=== PATIENT | female | born 1985 | race African-American/Black ===

== ENCOUNTER 2019-02-08 10:15 | Emergency (ER) | payer OTHER ==
[~2019-02-08] VITALS: Ht 149.9 cm; Wt 78.7 kg
--- OUTSIDE RECORDS SUMMARY | 2019-02-08 10:19 | XMS REPORT | Clinical Summary ---
Author Author [facility] Address Unknown Phone Unavailable Care Team Providers Care Field Artillery Officer Name Role Phone Asked, No Pcp PCP Unavailable Allergies No Known Allergies Medications End Date Status Medication Sig Dispensed Refills Start Date Active levothyroxine (SYNTHROID, Take 125 mcg 0 LEVOXYL) 125 mcg tablet by mouth daily. 02/01/2019 levoFLOXacin (LEVAQUIN) Take 1 tablet 7 tablet 0 500 MG tablet (500 mg 9 total) by mouth daily for 7 days. 01/31/2019 metroNIDAZOLE (FLAGYL) Take 1 tablet 21 tablet 0 500 MG tablet (500 mg 9 total) by mouth 3 (three) times a day for 7 days. Active Problems Problem Noted Date Wound infection 01/24/2019 Encounters Care Team Description Date Type Specialty Rubio Lomas MD Tu, MD Juli Coreas, MD Ty Mccullough, Obey Meyer MD Wound infection (Primary Dx); Wound dehiscence; Anemia, unspecified type; High anion gap metabolic acidosis 01/23/2019 Emergency General Surgery - 01/24/2019 after 02/07/2018 Social History Date Tobacco Use Types Packs/Day Years Used Never Smoker Smokeless Tobacco: Never Used Drinks/Week oz/Week Comments Alcohol Use Not Currently Sex Assigned at Date Recorded Not on file Industry Job Start Date Occupation Not on file Not on file Not on file Travel End Travel History Travel Start No recent travel history available. Last Filed Vital Signs Reading Time Taken Comments Vital Sign 120/77 01/24/2019 12:13 PM CDT Blood Pressure 71 01/24/2019 12:13 PM CDT Pulse 37.1 C (98.7 F) 01/24/2019 12:13 PM CDT Temperature 18 01/24/2019 12:13 PM CDT Respiratory Rate 98% 01/24/2019 12:13 PM CDT Oxygen Saturation - - Inhaled Oxygen Concentration - - Weight 149.9 cm (4' 11") 01/23/2019 4:42 PM CDT Height - - Body Mass Index Plan of Treatment Health Maintenance Due Date Last Done Comments CERVICAL CANCER SCREENING 01/09/2005 INFLUENZA VACCINE 12/16/2018 Implants Device Identifier Shelf Expiration Date Model / Serial / Lot Implanted Type Area Manufactur er Coils Coils Description:essure coil for female sterilization Coils-05/18/2005 Coils Fallopian Tube Implanted: 05/18/2005 (Quantity not on file) Procedures Comments Procedure Name Priority Date/Time Associated Diagnosis LACTIC ACID LEVEL, SEPSIS Timed 01/24/2019 - NOW AND REPEAT 2X EVERY 7:00 AM CDT 3 HOURS LACTIC ACID LEVEL, SEPSIS Timed 01/24/2019 - NOW AND REPEAT 2X EVERY 2:22 AM CDT [address] ABDOMEN PELVIS W STAT 01/23/2019 CONTRAST 8:40 PM CDT GRAM STAIN STAT 01/23/2019 7:28 PM CDT URINE CULTURE STAT 01/23/2019 7:28 PM CDT ESTIMATED GFR STAT 01/23/2019 5:59 PM CDT LIPASE LEVEL STAT 01/23/2019 5:59 PM CDT AMYLASE LEVEL STAT 01/23/2019 5:59 PM CDT LACTIC ACID LEVEL, SEPSIS STAT 01/23/2019 - NOW AND REPEAT 2X EVERY 5:59 PM CDT 3 HOURS HCG QUALITATIVE, SERUM STAT 01/23/2019 SCREEN 5:59 PM CDT COMPREHENSIVE METABOLIC STAT 01/23/2019 PANEL 5:59 PM CDT HC COMPLETE BLD COUNT STAT 01/23/2019 W/AUTO DIFF 5:59 PM CDT URINALYSIS SCREEN AND STAT 01/23/2019 MICROSCOPY, WITH REFLEX 5:48 PM CDT TO CULTURE after 02/07/2018 Results * Lactic acid level, SEPSIS - Now and repeat 2x every 3 hours (01/24/2019 7:00 AM CDT) Only the most recent of 3 results within the time period is included. Lactic acid 1.1 0.5 - 2.2 mmol/L [facility] Specimen Blood Performing Organization Address City/State/Zipcode Phone Number [facility] DEPARTMENT OF [address] [place] [address] PATHOLOGY AND GENOMIC MEDICINE [facility] [address] [place], [place] [id number] [place] [address] * CT Abdomen Pelvis W Contrast (01/23/2019 8:40 PM CDT) Specimen Narrative Performed At EXAMINATION:CT ABDOMEN PELVIS W CONTRAST [facility] CLINICAL HISTORY:abd painwound dehiscenserecent common bile duct cyst removal and owel resectionincreased pain and fever TECHNIQUE: Multiple axial images of the abdomen and pelvis were obtained following intravenous administration of iodinated contrast. Sagittal and coronal computerized reformatted images were also obtained. CT imaging was performed with iterative reconstruction techniques and/or automated exposure control to reduce radiation dose. COMPARISON:None. FINDINGS: Postsurgical change in the right upper quadrant. Gallbladder is absent. Hepaticojejunostomy is noted with a biliary stent in place. There is no biliary dilatation. Mild pneumobilia. No fluid collection is seen. Trace free fluid in the pelvis is nonspecific. There is prominent soft tissue induration in the anterior abdominal wall along the incision. No discrete fluid collection is seen. No signs of bowel obstruction or inflammation. Appendix is normal. Subtle fatty fullness in the anterior right adnexal region caudal to surgical clips is probably an area of fat necrosis or omental infarct. IMPRESSION: Abdominal wall induration along the incision suggest wound infection. No discrete abscess. Postsurgical changes otherwise as noted. No biliary dilatation or intraperitoneal collection. [facility]-[id number] Procedure Note Interface, Radiology Results Incoming - 01/23/2019 8:49 PM CDT EXAMINATION: CT ABDOMEN PELVIS W CONTRAST CLINICAL HISTORY: abd pain wound dehiscense recent common bile duct cyst removal and owel resection increased pain and fever TECHNIQUE: Multiple axial images of the abdomen and pelvis were obtained following intravenous administration of iodinated contrast. Sagittal and coronal computerized reformatted images were also obtained. CT imaging was performed with iterative reconstruction techniques and/or automated exposure control to reduce radiation dose. COMPARISON: None. FINDINGS: Postsurgical change in the right upper quadrant. Gallbladder is absent. Hepaticojejunostomy is noted with a biliary stent in place. There is no biliary dilatation. Mild pneumobilia. No fluid collection is seen. Trace free fluid in the pelvis is nonspecific. There is prominent soft tissue induration in the anterior abdominal wall along the incision. No discrete fluid collection is seen. No signs of bowel obstruction or inflammation. Appendix is normal. Subtle fatty fullness in the anterior right adnexal region caudal to surgical clips is probably an area of fat necrosis or omental infarct. IMPRESSION: Abdominal wall induration along the incision suggest wound infection. No discrete abscess. Postsurgical changes otherwise as noted. No biliary dilatation or intraperitoneal collection. [facility]-[id number] Performing Organization Address City/[facility] [place] [address] * Gram stain (01/23/2019 7:28 PM CDT) Gram stain Rare WBC's [facility] result Occasional Gram positive rods [facility] Moderate Gram negative rods [facility] Comment: Specimen Information Specimen Source: Urine Specimen Site: Clean catch Specimen Urine Performing Organization Address City/[facility] Phone Number [facility] DEPARTMENT OF [address] [place] [address] PATHOLOGY AND GENOMIC MEDICINE [address] * Urine culture (01/23/2019 7:28 PM CDT) Urine culture Enterobacter cloacae complex [facility] isolate >10-5 cfu/ml [facility] The performance HOSPITAL characteristics of this assay on this isolate were validated by the Microbiology Laboratory at [facility].This source has not been approved by the U.S. Food and Drug Administration.The results are not intended to be used as the sole means for clinical diagnosis or patient management.The Microbiology Laboratory is authorized under the clinical Laboratory Improvement Amendments of 1988 (CLIA-88) to perform high complexity testing. (A) Comment: Specimen Information Specimen Source: Urine Specimen Site: Clean catch Specimen Urine Antibiotic Method Susceptibility Organism Ampicillin MALA >16 mcg/mL: Resistant Enterobacter cloacae complex Amoxicillin/Clavulanate MALA >16/8 mcg/mL: Resistant Enterobacter cloacae complex Amikacin MALA <=4 mcg/mL: Susceptible Enterobacter cloacae complex Aztreonam MALA <=1 mcg/mL: Susceptible Enterobacter cloacae complex Ceftazidime MALA <=0.5 mcg/mL: Susceptible Enterobacter cloacae complex Ciprofloxacin MALA <=0.5 mcg/mL: Susceptible Enterobacter cloacae complex Ceftriaxone MALA <=0.5 mcg/mL: Susceptible Enterobacter cloacae complex Cefuroxime Sodium MALA >16 mcg/mL: Resistant Enterobacter cloacae complex Cefazolin MALA >32 mcg/mL: Resistant Enterobacter cloacae complex Cefepime MALA <=0.5 mcg/mL: Susceptible Enterobacter cloacae complex Nitrofurantoin MALA >64 mcg/mL: Resistant Enterobacter cloacae complex Cefoxitin MALA >16 mcg/mL: Resistant Enterobacter cloacae complex Gentamicin MALA 1 mcg/mL: Susceptible Enterobacter cloacae complex Levofloxacin MALA <=1 mcg/mL: Susceptible Enterobacter cloacae complex Meropenem MALA <=0.125 mcg/mL: Susceptible Enterobacter cloacae complex Tobramycin MALA 1 mcg/mL: Susceptible Enterobacter cloacae complex Ampicillin/Sulbactam MALA 8/4 mcg/mL: Resistant Enterobacter cloacae complex Trimethoprim/Sulfamethoxazole MALA <=0.5/9.5 mcg/mL: Susceptible Enterobacter cloacae complex Tetracycline MALA <=1 mcg/mL: Susceptible Enterobacter cloacae complex Piperacillin/Tazobactam MALA <=2/4 mcg/mL: Susceptible Enterobacter cloacae complex Ertapenem MALA <=0.125 mcg/mL: Susceptible Enterobacter cloacae complex Tigecycline MALA 1 mcg/mL: Susceptible Enterobacter cloacae complex Performing Organization Address City/State/Zipcode Phone Number [facility] DEPARTMENT OF [address] [place] [address] PATHOLOGY AND GENOMIC MEDICINE [address] * Estimated GFR (01/23/2019 5:59 PM CDT) Pathologist [facility] Estimated GFR >=90 mL/min/1.73 m2 [facility] Comment: [facility] rpretation G1 >=90 Normal or high G2 60-89Mildly decreased [id number] Mildly to moderately decreased [id number] Moderately to severely decreased G4 15-29Severely decreased G5 <15Kidney failure The eGFR was calculated using the Chronic Kidney Disease Epidemiology Collaboration (CKD-EPI) equation. Interpretation is based on recommendations of the National Kidney Foundation-Kidney Disease Outcomes Quality Initiative (NKF-KDOQI) published in 2014. Specimen Plasma specimen Performing Organization Address City/State/Zipcode Phone Number [facility] DEPARTMENT OF [address] [place] [address] PATHOLOGY AND GENOMIC MEDICINE [address] * CBC with platelet and differential (01/23/2019 5:59 PM CDT) [facility] WBC 6.30 4.50 - 11.00 k/uL [facility] RBC 3.99 (L) 4.20 - 5.50 m/uL [facility] HGB 10.3 (L) 12.0 - 16.0 g/dL [facility] HCT 33.4 (L) 37.0 - 47.0 % [facility] MCV 83.7 82.0 - 100.0 fL [facility] MCH 25.8 (L) 27.0 - 34.0 pg [facility] MCHC 30.8 (L) 31.0 - 37.0 g/dL [facility] RDW - SD 47.4 37.0 - 55.0 fL [facility] MPV 9.9 8.8 - 13.2 fL [facility] Platelet count 310 150 - 400 k/uL [facility] Nucleated RBC 0.00 /100 WBC [facility] Neutrophils 66.0 39.0 - 69.0 % [facility] Lymphocytes 26.5 25.0 - 45.0 % [facility] Monocytes 6.5 0.0 - 10.0 % [facility] Eosinophils 0.5 0.0 - 5.0 % [facility] Basophils 0.3 0.0 - 1.0 % [facility] Immature 0.2Comment: "Immature 0.0 - 1.0 % [facility] granulocytes granulocytes" (promyelocytes, [facility] myelocytes, metamyelocytes) HOSPITAL Specimen Blood Performing Organization Address City/[facility]/Zipcode Phone Number [facility] DEPARTMENT OF [address] [place] [address] PATHOLOGY AND GENOMIC MEDICINE [address] * hCG qualitative, serum screen (01/23/2019 5:59 PM CDT) Pathologist [facility] hCG NegativeComment: Sensitivity [facility] qualitative, of HCG test: 25 mIU/mL [facility] Specimen Blood Performing Organization Address City/[facility]/Zipcode Phone Number [facility] [place] [address] PATHOLOGY AND GENOMIC MEDICINE [address] * Lipase level (01/23/2019 5:59 PM CDT) Lipase 22 13 - 60 U/L [facility] Specimen Blood Performing Organization Address City/[facility] Cent[facility]ode Phone Number [facility] [place] [address] PATHOLOGY AND GENOMIC MEDICINE [address] * Amylase level (01/23/2019 5:59 PM CDT) Pathologist [facility] Amylase 92 28 - 100 U/L [facility] Specimen Blood Performing Organization Address [facility] Phone Number [facility] [place] [address] PATHOLOGY AND GENOMIC MEDICINE [address] * Comprehensive metabolic panel (01/23/2019 5:59 PM CDT) Sodium 140 135 - 148 mEq/L [facility] Potassium 3.2 (L) 3.5 - 5.0 mEq/L [facility] Chloride 101 98 - 112 mEq/L [facility] CO2 23 (L) 24 - 31 mEq/L [facility] Anion gap 16@ANIO (H) 7 - 15 mEq/L [facility] BUN 4 (L) 6 - 20 mg/dL [facility] Creatinine 0.58 0.50 - 0.90 mg/dL [facility] Glucose 89 65 - 99 mg/dL [facility] Calcium 9.1 8.3 - 10.2 mg/dL [facility] Protein 7.6 6.3 - 8.3 g/dL [facility] Comment: [facility] 4.6-7.0 g/dL 1 week 4.4-7.6 g/dL 7 months-1year 5.1-7.3 g/dL 1-2 years5.6-7 .5 g/dL >3 years6.0-8 .0 g/dL 18-150 6.3-8.3 g/dL Albumin 3.2 (L) 3.5 - 5.0 g/dL [facility] A/G ratio 0.7 0.7 - 3.8 [facility] Alkaline 65 35 - 104 U/L [facility] phosphatase [facility] AST 21 10 - 35 U/L [facility] ALT 9 5 - 50 U/L [facility] Total bilirubin 0.4 0.0 - 1.2 mg/dL [facility] Specimen Plasma specimen Performing Organization Address City/State/Zipcode Phone Number [facility] DEPARTMENT OF [address] [place] [address] PATHOLOGY AND GENOMIC MEDICINE [address] * Urinalysis screen and microscopy, with reflex to culture (01/23/2019 5:48 PM CDT) Specimen site Clean catch [facility] Color, UA Dark Yellow [facility] Appearance, UA Hazy [facility] Specific 1.027 1.001 - 1.035 [facility] gravity, [facility] pH, UA 5.0 5.0 - 8.5 [facility] Protein, UA Negative Negative [facility] Glucose, UA Negative Negative [facility] Ketones, UA Trace (A) Negative [facility] Bilirubin, UA Negative Negative [facility] Blood, UA Negative Negative [facility] Nitrite, UA Positive (A) Negative [facility] Urobilinogen, <2.0 <2.0 [facility] Leukocyte Moderate (A) Negative [facility] esterase, [facility] Epithelial 5 /HPF [facility] cells, [facility] WBC, UA 29 (H) 0 - 4 /HPF [facility] RBC, UA <1 0 - 5 /HPF [facility] Bacteria, UA Moderate (A) None seen [facility] Yeast, UA None seen [facility] Yeast with None seen [facility] Specimen Urine Performing Organization Address City/State/Zipcode Phone Number [facility] DEPARTMENT OF [address] [place] [address] PATHOLOGY AND GENOMIC MEDICINE [place] [phone] [facility] after 02/07/2018 Insurance Type Payer Benefit Subscriber ID Effective Phone Address Plan / Dates Group HMO [employer] xxxxxxxxx [id number] [employer] resent [facility] Advance Directives For more information, please contact: [phone] Patient Application Systems Architect Explanation Type Date Recorded Advance Directives, Living Will and Medical Power of Dragger Out
--- OUTSIDE RECORDS SUMMARY | 2019-02-08 10:21 | XMS REPORT | Summary of Care ---
Author Author [facility] Organization [facility] Address Unknown Phone Unavailable Encounter NEEL Santana(VERONICA) [id number] Date(s): 02/01/19 - 02/01/19 [facility] [address] [place] [address] [address] [place] [phone]- [phone] Discharge Disposition: Home or Self Care Attending Physician: Toni Ye MD Referring Physician: Toni Ye MD Vital Signs Most recent to 1 oldest [Reference Range]: Height 149.86 cm (02/01/19 11:01 AM) Temperature Oral 98.5 DegF [96.4-99.1 DegF] (02/01/19 11:01 AM) Blood Pressure 116/82 mmHg [90-140/60-90 mmHg] (02/01/19 11:01 AM) Respiratory Rate 12 BRMIN [14-20 BRMIN] *LOW* (02/01/19 11:01 AM) Peripheral Pulse 78 bpm Rate [60-100 bpm] (02/01/19 11:01 AM) Weight 79.318 kg (02/01/19 11:01 AM) Body Mass Index 35.32 m2 (02/01/19 11:01 AM) Problem List Condition Effective Dates Status Health Status Informant Abdominal Active pain(Confirmed) Acute Active diarrhea(Confirmed) Acute UTI(Confirmed) Active Bacterial Active vaginosis(Confirmed) Vaginal yeast Active infection(Confirmed) Chest Active pain(Confirmed) Choledochal Active cyst(Confirmed) Low serum vitamin Active D(Confirmed) Hospital discharge Active follow-up(Confirmed) GERD Active (gastroesophageal reflux disease)(Confirmed) Enlarged Active thyroid(Confirmed) Recent major Active surgery(Confirmed) Headache(Confirmed) Active Shingles(Confirmed) Active Hip pain(Confirmed) Active HTN Active (hypertension)(Confi rmed) Hypothyroidism(Confi Active rmed) Loss of Active balance(Confirmed) Female Active incontinence(Confirm ed) Urinary Active frequency(Confirmed) Tailbone Active injury(Confirmed) Low back Active pain(Confirmed) Hyperlipemia, Active mixed(Confirmed) Moderate Active anxiety(Confirmed) Morbidly Active obese(Confirmed) Yeast Active infection(Confirmed) Obesity(Confirmed) Active Cough(Confirmed) Active Female Active dyspareunia(Confirme d) Pelvic Active pain(Confirmed) Breast Active pain(Confirmed) Dysuria(Confirmed) Active Annual physical Active exam(Confirmed) Pap smear for Active cervical cancer screening(Confirmed) Screen for STD Active (sexually transmitted disease)(Confirmed) Prediabetes(Confirme Active d) Prediabetes(Confirme Active d) Pyelonephritis(Confi Active rmed) Rectovaginal Active fistula(Confirmed) Diabetes mellitus Active screening(Confirmed) Seborrheic Active dermatitis(Confirmed ) Left shoulder Active pain(Confirmed) Shoulder Active pain(Confirmed) Obesity due to Active excess calories(Confirmed) Upper respiratory Active infection(Confirmed) Urge Active incontinence(Confirm ed) Urinary Active incontinence(Confirm ed) Vaginal Active discharge(Confirmed) Upper respiratory Active infection, viral(Confirmed) Allergies, Adverse Reactions, Alerts No Known Allergies Medications No Known Medications Results No data available for this section Immunizations Given and Recorded Vaccine Date Status Refusal Reason influenza virus vaccine, inactivated1 01/27/18 Given 1Result Comment: Patient waited 15 min with no reaction Procedures Procedure Date Related Diagnosis Body Site Status Colonoscopy 2012 Completed Procedure on knee1 2010 Completed section Completed Papanicolaou smear taken2 Completed Tubal ligation Completed 1Left knee 2had it years ago Social History Social History Type Response Alcohol Never Substance Abuse Use: None. Recreational Drug Route: Subcutaneous. Smoking Status Never smoker; Exposure to Tobacco Smoke None; Cigarette Smoking Last 365 Days No; Reg Smoking Cessation Counseling No entered on: 02/01/19 Assessment and Plan No data available for this section
--- OUTSIDE RECORDS SUMMARY | 2019-02-08 10:21 | XMS REPORT | Continuity of Care Document ---
Author Author [employer] Address Unknown Phone Unavailable Care Team Providers Care [employer] Producer Name Role Phone [email or web address] Unavailable Unavailable Problems Problem Status Onset Date Classification Date Reported Comments Source SURGICAL F/U Active 01/30/2019 [facility] FOR POST OPERATION FOLLOW UP Active 01/18/2019 [facility] Unspecified abdominal pain 12/31/2018 01/02/2019 [facility] PAIN Active 12/30/2018 [facility] CHOLEDOCO CYST Active 12/21/2018 [facility] FOLLOW UP Active 12/21/2018 [facility] DX: N83.292=OTHER OVARIAN CYST, LEFT ARMIN Active 12/07/2018 [facility] DX: HYPERTHYROIDISM, ENLARGED THYROID Active 11/05/2018 [facility] Z68.39 BODY MASS INDEX (BMI) 39.0-39.9, Active 10/13/2018 [facility] DX: OVARIAN CYST LT SIDE Active 10/06/2018 [facility] Weakness 09/19/2018 09/21/2018 [facility] Personal history of other endocrine, nutritional and metabolic disease 09/19/2018 09/21/2018 [facility] FEVER, CHILLS Active 09/19/2018 [facility] NIPPLE RECONSTRUCTION OF LEFT BREAST Active 08/02/2018 [facility] UNK Active 07/14/2018 [facility] Low back pain 06/12/2018 12/28/2018 [facility] R10.2 Active 06/04/2018 [facility] ABD PAIN Active 06/02/2018 [facility] Fistula of vagina to large intestine 06/20/2017 09/23/2017 [facility] DX: N82.3=FISTULA OF VAGINA TO LARGE INT Active 05/27/2017 [facility] XRAY Active 01/22/2017 [facility] E04.9 Active 07/12/2015 [facility] Pelvic and perineal pain 12/28/2018 [facility] Unspecified ovarian cyst, left side 12/28/2018 [facility] Abdominal pain (finding) Active Problem 02/03/2019 [facility] Acute diarrhea (disorder) Active Problem 02/03/2019 [facility] Acute urinary tract infection (disorder) Active Problem 02/03/2019 [facility] Bacterial vaginosis (disorder) Active Problem 02/03/2019 [facility] Benign essential hypertension (disorder) Active Problem 01/14/2019 [facility] Candidiasis of vagina (disorder) Active Problem 02/03/2019 [facility] Chest pain (finding) Active Problem 02/03/2019 [facility] Decreased vitamin D (finding) Active Problem 02/03/2019 [facility] Follow-up status (finding) Active Problem 02/03/2019 [facility] Gastroesophageal reflux disease (disorder) Active Problem 02/03/2019 [facility] Goiter (disorder) Active Problem 02/03/2019 [facility] Headache (finding) Active Problem 02/03/2019 [facility] Herpes zoster (disorder) Active Problem 02/03/2019 [facility] Hip pain (finding) Active Problem 02/03/2019 [facility] Hypertensive disorder, systemic arterial (disorder) Active Problem 02/03/2019 [facility] Hypothyroidism (disorder) Active Problem 02/03/2019 [facility], [facility] Impairment of balance (finding) Active Problem 02/03/2019 [facility] Incontinence (finding) Active Problem 02/03/2019 [facility] Increased frequency of urination (finding) Active Problem 02/03/2019 [facility] Injury of coccyx (disorder) Active Problem 02/03/2019 [facility], [facility] [place] Low back pain (disorder) Active Problem 02/03/2019 [facility], [facility] [place] Mixed hyperlipidemia (disorder) Active Problem 02/03/2019 [facility], [facility] [place] Moderate anxiety (finding) Active Problem 02/03/2019 [facility], [facility] [place] Morbid obesity (disorder) Active Problem 02/03/2019 [facility] Mycosis (disorder) Active Problem 02/03/2019 [facility] Obesity (disorder) Active Problem 02/03/2019 [facility] Cough (finding) Active Problem 02/03/2019 [facility], [facility] [place] Pain in female genitalia on intercourse (finding) Active Problem 02/03/2019 [facility], [facility] [place] Pain in pelvis (finding) Active Problem 02/03/2019 [facility] Pain of breast (finding) Active Problem 02/03/2019 [facility] Dysuria (finding) Active Problem 02/03/2019 [facility] Patient encounter status (finding) Active Problem 02/03/2019 [facility] Prediabetes (finding) Active Problem 02/03/2019 [facility], [facility] [place] Pyelonephritis (disorder) Active Problem 02/03/2019 [facility] Rectovaginal fistula (disorder) Active Problem 02/03/2019 [facility] Screening status (finding) Active Problem 02/03/2019 [facility], [facility] [place] Seborrheic dermatitis (disorder) Active Problem 02/03/2019 [facility] Shoulder pain (finding) Active Problem 02/03/2019 [facility] Simple obesity (disorder) Active Problem 02/03/2019 [facility] Upper respiratory infection (disorder) Active Problem 02/03/2019 [facility] Urge incontinence of urine (finding) Active Problem 02/03/2019 [facility] Urinary incontinence (finding) Active Problem 02/03/2019 [facility] Vaginal discharge (finding) Active Problem 02/03/2019 [facility] Viral upper respiratory tract infection (disorder) Active Problem 02/03/2019 [facility] Congenital choledochal cyst (disorder) Active Problem 02/03/2019 [facility] History of - surgery (context-dependent category) Active Problem 02/03/2019 [facility] M79.672/M25.512/M54.5 Active [facility] NONTOXIC GOITER, UNSPECIFIED Active [facility] LOW BACK PAIN Active [facility] [place] Medications Medication Details Route Status Patient Instructions Ordering Provider Order Date Source Acetaminophen 500 MG Oral Tablet [Tylenol] 500 mg=1 tab, PO, PRN, PRN Q8H, 0 Refill(s) Active 01/25/2019 [facility] Metronidazole 500 MG Oral Tablet 500 mg=1 tab, PO, Q8H, # 21 tab, 0 Refill(s) Active 01/25/2019 [facility] levofloxacin 500 mg oral tablet 500 mg=1 tab, PO, Daily, # 7 tab, 0 Refill(s) Active 01/24/2019 [facility] DME Addition #1 See Instructions, Blood pressure monitor to check blood pressure, # 1 ea, 0 Refill(s), Pharmacy: [facility] #[id number] Active 01/20/2019 [facility] gabapentin 300 MG Oral Capsule 300 mg=1 cap, PO, TID, # 90 cap, 0 Refill(s), Pharmacy: [facility] #[id number] Active 01/18/2019 [facility] pantoprazole 40 mg oral enteric coated tablet 40 mg=1 tab, PO, BID-Before Meals, # 60 tab, 6 Refill(s), Pharmacy: [facility] #[id number] Active 01/18/2019 [facility] gabapentin 50 MG/ML Oral Solution 600 mg=12 mL, PO, Q8H, # 1080 mL, 1 Refill(s), Pharmacy: [facility] #[id number] Active 01/18/2019 [facility] pantoprazole 40 mg oral enteric coated tablet 40 mg=1 tab, PO, BID-Before Meals, # 60 tab, 0 Refill(s), Pharmacy: [facility] #[id number] Active 01/07/2019 [facility] Docusate Sodium 50 MG / sennosides, FDC 8.6 MG Oral Tablet 2 tab, PO, Q12H, 0 Refill(s) Active 01/07/2019 [facility] gabapentin 50 MG/ML Oral Solution 300 mg=6 mL, PO, Q8H, # 252 mL, 0 Refill(s), Pharmacy: [facility] #[id number] Active 01/07/2019 [facility] methocarbamol 500 mg oral tablet 500 mg=1 tab, PO, Q6H, PRN Pain Score 4-6, X 7 day, # 28 tab, 0 Refill(s) Active 01/07/2019 [facility] tramadol hydrochloride 50 MG Oral Tablet 100 mg=2 tab, PO, Q8H, PRN Pain Score 10, X 7 day, # 30 tab, 0 Refill(s) Active 01/07/2019 [facility] Tylenol with Codeine 120 mg-12 mg/5 mL oral liquid 30 mL, PO, Q6H, PRN Pain Score 7-10, X 10 day, # 120 mL, 0 Refill(s) Active 01/07/2019 [facility] [place] 10/325 oral tablet 1 tab, Route: PO, Drug Form: TAB, Dosing Weight 83, kg, Q6H, PRN Pain Score 7-10, Start date: 01/06/19 15:07:00 CDT, Duration: 1 doses or times, Stop date: Limited # of times, 0Notes: Do not exceed 4gm/day of acetaminophen. (Same as: [place] 325/10) Inactive 01/06/2019 [facility] Tylenol with Codeine 120 mg-12 mg/5 mL oral liquid 30 ml, Route: PO, Drug Form: LIQ, Dosing Weight 83, kg, Q6H, STAT, Start date: 01/06/19 13:49:00 CDT, Duration: 30 day, Stop date: 02/05/19 15:00:00 CDT, 0Notes: (acetaminophen-codeine 120-12 mg/5 ml oral liq) Do not exceed 4gm/day of acetaminophen. (Same as: Tylenol w/Codeine) No Longer Active 01/06/2019 [facility] Acetaminophen 1,000 mg, 31.23 mL, Route: PO, Drug form: LIQ, ONCE, Dosing Weight 83, kg, PRN Pain Score 4-6, Start date: 01/06/19 4:52:00 CDT, 0Notes: Max [id number]=3840el/day (4 gm/day). (Same as: Tylenol) Inactive 01/06/2019 [facility] molasses 240 mL, Route: AK, Drug Form: SYRP, Dosing Weight 83, kg, ONCE, Milk of Molasses Enema, Start date: 01/05/19 22:28:00 CDT, Stop date: 01/05/19 22:28:00 CDT, 0Notes: (Same as:Molasses) No Longer Active 01/06/2019 [facility] remove patch 1 patch, Route: TOP, Bedtime, Drug form: ERFILM, Start date: 01/05/19 21:00:00 CDT, Duration: 30 day, Stop date: 02/03/19 21:00:00 CDT, 0Notes: Remove patch 12 hours after application each day. No Longer Active 01/06/2019 [facility] Tramadol 50 mg, 1 tab, Route: PO, Drug form: TAB, Q6H, Dosing Weight 83, kg, PRN Pain Score 1-3, Start date: 01/05/19 18:00:00 CDT, Duration: 30 day, Stop date: 02/04/19 17:59:00 CDT, 0Notes: Not to exceed 40 0mg/day. (Same As: Ultram) No Longer Active 01/05/2019 [facility] Milk of Magnesia 60 ml, Route: PO, Drug Form: SUSP, Dosing Weight 83, kg, BID, Start date: 01/05/19 17:00:00 CDT, Duration: 4 doses or times, Stop date: 01/07/19 9:00:00 CDT, 0Notes: (Same as: Milk of Magnesia, MOM) No Longer Active 01/05/2019 [facility] Dilaudid 0.2 mg, 0.1 mL, Route: IVP, Drug form: INJ, Q4H, Dosing Weight 83, kg, PRN, Start date: 01/05/19 15:18:00 CDT, Duration: 30 day, Stop date: 02/04/19 15:17:00 CDT, Pain Score 10, 0Notes: Same as Dilaudid No Longer Active 01/05/2019 [facility] Acetaminophen 325 MG / Hydrocodone Bitartrate 10 MG Oral Tablet [[place] 10/325] 1 tab, Route: PO, Drug Form: TAB, Dosing Weight 83, kg, Q6H, PRN Pain Score 7-10, Start date: 01/05/19 15:16:00 CDT, Duration: 30 day, Stop date: 02/04/19 15:15:00 CDT, 0Notes: Do not exceed 4gm/day of acetaminophen. (Same as: [place] 325/10) No Longer Active 01/05/2019 [facility] Acetaminophen 325 MG / Hydrocodone Bitartrate 5 MG Oral Tablet [[place] 5/325] 1 tab, Route: PO, Drug Form: TAB, Dosing Weight 83, kg, Q6H, PRN Pain Score 4-6, Start date: 01/05/19 15:16:00 CDT, Duration: 30 day, Stop date: 02/04/19 15:15:00 CDT, 0Notes: (Same as: [place] 325/5) Do not exceed 4gm/day of acetaminophen. No Longer Active 01/05/2019 [facility] Bisacodyl 10 mg, 1 supp, Route: AK, Drug form: SUPP, ONCE, Dosing Weight 83, kg, Priority: NOW, Start date: 01/05/19 13:01:00 CDT, Stop date: 01/05/19 13:01:00 CDT, 0Notes: (Same As: Dulcolax, Bisco-Lax) Inactive 01/05/2019 [facility] Lidocaine 0.05 MG/MG Transdermal Patch 1 patch, Route: TOP, Daily, Drug form: FILM, Start date: 01/05/19 9:00:00 CDT, Duration: 30 day, Stop date: 02/03/19 9:00:00 CDT, 0Notes: Apply only once for up to 12 hours in a 24-hour period (12 hours on and 12 hours off). (Same as: Lidoderm) "Remove old patch before application of new patch" No Longer Active 01/05/2019 [facility] Oxycodone Hydrochloride 5 MG Oral Tablet 5 mg, 1 tab, Route: PO, Drug form: TAB, Q6H, Dosing Weight 83, kg, PRN, Start date: 01/04/19 18:14:00 CDT, Duration: 30 day, Stop date: 02/03/19 18:13:00 CDT, Pain Score 1- 5, 0Notes: (Same as: Roxicodone) No Longer Active 01/04/2019 [facility] Dilaudid 0.2 mg, 0.1 mL, Route: IVP, Drug form: INJ, Q4H, Dosing Weight 83, kg, PRN, Start date: 01/04/19 18:13:00 CDT, Duration: 30 day, Stop date: 02/03/19 18:12:00 CDT, Pain Score 9-10, 0Notes: Same as Dilaudid No Longer Active 01/04/2019 [facility] Oxycodone Hydrochloride 5 MG Oral Tablet 10 mg, 2 tab, Route: PO, Drug form: TAB, Q6H, Dosing Weight 82.273, kg, PRN, Start date: 01/04/19 18:12:00 CDT, Duration: 30 day, Stop date: 02/03/19 18:11:00 CDT, Pain Score 5-8, 0Notes: (Same as: Roxicodone) No Longer Active 01/04/2019 [facility] pantoprazole 40 mg, 1 tab, Route: PO, Drug form: ECTAB, BID-Before Meals, Dosing Weight 83, kg, Start date: 01/04/19 16:30:00 CDT, Duration: 30 day, Stop date: 02/03/19 7:30:00 CDT, 0Notes: Tablet should not be chewed or crushed. (Same as: Protonix) No Longer Active 01/04/2019 [facility] gabapentin 50 MG/ML Oral Solution 300 mg, 6 mL, Route: PO, Drug form: SOLN, Q8H, Dosing Weight 83, kg, Start date: 01/04/19 16:00:00 CDT, Duration: 30 day, Stop date: 02/03/19 8:00:00 CDT, 0Notes: (Same as: Neurontin) No Longer Active 01/04/2019 [facility] Protonix 40 mg, 1 pkt, Route: PO, Drug form: GRAN/REC, Daily, Dosing Weight 83, kg, Start date: 01/04/19 14:00:00 CDT, Duration: 30 day, Stop date: 02/03/19 9:00:00 CDT, 0, HH [id number]: Same as: Protonix Mix in 5 mL apple juice or applesauce for oral & 10mL apple juice for NG tube Inactive 01/04/2019 [facility] sodium phosphate + Sodium Chloride 0.9% IV 250 mL 45 mmol, 15 mL, Route: IV, ONCE, Start date: 01/04/19 12:00:00 CDT, Stop date: 01/04/19 12:00:00 CDT, 0Notes: Infuse over 4 hour. Do not infuse phosphorous concurrently in the same line as TPN or IVF that contains calcium. For double lumen central lines, phosphorous may be infused in a separate lumen from TPN. Inactive 01/04/2019 [facility] pantoprazole 40 mg, Route: IV, Drug form: INJ, Daily, Dosing Weight 83, kg, Priority: NOW, Start date: 01/04/19 8:32:00 CDT, Duration: 30 day, Stop date: 02/02/19 9:00:00 CDT, 0Notes: For IV push reconstitute with 10 ml 0.9% sodium chloride and push over 2 minutes. (Same as: Protonix) Inactive 01/04/2019 [facility] sodium phosphate 45 mmol, Route: IVPB, ONCE, Dosing Weight 83, kg, Start date: 01/04/19 8:30:00 CDT, Stop date: 01/04/19 8:30:00 CDT, Phosphate level Inactive 01/04/2019 [facility] Tums 500 mg, 1 tab, Route: CHEW, Drug form: CHEWTAB, TID, Dosing Weight 83, kg, PRN Indigestion, Start date: 01/04/19 8:30:00 CDT, Duration: 30 day, Stop date: 02/03/19 8:29:00 CDT, 0Notes: (Same As: Tums) C alcium Carbonate 500 ej=958 mg elemental calcium Dose= mg calcium carbonate ( mg elemental calcium) No Longer Active 01/04/2019 [facility] Acetaminophen 1,000 mg, 31.23 mL, Route: PO, Drug form: LIQ, ONCE, Dosing Weight 83, kg, PRN Pain Score 1-3, Start date: 01/04/19 6:14:00 CDT, 0Notes: Max ieuwvxibfheeu=9623ka/day (4 gm/day). (Same as: Tylenol) Inactive 01/04/2019 [facility] Phenergan 12.5 mg, Route: IV Central, ONCE, Dosing Weight 83, kg, PRN Nausea & Vomiting, Start date: 01/03/19 23:31:00 CDT Inactive 01/04/2019 [facility] Robaxin 500 mg, 1 tab, Route: PO, Drug form: TAB, Q6H, Dosing Weight 82.273, kg, Start date: 01/03/19 13:00:00 CDT, Duration: 30 day, Stop date: 02/02/19 12:00:00 CDT, 0Notes: (Same as:Robaxin) No Longer Active 01/03/2019 [facility] molasses 240 mL, Route: AK, Drug Form: SYRP, Dosing Weight 83, kg, ONCE, Milk of Molasses Enema, NOW, Start date: 01/03/19 12:20:00 CDT, Stop date: 01/03/19 12:20:00 CDT, 0Notes: (Same as:Molasses) Inactive 01/03/2019 [facility] Milk of Magnesia 60 ml, Route: PO, Drug Form: SUSP, Dosing Weight 83, kg, ONCE, NOW, Start date: 01/03/19 12:20:00 CDT, Stop date: 01/03/19 12:20:00 CDT, 0Notes: (Same as: Milk of Magnesia, MOM) Inactive 01/03/2019 [facility] Simethicone 80 mg, 1.2 mL, Route: PO, Drug form: DROP, Q6H, Dosing Weight 83, kg, PRN Gas, Start date: 01/03/19 11:23:00 CDT, Duration: 30 day, Stop date: 02/02/19 11:22:00 CDT, 0Notes: (Same as: Mylicon, Phazyme, Genasyme) No Longer Active 01/03/2019 [facility] potassium phosphate 45 mmol, 15 mL, Route: IVPB, ONCE, Dosing Weight 83, kg, Start date: 01/03/19 9:03:00 CDT, Stop date: 01/03/19 9:03:00 CDT, 0Notes: (Same as: K Phosphate.) Do not infuse phosphorous concurrently in the same line as TPN or IVF that contains calcium. For double lumen central lines, phosphorous may be infused in a separate lumen from TPN. 1 mMol phoshate has 1.47 mEq potassium Infuse over 4 hours Inactive 01/03/2019 [facility] Bisacodyl 10 mg, 1 supp, Route: AK, Drug form: SUPP, ONCE, Dosing Weight 83, kg, Start date: 01/03/19 7:37:00 CDT, Stop date: 01/03/19 7:37:00 CDT, 0Notes: (Same As: Dulcolax, Bisco-Lax) Inactive 01/03/2019 [facility] Iohexol 100 mL, Route: IVP, Drug Form: SOLN, Dosing Weight 83, kg, ONCALL, STAT, Start date: 01/03/19 7:34:00 CDT, Duration: 1 doses or times, Dose=2.2ml/kg, Max [id number] -- "To be infused by Radiology Staff ONLY", 0Notes: (Same as:Omnipaque 350). WASTE: F/P - Black; E - Municipal Trash Bin Inactive 01/03/2019 [facility] Ketorolac 30 mg, 1 mL, Route: IVP, Drug form: INJ, Q6H, Dosing Weight 83, kg, Start date: 01/02/19 18:00:00 CDT, Duration: 5 doses or times, Stop date: 01/03/19 18:00:00 CDT, 0Notes: (Same as:Toradol) IV bolus must be given >15 seconds. Give IM administration slowly and deeply into the muscle. Not for use > 4 days MEDICATION WASTE Product Size: 30 mg Product Wasted: ___ mg No Longer Active 01/02/2019 [facility] sodium phosphate 30 mmol, 10 mL, Route: IVPB, ONCE, Dosing Weight 83, kg, Start date: 01/02/19 7:04:00 CDT, Stop date: 01/02/19 7:04:00 CDT, 0Notes: Infuse over 4 hour. Do not infuse phosphorous concurrently in the s arjun line as TPN or IVF that contains calcium. For double lumen central lines, phosphorous may be infused in a separate lumen from TPN. Inactive 01/02/2019 [facility] Zofran 4 mg, 2 mL, Route: IVP, Drug form: INJ, Q6H, Dosing Weight 83, kg, PRN Nausea, Start date: 01/02/19 5:35:00 CDT, Duration: 30 day, Stop date: 02/01/19 5:34:00 CDT, 0Notes: (Same as: Zofran) MEDICATION WASTE Product Size: 4 mg Product Wasted: ___ mg No Longer Active 01/02/2019 [facility] Zofran 4 mg, 1 tab, Route: PO, Drug form: TAB, Q6H, Dosing Weight 83, kg, PRN Nausea, Start date: 01/02/19 4:16:00 CDT, Duration: 30 day, Stop date: 02/01/19 4:15:00 CDT, 0Notes: (Same as: Zofran) No Longer Active 01/02/2019 [facility] cefepime 1 gm, Route: IVP, Drug form: INJ, ABXQ8H, Dosing Weight 83, kg, (CrCl >/=60 ml/min), Start date: 01/01/19 20:00:00 CDT, Duration: 4 day, Stop date: 01/05/19 12:00:00 CDT, ABX Indication: Intra- abdominal Infection, 0Notes: (Same As: Maxipime) MEDICATION WASTE Product Size: 1000 mg Product Wasted: ___ mg No Longer Active 01/02/2019 [facility] Flagyl 500 mg, 100 mL, Route: IVPB, Drug form: INJ, ABXQ8H, Dosing Weight 83, kg, Start date: 01/01/19 20:00:00 CDT, Duration: 4 day, Stop date: 01/05/19 12:00:00 CDT, ABX Indication: Intra-abdominal Infection, 0Notes: (Same as: Flagyl) Avoid alcohol. No Longer Active 01/02/2019 [facility] Calcium Chloride 0.0014 MEQ/ML / Potassium Chloride 0.004 MEQ/ML / Sodium Chloride 0.103 MEQ/ML / Sodium Lactate 0.028 MEQ/ML Injectable Solution 1,000 mL, 1,000 ml/hr, Infuse Over: 1 hr, Route: IV, 1,000, Drug form: INJ, ONCE, Priority: STAT, Dosing Weight 83 kg, Start date: 01/01/19 16:35:00 CDT, Stop date: 01/01/19 16:35:00 CDT, 0 Inactive 01/01/2019 [facility] Dilaudid 0.2 mg, 0.1 mL, Route: IVP, Drug form: INJ, Q3H, Dosing Weight 83, kg, PRN Pain Score 7-10, Start date: 01/01/19 13:12:00 CDT, Duration: 30 day, Stop date: 01/31/19 13:11:00 CDT, 0Notes: Same as Dilaudid No Longer Active 01/01/2019 [facility] Calcium Chloride 0.0014 MEQ/ML / Potassium Chloride 0.004 MEQ/ML / Sodium Chloride 0.103 MEQ/ML / Sodium Lactate 0.028 MEQ/ML Injectable Solution 1,000 mL, 1,000 ml/hr, Infuse Over: 1 hr, Route: IV, ONCE, Priority: STAT, Dosing Weight 83 kg, Start date: 01/01/19 13:03:00 CDT, Stop date: 01/01/19 13:03:00 CDT Inactive 01/01/2019 [facility] Lidocaine Hydrochloride 0.05 MG/MG Transdermal Patch [Lidoderm] 1 patch, Route: TOP, Daily, Drug form: FILM, Start date: 01/01/19 9:00:00 CDT, Duration: 30 day, Stop date: 01/30/19 9:00:00 CDT, Remove after 12 hours, 0Notes: Apply only once for up to 12 hours in a 24-hour period (12 hours on and 12 hours off). (Same as: Lidoderm) "Remove old patch before application of new patch" No Longer Active 01/01/2019 [facility] Sertraline 50 mg, 1 tab, Route: PO, Drug form: TAB, Daily, Dosing Weight 82.273, kg, Start date: 01/01/19 9:00:00 CDT, Duration: 30 day, Stop date: 01/30/19 9:00:00 CDT, 0Notes: (Same as: Zoloft) No Longer Active 01/01/2019 [facility] pantoprazole 40 mg, 1 tab, Route: PO, Drug form: ECTAB, Daily, Dosing Weight 83, kg, Start date: 01/01/19 9:00:00 CDT, Duration: 30 day, Stop date: 01/30/19 9:00:00 CDT, 0Notes: Tablet should not be chewed or cru shed. (Same as: Protonix) No Longer Active 01/01/2019 [facility] Dextrose 50% Syringe 12.5 gm, 25 mL, Route: IVP, Drug Form: INJ, Dosing Weight 83, kg, PRN, PRN Blood Glucose Results, Start date: 01/01/19 7:05:00 CDT, Duration: 30 day, Stop date: 01/31/19 7:04:00 CDT, 0 No Longer Active 01/01/2019 [facility] Glucagon 1 mg, Route: IM, Drug form: PDR/INJ, PRN, Dosing Weight 83, kg, PRN Blood Glucose Results, Start date: 01/01/19 7:05:00 CDT, Duration: 30 day, Stop date: 01/31/19 7:04:00 CDT, 0 No Longer Active 01/01/2019 [facility] Insulin regular 1 unit, 0.01 mL, Route: SUB-Q, Drug form: SOLN, Sliding Scale, Dosing Weight 83, kg, PRN Blood Glucose Results, Start date: 01/01/19 7:05:00 CDT, Duration: 30 day, Stop date: 01/31/19 7:04:00 CDT, 0Notes: (Same as: Humulin R) Roll in palms of hands gently; Do not shake vigorously. WASTE: F/P - Black; E - Municipal Trash Bin Stable for 31 days at room temperature Expires in days from Date No Longer Active 01/01/2019 [facility] tramadol hydrochloride 50 MG Oral Tablet 50 mg, 1 tab, Route: PO, Drug form: TAB, Q6H, Dosing Weight 83, kg, PRN Pain Score 1-3, Start date: 01/01/19 7:03:00 CDT, Duration: 30 day, Stop date: 01/31/19 7:02:00 CDT, 0Notes: Not to exceed 400mg/day. (Same As: Ultram) No Longer Active 01/01/2019 [facility] Synthroid 112 microgram, 1 tab, Route: PO, Drug form: TAB, [id number], Dosing Weight 82.273, kg, Start date: 01/01/19 6:30:00 CDT, Duration: 30 day, Stop date: 01/30/19 6:30:00 CDT, 0Notes: Take 1 hour before or 2 hours after meal; Enteral feeds may interefere with the absorption of this medication.(Same as:Levothroid) No Longer Active 01/01/2019 [facility] glycopyrrolate (ANES) Route: IV, Drug form: INJ, ONCE, Stop date: 01/01/19 5:13:00 CDT Inactive 01/01/2019 [facility] neostigmine (ANES) Route: IV, Drug form: INJ, ONCE, Stop date: 01/01/19 5:13:00 CDT Inactive 01/01/2019 [facility] ondansetron (ANES) Route: IV, Drug form: INJ, ONCE, Stop date: 01/01/19 5:02:00 CDT Inactive 01/01/2019 [facility] albuterol (ANES) Route: INHALATION, Drug form: AERO/A, ONCE, Stop date: 01/01/19 2:27:00 CDT Inactive 01/01/2019 [facility] hydromorphone (ANES) + sodium chloride (ANES) 9 mL Route: IV, Drug form: INJ, ONCE, Stop date: 01/01/19 1:21:00 CDT Inactive 01/01/2019 [facility] dexamethasone (ANES) Route: IV, Drug form: INJ, ONCE, Stop date: 01/01/19 0:04:00 CDT Inactive 01/01/2019 [facility] calcium chloride (ANES) Route: IV, Drug form: INJ, ONCE, Stop date: 01/01/19 0:04:00 CDT Inactive 01/01/2019 [facility] metoclopramide ([facility]) Route: IV, Drug form: INJ, ONCE, Stop date: 12/31/18 23:59:00 CDT Inactive 01/01/2019 [facility] famotidine (ANES) Route: IV, Drug form: INJ, ONCE, Stop date: 12/31/18 23:59:00 CDT Inactive 01/01/2019 [facility] lidocaine (ANES) Route: IV, Drug form: INJ, ONCE, Stop date: 12/31/18 23:44:00 CDT Inactive 01/01/2019 [facility] propofol (ANES) Route: IV, Drug form: INJ, ONCE, Stop date: 12/31/18 23:44:00 CDT Inactive 01/01/2019 [facility] rocuronium (ANES) Route: IV, Drug form: INJ, ONCE, Stop date: 12/31/18 23:44:00 CDT Inactive 01/01/2019 [facility] succinylcholine ([facility]) Route: IV, Drug form: INJ, ONCE, Stop date: 12/31/18 23:44:00 CDT Inactive 01/01/2019 [facility] fentaNYL ([facility]) Route: IV, Drug form: INJ, ONCE, Stop date: 12/31/18 23:44:00 CDT Inactive 01/01/2019 [facility] cefOXitin (ANES) Route: IV, Drug form: INJ, ONCE, Stop date: 12/31/18 23:44:00 CDT Inactive 01/01/2019 [facility] Hydralazine 10 mg, Route: IVP, Q20Min, Dosing Weight 83, kg, PRN Elevated BP, Start date: 12/31/18 23:44:00 CDT, Duration: 2 doses or times, Stop date: Limited # of times No Longer Active 01/01/2019 [facility] Labetalol 10 mg, Route: IVP, Q5Min, Dosing Weight 83, kg, PRN Elevated BP, Start date: 12/31/18 23:44:00 CDT, Duration: 5 doses or times, Stop date: Limited # of times No Longer Active 01/01/2019 [facility] Oxycodone 5 mg, Route: NG, Drug form: LIQ, Q4H, Dosing Weight 83, kg, PRN Pain Score 4-6, Start date: 12/31/18 23:44:00 CDT, Duration: 30 day, Stop date: 01/30/19 23:43:00 CDT No Longer Active 01/01/2019 [facility] Hydromorphone 0.5 mg, Route: IVP, Q5Min, Dosing Weight 83, kg, PRN Pain Score 7-10, Start date: 12/31/18 23:44:00 CDT, Duration: 4 doses or times, Stop date: Limited # of times No Longer Active 01/01/2019 [facility] Flumazenil 0.2 mg, Route: IVP, PRN, Dosing Weight 83, kg, PRN Benzodiazepine Reversal, Initial dose, Start date: 12/31/18 23:44:00 CDT, Duration: 30 day, Stop date: 01/30/19 23:43:00 CDT No Longer Active 01/01/2019 [facility] Naloxone 0.4 mg, Route: IVP, Q2MIN, Dosing Weight 83, kg, PRN Narcotic Reversal, Start date: 12/31/18 23:44:00 CDT, Duration: 8 doses or times, Stop date: Limited # of times No Longer Active 01/01/2019 [facility] Ondansetron 4 mg, Route: IVP, ONCE, Dosing Weight 83, kg, PRN Nausea & Vomiting, Start date: 12/31/18 23:44:00 CDT No Longer Active 01/01/2019 [facility] Isolyte S PH 7.4 (ANES) 1000 mL Route: IV, Total Volume: 1,000, Start date: 12/31/18 23:05:00 CDT, Stop date: 01/01/19 0:05:00 CDT No Longer Active 01/01/2019 [facility] Ketorolac 30 mg, 1 mL, Route: IVP, Drug form: INJ, Q6H, Dosing Weight 83, kg, PRN Pain Score 4-6, Start date: 12/31/18 21:31:00 CDT, Duration: 4 day, Stop date: 01/04/19 21:30:00 CDT, 0Notes: (Same as:Toradol) IV bolus must be given >15 seconds. Give IM administration slowly and deeply into the muscle. Not for use > 4 days MEDICATION WASTE Product Size: 30 mg Product Wasted: ___ mg No Longer Active 01/01/2019 [facility] Zofran 4 mg, 2 mL, Route: IVP, Drug form: INJ, ONCE, Dosing Weight 83, kg, Priority: NOW, Start date: 12/31/18 21:24:00 CDT, Stop date: 12/31/18 21:24:00 CDT, 0Notes: (Same as: Zofran) MEDICATION WASTE Product Size: 4 mg Product Wasted: ___ mg Inactive 01/01/2019 [facility] Docusate Sodium 50 MG / sennosides, FDC 8.6 MG Oral Tablet 2 tab, Route: PO, Drug Form: TAB, Dosing Weight 82.273, kg, Q12H, Start date: 12/31/18 21:00:00 CDT, Duration: 30 day, Stop date: 01/30/19 9:00:00 CDT, 0Notes: (Same as Senokot-S) Equiv. to Alisa-Colace. No Longer Active 01/01/2019 [facility] Saline Flush 0.9% 10 ml, Route: IVP, Drug Form: INJ, Dosing Weight 82.273, kg, Q12H, Start date: 12/31/18 21:00:00 CDT, Duration: 30 day, Stop date: 01/30/19 9:00:00 CDT, 0Notes: (Same as: BD Posiflush) No Longer Active 01/01/2019 [facility] Cefazolin 1 gm, Route: IVPB, Drug form: PDR/INJ, Q8H, Dosing Weight 82.273, kg, Start date: 12/31/18 20:00:00 CDT, Stop date: 01/01/19 14:00:00 CDT, ABX Indication: Surgical Prophylaxis, 0Notes: (Same As: Ancef, Kefzol) MEDICATION WASTE Product Size: 1000 mg Product Wasted: ___ mg No Longer Active 01/01/2019 [facility] Lovenox 40 mg, 0.4 mL, Route: SUB-Q, Drug form: INJ, [id number], Dosing Weight 82.273, kg, Start date: 12/31/18 19:00:00 CDT, Duration: 30 day, Stop date: 01/29/19 19:00:00 CDT, 0Notes: (Same as: Lovenox) No Longer Active 01/01/2019 [facility] Nystatin 100 UNT/MG Topical Powder 1 appl, Route: TOP, PRN, Drug form: PWDR, PRN For Fungal Prophylaxis, Start date: 12/31/18 17:58:00 CDT, Duration: 30 day, Stop date: 01/30/19 17:57:00 CDT, 0Notes: (Same as:Mycostatin, Nilstat) For external use only. No Longer Active 12/31/2018 [facility] Saline Flush 0.9% 10 ml, Route: IVP, Drug Form: INJ, Dosing Weight 82.273, kg, PRN, PRN Line Flush, Start date: 12/31/18 17:58:00 CDT, Duration: 30 day, Stop date: 01/30/19 17:57:00 CDT, 0Notes: (Same as: BD Posiflush) No Longer Active 12/31/2018 [facility] ondansetron (ANES) Route: IV, Drug form: INJ, ONCE, Stop date: 12/31/18 14:18:00 CDT Inactive 12/31/2018 [facility] glycopyrrolate (ANES) Route: IV, Drug form: INJ, ONCE, Stop date: 12/31/18 14:18:00 CDT Inactive 12/31/2018 [facility] neostigmine (ANES) Route: IV, Drug form: INJ, ONCE, Stop date: 12/31/18 14:18:00 CDT Inactive 12/31/2018 [facility] Lovenox 40 mg, Route: SUB-Q, Drug form: INJ, [id number], Dosing Weight 82.273, kg, Start date: 12/31/18 14:00:00 CDT, Duration: 30 day, Stop date: 01/29/19 14:00:00 CDT Inactive 12/31/2018 [facility] D5W 1/2NS + KCL 20mEq/L 1000ml (Premix) 1,000 mL 1,000 mL, Rate: 100 ml/hr, Infuse over: 10 hr, Route: IV, Dosing Weight 82.273 kg, Total Volume: 1,000, Start date: 12/31/18 13:50:00 CDT, Duration: 30 day, Stop date: 01/30/19 13:49:00 CDT, 1.89, m2, 0Notes: PREMIX IV - Do Not Alter WASTE: F/P - Sink; E - Municipal Trash Bin No Longer Active 12/31/2018 [facility] Miralax 17 gm, 1 pkt, Route: PO, Drug form: PWDR, Daily, Dosing Weight 82.273, kg, PRN Constipation, Start date: 12/31/18 13:50:00 CDT, Duration: 30 day, Stop date: 01/30/19 13:49:00 CDT, 0Notes: Dissolve in 8 oz of water or juice. (Same as: Miralax) No Longer Active 12/31/2018 [facility] Tylenol 1,000 mg, 2 tab, Route: PO, Drug form: TAB, Q6H, Dosing Weight 82.273, kg, Priority: NOW, Start date: 12/31/18 13:50:00 CDT, Duration: 3 day, Stop date: 01/04/19 6:00:00 CDT, 0Notes: Max acetaminophen 4000 mg/day (4 gm/day). (Same as: Tylenol Extra Strength) No Longer Active 12/31/2018 [facility] gabapentin 300 MG Oral Capsule 300 mg, 1 cap, Route: PO, Drug form: CAP, Q8H, Dosing Weight 82.273, kg, (CrCl > 60 ml/min), Priority: NOW, Start date: 12/31/18 13:50:00 CDT, Duration: 30 day, Stop date: 01/30/19 12:00:00 CDT, 0Notes: (Same as: Neurontin) No Longer Active 12/31/2018 [facility] Naproxen 500 mg, 1 tab, Route: PO, Drug form: TAB, Q12H, Dosing Weight 82.273, kg, Priority: NOW, Start date: 12/31/18 13:50:00 CDT, Duration: 30 day, Stop date: 01/30/19 9:00:00 CDT, 0Notes: (Same as: Naprosyn) Take with food. No Longer Active 12/31/2018 [facility] Oxycodone Hydrochloride 5 MG Oral Tablet 10 mg, 2 tab, Route: PO, Drug form: TAB, Q6H, Dosing Weight 82.273, kg, PRN Pain Score 7-10, Start date: 12/31/18 13:50:00 CDT, Duration: 30 day, Stop date: 01/30/19 13:49:00 CDT, 0Notes: (Same as: Roxicodone) No Longer Active 12/31/2018 [facility] tramadol hydrochloride 50 MG Oral Tablet 2 tab, Route: PO, Drug form: TAB, Q6H, Dosing Weight 82.273, kg, Priority: NOW, Start date: 12/31/18 13:50:00 CDT, Duration: 30 day, Stop date: 01/30/19 12:00:00 CDT Inactive 12/31/2018 [facility] Robaxin 500 mg, 1 tab, Route: PO, Drug form: TAB, Q8H, Dosing Weight 82.273, kg, Priority: NOW, Start date: 12/31/18 13:50:00 CDT, Duration: 30 day, Stop date: 01/30/19 12:00:00 CDT, 0Notes: (Same as:Robaxin) No Longer Active 12/31/2018 [facility] calcium chloride (ANES) Route: IV, Drug form: INJ, ONCE, Stop date: 12/31/18 13:32:00 CDT Inactive 12/31/2018 [facility] scopolamine (ANES) Route: IV, Drug form: ERFILM, ONCE, Stop date: 12/31/18 13:00:00 CDT Inactive 12/31/2018 [facility] ketAMINE (ANES) Route: IV, Drug form: INJ, ONCE, Stop date: 12/31/18 9:21:00 CDT Inactive 12/31/2018 [facility] ceFAZolin (ANES) Route: IV, Drug form: INJ, ONCE, Stop date: 12/31/18 9:15:00 CDT Inactive 12/31/2018 [facility] Hydralazine 10 mg, 0.5 mL, Route: IVP, Drug form: INJ, Q20Min, Dosing Weight 82.273, kg, PRN Elevated BP, Start date: 12/31/18 9:14:00 CDT, Duration: 2 doses or times, Stop date: 01/01/19 9:00:00 CDT, 0Notes: (Same as: Apresoline) Push over 5 minutes Inactive 12/31/2018 [facility] Labetalol 10 mg, 2 mL, Route: IVP, Drug form: INJ, Q5Min, Dosing Weight 82.273, kg, PRN Elevated BP, Start date: 12/31/18 9:14:00 CDT, Duration: 5 doses or times, Stop date: 01/01/19 9:00:00 CDT, 0 Inactive 12/31/2018 [facility] Acetaminophen 1,000 mg, 2 tab, Route: PO, Drug form: TAB, ONCE, Dosing Weight 82.273, kg, PRN Pain Score 1-3, Start date: 12/31/18 9:14:00 CDT, 0Notes: Max acetaminophen 4000 mg/day (4 gm/day). (Same as: Tylenol Extra Strength) Inactive 12/31/2018 [facility] Fentanyl 25 microgram, 0.5 mL, Route: IVP, Drug form: INJ, Q5Min, Dosing Weight 82.273, kg, PRN Pain Score 4-6, Priority: Routine, Start date: 12/31/18 9:14:00 CDT, Duration: 4 doses or times, Stop date: 01/01/19 9:00:00 CDT, 0Notes: (Same as: Sublimaze) Preservative free. Inactive 12/31/2018 [facility] Flumazenil 0.2 mg, 2 mL, Route: IVP, Drug form: INJ, PRN, Dosing Weight 82.273, kg, PRN Benzodiazepine Reversal, Initial dose, Start date: 12/31/18 9:14:00 CDT, Duration: 1 day, Stop date: 01/01/19 9:13:00 CDT, 0Notes: (Same as: Romazicon) Inactive 12/31/2018 [facility] Naloxone 0.4 mg, 1 mL, Route: IVP, Drug form: INJ, Q2MIN, Dosing Weight 82.273, kg, PRN Narcotic Reversal, Start date: 12/31/18 9:14:00 CDT, Duration: 8 doses or times, Stop date: 01/01/19 9:00:00 CDT, 0Notes: Same as Narcan Inactive 12/31/2018 [facility] Ondansetron 4 mg, 2 mL, Route: IVP, Drug form: INJ, ONCE, Dosing Weight 82.273, kg, PRN Nausea & Vomiting, Start date: 12/31/18 9:14:00 CDT, 0Notes: (Same as: Zofran) MEDICATION WASTE Product Size: 4 mg Product Wasted: ___ mg Inactive 12/31/2018 [facility] lidocaine (ANES) Route: IV, Drug form: INJ, ONCE, Stop date: 12/31/18 8:55:00 CDT Inactive 12/31/2018 [facility] propofol (ANES) Route: IV, Drug form: INJ, ONCE, Stop date: 12/31/18 8:55:00 CDT Inactive 12/31/2018 [facility] rocuronium (ANES) Route: IV, Drug form: INJ, ONCE, Stop date: 12/31/18 8:55:00 CDT Inactive 12/31/2018 [facility] fentaNYL (ANES) Route: IV, Drug form: INJ, ONCE, Stop date: 12/31/18 8:55:00 CDT Inactive 12/31/2018 [facility] metoclopramide (ANES) Route: IV, Drug form: INJ, ONCE, Stop date: 12/31/18 8:55:00 CDT Inactive 12/31/2018 [facility] phenylephrine (ANES) Route: IV, Drug form: INJ, ONCE, Stop date: 12/31/18 8:55:00 CDT Inactive 12/31/2018 [facility] midazolam (ANES) Route: IV, Drug form: SOLN, ONCE, Stop date: 12/31/18 8:50:00 CDT Inactive 12/31/2018 [facility] dexamethasone (ANES) Route: IV, Drug form: INJ, ONCE, Stop date: 12/31/18 8:50:00 CDT Inactive 12/31/2018 [facility] famotidine (ANES) Route: IV, Drug form: INJ, ONCE, Stop date: 12/31/18 8:50:00 CDT Inactive 12/31/2018 [facility] Sodium Chloride 0.9% IV (ANES) 500 mL Route: IV, Total Volume: 500, Start date: 12/31/18 8:05:00 CDT, Stop date: 12/31/18 9:05:00 CDT Inactive 12/31/2018 [facility] propofol (ANES) 10 mg Route: IV, Drug form: INJ, Start date: 12/31/18 7:55:00 CDT, Stop date: 12/31/18 8:55:00 CDT Inactive 12/31/2018 [facility] Isolyte S PH 7.4 (ANES) 500 mL Route: IV, Total Volume: 500, Start date: 12/31/18 7:55:00 CDT, Stop date: 12/31/18 8:55:00 CDT Inactive 12/31/2018 [facility] Sodium Chloride 0.9% IV (ANES) 98 mL + dexmedetomidine (ANES) 200 microgram Route: IV, Drug form: INJ, Start date: 12/31/18 7:55:00 CDT, Stop date: 12/31/18 8:55:00 CDT Inactive 12/31/2018 [facility] Lactated Ringers Injection IV (ANES) 1000 mL Route: IV, Total Volume: 1,000, Start date: 12/31/18 7:41:00 CDT, Stop date: 12/31/18 8:41:00 CDT Inactive 12/31/2018 [facility] PlasmaLyte A PH-7.4 1,000 mL 1,000 mL, Rate: 1,000 ml/hr, Infuse over: 1 hr, Route: IV, Dosing Weight 82.273 kg, Total Volume: 1,000, Start date: 12/31/18 3:15:00 CDT, Duration: 1 doses or times, Stop date: 12/31/18 4:14:00 CDT, 1.89, m2, 0Notes: WASTE: F/P - Sink; E - Municipal Trash Bin Inactive 12/31/2018 [facility] Morphine 4 mg, 1 mL, Route: IVP, Drug form: SOLN, ONCE, Dosing Weight 82.273, kg, Priority: STAT, Start date: 12/31/18 3:10:00 CDT, Stop date: 12/31/18 3:10:00 CDT, 0Notes: (Same as:MORPhine Sulfate) Inactive 12/31/2018 [facility] Zofran 4 mg, 2 mL, Route: IVP, Drug form: INJ, ONCE, Dosing Weight 82.273, kg, Priority: STAT, Start date: 12/31/18 3:10:00 CDT, Stop date: 12/31/18 3:10:00 CDT, 0Notes: (Same as: Zofran) MEDICATION WASTE Product Size: 4 mg Product Wasted: ___ mg Inactive 12/31/2018 [facility] Levothyroxine Sodium 0.112 MG Oral Tablet [Synthroid] 112 microgram=1 tab, PO, Daily, # 90 tab, 1 Refill(s), [id number] Brompheniramine Maleate 0.4 MG/ML / Dextromethorphan Hydrobromide 2 MG/ML / Pseudoephedrine Hydrochloride 6 MG/ML Oral Solution [Bromfed DM] 5 mL, PO, Q4H, PRN cough, X 8 day, # 240 mL, 0 Refill(s), Pharmacy: [facility] [id number] Active 10/14/2018 [facility] Saline Flush 0.9% 10 mL, Route: IVP, Drug Form: INJ, Dosing Weight 81.818, kg, PRN, PRN Line Flush, Start date: 09/19/18 3:05:00 CDT, Duration: 30 day, Stop date: 10/19/18 3:04:00 CDTNotes: (Same as: BD Posiflush) Inactive 09/19/2018 [facility] Cephalexin 500 MG Oral Capsule [Keflex] 500 mg=1 cap, PO, BID, X 5 day, # 10 cap, 0 Refill(s), Pharmacy: [facility] [id number] Active 09/18/2018 [facility] sertraline 50 mg oral tablet 50 mg=1 tab, PO, Daily, FIRST WEEK TAKE HALF OF THE TABLET DAILY AND FROM THE SECOND WEEK AND ON, TAKE ONE TABLET DAILY, # 90 tab, 1 Refill(s), Pharmacy: [facility] Active 09/16/2018 [facility] sertraline 50 mg oral tablet 50 mg=1 tab, PO, Daily, # 90 tab, 0 Refill(s) Inactive 09/16/2018 [facility] Diclofenac Sodium 0.01 MG/MG Topical Gel [Voltaren] 4 gm=1 appl, TOP, BID, PRN Apply to affected area, # 100 gm, 1 Refill(s) Active 09/16/2018 [facility] pantoprazole 40 mg oral enteric coated tablet 40 mg=1 tab, PO, Daily, # 90 tab, 1 Refill(s) Active 08/18/2018 [facility] Sodium Chloride 0.9% IV 1,000 mL 1,000 mL, Rate: 25 ml/hr, Infuse over: 40 hr, Route: IV, Dosing Weight 88.636 kg, Total Volume: 1,000, Start date: 08/18/18 9:19:00 CDT, Duration: 1 day, Stop date: 08/19/18 9:18:00 CDT, 1.96, m2 Inactive 08/18/2018 [facility] Triamcinolone Acetonide 1 MG/ML Topical Cream 1 appl, TOP, TID, PRN For Rash, X 14 day, # 60 gm, 0 Refill(s), Pharmacy: [facility] [id number] Active 08/04/2018 [facility] lisinopril 5 mg oral tablet 5 mg=1 tab, PO, Daily, # 90 tab, 0 Refill(s), Pharmacy: [facility] [id number] Active 07/23/2018 [facility] Levothyroxine Sodium 0.112 MG Oral Tablet [Synthroid] 112 microgram=1 tab, PO, Daily, # 60 tab, 0 Refill(s), Pharmacy: [facility] [id number] Active 07/23/2018 [facility] Levofloxacin 500 MG Oral Tablet [Levaquin] 500 mg=1 tab, PO, Q24H, X 10 day, # 10 tab, 0 Refill(s), Pharmacy: [facility] [id number] Active 07/08/2018 [facility] Metronidazole 500 MG Oral Tablet [Flagyl] 500 mg=1 tab, PO, BID, X 7 day, # 14 tab, 0 Refill(s), Pharmacy: [facility] [id number] Active 07/08/2018 [facility] Triamcinolone Acetonide 5 MG/ML Topical Cream 1 appl, TOP, TID, PRN For rash, X 14 day, # 60 gm, 0 Refill(s), Pharmacy: [facility] [id number] No Longer Active 06/11/2018 [facility] cetirizine 10 mg oral tablet 10 mg=1 tab, PO, Daily, # 30 tab, 0 Refill(s), Pharmacy: [facility] [id number] No Longer Active 06/11/2018 [facility] Omnipaque 300 injectable solution 100 mL, Route: IVP, Drug Form: SOLN, Dosing Weight 89.545, kg, ONCALL, GFR > 45 mL/min, Start date: 06/09/18 11:00:00 STUDENT SUPPORT ADVISOR, Duration: 1 doses or times, Stop date: 06/10/18 0:00:00 CSTNotes: (Same as:Omnipaque 300). WASTE: F/P - Black; E - Municipal Trash Bin No Longer Active 06/09/2018 [facility] Ciprofloxacin 500 MG Oral Tablet [Cipro] 500 mg=1 tab, PO, Q12H, for UTI, X 3 day, # 6 tab, 0 Refill(s), [facility] [id number] No Long[facility] Active 06/04/2018 [facility] lisinopril 5 mg oral tablet 5 mg=1 tab, PO, Daily, # 90 tab, 0 Refill(s), [facility] [id number] No Longer Active 06/01/2018 [facility] omeprazole 40 mg oral delayed release capsule 40 mg=1 cap, PO, BID, # 180 cap, 0 Refill(s), [facility] [id number] No Longer Active 06/01/2018 [facility] imipramine 50 mg oral tablet 50 mg=1 tab, PO, Bedtime, # 90 tab, 1 Refill(s), [facility] [id number] No Longer Active 06/01/2018 [facility] Levothyroxine Sodium 0.125 MG Oral Tablet [Synthroid] 125 microgram=1 tab, PO, Daily, # 90 tab, 1 Refill(s), [facility] [id number] No [facility] Active 05/26/2018 [facility] imipramine 25 mg oral tablet 25 mg=1 tab, PO, Bedtime, START TAKING 1 TABLET AT BEDTIME AND AFTER 3 DAYS CAN INCREASE THE DOSE AND TAKE 2 TABLETS AT BEDTIME, # 90 tab, 0 Refill(s), [facility] [id number] No Longer Active 02/11/2018 [facility] Levothyroxine Sodium 0.125 MG Oral Tablet [Synthroid] 125 microgram=1 tab, PO, Daily, X 90 day, # 90 tab, 1 Refill(s), [facility] [id number] No Longer Active 02/01/2018 [facility] fluconazole 150 mg oral tablet 150 mg=1 tab, PO, ONCE, # 1 tab, 0 Refill(s), Pharmacy: [facility] [id number] No Longer Active 01/27/2018 [facility] Clindamycin 100 MG Vaginal Suppository 100 mg=1 supp, VAG, Bedtime, X 3 day, # 3 supp, 0 Refill(s), [facility] [id number] No Longer Active 01/27/2018 [facility] ibuprofen 800 mg oral tablet 800 mg=1 tab, PO, Q8H, PRN Fever or Pain, Take with food, X 10 day, # 30 tab, 0 Refill(s), Pharmacy: [facility] [id number] No Longer Active 01/27/2018 [facility] fluconazole 150 mg oral tablet See Instructions, TAKE 1 TABLET BY MOUTH ONCE, # 1 tab, 1 Refill(s), Pharmacy: [facility] [id number] No Longer Active 12/14/2017 [facility] fluconazole 150 mg oral tablet See Instructions, # 1 tab, TAKE 1 TABLET BY MOUTH EVERY DAY FOR 1 DOSE., Pharmacy: [facility] [id number] Active 09/30/2017 [facility] fluconazole 150 mg oral tablet 150 mg=1 tab, PO, ONCE, # 1 tab, 0 Refill(s), Pharmacy: [facility] [id number] No Longer Active 08/10/2017 [facility] oxybutynin 10 mg oral tablet, extended release 10 mg=1 tab, PO, Daily, # 90 tab, 1 Refill(s), Pharmacy: [facility] [place] [facility] [place] [id number] [place] 08/10/2017 [facility] Ondansetron 4 MG Oral Tablet [Zofran] 4 mg=1 tab, PO, Q6H, PRN Nausea/Vomiting, # 30 tab, 0 Refill(s) Active 08/10/[facility] ciprofloxacin 500 mg oral tablet PO, Q12H, # 20 tab, 0 Refill(s) Active 08/10/2017 [facility] Ketoconazole 10 MG/ML Medicated Shampoo 1 appl, TOP, Q3D, X 8 week, # 210 ml, 0 Refill(s), Pharmacy: [facility] [place] [facility] [place] [id number] Active 05/05/2017 [facility] fluconazole 150 mg oral tablet 150 mg=1 tab, PO, ONCE, # 1 tab, 0 Refill(s), Pharmacy: [facility] [employer] [id number] Active 05/05/2017 [facility] valACYclovir 1 g oral tablet 1,000 mg, PO, TID, X 7 day, # 21 tab, 0 Refill(s), Pharmacy: [facility] [employer] [facility] [id number] Active 05/05/2017 [facility] Levothyroxine Sodium 0.137 MG Oral Tablet [Synthroid] 137 microgram=1 tab, PO, Daily, # 90 tab, 1 Refill(s), Pharmacy: [facility] [id number] Active 05/05/2017 [facility] Ergocalciferol 11615 UNT Oral Capsule 50,000 IntlUnit=1 cap, PO, qWeek, # 13 cap, 1 Refill(s), Pharmacy: [facility] [id number] Active 05/05/2017 [facility] Allergies, Adverse Reactions, Alerts No Known Medication Allergies Immunizations Immunization Date Given Site Status Last Updated Comments Source influenza virus vaccine, inactivated<sup>1</sup> 01/27/2018 Right Deltoid completed [facility] Result Comment: Patient waited 15 min with no reaction Medical [facility] Results Order Name Results Value Reference Range Date Interpretation Comments Source CHEM PANEL Bili Direct 0.1 0.0 - 0.3 01/12/2019 [facility] CHEM PANEL Glucose Lvl 86 70 - 99 01/12/2019 [facility] CHEM PANEL BUN 9 7 - 22 01/12/2019 [facility] CHEM PANEL Creatinine Lvl 0.64 0.50 - 1.40 01/12/2019 [facility] CHEM PANEL Sodium Lvl 140 135 - 145 01/12/2019 [facility] CHEM PANEL Potassium Lvl 4.4 3.5 - 5.1 01/12/2019 [facility] CHEM PANEL Chloride Lvl 101 95 - 109 01/12/2019 [facility] CHEM PANEL CO2 30 24 - 32 01/12/2019 [facility] CHEM PANEL Calcium Lvl 8.7 8.5 - 10.5 01/12/2019 [facility] CHEM PANEL Total Protein 6.9 6.4 - 8.4 01/12/2019 [facility] CHEM PANEL Albumin Lvl 3.2 3.5 - 5.0 01/12/2019 [facility] CHEM PANEL ALT 20 0 - 65 01/12/2019 [facility] CHEM PANEL AST 14 0 - 37 01/12/2019 [facility] CHEM PANEL Alk Phos 75 39 - 136 01/12/2019 [facility] CHEM PANEL Bili Total 0.3 0.2 - 1.3 01/12/2019 [facility] CHEM PANEL eGFR 134 01/12/2019 Result Comment: The eGFR is calculated using the CKD-EPI formula. In most young, healthy individuals the eGFR will be >90 mL/min/1.73m2. The eGFR declines with age. An eGFR of 60-89 may be normal in some populations, particularly the elderly, for whom the CKD-EPI formula has not been extensively validated. Use of the eGFR is not recommended in the following populations:

Individuals with unstable creatinine concentrations, including patients and those with serious co-morbid conditions.

Patients with extremes in muscle mass or diet.

The data above are obtained from the National Kidney Disease Education Program (NKDEP) which additionally recommends that when the eGFR is used in patients with extremes of body mass index for purposes of drug dosing, the eGFR should be multiplied by the estimated BMI. [facility] CHEM PANEL AGAP 13.4 10.0 - 20.0 01/12/2019 [facility] CHEM PANEL B/C Ratio 14 6 - 25 01/12/2019 [facility] CHEM PANEL Globulin 3.7 2.7 - 4.2 01/12/2019 [facility] CHEM PANEL A/G Ratio 0.9 0.7 - 1.6 01/12/2019 [facility] ENDOCRINOLOGY S Preg Negative *NA* (01/12/19 11:27 AM) Negative 01/12/2019 [facility] HEMATOLOGY WBC 6.8 3.7 - 10.4 01/12/2019 [facility] HEMATOLOGY RBC 4.21 4.20 - 5.40 01/12/2019 [facility] HEMATOLOGY Hgb 10.9 12.0 - 16.0 01/12/2019 [facility] HEMATOLOGY Hct 33.7 36.0 - 48.0 01/12/2019 [facility] HEMATOLOGY MCV 80.0 80.0 - 98.0 01/12/2019 [facility] HEMATOLOGY MCH 26.0 27.0 - 31.0 01/12/2019 [facility] HEMATOLOGY MCHC 32.5 32.0 - 36.0 01/12/2019 [facility] HEMATOLOGY RDW 16.6 11.5 - 14.5 01/12/2019 [facility] HEMATOLOGY Platelet 370 133 - 450 01/12/2019 [facility] HEMATOLOGY MPV 7.7 7.4 - 10.4 01/12/2019 [facility] HEMATOLOGY Segs 59.4 45.0 - 75.0 01/12/2019 [facility] HEMATOLOGY Lymphocytes 30.9 20.0 - 40.0 01/12/2019 [facility] HEMATOLOGY Monocytes 7.3 2.0 - 12.0 01/12/2019 [facility] HEMATOLOGY Eosinophils 2.0 0.0 - 4.0 01/12/2019 [facility] HEMATOLOGY Basophils 0.4 0.0 - 1.0 01/12/2019 [facility] HEMATOLOGY Neutrophils # 4.0 1.5 - 8.1 01/12/2019 [facility] HEMATOLOGY Lymphocytes # 2.1 1.0 - 5.5 01/12/2019 [facility] HEMATOLOGY Monocytes # 0.5 0.0 - 0.8 01/12/2019 [facility] HEMATOLOGY Eosinophils # 0.1 0.0 - 0.5 01/12/2019 [facility] URINE AND STOOL UA Color Yellow *NA* (01/07/19 2:20 AM) Yellow 01/07/2019 [facility] URINE AND STOOL UA Turbidity Clear (01/07/19 2:20 AM) Clear 01/07/2019 [facility] URINE AND STOOL UA Spec Grav 1.015 <=1.030 01/07/2019 [facility] URINE AND STOOL UA pH 8.0 5.0 - 8.0 01/07/2019 [facility] URINE AND STOOL UA Protein Negative mg/dL Negative mg/dL 01/07/2019 [facility] URINE AND STOOL UA Glucose Negative mg/dL Negative mg/dL 01/07/2019 [facility] URINE AND STOOL UA Ketones Negative mg/dL Negative mg/dL 01/07/2019 [facility] URINE AND STOOL UA Bili Negative *NA* (01/07/19 2:20 AM) Negative 01/07/2019 [facility] URINE AND STOOL UA Blood Negative (01/07/19 2:20 AM) Negative 01/07/2019 [facility] URINE AND STOOL UA Urobilinogen <1.0 0.1 - 1.0 01/07/2019 [facility] URINE AND STOOL UA Nitrite Negative (01/07/19 2:20 AM) Negative 01/07/2019 [facility] URINE AND STOOL UA Leuk Est Negative (01/07/19 2:20 AM) Negative 01/07/2019 [facility] URINE AND STOOL UA Sq Epi Occasional /LPF Few /LPF 01/07/2019 [facility] URINE AND STOOL UA WBC 2 0 - 5 01/07/2019 [facility] URINE AND STOOL UA RBC 2 0 - 2 01/07/2019 [facility] URINE AND STOOL UA Mucus Few /LPF None Seen /LPF 01/07/2019 [facility] URINE AND STOOL UA Hyal Cast 1 0 - 2 01/07/2019 [facility] CARDIAC ENZYMES Troponin-I <0.02 0.00 - 0.40 01/06/2019 [facility] CHEM PANEL Total Protein 6.1 6.4 - 8.4 01/05/2019 [facility] CHEM PANEL Albumin Lvl 2.4 3.5 - 5.0 01/05/2019 [facility] CHEM PANEL ALT 39 0 - 65 01/05/2019 [facility] CHEM PANEL AST 23 0 - 37 01/05/2019 [facility] CHEM PANEL Alk Phos 72 39 - 136 01/05/2019 [facility] CHEM PANEL Bili Total 0.4 0.2 - 1.3 01/05/2019 [facility] CHEM PANEL Bili Direct 0.1 0.0 - 0.3 01/05/2019 [facility] CHEM PANEL Bili Indirect 0.3 0.0 - 1.0 01/05/2019 [facility] CHEM PANEL Globulin 3.7 2.7 - 4.2 01/05/2019 [facility] CHEM PANEL A/G Ratio 0.6 0.7 - 1.6 01/05/2019 [facility] CHEM PANEL Phosphorus 3.3 2.5 - 4.5 01/05/2019 [facility] ELECTROLYTES AGAP 11.8 10.0 - 20.0 01/05/2019 [facility] ELECTROLYTES Glucose Lvl 92 70 - 99 01/05/2019 [facility] ELECTROLYTES BUN 5 7 - 22 01/05/2019 [facility] ELECTROLYTES Creatinine Lvl 0.48 0.50 - 1.40 01/05/2019 [facility] ELECTROLYTES Sodium Lvl 139 135 - 145 01/05/2019 [facility] ELECTROLYTES Potassium Lvl 3.8 3.5 - 5.1 01/05/2019 [facility] ELECTROLYTES Chloride Lvl 102 95 - 109 01/05/2019 [facility] ELECTROLYTES CO2 29 24 - 32 01/05/2019 [facility] ELECTROLYTES Calcium Lvl 8.7 8.5 - 10.5 01/05/2019 [facility] ELECTROLYTES eGFR 148 01/05/2019 Result Comment: The eGFR is calculated using the CKD-EPI formula. In most young, healthy individuals the eGFR will be >90 mL/min/1.73m2. The eGFR declines with age. An eGFR of 60-89 may be normal in some populations, particularly the elderly, for whom the CKD-EPI formula has not been extensively validated. Use of the eGFR is not recommended in the following populations:

Individuals with unstable creatinine concentrations, including patients and those with serious co-morbid conditions.

Patients with extremes in muscle mass or diet.

The data above are obtained from the National Kidney Disease Education Program (NKDEP) which additionally recommends that when the eGFR is used in patients with extremes of body mass index for purposes of drug dosing, the eGFR should be multiplied by the estimated BMI. [facility] HEMATOLOGY WBC 7.4 3.7 - 10.4 01/05/2019 [facility] HEMATOLOGY RBC 3.96 4.20 - 5.40 01/05/2019 [facility] HEMATOLOGY Hgb 10.2 12.0 - 16.0 01/05/2019 [facility] HEMATOLOGY Hct 31.2 36.0 - 48.0 01/05/2019 [facility] HEMATOLOGY MCV 78.7 80.0 - 98.0 01/05/2019 [facility] HEMATOLOGY MCH 25.8 27.0 - 31.0 01/05/2019 [facility] HEMATOLOGY MCHC 32.7 32.0 - 36.0 01/05/2019 [facility] HEMATOLOGY RDW 15.9 11.5 - 14.5 01/05/2019 [facility] HEMATOLOGY Platelet 215 133 - 450 01/05/2019 [facility] HEMATOLOGY MPV 8.0 7.4 - 10.4 01/05/2019 [facility] HEMATOLOGY Segs 67.1 45.0 - 75.0 01/05/2019 [facility] HEMATOLOGY Lymphocytes 23.7 20.0 - 40.0 01/05/2019 [facility] HEMATOLOGY Monocytes 7.3 2.0 - 12.0 01/05/2019 [facility] HEMATOLOGY Eosinophils 1.7 0.0 - 4.0 01/05/2019 [facility] HEMATOLOGY Basophils 0.2 0.0 - 1.0 01/05/2019 [facility] HEMATOLOGY Neutrophils # 5.0 1.5 - 8.1 01/05/2019 [facility] HEMATOLOGY Lymphocytes # 1.8 1.0 - 5.5 01/05/2019 [facility] HEMATOLOGY Monocytes # 0.5 0.0 - 0.8 01/05/2019 [facility] HEMATOLOGY Eosinophils # 0.1 0.0 - 0.5 01/05/2019 [facility] HEMATOLOGY Microcyte 1+ *ABN* (01/05/19 2:46 AM) None Seen 01/05/2019 [facility] CHEM PANEL Phosphorus 5.1 2.5 - 4.5 01/04/2019 [facility] CHEM PANEL Glucose Lvl 108 70 - 99 01/04/2019 [facility] CHEM PANEL BUN 3 7 - 22 01/04/2019 [facility] CHEM PANEL Creatinine Lvl 0.58 0.50 - 1.40 01/04/2019 [facility] CHEM PANEL Sodium Lvl 138 135 - 145 01/04/2019 [facility] CHEM PANEL Potassium Lvl 3.8 3.5 - 5.1 01/04/2019 [facility] CHEM PANEL Chloride Lvl 104 95 - 109 01/04/2019 [facility] CHEM PANEL CO2 29 24 - 32 01/04/2019 [facility] CHEM PANEL AGAP 8.8 10.0 - 20.0 01/04/2019 [facility] CHEM PANEL Calcium Lvl 8.3 8.5 - 10.5 01/04/2019 [facility] CHEM PANEL B/C Ratio 5 6 - 25 01/04/2019 [facility] CHEM PANEL Total Protein 6.2 6.4 - 8.4 01/04/2019 [facility] CHEM PANEL Albumin Lvl 2.5 3.5 - 5.0 01/04/2019 [facility] CHEM PANEL Globulin 3.7 2.7 - 4.2 01/04/2019 [facility] CHEM PANEL A/G Ratio 0.7 0.7 - 1.6 01/04/2019 [facility] CHEM PANEL ALT 42 0 - 65 01/04/2019 [facility] CHEM PANEL AST 22 0 - 37 01/04/2019 [facility] CHEM PANEL Alk Phos 80 39 - 136 01/04/2019 [facility] CHEM PANEL Bili Total 0.4 0.2 - 1.3 01/04/2019 [facility] CHEM PANEL eGFR 139 01/04/2019 Result Comment: The eGFR is calculated using the CKD-EPI formula. In most young, healthy individuals the eGFR will be >90 mL/min/1.73m2. The eGFR declines with age. An eGFR of 60-89 may be normal in some populations, particularly the elderly, for whom the CKD-EPI formula has not been extensively validated. Use of the eGFR is not recommended in the following populations:

Individuals with unstable creatinine concentrations, including patients and those with serious co-morbid conditions.

Patients with extremes in muscle mass or diet.

The data above are obtained from the National Kidney Disease Education Program (NKDEP) which additionally recommends that when the eGFR is used in patients with extremes of body mass index for purposes of drug dosing, the eGFR should be multiplied by the estimated BMI. [facility] PARATHYROID PROFILE Ca Ion WB 1.11 1.05 - 1.25 01/04/2019 [facility] PARATHYROID PROFILE Ca Norm WB 1.10 1.05 - 1.25 01/04/2019 [facility] CHEM PANEL Globulin 3.2 2.7 - 4.2 01/04/2019 [facility] CHEM PANEL A/G Ratio 0.6 0.7 - 1.6 01/04/2019 [facility] CHEM PANEL ALT 38 0 - 65 01/04/2019 [facility] CHEM PANEL Total Protein 5.2 6.4 - 8.4 01/04/2019 [facility] CHEM PANEL Albumin Lvl 2.0 3.5 - 5.0 01/04/2019 [facility] CHEM PANEL AST 20 0 - 37 01/04/2019 [facility] CHEM PANEL Alk Phos 68 39 - 136 01/04/2019 [facility] CHEM PANEL Bili Total 0.3 0.2 - 1.3 01/04/2019 [facility] CHEM PANEL Bili Direct 0.1 0.0 - 0.3 01/04/2019 [facility] CHEM PANEL Bili Indirect 0.2 0.0 - 1.0 01/04/2019 [facility] CHEM PANEL Phosphorus 0.6 2.5 - 4.5 01/04/2019 [facility] CHEM PANEL BUN 2 7 - 22 01/04/2019 [facility] CHEM PANEL Creatinine Lvl 0.57 0.50 - 1.40 01/04/2019 [facility] CHEM PANEL Sodium Lvl 136 135 - 145 01/04/2019 [facility] CHEM PANEL Potassium Lvl 5.6 3.5 - 5.1 01/04/2019 [facility] CHEM PANEL Chloride Lvl 106 95 - 109 01/04/2019 [facility] CHEM PANEL CO2 23 24 - 32 01/04/2019 [facility] CHEM PANEL AGAP 12.6 10.0 - 20.0 01/04/2019 [facility] CHEM PANEL eGFR 140 01/04/2019 Result Comment: The eGFR is calculated using the CKD-EPI formula. In most young, healthy individuals the eGFR will be >90 mL/min/1.73m2. The eGFR declines with age. An eGFR of 60-89 may be normal in some populations, particularly the elderly, for whom the CKD-EPI formula has not been extensively validated. Use of the eGFR is not recommended in the following populations:

Individuals with unstable creatinine concentrations, including patients and those with serious co-morbid conditions.

Patients with extremes in muscle mass or diet.

The data above are obtained from the National Kidney Disease Education Program (NKDEP) which additionally recommends that when the eGFR is used in patients with extremes of body mass index for purposes of drug dosing, the eGFR should be multiplied by the estimated BMI. [facility] CHEM PANEL Glucose Lvl 560 70 - 99 01/04/2019 Result Comment: Critical Result(s) called to Jorge Ellis at 01/04/2019 08:26 by. Read back OK.
Rechecked all [facility] CHEM PANEL Calcium Lvl 7.0 8.5 - 10.5 01/04/2019 [facility] HEMATOLOGY WBC 6.1 3.7 - 10.4 01/04/2019 [facility] HEMATOLOGY RBC 3.43 4.20 - 5.40 01/04/2019 [facility] HEMATOLOGY Hgb 8.9 12.0 - 16.0 01/04/2019 [facility] HEMATOLOGY Hct 27.5 36.0 - 48.0 01/04/2019 [facility] HEMATOLOGY MCV 80.2 80.0 - 98.0 01/04/2019 [facility] HEMATOLOGY MCH 25.9 27.0 - 31.0 01/04/2019 [facility] HEMATOLOGY MCHC 32.3 32.0 - 36.0 01/04/2019 [facility] HEMATOLOGY RDW 16.3 11.5 - 14.5 01/04/2019 [facility] HEMATOLOGY Platelet 170 133 - 450 01/04/2019 [facility] HEMATOLOGY MPV 8.0 7.4 - 10.4 01/04/2019 [facility] HEMATOLOGY Segs 65.8 45.0 - 75.0 01/04/2019 [facility] HEMATOLOGY Lymphocytes 25.1 20.0 - 40.0 01/04/2019 [facility] HEMATOLOGY Monocytes 7.5 2.0 - 12.0 01/04/2019 [facility] HEMATOLOGY Eosinophils 1.3 0.0 - 4.0 01/04/2019 [facility] HEMATOLOGY Basophils 0.3 0.0 - 1.0 01/04/2019 [facility] HEMATOLOGY Neutrophils # 4.0 1.5 - 8.1 01/04/2019 [facility] HEMATOLOGY Lymphocytes # 1.5 1.0 - 5.5 01/04/2019 [facility] HEMATOLOGY Monocytes # 0.5 0.0 - 0.8 01/04/2019 [facility] HEMATOLOGY Eosinophils # 0.1 0.0 - 0.5 01/04/2019 [facility] CHEM PANEL Bili Direct <0.1 0.0 - 0.3 01/03/2019 [facility] CHEM PANEL Bili Indirect Unable to Calculate 0.0 - 1.0 01/03/2019 [facility] CHEM PANEL Magnesium Lvl 1.9 1.8 - 2.4 01/03/2019 [facility] HEMATOLOGY Segs 72.6 45.0 - 75.0 01/03/2019 [facility] HEMATOLOGY Lymphocytes 18.5 20.0 - 40.0 01/03/2019 [facility] HEMATOLOGY Monocytes 8.7 2.0 - 12.0 01/03/2019 [facility] HEMATOLOGY Eosinophils 0.1 0.0 - 4.0 01/03/2019 [facility] HEMATOLOGY Basophils 0.1 0.0 - 1.0 01/03/2019 [facility] HEMATOLOGY Neutrophils # 4.8 1.5 - 8.1 01/03/2019 [facility] HEMATOLOGY Lymphocytes # 1.2 1.0 - 5.5 01/03/2019 [facility] HEMATOLOGY Monocytes # 0.6 0.0 - 0.8 01/03/2019 [facility] HEMATOLOGY WBC 6.7 3.7 - 10.4 01/03/2019 [facility] HEMATOLOGY RBC 3.76 4.20 - 5.40 01/03/2019 [facility] HEMATOLOGY Hgb 9.9 12.0 - 16.0 01/03/2019 [facility] HEMATOLOGY Hct 29.8 36.0 - 48.0 01/03/2019 [facility] HEMATOLOGY MCV 79.4 80.0 - 98.0 01/03/2019 [facility] HEMATOLOGY MCH 26.2 27.0 - 31.0 01/03/2019 [facility] HEMATOLOGY MCHC 33.0 32.0 - 36.0 01/03/2019 [facility] HEMATOLOGY RDW 16.5 11.5 - 14.5 01/03/2019 [facility] HEMATOLOGY Platelet 170 133 - 450 01/03/2019 [facility] HEMATOLOGY MPV 7.7 7.4 - 10.4 01/03/2019 [facility] CHEM PANEL Magnesium Lvl 2.1 1.8 - 2.4 01/02/2019 [facility] HEMATOLOGY Microcyte 1+ *ABN* (01/02/19 4:11 AM) None Seen 01/02/2019 [facility] CHEM PANEL Magnesium Lvl 2.1 1.8 - 2.4 01/01/2019 [facility] HEMATOLOGY Microcyte 1+ *ABN* (01/01/19 6:01 AM) None Seen 01/01/2019 [facility] HEMATOLOGY PTT 27.4 22.9 - 35.8 01/01/2019 [facility] HEMATOLOGY PT 14.7 12.0 - 14.7 01/01/2019 [facility] HEMATOLOGY INR 1.17 0.85 - 1.17 01/01/2019 [facility] BODY FLUIDS Bili BF Type BLACK Drain (12/31/18 9:31 PM) 01/01/2019 [facility] BODY FLUIDS Bili BF 40.1 01/01/2019 [facility] BACTERIAL - SEROLOGY MRSA by PCR Negative (12/31/18 6:03 PM) 12/31/2018 [facility] HEMATOLOGY INR 1.13 0.85 - 1.17 12/31/2018 [facility] HEMATOLOGY PT 14.3 12.0 - 14.7 12/31/2018 [facility] HEMATOLOGY PTT 26.9 22.9 - 35.8 12/31/2018 [facility] HEMATOLOGY Eosinophils # 0.1 0.0 - 0.5 12/31/2018 [facility] HEMATOLOGY Bands 7.0 0.0 - 11.0 12/31/2018 [facility] HEMATOLOGY Atypical Lymphs 0.0 <=0.0 % 12/31/2018 [facility] PARATHYROID PROFILE Ca Ion WB 1.10 1.05 - 1.25 12/31/2018 [facility] PARATHYROID PROFILE Ca Norm WB 1.07 1.05 - 1.25 12/31/2018 [facility] URINE AND STOOL UA Color Yellow *NA* (12/31/18 6:03 PM) Yellow 12/31/2018 [facility] URINE AND STOOL UA Turbidity Marked *ABN* (12/31/18 6:03 PM) Clear 12/31/2018 [facility] URINE AND STOOL UA Spec Grav 1.036 <=1.030 12/31/2018 [facility] URINE AND STOOL UA pH 5.0 5.0 - 8.0 12/31/2018 [facility] URINE AND STOOL UA Protein Negative mg/dL Negative mg/dL 12/31/2018 [facility] URINE AND STOOL UA Glucose Negative mg/dL Negative mg/dL 12/31/2018 [facility] URINE AND STOOL UA Ketones 20 mg/dL Negative mg/dL 12/31/2018 [facility] URINE AND STOOL UA Bili Negative *NA* (12/31/18 6:03 PM) Negative 12/31/2018 [facility] URINE AND STOOL UA Blood Negative (12/31/18 6:03 PM) Negative 12/31/2018 [facility] URINE AND STOOL UA Urobilinogen 4.0 0.1 - 1.0 12/31/2018 [facility] URINE AND STOOL UA Nitrite Negative (12/31/18 6:03 PM) Negative 12/31/2018 [facility] URINE AND STOOL UA Leuk Est Negative (12/31/18 6:03 PM) Negative 12/31/2018 [facility] URINE AND STOOL UA WBC 1 0 - 5 12/31/2018 [facility] URINE AND STOOL UA Mucus Few /LPF None Seen /LPF 12/31/2018 [facility] URINE AND STOOL UA Amorph Rosanna Many /HPF None Seen /HPF 12/31/2018 [facility] URINE AND STOOL UA Sq Epi None Seen 12/31/2018 [facility] BLOOD BANK RESULTS ABO/Rh A POS 12/31/2018 [facility] BLOOD BANK RESULTS Antibody Scrn Negative (12/31/18 6:56 AM) 12/31/2018 [facility] HEMATOLOGY PT 13.7 12.0 - 14.7 12/31/2018 [facility] HEMATOLOGY INR 1.07 0.85 - 1.17 12/31/2018 [facility] HEMATOLOGY PTT 31.0 22.9 - 35.8 12/31/2018 [facility] URINE AND STOOL UA Color Dark Yellow (12/31/18 3:36 AM) Yellow 12/31/2018 [facility] URINE AND STOOL UA Turbidity Slight Cloudy (12/31/18 3:36 AM) Clear 12/31/2018 [facility] URINE AND STOOL UA Spec Grav >=1.030 *ABN* (12/31/18 3:36 AM) <=1.030 12/31/2018 [facility] URINE AND STOOL UA pH 5.5 5.0 - 8.0 12/31/2018 [facility] URINE AND STOOL UA Protein Negative (12/31/18 3:36 AM) Negative 12/31/2018 [facility] URINE AND STOOL UA Glucose Negative (12/31/18 3:36 AM) Negative 12/31/2018 [facility] URINE AND STOOL UA Ketones 15 mg/dL Negative mg/dL 12/31/2018 [facility] URINE AND STOOL UA Bili Negative *NA* (12/31/18 3:36 AM) Negative 12/31/2018 [facility] URINE AND STOOL UA Blood Negative (12/31/18 3:36 AM) Negative 12/31/2018 [facility] URINE AND STOOL UA Urobilinogen 0.2 0.1 - 1.0 12/31/2018 [facility] URINE AND STOOL UA Nitrite Negative (12/31/18 3:36 AM) Negative 12/31/2018 [facility] URINE AND STOOL UA Leuk Est Negative (12/31/18 3:36 AM) Negative 12/31/2018 [facility] URINE AND STOOL Micro? Performed (12/31/18 3:36 AM) 12/31/2018 [facility] URINE AND STOOL UA Sq Epi Moderate /LPF Few /LPF 12/31/2018 [facility] URINE AND STOOL UA WBC 3-5 /HPF None Seen /HPF 12/31/2018 [facility] URINE AND STOOL UA RBC 0-2 /HPF 0 - 2 12/31/2018 [facility] URINE AND STOOL UA Bacteria Moderate /HPF None Seen /HPF 12/31/2018 [facility] URINE AND STOOL UA Mucus Few /LPF None Seen /LPF 12/31/2018 [facility] URINE CHEM U Preg Negative (12/31/18 3:36 AM) Negative 12/31/2018 [facility] CARDIAC ENZYMES Troponin-I <0.02 0.00 - 0.40 12/31/2018 [facility] CHEM PANEL Lipase Lvl 101 73 - 393 12/31/2018 [facility] ELECTROLYTES AGAP 13.9 10.0 - 20.0 12/31/2018 [facility] ELECTROLYTES B/C Ratio 13 6 - 25 12/31/2018 [facility] ELECTROLYTES Globulin 4.5 2.7 - 4.2 12/31/2018 [facility] ELECTROLYTES A/G Ratio 0.8 0.7 - 1.6 12/31/2018 [facility] ELECTROLYTES Glucose Lvl 140 70 - 99 12/31/2018 [facility] ELECTROLYTES BUN 11 7 - 22 12/31/2018 [facility] ELECTROLYTES Creatinine Lvl 0.84 0.50 - 1.40 12/31/2018 [facility] ELECTROLYTES Sodium Lvl 141 135 - 145 12/31/2018 [facility] ELECTROLYTES Potassium Lvl 3.9 3.5 - 5.1 12/31/2018 [facility] ELECTROLYTES Chloride Lvl 106 95 - 109 12/31/2018 [facility] ELECTROLYTES CO2 25 24 - 32 12/31/2018 [facility] ELECTROLYTES Calcium Lvl 9.1 8.5 - 10.5 12/31/2018 [facility] ELECTROLYTES eGFR 105 12/31/2018 Result Comment: The eGFR is calculated using the CKD-EPI formula. In most young, healthy individuals the eGFR will be >90 mL/min/1.73m2. The eGFR declines with age. An eGFR of 60-89 may be normal in some populations, particularly the elderly, for whom the CKD-EPI formula has not been extensively validated. Use of the eGFR is not recommended in the following populations:

Individuals with unstable creatinine concentrations, including patients and those with serious co-morbid conditions.

Patients with extremes in muscle mass or diet.

The data above are obtained from the National Kidney Disease Education Program (NKDEP) which additionally recommends that when the eGFR is used in patients with extremes of body mass index for purposes of drug dosing, the eGFR should be multiplied by the estimated BMI. [facility] ELECTROLYTES Total Protein 8.0 6.4 - 8.4 12/31/2018 [facility] ELECTROLYTES Albumin Lvl 3.5 3.5 - 5.0 12/31/2018 [facility] ELECTROLYTES ALT 21 0 - 65 12/31/2018 [facility] ELECTROLYTES AST 15 0 - 37 12/31/2018 [facility] ELECTROLYTES Alk Phos 81 39 - 136 12/31/2018 [facility] ELECTROLYTES Bili Total 0.5 0.2 - 1.3 12/31/2018 [facility] HEMATOLOGY WBC 6.4 3.7 - 10.4 12/31/2018 [facility] HEMATOLOGY RBC 4.79 4.20 - 5.40 12/31/2018 [facility] HEMATOLOGY Hgb 12.5 12.0 - 16.0 12/31/2018 [facility] HEMATOLOGY Hct 37.2 36.0 - 48.0 12/31/2018 [facility] HEMATOLOGY MCV 77.7 80.0 - 98.0 12/31/2018 [facility] HEMATOLOGY MCH 26.1 27.0 - 31.0 12/31/2018 [facility] HEMATOLOGY MCHC 33.7 32.0 - 36.0 12/31/2018 [facility] HEMATOLOGY RDW 16.7 11.5 - 14.5 12/31/2018 [facility] HEMATOLOGY Platelet 250 133 - 450 12/31/2018 [facility] HEMATOLOGY MPV 7.7 7.4 - 10.4 12/31/2018 [facility] HEMATOLOGY Segs 62.8 45.0 - 75.0 12/31/2018 [facility] HEMATOLOGY Lymphocytes 30.5 20.0 - 40.0 12/31/2018 [facility] HEMATOLOGY Monocytes 5.8 2.0 - 12.0 12/31/2018 [facility] HEMATOLOGY Eosinophils 0.4 0.0 - 4.0 12/31/2018 [facility] HEMATOLOGY Basophils 0.5 0.0 - 1.0 12/31/2018 [facility] HEMATOLOGY Neutrophils # 4.0 1.5 - 8.1 12/31/2018 [facility] HEMATOLOGY Lymphocytes # 1.9 1.0 - 5.5 12/31/2018 [facility] HEMATOLOGY Monocytes # 0.4 0.0 - 0.8 12/31/2018 [facility] HEMATOLOGY Microcyte 1+ *ABN* (12/30/18 8:43 PM) None Seen 12/31/2018 [facility] IMMUNOLOGY CDC HIV 4th GEN Negative *NA* (12/30/18 8:43 PM) Negative 12/31/2018 [facility] CHEM PANEL Bili Direct 0.1 0.0 - 0.3 12/21/2018 [facility] CHEM PANEL eGFR 134 12/21/2018 Result Comment: The eGFR is calculated using the CKD-EPI formula. In most young, healthy individuals the eGFR will be >90 mL/min/1.73m2. The eGFR declines with age. An eGFR of 60-89 may be normal in some populations, particularly the elderly, for whom the CKD-EPI formula has not been extensively validated. Use of the eGFR is not recommended in the following populations:

Individuals with unstable creatinine concentrations, including patients and those with serious co-morbid conditions.

Patients with extremes in muscle mass or diet.

The data above are obtained from the National Kidney Disease Education Program (NKDEP) which additionally recommends that when the eGFR is used in patients with extremes of body mass index for purposes of drug dosing, the eGFR should be multiplied by the estimated BMI. [facility] CHEM PANEL Bili Total 0.2 0.2 - 1.3 12/21/2018 [facility] CHEM PANEL AST 15 0 - 37 12/21/2018 [facility] CHEM PANEL Sodium Lvl 141 135 - 145 12/21/2018 [facility] CHEM PANEL Potassium Lvl 4.0 3.5 - 5.1 12/21/2018 [facility] CHEM PANEL ALT 20 0 - 65 12/21/2018 [facility] CHEM PANEL Alk Phos 79 39 - 136 12/21/2018 [facility] CHEM PANEL Total Protein 7.3 6.4 - 8.4 12/21/2018 [facility] CHEM PANEL CO2 26 24 - 32 12/21/2018 [facility] CHEM PANEL Calcium Lvl 8.7 8.5 - 10.5 12/21/2018 [facility] CHEM PANEL Albumin Lvl 3.4 3.5 - 5.0 12/21/2018 [facility] CHEM PANEL Chloride Lvl 106 95 - 109 12/21/2018 [facility] CHEM PANEL Creatinine Lvl 0.66 0.50 - 1.40 12/21/2018 [facility] CHEM PANEL BUN 7 7 - 22 12/21/2018 [facility] CHEM PANEL Glucose Lvl 91 70 - 99 12/21/2018 [facility] CHEM PANEL A/G Ratio 0.9 0.7 - 1.6 12/21/2018 [facility] CHEM PANEL Globulin 3.9 2.7 - 4.2 12/21/2018 [facility] CHEM PANEL B/C Ratio 11 6 - 25 12/21/2018 [facility] CHEM PANEL AGAP 13.0 10.0 - 20.0 12/21/2018 [facility] HEMATOLOGY PT 13.0 12.0 - 14.7 12/21/2018 [facility] HEMATOLOGY INR 1.00 0.85 - 1.17 12/21/2018 [facility] HEMATOLOGY Hgb 12.6 12.0 - 16.0 12/21/2018 [facility] HEMATOLOGY Platelet 249 133 - 450 12/21/2018 [facility] HEMATOLOGY RDW 16.8 11.5 - 14.5 12/21/2018 [facility] HEMATOLOGY MCHC 32.4 32.0 - 36.0 12/21/2018 [facility] HEMATOLOGY MCH 25.3 27.0 - 31.0 12/21/2018 [facility] HEMATOLOGY MCV 78.1 80.0 - 98.0 12/21/2018 [facility] HEMATOLOGY Hct 38.9 36.0 - 48.0 12/21/2018 [facility] HEMATOLOGY MPV 7.7 7.4 - 10.4 12/21/2018 [facility] HEMATOLOGY RBC 4.98 4.20 - 5.40 12/21/2018 [facility] HEMATOLOGY WBC 4.4 3.7 - 10.4 12/21/2018 [facility] HEMATOLOGY Monocytes # 0.4 0.0 - 0.8 12/21/2018 [facility] HEMATOLOGY Microcyte 1+ *ABN* (12/21/18 3:53 PM) None Seen 12/21/2018 [facility] HEMATOLOGY Neutrophils # 2.5 1.5 - 8.1 12/21/2018 [facility] HEMATOLOGY Lymphocytes # 1.5 1.0 - 5.5 12/21/2018 [facility] HEMATOLOGY Basophils 0.4 0.0 - 1.0 12/21/2018 [facility] HEMATOLOGY Segs 56.8 45.0 - 75.0 12/21/2018 [facility] HEMATOLOGY Lymphocytes 34.4 20.0 - 40.0 12/21/2018 [facility] HEMATOLOGY Monocytes 8.0 2.0 - 12.0 12/21/2018 [facility] HEMATOLOGY Eosinophils 0.4 0.0 - 4.0 12/21/2018 [facility] TUMOR MARKERS CA 125 6.0 0.0 - 35.0 12/21/2018 [facility] TUMOR MARKERS CA 19-9 4.7 0.0 - 35.0 12/21/2018 [facility] TUMOR MARKERS CEA 0.2 0.0 - 3.0 12/21/2018 [facility] CARDIAC ENZYMES Total CK 88 12 - 191 09/19/2018 [facility] CARDIAC ENZYMES Troponin-I <0.02 0.00 - 0.40 09/19/2018 [facility] CHEM PANEL eGFR 104 09/19/2018 Result Comment: The eGFR is calculated using the CKD-EPI formula. In most young, healthy individuals the eGFR will be >90 mL/min/1.73m2. The eGFR declines with age. An eGFR of 60-89 may be normal in some populations, particularly the elderly, for whom the CKD-EPI formula has not been extensively validated. Use of the eGFR is not recommended in the following populations:

Individuals with unstable creatinine concentrations, including patients and those with serious co-morbid conditions.

Patients with extremes in muscle mass or diet.

The data above are obtained from the National Kidney Disease Education Program (NKDEP) which additionally recommends that when the eGFR is used in patients with extremes of body mass index for purposes of drug dosing, the eGFR should be multiplied by the estimated BMI. [facility] CHEM PANEL Calcium Lvl 9.6 8.5 - 10.5 09/19/2018 [facility] CHEM PANEL Total Protein 7.7 6.4 - 8.4 09/19/2018 [facility] CHEM PANEL Albumin Lvl 3.5 3.5 - 5.0 09/19/2018 [facility] CHEM PANEL ALT 19 0 - 65 09/19/2018 [facility] CHEM PANEL AST 11 0 - 37 09/19/2018 [facility] CHEM PANEL Alk Phos 84 39 - 136 09/19/2018 [facility] CHEM PANEL Bili Total 0.4 0.2 - 1.3 09/19/2018 [facility] CHEM PANEL CO2 28 24 - 32 09/19/2018 [facility] CHEM PANEL Chloride Lvl 104 95 - 109 09/19/2018 [facility] CHEM PANEL Sodium Lvl 139 135 - 145 09/19/2018 [facility] CHEM PANEL Potassium Lvl 3.8 3.5 - 5.1 09/19/2018 [facility] CHEM PANEL Creatinine Lvl 0.85 0.50 - 1.40 09/19/2018 [facility] CHEM PANEL Glucose Lvl 96 70 - 99 09/19/2018 [facility] CHEM PANEL BUN 10 7 - 22 09/19/2018 [facility] CHEM PANEL A/G Ratio 0.8 0.7 - 1.6 09/19/2018 [facility] CHEM PANEL AGAP 10.8 10.0 - 20.0 09/19/2018 [facility] CHEM PANEL B/C Ratio 12 6 - 25 09/19/2018 [facility] CHEM PANEL Globulin 4.2 2.7 - 4.2 09/19/2018 [facility] CHEM PANEL Lipase Lvl 92 73 - 393 09/19/2018 [facility] CHEM PANEL Magnesium Lvl 2.0 1.8 - 2.4 09/19/2018 [facility] ENDOCRINOLOGY S Preg Negative *NA* (09/19/18 3:37 AM) Negative 09/19/2018 [facility] HEMATOLOGY RBC 5.06 4.20 - 5.40 09/19/2018 [facility] HEMATOLOGY Hct 39.3 36.0 - 48.0 09/19/2018 [facility] HEMATOLOGY WBC 6.8 3.7 - 10.4 09/19/2018 [facility] HEMATOLOGY Hgb 12.7 12.0 - 16.0 09/19/2018 [facility] HEMATOLOGY MPV 7.6 7.4 - 10.4 09/19/2018 [facility] HEMATOLOGY MCV 77.6 80.0 - 98.0 09/19/2018 [facility] HEMATOLOGY MCH 25.0 27.0 - 31.0 09/19/2018 [facility] HEMATOLOGY MCHC 32.2 32.0 - 36.0 09/19/2018 [facility] HEMATOLOGY RDW 14.7 11.5 - 14.5 09/19/2018 [facility] HEMATOLOGY Platelet 314 133 - 450 09/19/2018 [facility] HEMATOLOGY Segs 61.0 45.0 - 75.0 09/19/2018 [facility] HEMATOLOGY Lymphocytes 31.0 20.0 - 40.0 09/19/2018 [facility] HEMATOLOGY Monocytes # 0.4 0.0 - 0.8 09/19/2018 [facility] HEMATOLOGY Microcyte 1+ *ABN* (09/19/18 3:37 AM) None Seen 09/19/2018 [facility] HEMATOLOGY Basophils # 0.1 0.0 - 0.2 09/19/2018 [facility] HEMATOLOGY Neutrophils # 4.2 1.5 - 8.1 09/19/2018 [facility] HEMATOLOGY Basophils 1.3 0.0 - 1.0 09/19/2018 [facility] HEMATOLOGY Lymphocytes # 2.1 1.0 - 5.5 09/19/2018 [facility] HEMATOLOGY Eosinophils 0.5 0.0 - 4.0 09/19/2018 [facility] HEMATOLOGY Monocytes 6.2 2.0 - 12.0 09/19/2018 [facility] ENDOCRINOLOGY S Preg Negative *NA* (08/18/18 9:25 AM) Negative 08/18/2018 [facility] URINE AND STOOL POC UA Bili Negative *NA* (07/21/18 10:23 AM) Negative 07/21/2018 [facility] URINE AND STOOL POC UA Ket Trace mg/dL Negative mg/dL 07/21/2018 [facility] URINE AND STOOL POC UA Glu Negative mg/dL Negative mg/dL 07/21/2018 [facility] URINE AND STOOL POC UA Prot Negative mg/dL Negative mg/dL 07/21/2018 [facility] URINE AND STOOL POC UA pH 6.0 5.0 - 8.0 07/21/2018 [facility] URINE AND STOOL POC UA LeukEst Trace *ABN* (07/21/18 10:23 AM) Negative 07/21/2018 [facility] URINE AND STOOL POC UA Uro 0.2 0.1 - 1.0 07/21/2018 [facility] URINE AND STOOL POC UA Nit Negative *NA* (07/21/18 10:23 AM) Negative 07/21/2018 [facility] URINE AND STOOL POC UA Bld Negative *NA* (07/21/18 10:23 AM) Negative 07/21/2018 [facility] URINE AND STOOL POC UA SG 1.025 <=1.030 07/21/2018 [facility] URINE AND STOOL POC UA Turbidity Clear *NA* (07/21/18 10:23 AM) Clear 07/21/2018 [facility] URINE AND STOOL POC UA Color Yellow *NA* (07/21/18 10:23 AM) Yellow 07/21/2018 [facility] URINE AND STOOL POC UA Glu Negative mg/dL Negative mg/dL 07/15/2018 [facility] URINE AND STOOL POC UA Ket Negative mg/dL Negative mg/dL 07/15/2018 [facility] URINE AND STOOL POC UA Prot Negative mg/dL Negative mg/dL 07/15/2018 [facility] URINE AND STOOL POC UA pH 6.0 5.0 - 8.0 07/15/2018 [facility] URINE AND STOOL POC UA SG 1.020 <=1.030 07/15/2018 [facility] URINE AND STOOL POC UA Bld Negative *NA* (07/15/18 10:31 AM) Negative 07/15/2018 [facility] URINE AND STOOL POC UA Bili Negative *NA* (07/15/18 10:31 AM) Negative 07/15/2018 [facility] URINE AND STOOL POC UA LeukEst Negative *NA* (07/15/18 10:31 AM) Negative 07/15/2018 [facility] URINE AND STOOL POC UA Nit Negative *NA* (07/15/18 10:31 AM) Negative 07/15/2018 [facility] URINE AND STOOL POC UA Uro 0.2 0.1 - 1.0 07/15/2018 [facility] URINE AND STOOL POC UA Color Yellow *NA* (07/15/18 10:31 AM) Yellow 07/15/2018 [facility] URINE AND STOOL POC UA Turbidity Clear *NA* (07/15/18 10:31 AM) Clear 07/15/2018 [facility] URINE AND STOOL POC UA Color Yellow *NA* (07/08/18 9:38 AM) Yellow 07/08/2018 [facility] URINE AND STOOL POC UA Turbidity Clear *NA* (07/08/18 9:38 AM) Clear 07/08/2018 [facility] URINE AND STOOL POC UA SG >=1.030 *ABN* (07/08/18 9:38 AM) <=1.030 07/08/2018 [facility] URINE AND STOOL POC UA pH 6.0 5.0 - 8.0 07/08/2018 [facility] URINE AND STOOL POC UA Uro 2.0 0.1 - 1.0 07/08/2018 [facility] URINE AND STOOL POC UA Bld Moderate *ABN* (07/08/18 9:38 AM) Negative 07/08/2018 [facility] URINE AND STOOL POC UA Ket Negative mg/dL Negative mg/dL 07/08/2018 [facility] URINE AND STOOL POC UA Bili Small *ABN* (07/08/18 9:38 AM) Negative 07/08/2018 [facility] URINE AND STOOL POC UA Prot 30 mg/dL Negative mg/dL 07/08/2018 [facility] URINE AND STOOL POC UA Glu Negative mg/dL Negative mg/dL 07/08/2018 [facility] URINE AND STOOL POC UA LeukEst Trace *ABN* (07/08/18 9:38 AM) Negative 07/08/2018 [facility] URINE AND STOOL POC UA Nit Positive *ABN* (07/08/18 9:38 AM) Negative 07/08/2018 [facility] CHEM PANEL POC Creatinine 0.8 0.5 - 1.4 06/09/2018 [facility] CHEM PANEL eGFR 111 06/09/2018 Result Comment: The eGFR is calculated using the CKD-EPI formula. In most young, healthy individuals the eGFR will be >90 mL/min/1.73m2. The eGFR declines with age. An eGFR of 60-89 may be normal in some populations, particularly the elderly, for whom the CKD-EPI formula has not been extensively validated. Use of the eGFR is not recommended in the following populations:

Individuals with unstable creatinine concentrations, including patients and those with serious co-morbid conditions.

Patients with extremes in muscle mass or diet.

The data above are obtained from the National Kidney Disease Education Program (NKDEP) which additionally recommends that when the eGFR is used in patients with extremes of body mass index for purposes of drug dosing, the eGFR should be multiplied by the estimated BMI. [facility] URINE CHEM U Preg Negative (06/17/17 12:55 PM) Negative 06/17/2017 [facility] Pathology Reports No Data Provided for This Section Diagnostic Reports Report Value Date Source Abdomen 2 views DX EXAM: XR ABDOMEN 1 VIEW DATE: 01/12/2019 11:35 CDT INDICATION: - Abdominal pain ADDITIONAL INFORMATION: None. COMPARISON: None. TECHNIQUE: AP view of the abdomen. FINDINGS: Lines and tubes: A T tube is seen in the right upper quadrant. Lower thorax: Unremarkable where visualized. Bowel: Normal. Solid organs: No abnormal mass or organomegaly seen. No abnormal calcifications found. Bones: Normal. IMPRESSION: 1. Nonobstructive bowel gas pattern 01/12/2019 [facility] Pelvis w Transvag and Pelvis Doppler US TRANSABDOMINAL PELVIC ULTRASOUND; TRANSVAGINAL ULTRASOUND WITH DOPPLER: HISTORY: Ovarian cyst. TECHNIQUE: Transabdominal and transvaginal evaluation of the pelvis were both done. Doppler of the ovaries was also done. The report below represents a combination of findings from both studies. FINDINGS: The uterus is 8.8 cm in length and 3.7 x 4.3 cm in transverse dimension. The endometrium is 1 mm in thickness. Nabothian cysts are seen in the cervix. There is no evidence of mass or intrauterine . The urinary bladder is not demonstrated. The right ovary is 3.2 x 2.1 x 1.6 cm in size. The left ovary is 3.7 x 2.3 x 2.1 cm in size. There is satisfactory color flow and arterial Doppler signal demonstrated in both ovaries. There is a 1.3 cm unilocular simple cyst in the right ovary developing since the previous ultrasound on 10/15/2018. There is an 8 mm cyst or follicle in the left ovary. The 2.1 cm left ovarian cyst seen on the previous study is no longer visualized. No other cysts, adnexal masses or free fluid are demonstrated. IMPRESSION: 1. Interval resolution of the 2.1 cm left ovarian cyst since 10/15/2018. A subcentimeter follicle or cyst in the left ovary is noted. 2. Interval development of small right ovarian simple cyst, most likely physiologic. 3. No other significant ultrasound abnormalities of the pelvis. SL [id number] 2019 [facility] DX EXAM: XR CHEST 1 VIEW DATE: 01/07/2019 12:59 CDT INDICATION: - S/P OPEN COMMON BILE DUCT RESECTION, NADIYA-EN-Y HEPATICOJEJUNOSTOMY 12/31/2018. Acute chest pain COMPARISON: 09/19/2018 TECHNIQUE: AP chest IMPRESSION: Both lungs are clear. Costophrenic recesses are sharp. Cardiomediastinal silhouette within normal limits. No acute osseous abnormalities. 01/07/2019 [facility] Gallbladder scan [facility] NM EXAM: NM Hepatobiliary Imaging DATE: 01/04/2019 9:04 CDT INDICATION: - POD3 /POD4 S/P CBD resection and nadiya en y. Abdominal pain status post cholecystectomy, evaluate for bile leak. ADDITIONAL INFORMATION: 'S/P Open Common Bile Duct Resection, Nadiya-En-Y Hepaticojejunostomy 12/31/2018 Evaluate for bile leak COMPARISON: CT abdomen and pelvis 01/03/2019 TECHNIQUE: After the intravenous administration of 7 mCi of technetium 99m Choletec, dynamic blood flow images followed by sequential static images through 120 minutes were obtained. Multiple static images around the abdomen were also obtained at the end of 2 hours. FINDINGS: There is good tracer uptake in the liver with homogeneous distribution. The liver appears normal in size and shape. There are changes of hepaticojejunostomy with timely excretion of tracer into the bowel. There is no evidence of bile leak seen throughout 2 hours of imaging status post common bile duct resection with hepaticojejunostomy. The gallbladder is not visualized likely surgically resected. IMPRESSION: There is no evidence of bile leak status post Nadiya-En-Y procedure. 01/04/2019 [facility] Abdomen/Pelvis w IV contrast CT EXAM: CT ABDOMEN AND PELVIS WITH CONTRAST DATE: 01/03/2019 6:45 CDT INDICATION: - s/p hepaticojejunostomy ADDITIONAL INFORMATION: 33 yo F with HTN, hypothyroidism, pre-DM, and type 1 choledochal cyst who underwent open CBD resection and Nadiya-en-Y hepaticojejunostomy on 12/31 c/b bowel leak and returned to OR for takedown of biliary anastomosis, resection of previously anastomosed Nadiya limb, and redo hepaticojejunostomy 01/01. COMPARISON: MR abdomen without contrast 08/13/[address] abdomen pelvis with and without contrast 06/09/2018. TECHNIQUE: Volumetric CT acquisition of the abdomen and pelvis after the intravenous administration contrast. Axial, coronal and sagittal reconstructions. Postcontrast phases: Venous and delayed. IV contrast: 100 mL Omnipaque Enteric contrast: None. DLP: 1888 mGy-cm FINDINGS: Lines, tubes and hardware: * Surgical drains with the tip terminating within the right upper quadrant and mid abdomen. Lower thorax: Small bilateral pleural effusions with associated compressive atelectasis. Liver: * 3.4 x 3.9 cm hypodense area involving hepatic segment 8 (series 5 image 12) which is isodense on delayed phase.. * Linear area of hypodensity involving hepatic segment 4 (series 5 image 24) which is also isodense on delayed phase.. Biliary tree: No intra- or extrahepatic biliary ductal dilation. Gallbladder: Surgically absent. Trace amount of fluid in the gallbladder fossa. Pancreas: No mass or ductal dilation. Spleen: No splenomegaly. Adrenals: No nodularity or irregularity. Kidneys and ureters: * No hydronephrosis or hydroureter. * No solid or cystic renal lesions. * Bilateral kidneys show normal and equal nephrogram. Bladder: Normal. Reproductive organs: * Uterus and adnexa are unremarkable. * Bilateral Essure device. Gastrointestinal tract: Stomach: Postsurgical changes of Nadiya-en-Y. Small bowel: Normal in caliber without evidence of obstruction or ileus. Postsurgical changes of Nadiya-en-Y with hepaticojejunostomy. Colon: Normal. Appendix: Normal. Peritoneum, mesentery and retroperitoneum: * Small amount of simple appearing fluid in the pelvis. * Scattered foci of free air, likely postsurgical. * Small amount of fluid within the right lower quadrant. Lymph nodes: Normal. Vasculature: No evidence of hepatic lesions. Bones: No acute abnormality. Soft tissues: Postsurgical changes within the anterior abdominal wall including multiple foci of air in the anterior abdominal wall. IMPRESSION: 1. Postsurgical changes of Nadiya-en-Y with hepaticojejunostomy. No organized fluid collections identified. 2. Ill-defined hypodense areas involving the hepatic segments 8 and 4 which are isodense on delayed phases, likely perfusion abnormality. 3. Small amount of postsurgical fluid in the gallbladder fossa. 4. Small bilateral pleural effusions with associated compressive atelectasis. 01/03/2019 [facility] Abdomen 1 v for Placement DX EXAM: XR ABDOMEN 1 VIEW DATE: 12/31/2018 INDICATION: - s/p NG tube placement ADDITIONAL INFORMATION: None. COMPARISON: None. TECHNIQUE: Limited AP view of the abdomen for tube placement assessment. Number of images: 1 FINDINGS: Transesophageal feeding tube tip: None visualized. Transesophageal suction tube sidehole: Side hole at the GE junction. Other tubes and lines: Overlying tubes are noted. Surgical damaso are noted over midline. IMPRESSION: 1. Tube positions as above. 12/31/2018 [facility] Thyroid US Study: Thyroid US Age: 33 years y/o Female Clinical Indication: - hypothyroidism; Comparison: Thyroid ultrasound of 09/18/2015. TECHNIQUE: Sonographic evaluation of the thyroid gland is performed FINDINGS: The right thyroid gland measures 4.0 cm x 0.9 cm x 1.0 cm. The left thyroid gland measures 3.6 cm x 0.6 cm x 1.0 cm. The thyroid isthmus is unremarkable There is normal bilateral thyroid gland contour and morphology. There is normal thyroid parenchymal echotexture. There are no solid or cystic nodules noted. IMPRESSION: 1. Stable thyroid without definite nodule detected. Recommendations for Thyroid Nodules 1 cm or Larger in Maximum Diameter: AJR: 178, July 2001 ULTRASOUND FEATURE RECOMMENDATION Solitary Nodule - Microcalcifications - Strongly consider US-guided FNA if > 1 cm - Solid or coarse calcifications - Strongly consider US-guided FNA if > 1.5 cm - Mixed solid and cystic - Consider US-guided FNA if > 2cm - None of the above but substantial growth - Consider US-guided FNA - Almost entirely cystic and none of the above - US-guided FNA probably unnecessary Multiple Nodules - Consider US-guided FNA of one or more nodules, with selection prioritized on basis of criteria (in order listed) for solitary nodule. SL: [id number] 11/09/2018 [facility] Barium Swallow w Esophagus Function DX Patient Name: CARMEN SHEARER : 1985; Age: 33 years y/o Female MR: [id number] Barium Swallow w Esophagus Function DX COMPARISON: None CLINICAL HISTORY: R13.10 Dysphagia, unspecified / K21.9 Gastro-esophageal reflux disease without esophagitis / K57.30 Diverticulosis of large intestine without perforation or abscess without bleeding - R13.10 Dysphagia, unspecified / K21.9 Gastro-esophageal reflux disease without esophagitis / K57.30 Diverticulosis of large intestine without perforation or abscess without bleeding. The patient states she has a hiatal hernia as well as complaining of acid reflux for several years FLUOROSCOPY TIME: 2.9 minutes REFERENCE AIR KERMA: 60.62 mGy TECHNIQUE: Thin barium was utilized for recumbent prone oblique and LPO images. Thick barium was utilized for upright imaging of the esophagus and pharynx. Granola bar mixed with barium was given to evaluate motility with solids. FINDINGS: There is no delay in passage of the barium bolus from the pharynx into the esophagus. The cricopharyngeus relaxes normally. There is no evidence for cricopharyngeal bar or Zenker's diverticulum. Prone and LPO images of the esophagus reveal a 4-5 cm sliding hiatal hernia. There is mild delay and dysmotility in contrast passage. No gastroesophageal reflux is identified. Upright images with thick barium reveal mild delay with dysmotility. No mass lesions or strictures are visualized. The aforementioned hernia persists but is slightly smaller in size on the upright view. Subsequently 2 separate swallows of a small piece of granola bar and barium were fluoroscopically followed through the length of the esophagus. There is mild delay in passage of both solid boluses from the pharynx to the esophagus and subsequently into the stomach. Overhead image performed at the conclusion of the procedure reveals prompt passage of the barium from the stomach into the small bowel. IMPRESSION: 4-5 cm sliding hiatal hernia Nonspecific mild delay and dysmotility in contrast passage, worst with solids SL: [id number] Thank you for allowing [facility] to participate in the care of your patient. 10/19/2018 [facility] Pelvis Transvag w Pelvis Doppler US Pelvis Transvag w Pelvis Doppler US CLINICAL HX: - ovarian cyst left side; COMPARISON: 07/15/2018 TECHNIQUE: Multiple static transabdominal and endovaginal images of the pelvis are submitted for review. Endovaginal images were performed in an attempt to better visualize the endometrial stripe and adnexal regions. FINDINGS: UTERUS: The uterus measures approximately 7.5 cm in the sagittal length. The uterus is unremarkable in appearance. The endometrial stripe measures 15 mm. OVARIES: The right ovary measures 2.6 x 1.7 x 1.5 cm in size, and the left ovary measures 4.1 x 2.1 x 1.8 cm in size. 2.1 x 1.6 cm oval exophytic cyst is noted along the left ovary. No free fluid is present in the cul-de-sac. IMPRESSION: Mild enlargement of previously noted left ovarian cyst. No other significant sonographic abnormality is noted. SL: DEIDRE 10/15/2018 [facility] Chest 1view DX Clinical Indication: - possible CVA. Comparison: None FINDINGS: The portable AP single view radiograph provided for review. Overlapping electrocardiogram leads and wires. The exam demonstrates limited decreased lung volumes without dense airspace consolidation, large pleural effusion or detectable pneumothorax. The heart size and pulmonary vasculature are normal. The trachea is midline. There are no clinically significant osseous abnormalities noted. IMPRESSION: No chest radiographic evidence of acute cardiopulmonary disease. TURNER: GOLD 09/19/2018 [facility] Brain wo contrast CT CT HEAD WITHOUT CONTRAST Clinical Indication: - generalized weakness, dizziness. Comparison: None. TECHNIQUE: CT images were obtained from the foramen magnum to the vertex without the use of intravenous contrast on a multidetector CT. CT imaging was performed with exposure control parameters to reduce radiation dose. Coronal and sagittal reconstructions were obtained. CT radiation dose DLP: 780 mGy-cm FINDINGS: There is no hemorrhage, extra-axial fluid collection, overt mass, midline shift or hydrocephalus. The visualized paranasal sinuses are clear. The mastoid air cells are clear. The calvarium and skull base are intact. If clinical concern persists for acute pathology further evaluation with MRI brain can be obtained if warranted. IMPRESSION: No CT evidence of acute intracranial abnormality. SL: STORM 09/19/2018 [facility] Abdomen wo contrast MRI Patient Name: CARMEN SHEARER : 1985; Age: 33 years y/o Female MR: [id number] Study: Abdomen wo contrast MRI 08/13/2018 4:32 PM CDT Ordering Physician: MD Thi Ybarra MD Clinical Indication: K21.9 Gastro-esophageal reflux disease without esophagitis - .; Comparison: None Technique: Magnetic resonance cholangiopancreatography is performed with axial in and out of phase gradient echo imaging. Coronal T2, axial T2 and oblique axial T2 images are also obtained. Thick slab MRCP images and maximum intensity projection images are also obtained. FINDINGS: There is normal liver contour and morphology with normal signal intensity. The gallbladder is unremarkable. There are no low signal intensity areas to suggest stones. There is no gallbladder wall thickening. There is no intrahepatic biliary ductal dilatation. The common bile duct shows proximal fusiform dilation up to 8 mm in maximum diameter and 3.5 mm diameter in the mid common bile duct. There is normal distal tapering of the common bile duct. Series 7 shows apparent mid common bile duct signal voids, possibly representing crossing hepatic artery artifact. This finding is not reproduced on other sequences. The pancreas and pancreatic duct appear unremarkable. There is no magnetic resonance cholangiopancreatography evidence of pancreatic divisum. The spleen, adrenals and kidneys are normal. There is no retroperitoneal lymphadenopathy or abdominal ascites. The visualized bowel loops are grossly unremarkable. IMPRESSION: Proximal common bile duct minimal fusiform dilation, possibly representing type I choledochal cyst. Apparent mid common bile duct signal voids, not reproduced on other sequences may represent crossing hepatic artery artifact. Small cholelithiasis cannot be excluded. SL: DEEPAK 08/13/2018 [facility] Pelvis Complete US Patient Name: CARMEN SHEARER : 1985; Age: 33 years Female MR: [id number] Study: Pelvis Complete US 07/15/2018 9:35 STUDENT SUPPORT ADVISOR CLINICAL INDICATION: - LT OV CYST. COMPARISON: None TECHNIQUE: Grayscale, Doppler, and color sonographic evaluation of the pelvis was performed using standard technique. Only transabdominal technique was utilized. FINDINGS: The uterus measures 9.9 x 3.6 x 4.8 cm and demonstrates normal echogenicity. The endometrial stripe is within normal limits of thickness, measuring 0.4 cm. The right ovary measures 1.4 x 0.9 x 1.2 cm and the left ovary measures 3.1 x 1.7 x 2.6 cm. Anechoic 1.6 cm left paraovarian cyst without significant septation or solid component. Color imaging demonstrates adequate flow to the ovaries. No evidence of free pelvic fluid. IMPRESSION: Small left paraovarian cyst. SL: [id number] 07/15/2018 [facility] Abdomen complete US Patient Name: CARMEN SHEARER : 1985; Age: 33 years Female MR: [id number] Study: Abdomen complete US 07/15/2018 9:35 STUDENT SUPPORT ADVISOR CLINICAL INDICATION: - ABD PAIN COMPARISON: CT on 06/09/2018 TECHNIQUE: Grayscale and limited color sonographic evaluation of the abdomen was performed using standard technique. FINDINGS: Liver: The liver demonstrates normal echogenicity and is normal in size, measuring 13.8 cm. No focal liver lesion identified. The main portal vein demonstrates normal hepatopedal flow. Gallbladder: Normal appearance of the gallbladder without evidence of stones, wall thickening, or pericholecystic fluid. Biliary: No intrahepatic biliary ductal dilatation. The dilated common bile duct measures 0.9 cm. Pancreas: Not well visualized. Spleen: The spleen is normal in echogenicity and in size, measuring 8.6 cm in length. Kidney: The right kidney measures 9.7 cm in length. The left kidney measures 10.1 cm in length. Normal renal echogenicity and contour without evidence of hydronephrosis. Aorta and IVC: The visualized portions are unremarkable. No evidence of free fluid. IMPRESSION: Dilated common bile duct (0.9 cm) suggestive of distal CBD obstruction possibly from choledocholithiasis. Consider correlation with liver function tests and further evaluation with MRCP as indicated. SL: [id number] 07/15/2018 [facility] Abdomen/Pelvis w/wo IV contrast CT Patient Name: CARMEN SHEARER : 1985; Age: 33 years y/o Female MR: [id number] Study: Abdomen/Pelvis w/wo IV contrast CT 06/09/2018 10:41 AM STUDENT SUPPORT ADVISOR Ordering Physician: MD Denise Dowling MD Clinical Indication: - abdominal and pelvic pain; Comparison: None TECHNIQUE: Sequential trans-axial images were obtained with a multi-detector helical CT before and after administration of iodinated contrast. Coronal and sagittal reconstructions were obtained. 100 mL of omnipaque contrast material was used for the exam. omnipaque oral contrast material was used for the exam. CT Radiation Dose DLP 2107 mGy-cm FINDINGS: CT ABDOMEN WITHOUT/WITH CONTRAST: The noncontrast enhanced images of the abdomen show no renal calculi or calcified abdominal masses. VISUALIZED LUNG BASES: Unremarkable. ABDOMINAL SOLID ORGANS: The contrast-enhanced images of the liver, spleen, pancreas, gallbladder, adrenals and kidneys are normal. STOMACH AND BOWEL: The [<contrast>] opacified stomach is unremarkable. The contrast opacified loops of small bowel in the abdomen are unremarkable. Right lower quadrant appendix shows normal size. The contrast opacified loops of colon in the abdomen are unremarkable. PERITONEUM AND RETROPERITONEUM: There is no abdominal lymphadenopathy. There is no pneumoperitoneum or ascites. The retroperitoneal region appears unremarkable. VASCULAR STRUCTURES: Abdominal aorta shows normal caliber. OSSEOUS STRUCTURES: There are no definite significant osseous abnormalities seen. CT PELVIS WITHOUT/WITH CONTRAST: The noncontrast enhanced images of the pelvis show no distal ureteral calculi or calcified pelvic masses. PERITONEUM AND EXTRAPERITONEAL REGIONS: Tubal occlusion devices are noted. Left pelvis 2.5 x 3.0 cm hypodense lesion on axial image 101 may arise from the left ovary. There is no pelvic lymphadenopathy. Left pelvis shows nonspecific small free fluid up to 22 Hounsfield units average density. The inguinal regions are unremarkable. BLADDER: The bladder appears unremarkable. OSSEOUS STRUCTURES: There are no definite significant osseous abnormalities seen. IMPRESSION: Left pelvis cyst may arise from the left ovary. If clinically desired, ultrasound may better characterize this finding. Nonspecific small left pelvic free fluid SL: [id number] 06/09/2018 [facility] lumbar 2 or 3 views DX Clinical Indication: - tailbone injury, lumbar pain. Comparison: None Technique: 3 views of the lumbar spine. FINDINGS: The views of the lumbar spine show five non rib bearing lumbar vertebral segments. There is no radiographic evidence of fracture. The vertebral body heights are maintained. Normal alignment. No evidence of significant listhesis. The SI joints are intact. Disc spaces appear maintained. Facet joints appear normal. If there is further concern or neurological abnormalities on clinical exam, MRI or CT of the lumbar spine may be performed for complete assessment. IMPRESSION: No radiographic evidence of acute abnormality. SL: [id number] 06/09/2018 [facility] Spine coccyx DX Radiographs of the coccyx. HISTORY: Pain in the coccyx. 3 views sacrum and coccyx. FINDINGS: No radiographic evidence of displaced sacral or coccygeal fracture. There is very minimal posterior subluxation of the distal coccygeal bones, which may reflect normal variation or may reflect an age-indeterminate injury. Clinical correlation recommended. If there is persistent clinical concern, bone scan or MRI can be obtained for further evaluation. IMPRESSION: No definitive displaced fractures. Minimal posterior subluxation of distal coccygeal bones, which may reflect normal variation versus age-indeterminate injury. Recommend clinical correlation. SL: [id number] 06/09/2018 [facility] Barium enema DX Barium enema DX CLINICAL HISTORY: fl time 1 min, dose 220.05 mGy, dap 112.517 Gycm2, Dr. 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 COMPARISON: None TECHNIQUE: Single contrast barium was administered into the rectum in a retrograde fashion. Fluoroscopic and overhead images of the colon were subsequently performed. FINDINGS: LION HUNTER: [employer]ost Kiln Operator study reveals nonobstructive bowel gas pattern. No large contour deforming mass is visible. No pathologic calcifications are evident. Tubal ligation coils are noted in the pelvis. BARIUM ENEMA: Barium was followed to the cecum with small amount of reflux into the appendix. There is no leakage of barium outside the lumen of the colon. No fistula to the vagina is demonstrated on the fluoroscopic spot images nor on the overhead images. There is mild irregularity along the mucosal margin of the colon near the junction of descending colon and sigmoid colon. Remainder of the colon demonstrates normal morphology. No diverticula are noted. Presacral space is within normal limits. IMPRESSION: Mild irregularity is noted along the mucosal margin of the colon near the junction of descending colon and sigmoid colon. Differential considerations include neoplasm. Further evaluation with endoscopy is recommended. No fluoroscopic evidence to suggest leak or fistula. [id number] 06/17/2017 [facility] Thyroid US THYROID ULTRASOUND: HISTORY: Goiter. FINDINGS: The right lobe is 4.4 cm in length and 0.9 x 1.2 cm in transverse dimension. The left lobe is 3.7 cm in length and 0.9 x 1.3 cm in transverse dimension. The isthmus is 3 mm in thickness. There is homogeneous echogenicity of the thyroid gland with normal contours. There is no evidence of cysts or nodules. Normal vascularity is demonstrated with color Doppler. There is a slight decrease in size measurements compared to the previous thyroid ultrasound on 07/23/2010 without other significant change. IMPRESSION: No significant ultrasound abnormalities of the thyroid. [id number] 09/18/2015 [facility] Shoulder series DX Study: Left shoulder, 3 views Clinical Indication: M25.512 Pain in left shoulder Comparison: None FINDINGS: Multiple views of the left shoulder show no acute bony fracture, joint location, or suspicious osseous lesion. Os acromiale is noted. Soft tissues are unremarkable. IMPRESSION: No acute bony abnormality of the left shoulder. SL: [id number] 07/12/2015 [facility] Foot 2 views DX Study: Left foot, 2 views Clinical Indication: M79.672 Pain in left foot Comparison: None FINDINGS: Multiple views of the left foot show no acute bony fracture, joint dislocation, or suspicious osseous lesion. Mild dorsal forefoot soft tissue swelling is seen. IMPRESSION: No acute bony abnormality of the left foot. SL: [id number] 07/12/2015 [facility] Spine lumbar series DX Study: Lumbar spine, 5 views Clinical Indication: M54.5 Low back pain Comparison: None FINDINGS: Multiple views of the lumbar spine show 5 nonrib-bearing lumbar vertebra. No acute compression fracture or subluxation is seen. Intervertebral disc spaces are well-maintained. No pars interarticularis defects are seen. Bilateral Essure wires in the pelvis are seen. IMPRESSION: No significant abnormality of the lumbar spine. SL: [id number] 07/12/2015 [facility] Consultation Notes No Data Provided for This Section Discharge Summaries No Data Provided for This Section History and Physicals No Data Provided for This Section Vital Signs Vital Sign Value Date Comments Source Systolic (mm Hg) 116 02/01/2019 [facility] Diastolic (mm Hg) 82 02/01/2019 [facility] Heart Rate 78 02/01/2019 [facility] Respitory Rate 12 02/01/2019 [facility] Temperature Oral (F) 98.5 F 02/01/2019 [facility] Height 149.86 cm 02/01/2019 [facility] Weight 79.318 02/01/2019 [facility] BMI Calculated 35.32 02/01/2019 [facility] Systolic (mm Hg) 108 01/25/2019 [facility] Diastolic (mm Hg) 72 01/25/2019 [facility] Heart Rate 82 01/25/2019 [facility] Temperature Oral (F) 100.0 F 01/25/2019 [facility] Height 149.86 cm 01/25/2019 [facility] Weight 80.909 01/25/2019 [facility] BMI Calculated 36.03 01/25/2019 [facility] Systolic (mm Hg) 97 01/20/[facility] Diastolic (mm Hg) 68 01/20/[facility] Heart Rate 87 01/20/[facility] Respitory Rate 20 01/20/[facility] Temperature Oral (F) 98.9 F 01/20/2019 [facility] Height 149.86 cm 01/20/2019 [facility] Weight 80.455 01/20/2019 [facility] BMI Calculated 35.82 01/20/2019 [facility] Systolic (mm Hg) 127 01/18/2019 [facility] Diastolic (mm Hg) 87 01/18/2019 [facility] Heart Rate 81 01/18/2019 [facility] Temperature Oral (F) 96.6 F 01/18/2019 [facility] Height 149.8 cm 01/18/2019 [facility] Weight 80.909 01/18/2019 [facility] BMI Calculated 36.06 01/18/2019 [facility] Systolic (mm Hg) 118 01/12/2019 [facility] Diastolic (mm Hg) 79 01/12/2019 [facility] Heart Rate 73 01/12/2019 [facility] Temperature Oral (F) 97.9 F 01/12/2019 [facility] Height 149.86 cm 01/12/2019 [facility] Weight 80.909 01/12/2019 [facility] BMI Calculated 36.03 01/12/2019 [facility] Temperature Oral (F) 98.2 F 01/07/2019 [facility] Heart Rate 75 01/07/2019 [facility] Respitory Rate 18 01/07/2019 [facility] Systolic (mm Hg) 125 01/07/2019 [facility] Diastolic (mm Hg) 84 01/07/2019 [facility] Temperature Oral (F) 98.3 F 01/07/2019 [facility] Heart Rate 72 01/07/2019 [facility] Respitory Rate 18 01/07/2019 [facility] Systolic (mm Hg) 114 01/07/2019 [facility] Diastolic (mm Hg) 78 01/07/2019 [facility] Temperature Oral (F) 98.9 F 01/07/2019 [facility] Heart Rate 69 01/07/2019 [facility] Respitory Rate 18 01/07/2019 [facility] Systolic (mm Hg) 108 01/07/2019 [facility] Diastolic (mm Hg) 70 01/07/2019 [facility] Height 172.72 cm 01/05/2019 [facility] Height 172.72 cm 01/02/2019 [facility] Height 172.72 cm 01/01/2019 [facility] Weight 83 12/31/2018 [facility] BMI Calculated 27.82 12/31/2018 [facility] Systolic (mm Hg) 124 12/31/2018 [facility] Diastolic (mm Hg) 80 12/31/2018 [facility] Temperature Oral (F) 98.2 F 12/31/2018 [facility] Respitory Rate 16 12/31/2018 [facility] Systolic (mm Hg) 138 12/31/2018 [facility] Diastolic (mm Hg) 90 12/31/2018 [facility] Respitory Rate 17 12/31/2018 [facility] Systolic (mm Hg) 128 12/31/2018 [facility] Diastolic (mm Hg) 89 12/31/2018 [facility] Respitory Rate 17 12/31/2018 [facility] Temperature Oral (F) 98.1 F 12/31/2018 [facility] Heart Rate 89 12/31/2018 [facility] Heart Rate 82 12/31/2018 [facility] Temperature Oral (F) 98.4 F 12/31/2018 [facility] Weight 82.273 12/30/2018 [facility] BMI Calculated 36.63 12/30/2018 [facility] BMI Calculated 37.52 12/21/2018 [facility] Weight 84.273 12/21/2018 [facility] Height 149.86 cm 12/21/2018 [facility] Temperature Oral (F) 97.6 F 12/21/2018 [facility] Systolic (mm Hg) 123 12/21/2018 [facility] Diastolic (mm Hg) 81 12/21/2018 [facility] Heart Rate 68 12/21/2018 [facility] Weight 85 10/27/2018 [facility] BMI Calculated 37.85 10/27/2018 [facility] Height 149.86 cm 10/27/2018 [facility] Respitory Rate 16 10/27/2018 [facility] Temperature Oral (F) 98.2 F 10/27/2018 [facility] Heart Rate 72 10/27/2018 [facility] Systolic (mm Hg) 113 10/27/2018 [facility] Diastolic (mm Hg) 79 10/27/2018 [facility] Weight 90 10/14/2018 [facility] BMI Calculated 40.07 10/14/2018 [facility] Height 149.86 cm 10/14/2018 [facility] Temperature Oral (F) 98.7 F 10/14/2018 [facility] Systolic (mm Hg) 121 10/14/2018 [facility] Diastolic (mm Hg) 86 10/14/2018 [facility] Heart Rate 69 10/14/2018 [facility] Respitory Rate 16 10/14/[facility] Systolic (mm Hg) 115 09/19/2018 [facility] Diastolic (mm Hg) 75 09/19/2018 [facility] Respitory Rate 23 09/19/2018 [facility] Temperature Oral (F) 98.5 F 09/19/2018 [facility] Systolic (mm Hg) 120 09/19/2018 [facility] Diastolic (mm Hg) 92 09/19/2018 [facility] Respitory Rate 14 09/19/2018 [facility] Systolic (mm Hg) 136 09/19/2018 [facility] Diastolic (mm Hg) 89 09/19/2018 [facility] Respitory Rate 15 09/19/2018 [facility] Weight 81.818 09/19/2018 [facility] BMI Calculated 36.43 09/19/2018 [facility] Temperature Oral (F) 98.7 F 09/19/2018 [facility] Heart Rate 86 09/19/2018 [facility] Height 149.86 cm 09/19/2018 [facility] Weight 89.091 09/16/2018 [facility] BMI Calculated 39.67 09/16/2018 [facility] Height 149.86 cm 09/16/2018 [facility] Heart Rate 67 09/16/2018 [facility] Respitory Rate 14 09/16/2018 [facility] Temperature Oral (F) 98.1 F 09/16/2018 [facility] Systolic (mm Hg) 109 09/16/2018 [facility] Diastolic (mm Hg) 71 09/16/2018 [facility] Respitory Rate 17 08/18/2018 [facility] Systolic (mm Hg) 124 08/18/2018 [facility] Diastolic (mm Hg) 88 08/18/2018 [facility] Systolic (mm Hg) 123 08/18/2018 [facility] Diastolic (mm Hg) 95 08/18/2018 [facility] Respitory Rate 21 08/18/2018 [facility] Systolic (mm Hg) 137 08/18/2018 [facility] Diastolic (mm Hg) 103 08/18/2018 [facility] Respitory Rate 24 08/18/2018 [facility] Heart Rate 66 08/13/2018 [facility] Temperature Oral (F) 97.6 F 08/13/2018 [facility] [facility] Calculated 39.47 08/13/2018 [facility] Height 149.86 cm 08/13/2018 [facility] Weight 88.636 08/13/2018 [facility] BMI Calculated 39.87 07/23/2018 [facility] Weight 89.545 07/23/2018 [facility] Height 149.86 cm 07/23/2018 [facility] Temperature Oral (F) 97.3 F 07/23/2018 [facility] Systolic (mm Hg) 135 07/23/2018 [facility] Diastolic (mm Hg) 86 07/23/2018 [facility] Heart Rate 84 07/23/2018 [facility] Respitory Rate 16 07/23/2018 [facility] Weight 89.091 07/21/2018 [facility] BMI Calculated 39.67 07/21/2018 [facility] Height 149.86 cm 07/21/2018 [facility] Heart Rate 101 07/21/2018 [facility] Systolic (mm Hg) 120 07/21/2018 [facility] Diastolic (mm Hg) 83 07/21/2018 [facility] BMI Calculated 39.27 07/15/2018 [facility] Height 149.86 cm 07/15/2018 [facility] Heart Rate 97 07/15/2018 [facility] Systolic (mm Hg) 125 07/15/2018 [facility] Diastolic (mm Hg) 79 07/15/2018 [facility] Weight 88.182 07/15/2018 [facility] BMI Calculated 38.86 07/08/2018 [facility] Weight 87.273 07/08/2018 [facility] Height 149.86 cm 07/08/2018 [facility] Heart Rate 111 07/08/2018 [facility] Systolic (mm Hg) 122 07/08/2018 [facility] Diastolic (mm Hg) 84 07/08/2018 [facility] BMI Calculated 39.87 06/01/2018 [facility] Height 149.86 cm 06/01/2018 [facility] Weight 89.545 06/01/2018 [facility] Heart Rate 70 06/01/2018 [facility] Respitory Rate 16 06/01/2018 [facility] Systolic (mm Hg) 132 06/01/2018 [facility] Diastolic (mm Hg) 95 06/01/2018 [facility] Temperature Oral (F) 98 F 06/01/2018 [facility] Temperature Oral (F) 98.3 F 02/11/2018 [facility] Weight 88.636 02/11/2018 [facility] BMI Calculated 39.47 02/11/2018 [facility] Height 149.86 cm 02/11/2018 [facility] Heart Rate 87 02/11/2018 [facility] Systolic (mm Hg) 113 02/11/2018 [facility] Diastolic (mm Hg) 73 02/11/2018 [facility] Respitory Rate 14 02/11/2018 [facility] Temperature Oral (F) 82 F 01/27/2018 [facility] Heart Rate 82 01/27/2018 [facility] Systolic (mm Hg) 119 01/27/2018 [facility] Diastolic (mm Hg) 82 01/27/2018 [facility] Height 149.86 cm 01/27/2018 [facility] Respitory Rate 14 01/27/2018 [facility] Temperature Oral (F) 97.8 F 08/10/2017 [facility] Respitory Rate 14 08/10/2017 [facility] Heart Rate 69 08/10/2017 [facility] Systolic (mm Hg) 121 08/10/2017 [facility] Diastolic (mm Hg) 78 08/10/2017 [facility] Height 149.86 cm 08/10/2017 [facility] BMI Calculated 39.16 08/10/2017 [facility] Weight 87.955 08/10/2017 [facility] Systolic (mm Hg) 106 05/05/2017 [facility] Diastolic (mm Hg) 73 05/05/2017 [facility] Weight 87.727 05/05/2017 [facility] BMI Calculated 39.06 05/05/2017 [facility] Height 149.86 cm 05/05/2017 [facility] Temperature Oral (F) 98.6 F 05/05/2017 [facility] Heart Rate 91 05/05/2017 [facility] Respitory Rate 14 05/05/2017 [facility] Encounters Location Location Details Encounter Type Encounter Number Reason For Visit Attending Provider ADM Date DC Date Status Source Outpatient [id number] DENISE GRANDE 07/05/2015 Active [facility] Outpatient [id number] Denise Dowling 07/12/2015 07/13/2015 [facility] Outpatient [id number] MARTIN MARTIN 07/26/2015 Active [facility] Outpatient [id number] Denise Grande Dowling 09/18/2015 09/19/2015 [facility] Outpatient [id number] DENISE GRANDE 10/30/2015 [facility] [id number] DENISE GRANDE 11/12/2015 Active [facility] [place] OP Therapy Patients [id number] Denise Dowling 11/21/2015 12/21/2015 [facility] [place] Outpatient [id number] DENISE GRANDE 11/23/2015 Active [facility] [place] Outpatient [id number] DENISE GRANDE 01/02/2016 Active [facility] [place] Outpatient [id number] DENISE GRANDE 01/16/2016 Active [facility] Outpatient [id number] DENISE GRANDE 03/05/2016 Active [facility] [place] Outpatient [id number] DENISE GRANDE 04/29/2016 Active [facility] [place] Outpatient [id number] DENISE GRANDE 02/11/2017 Active [facility] [place] Outpatient [id number] DENISE GRANDE 02/18/2017 Active [facility] [place] Outpatient [id number] DENISE GRANDE 02/26/2017 Active [facility] [place] Outpatient [id number] DENISE GRANDE 03/04/2017 Active [facility] Outpatient [id number] DENISE GRANDE 03/25/2017 Active [facility] Outpatient [id number] DENISE GRANDE 05/05/2017 Active [facility] Outpatient [id number] Denise Dowling 05/05/2017 05/06/2017 [facility] Outpatient [id number] DENISE GRANDE 05/13/2017 Active [facility] Ambulatory Pre-Reg [id number] Denise Dowling 05/13/2017 05/13/2017 [facility] Phone Message [id number] 05/14/2017 05/16/2017 [facility] Outpatient [id number] DENISE GRANDE 05/19/2017 Active [facility] Ambulatory Pre-Reg [id number] Denise Dowling 05/19/2017 05/19/2017 [facility] Outpatient [id number] Jenny Kurt 06/17/2017 06/18/2017 [facility] Outpatient [id number] DENISE GRANDE 06/22/2017 Active [facility] Ambulatory Pre-Reg [id number] Denise Dowling 06/22/2017 06/22/2017 [facility] Outpatient [id number] DENISE GRANDE 07/02/2017 Active [facility] Ambulatory Pre-Reg [id number] Denise Dowling 07/02/2017 07/02/2017 [facility] Outpatient [id number] DENISE GRANDE 07/10/2017 Active [facility] Ambulatory Pre-Reg [id number] Denise Dowling 07/10/2017 07/10/2017 [facility] Outpatient [id number] DENISE GRANDE 08/10/2017 Active [facility] Outpatient [id number] Denise Dowling 08/10/2017 08/11/2017 [facility] Phone Message [id number] 09/30/2017 10/02/2017 [facility] Outpatient [id number] DENISE GRANDE 10/09/2017 Active [facility] Ambulatory Pre-Reg [id number] Denise Dowling 10/09/2017 10/09/2017 [facility] Outpatient [id number] DENISE GRANDE 12/02/2017 Active [facility] Ambulatory Pre-Reg [id number] Denise Dowling 12/02/2017 12/02/2017 [facility] Outpatient [id number] DENISE GRANDE 12/14/2017 Active [facility] Ambulatory Pre-Reg [id number] Denise Grande Dowling 12/14/2017 12/14/2017 [facility] Outpatient [id number] DENISE GRANDE 12/23/2017 Active [facility] Ambulatory Pre-Reg [id number] Denise Grande Dowling 12/23/2017 12/23/2017 [facility] Outpatient [id number] DENISE GRANDE 01/27/2018 Active [facility] Outpatient [id number] Denise Grande Dowling 01/27/2018 01/28/2018 [facility] Outpatient [id number] DENISE GRANDE 02/05/2018 Active [facility] Ambulatory Pre-Reg [id number] Denise Grande Dowling 02/05/2018 02/05/2018 [facility] Outpatient [id number] DENISE GRANDE 02/11/2018 Active [facility] Outpatient [id number] Denise Grande Dowling 02/11/2018 02/12/2018 [facility] Outpatient [id number] DENISE GRANDE 03/11/2018 Active [facility] Ambulatory Pre-Reg [id number] Denise Grande Dowling 03/11/2018 03/11/2018 [facility] Outpatient [id number] DENISE GRANDE 06/01/2018 Active [facility] Outpatient [id number] Denise Grande Dowling 06/01/2018 06/02/2018 [facility] Outpatient [id number] Denise Grande Dowling 06/09/2018 06/10/2018 [facility] Phone Message [id number] 06/11/2018 06/13/2018 [facility] Outpatient [id number] DENISE GRANDE 06/21/2018 Active [facility] Ambulatory Pre-Reg [id number] Denise Grande Dowling 06/21/2018 06/21/2018 [facility] Outpatient [id number] DENISE GRANDE 06/22/2018 Active [facility] Ambulatory Pre-Reg [id number] Denise Grande Dowling 06/22/2018 06/22/2018 [facility] Outpatient [id number] [facility] 06/28/2018 Active [facility] [id number] [facility] 06/28/2018 06/28/2018 [facility] Outpatient [id number] ORLY WOJCIECH 07/08/2018 Active [facility] Urology [facility] Outpatient [id number] Orly Wojciech 07/08/2018 07/09/2018 [facility] Outpatient [id number] ORLY WOJCIECH 07/15/2018 Active [facility] Outpatient [id number] Denise Grande Dowling 07/15/2018 07/16/2018 [facility] [id number] Orly Wojciech 07/15/2018 07/16/2018 [facility] Outpatient [id number] [facility] 07/21/2018 Active [facility] Urology [facility] Outpatient [id number] [facility] 07/21/2018 07/22/2018 [facility] Outpatient [id number] DENISE GRANDE 07/23/2018 [facility] Outpatient [id number] Denise Grande Dowling 07/23/2018 07/24/2018 Medical [facility] Phone Message [id number] 07/28/2018 07/30/2018 Medical [facility] Phone Message [id number] 08/03/2018 08/05/2018 [facility] Outpatient [id number] DENISE GRANDE 08/04/2018 Active [facility] Ambulatory Pre-Reg [id number] Denise Grande Dowling 08/04/2018 08/04/2018 [facility] Outpatient [id number] Thi Krueger Tate 08/13/2018 08/14/2018 [facility] Outpatient [id number] Sri Evans Tate 08/18/2018 08/18/2018 [facility] Outpatient [id number] [facility] 08/23/2018 Active [facility] [id number] Cait Greene 08/23/2018 08/23/2018 [facility] Primary Care [facility] Phone Message [id number] 09/01/2018 09/03/2018 [facility] Outpatient [id number] Denise Dowling 09/16/2018 Active [facility] Primary Care [facility] Outpatient [id number] Denise Dowling 09/16/2018 09/17/2018 [facility] Emergency [id number] Samson Whelan 09/19/2018 09/19/2018 [facility] Outpatient [id number] Denise Dowling 09/23/2018 Active [facility] Outpatient [id number] Denise Dowling 10/14/2018 Active [facility] Primary Care [facility] Outpatient [id number] Denise Dowling 10/14/2018 10/15/2018 Medical [facility] Outpatient [id number] Neeru Grullon 10/15/2018 10/16/2018 [facility] Outpatient [id number] Thi Ybarra 10/19/2018 10/20/2018 [facility] Outpatient [id number] Denise Dowling 10/27/2018 Active [facility] Outpatient [id number] Denise Dowling 10/27/2018 10/28/2018 Medical [facility] Outpatient [id number] Denise Dowling 11/09/2018 11/10/2018 [facility] [place] Outpatient [id number] Wasim Ephraim 12/21/2018 12/22/2018 [facility] Emergency [id number] Rodney Traore 12/31/2018 12/31/2018 [facility] Inpatient [id number] Wasim Ephraim 12/31/2018 01/07/2019 [facility] Outpatient [id number] Neeru Grullon 2019 01/11/2019 [facility] [place] Outpatient [id number] Wasim Ephraim 01/12/2019 01/13/2019 [facility] [place] Outpatient [id number] Wasim Ephraim 01/18/2019 01/19/2019 [facility] Outpatient [id number] Denise Grande Dowling 01/20/2019 [facility] [place] Outpatient [id number] Denise Grande Dowling 01/20/2019 01/21/2019 [facility] Outpatient [id number] Wasim Ephraim 01/25/2019 01/26/2019 [facility] Outpatient [id number] Wasim Ephraim 02/01/2019 02/02/2019 [facility] Outpatient [id number] Denise Grande Dowling 02/08/2019 [facility] Procedures Procedure Code Date Perfomer Comments Source Measurement of post-voiding residual urine and/or bladder capacity by ultrasound, non-imaging 14840 07/21/2018 [facility] Colonoscopy [id number] 05/18/2012 [facility] [place] Procedure on knee<sup>1</sup> [id number] 05/18/2010 Left knee [facility] Papanicolaou smear taken<sup>2</sup> [id number] had it years ago [facility] [id number] Tubal ligation [id number] [facility] Assessment and Plan Assessment and Plan Date Source Extracted from:Title: Transplant Surgery Author: Terrie Boyle Date: 01/06/19 33 year old woman with pmh of HTN, DM, hypothyroidism, choledochal cyst now s/p open CBD resection w RnY hepaticojejunostomy. Brought to ICU for monitoring of residual anesthetic effects. Went back to OR for concern for bowel leak on POD 0 Choledochocyst(Q44.4) -Off hydromorphone. On Tramadol PRN and scheduled Tylenol 3 - Continue current bowel regimen --givesuppository and milk of magnesia - Tolerating regular diet - discontinue labs - Encourage IS - Continue Physical therapy - Reflux: protonix BID, PRN tums, add Nexium if needed Disposition 9wj floor Extracted from:Title: APMS Consult Note Author: Connor Rodríguez MD Date: 01/01/19 Basic Information Referral source Reason for consultation: Complex Acute Pain History of Present Illness The patient presents with 33 yo F with HTN, hypothyroidism, pre-DM, and type 1 choledochal cyst who underwent open CBD resection and Nadiya-en-Y hepaticojejunostomy on 12/31 c/b bowel leak and returned to OR for takedown of biliary anastomosis, resection of previously anastomosed Nadiya limb, and redo hepaticojejunostomy 01/01 early AM. Patient had post-induction bilateral QL blocks for postoperative pain on 12/31 prior to initial procedure. Patient doing well this morning and currently resting comfortably. Pain well-controlled. Block resolved without residual effects. Location: bilateral abdomen Quality: sharp, burning Severity: 0/10 Timing: acute post op Duration: intermittent Context: s/p open CBD resection and Nadiya-en-Y hepaticojejunostomy on 12/31 c/b bowel leak and returned to OR for takedown of biliary anastomosis, resection of previously anastomosed Nadiya limb, and redo hepaticojejunostomy Modifying factors: relieved with PNB and pain meds and worsened with movement . Histories Past Medical History: Active Hypothyroidism (65960960) HTN (hypertension) (1657074978) Prediabetes (4232368307) Choledochal cyst (4725947736) Family History: Diabetes. Aunt Procedure history: Colonoscopy (527398140) in 2012 at 28 Years. Procedure on knee (143777049) in 2010 at 26 Years. Comments: 06/25/2015 11:38 - Kya Hoover Left knee Papanicolaou smear taken (757998595). Comments: 06/25/2015 11:40 - Kya Hoover had it years ago section (43758157). Tubal ligation (485881531). Social History Social and Psychosocial Habits Alcohol 09/16/2018 Use: Never Substance Abuse 12/30/2018 Use: None Route Subcutaneous Tobacco 12/31/2018 Use: Never smoker Exposure to Tobacco Smoke None Cigarette Smoking Last 365 Days No Reg Smoking Cessation Counseling No. Health Status Allergies: Allergic Reactions (Selected) No Known Allergies No Known Medication Allergies, Allergies (2) Active Reaction No Known Allergies None Documented No Known Medication Allergies None Documented Current medications: (Selected) Inpatient Medications Ordered D5W 1/2NS + KCL 20mEq/L 1000ml (Premix) 1,000 mL: 100 ml/hr, IV, Stop: 01/30/19 13:49:00 CDT Dextrose 50% Syringe: 12.5 gm, 25 mL, IVP, PRN, PRN: Blood Glucose Results Dextrose 50% Syringe: 25 gm, 50 mL, IVP, PRN, PRN: Blood Glucose Results Insulin regular: 1 unit, 0.01 mL, SUB-Q, Sliding Scale, PRN: Blood Glucose Results Insulin regular: 2 unit, 0.02 mL, SUB-Q, Sliding Scale, PRN: Blood Glucose Results Insulin regular: 3 unit, 0.03 mL, SUB-Q, Sliding Scale, PRN: Blood Glucose Results Insulin regular: 4 unit, 0.04 mL, SUB-Q, Sliding Scale, PRN: Blood Glucose Results Insulin regular: 5 unit, 0.05 mL, SUB-Q, Sliding Scale, PRN: Blood Glucose Results Lidoderm 5% topical film (patch): 1 patch, TOP, Daily Lovenox: 40 mg, 0.4 mL, SUB-Q, [id number] MiraLax: 17 gm, 1 pkt, PO, Daily, PRN: Constipation Saline Flush 0.9%: 10 ml, IVP, PRN, PRN: Line Flush Saline Flush 0.9%: 10 ml, IVP, Q12H Synthroid: 112 microgram, 1 tab, PO, Q630AM Tylenol: 1,000 mg, 2 tab, PO, Q6H ceFAZolin (SCIP): 1 gm, IVPB, Q8H docusate-senna 50 mg-8.6 mg oral tablet: 2 tab, PO, Q12H glucagon: 1 mg, IM, PRN, PRN: Blood Glucose Results ketOROLAC: 30 mg, 1 mL, IVP, Q6H, PRN: Pain Score 4-6 nystatin topical 100,000 units/g powder: 1 appl, TOP, PRN, PRN: For Fungal Prophylaxis oxyCODONE 5 mg oral tablet, immediate release: 10 mg, 2 tab, PO, Q6H, PRN: Pain Score 7-10 oxyCODONE 5 mg oral tablet, immediate release: 5 mg, 1 tab, PO, Q6H, PRN: Pain Score 4-6 pantoprazole: 40 mg, 1 tab, PO, Daily sertraline: 50 mg, 1 tab, PO, Daily tramadol 50 mg oral tablet: 50 mg, 1 tab, PO, Q6H, PRN: Pain Score 1-3 Suspended Robaxin: 500 mg, 1 tab, PO, Q8H gabapentin 300 mg oral capsule: 300 mg, 1 cap, PO, Q8H Prescriptions Prescribed Synthroid 112 mcg (0.112 mg) oral tablet: 112 microgram, 1 tab, PO, Daily, for 90 day, 90 tab, 1 Refill(s) Voltaren Topical 1% topical gel: 4 gm, 1 appl, TOP, BID, for 30 day, PRN: Apply to affected area, 100 gm, 1 Refill(s) celecoxib 200 mg oral capsule: 200 mg, 1 cap, PO, Daily, for 14 day, 14 cap, 0 Refill(s) lisinopril 5 mg oral tablet: 5 mg, 1 tab, PO, Daily, 90 tab, 0 Refill(s) pantoprazole 40 mg oral enteric coated tablet: 40 mg, 1 tab, PO, Daily, 90 tab, 1 Refill(s) sertraline 50 mg oral tablet: 50 mg, 1 tab, PO, Daily, for 90 day, FIRST WEEK TAKE HALF OF THE TABLET DAILY AND FROM THE SECOND WEEK AND ON, TAKE ONE TABLET DAILY, 90 tab, 1 Refill(s), Medications (25) Active Scheduled: (9) acetaminophen 500 mg TAB 1,000 mg 2 tab, PO, Q6H ceFAZolin 1 gm VL INJ 1 gm, IVPB, Q8H docusate-senna 50-8.6 mg TAB 2 tab, PO, Q12H enoxaparin 40 mg/0.4 ml INJ 40 mg 0.4 mL, SUB-Q, [id number] levothyroxine 112 microgram TAB 112 microgram 1 tab, PO, Q630AM lidocaine 5% top patch 1 patch, TOP, Daily pantoprazole 40 mg ECT 40 mg 1 tab, PO, Daily sertraline 50 mg TAB 50 mg 1 tab, PO, Daily sodium chloride 0.9% 10 ml flush syr BD 10 ml, IVP, Q12H Continuous: (1) D5W 1/2NS + KCL 20mEq/L 1000ml (Premix) 1,000 mL 1,000 mL, IV, 100 ml/hr PRN: (15) Dextrose 50% 50 ml INJ syringe 12.5 gm 25 mL, IVP, PRN Dextrose 50% 50 ml INJ syringe 25 gm 50 mL, IVP, PRN glucagon recombinant 1 mg PDR 1 mg, IM, PRN insulin reg human rec 100 unit/ml INJ 3 ml Vial 1 unit 0.01 mL, SUB-Q, Sliding Scale insulin reg human rec 100 unit/ml INJ 3 ml Vial 2 unit 0.02 mL, SUB-Q, Sliding Scale insulin reg human rec 100 unit/ml INJ 3 ml Vial 3 unit 0.03 mL, SUB-Q, Sliding Scale insulin reg human rec 100 unit/ml INJ 3 ml Vial 4 unit 0.04 mL, SUB-Q, Sliding Scale insulin reg human rec 100 unit/ml INJ 3 ml Vial 5 unit 0.05 mL, SUB-Q, Sliding Scale ketOROLAC 30 mg/1 ml INJ VL 30 mg 1 mL, IVP, Q6H nystatin 474577 unit/gm 15 gm PWD 1 appl, TOP, PRN oxyCODONE IR 5 mg TAB 10 mg 2 tab, PO, Q6H oxyCODONE IR 5 mg TAB 5 mg 1 tab, PO, Q6H polyethylene glycol 17 gm packet 17 gm 1 pkt, PO, Daily sodium chloride 0.9% 10 ml flush syr BD 10 ml, IVP, PRN traMADol 50 mg TAB 50 mg 1 tab, PO, Q6H Problem list: All Problems Abdominal pain / SNOMED CT 48782989 / Confirmed Acute diarrhea / SNOMED CT 9271788303 / Confirmed Acute UTI / SNOMED CT 4345309394 / Confirmed Bacterial vaginosis / SNOMED CT 4900548484 / Confirmed Benign essential HTN / SNOMED CT 8305873 / Confirmed Vaginal yeast infection / SNOMED CT 193698700 / Confirmed Chest pain / SNOMED CT 40709142 / Confirmed Choledochal cyst / SNOMED CT 6750274021 / Confirmed Low serum vitamin D / SNOMED CT 487686520 / Confirmed Hospital discharge follow-up / SNOMED CT 6353609301 / Confirmed GERD (gastroesophageal reflux disease) / SNOMED CT 3562609140 / Confirmed Enlarged thyroid / SNOMED CT 2083707 / Confirmed Headache / SNOMED CT 09594261 / Confirmed Shingles / SNOMED CT 7766602 / Confirmed Hip pain / SNOMED CT 76819728 / Confirmed HTN (hypertension) / SNOMED CT 0071835215 / Confirmed Hypothyroidism / SNOMED CT 41418811 / Confirmed Loss of balance / SNOMED CT 5919796484 / Confirmed Female incontinence / SNOMED CT 00849020 / Confirmed Urinary frequency / SNOMED CT 426634969 / Confirmed Tailbone injury / SNOMED CT 477649919 / Confirmed Low back pain / SNOMED CT 324778429 / Confirmed Hyperlipemia, mixed / SNOMED CT 379732368 / Confirmed Moderate anxiety / SNOMED CT 379314810 / Confirmed Morbidly obese / SNOMED CT 891369457 / Confirmed Yeast infection / SNOMED CT 5788918274 / Confirmed Obesity / SNOMED CT 0083254018 / Confirmed Cough / SNOMED CT 5123828500 / Confirmed Female dyspareunia / SNOMED CT 296621010 / Confirmed Pelvic pain / SNOMED CT 927756866 / Confirmed Breast pain / SNOMED CT 405231233 / Confirmed Dysuria / SNOMED CT 4323561100 / Confirmed Annual physical exam / SNOMED CT 085178134 / Confirmed Pap smear for cervical cancer screening / SNOMED CT 923458529 / Confirmed Screen for STD (sexually transmitted disease) / SNOMED CT 402346279 / Confirmed Prediabetes / SNOMED CT 4558913730 / Confirmed Prediabetes / SNOMED CT 8541041721 / Confirmed Pyelonephritis / SNOMED CT 43152537 / Confirmed Rectovaginal fistula / SNOMED CT 734086195 / Confirmed Diabetes mellitus screening / SNOMED CT 595384551 / Confirmed Seborrheic dermatitis / SNOMED CT 15541736 / Confirmed Left shoulder pain / SNOMED CT 81883566 / Confirmed Shoulder pain / SNOMED CT 38767268 / Confirmed Obesity due to excess calories / SNOMED CT 0676579696 / Confirmed Upper respiratory infection / SNOMED CT 85163600 / Confirmed Urge incontinence / SNOMED CT 9771718573 / Confirmed Urinary incontinence / SNOMED CT 5417582915 / Confirmed Vaginal discharge / SNOMED CT 736180196 / Confirmed Upper respiratory infection, viral / SNOMED CT 783218717 / Confirmed, Active Problems (49) Abdominal pain Acute diarrhea Acute UTI Annual physical exam Bacterial vaginosis Benign essential HTN Breast pain Chest pain Choledochal cyst Cough Diabetes mellitus screening Dysuria Enlarged thyroid Female dyspareunia Female incontinence GERD (gastroesophageal reflux disease) Headache Hip pain Hospital discharge follow-up HTN (hypertension) Hyperlipemia, mixed Hypothyroidism Left shoulder pain Loss of balance Low back pain Low serum vitamin D Moderate anxiety Morbidly obese Obesity Obesity due to excess calories Pap smear for cervical cancer screening Pelvic pain Prediabetes Prediabetes Pyelonephritis Rectovaginal fistula Screen for STD (sexually transmitted disease) Seborrheic dermatitis Shingles Shoulder pain Tailbone injury Upper respiratory infection Upper respiratory infection, viral Urge incontinence Urinary frequency Urinary incontinence Vaginal discharge Vaginal yeast infection Yeast infection Review of Systems Constitutional: Negative. Cardiovascular: Negative. Ear/Nose/Mouth/Throat Respiratory: Negative. Gastrointestinal: Negative. Musculoskeletal: Negative except as documented in history of present illness. Neurologic: Negative. Psychiatric: Negative. Endocrine: Negative. Hematology/Lymphatics: Negative. Integumentary: Negative. Physical Examination VS/Measurements Measurements from flowsheet : Measurements 01/01/2019 06:50 Heparin Dosing Weight (kg) 71.54 01/01/2019 06:49 Height 172.72 cm Height Collection Method Estimated Weight Collection Method Measured Current Weight 92.008 kg Body Mass Index-Current 30.84 m2 12/31/2018 18:13 Heparin Dosing Weight (kg) 71.54 12/31/2018 18:13 Height 172.72 cm Height Collection Method Estimated Weight 83 kg Dosing Weight Difference Percent 0.884 % Dosing Weight Collection Method Measured Body Surface Area 1.9955 m2 Body Mass Index 27.82 m2 12/31/2018 06:43 Dosing Weight Difference Percent In Error % Normal (In Error) , Vital Signs (last 24 hrs) Last Charted Temp Axillary 95.7 DegF (JAN 01 05:59) Heart Rate Apical 81 bpm (JAN 01 07:00) Resp Rate 20 BRMIN (JAN 01 07:00) SBP 114 mmHg (JAN 01 07:00) DBP 65 mmHg (JAN 01 07:00) Weight 83 kg (DEC 31 18:13) Height 172.72 cm (JAN 01 06:49) BMI 27.82 (DEC 31 18:13) General: No acute distress. Eye: Extraocular movements are intact. HENT: Normocephalic. Respiratory: Respirations are non-labored. Cardiovascular: Normal peripheral perfusion. Integumentary: Dry, [place]. Neurologic: Alert. Cognition and Speech: Speech clear and coherent. Psychiatric: Cooperative. Review / Management Results review: Labs (Last four charted values) WBC H 15.0 (JAN 01) H 12.3 (DEC 31) 6.6 (DEC 31) Hgb 12.4 (JAN 01) 12.9 (DEC 31) 12.7 (DEC 31) Hct 38.7 (JAN 01) 39.8 (DEC 31) 38.4 (DEC 31) Plt 279 (DEC 17) 262 (DEC 16) 268 (DEC 31) Na 140 (DEC 17) 139 (DEC 31) 140 (DEC 31) K 4.1 (JAN 01) 4.4 (DEC 31) 3.9 (DEC 31) CO2 L 23 (JAN 01) L 22 (DEC 31) 25 (DEC 31) Cl 107 (JAN 01) 106 (DEC 31) 106 (DEC 31) Cr 0.64 (JAN 01) 0.66 (DEC 31) 0.72 (DEC 31) BUN L 6 (JAN 01) 8 (DEC 31) 10 (DEC 31) Glucose Random H 163 (JAN 01) H 146 (DEC 31) 95 (DEC 31) Mg 2.1 (JAN 01) 2.1 (DEC 31) Phos 3.3 (JAN 01) 3.2 (DEC 31) Ca L 8.0 (JAN 01) 8.5 (DEC 31) 8.6 (DEC 31) PT 14.7 (JAN 01) 14.3 (DEC 31) 13.7 (DEC 31) INR 1.17 (JAN 01) 1.13 (DEC 31) 1.07 (DEC 31) PTT 27.4 (JAN 01) 26.9 (DEC 31) 31.0 (DEC 31) . Chest x-ray results ECG interpretation Impression and Plan Diagnosis Orders Education and Follow-up: Counseled: Regarding treatment, Regarding medications. 33 yo F with HTN, hypothyroidism, pre-DM, and type 1 choledochal cyst who underwent open CBD resection and Nadiya-en-Y hepaticojejunostomy on 12/31 c/b bowel leak and returned to OR for takedown of biliary anastomosis, resection of previously anastomosed Nadiya limb, and redo hepaticojejunostomy 01/01 early AM. Patient had post-induction bilateral QL blocks for postoperative pain on 12/31 prior to initial procedure. - Block resolved without residual effects - Continue multimodal regimen as per primary team - APMS will sign off at this time Please call if additional questions arise. Thank you for the opportunity to participate in the care of this patient. Block Check, RUTHIE Rodríguez MD PGY-3, [place]-2 [facility] Anesthesiology Addendum by Erasmo Kam MD on 01/02/2019 11:22 I saw and examined the patient and discussed plan of care with the resident. I have reviewed the note bellow and agree with the history, physical examination findings, assessment and plan of care. Extracted from:Title: TSICU H&P Author: Fer Bowers NP Date: 12/31/18 Basic Information Source of history: Medical record. Referral source: Recovery room. History limitation: Clinical condition. Chief Complaint 12/30/2018 20:35 Pt presents w/ RUQ abdominal pain. States "i have a bile duct blockage". Has scheduled surgery tomorrow but pain has increased today. aaox4. nad. resp e/u. PMH htn, hypothyroid History of Present Illness Ms Shearer is a 33 year old female with a PMH of DM, HTN, hypothyroidism and type 1 choledochal cyst who underwent an open CBD resection with nadiya-en-Y hepaticojejunostomy. Of note, the patient initially presented to the ER the morning of her surgery for severe RUQ abdominal pain in which CT A/P was negative and was d/c to pre-op for her scheduled procedure. No complications were noted intra-op. During the procedure, the patient was given a total of 250 mg of ketamine. In the PACU, the patient was difficult to arouse post-procedure and was rapided to the TSICU for further management. On arrival, the patient is very lethargic requiring aggressive stimulation for arousal. ABG was unremarkable and the patient is protecting her airway. EBL 20ml, UOP 385 ml, crystalloids 2810 ml Review of Systems unable to assess, patient is currently too lethargic 2/2 over-sedation Health Status Allergies: Allergic Reactions (All) No Known Allergies No Known Medication Allergies Current medications: (Selected) Inpatient Medications Ordered D5W 1/2NS + KCL 20mEq/L 1000ml (Premix) 1,000 mL: 100 ml/hr, IV, Stop: 01/30/19 13:49:00 CDT Lidoderm 5% topical film (patch): 1 patch, TOP, Daily Lovenox: 40 mg, 0.4 mL, SUB-Q, [id number] MiraLax: 17 gm, 1 pkt, PO, Daily, PRN: Constipation Robaxin: 500 mg, 1 tab, PO, Q8H Saline Flush 0.9%: 10 ml, IVP, PRN, PRN: Line Flush Saline Flush 0.9%: 10 ml, IVP, Q12H Synthroid: 112 microgram, 1 tab, PO, Q630AM Tylenol: 1,000 mg, 2 tab, PO, Q6H ceFAZolin (SCIP): 1 gm, IVPB, ABXQ8H docusate-senna 50 mg-8.6 mg oral tablet: 2 tab, PO, Q12H gabapentin 300 mg oral capsule: 300 mg, 1 cap, PO, Q8H naproxen: 500 mg, 1 tab, PO, Q12H nystatin topical 100,000 units/g powder: 1 appl, TOP, PRN, PRN: For Fungal Prophylaxis oxyCODONE 5 mg oral tablet, immediate release: 10 mg, 2 tab, PO, Q6H, PRN: Pain Score 7-10 oxyCODONE 5 mg oral tablet, immediate release: 5 mg, 1 tab, PO, Q6H, PRN: Pain Score 4-6 sertraline: 50 mg, 1 tab, PO, Daily Prescriptions Prescribed Synthroid 112 mcg (0.112 mg) oral tablet: 112 microgram, 1 tab, PO, Daily, for 90 day, 90 tab, 1 Refill(s) Voltaren Topical 1% topical gel: 4 gm, 1 appl, TOP, BID, for 30 day, PRN: Apply to affected area, 100 gm, 1 Refill(s) celecoxib 200 mg oral capsule: 200 mg, 1 cap, PO, Daily, for 14 day, 14 cap, 0 Refill(s) lisinopril 5 mg oral tablet: 5 mg, 1 tab, PO, Daily, 90 tab, 0 Refill(s) pantoprazole 40 mg oral enteric coated tablet: 40 mg, 1 tab, PO, Daily, 90 tab, 1 Refill(s) sertraline 50 mg oral tablet: 50 mg, 1 tab, PO, Daily, for 90 day, FIRST WEEK TAKE HALF OF THE TABLET DAILY AND FROM THE SECOND WEEK AND ON, TAKE ONE TABLET DAILY, 90 tab, 1 Refill(s) Problem list: All Problems Abdominal pain / SNOMED CT 57589321 / Confirmed Acute diarrhea / SNOMED CT 0935174713 / Confirmed Acute UTI / SNOMED CT 5547288667 / Confirmed Bacterial vaginosis / SNOMED CT 6771500545 / Confirmed Benign essential HTN / SNOMED CT 8609036 / Confirmed Vaginal yeast infection / SNOMED CT 598910571 / Confirmed Chest pain / SNOMED CT 48736906 / Confirmed Choledochal cyst / SNOMED CT 5864169342 / Confirmed Low serum vitamin D / SNOMED CT 239905665 / Confirmed Hospital discharge follow-up / SNOMED CT 7116225314 / Confirmed GERD (gastroesophageal reflux disease) / SNOMED CT 1939188918 / Confirmed Enlarged thyroid / SNOMED CT 2738873 / Confirmed Headache / SNOMED CT 34901762 / Confirmed Shingles / SNOMED CT 3988281 / Confirmed Hip pain / SNOMED CT 21160646 / Confirmed HTN (hypertension) / SNOMED CT 6222114419 / Confirmed Hypothyroidism / SNOMED CT 24418073 / Confirmed Loss of balance / SNOMED CT 8326036846 / Confirmed Female incontinence / SNOMED CT 93405495 / Confirmed Urinary frequency / SNOMED CT 219236830 / Confirmed Tailbone injury / SNOMED CT 185667834 / Confirmed Low back pain / SNOMED CT 510451053 / Confirmed Hyperlipemia, mixed / SNOMED CT 270102265 / Confirmed Moderate anxiety / SNOMED CT 365050037 / Confirmed Morbidly obese / SNOMED CT 910010414 / Confirmed Yeast infection / SNOMED CT 4785902334 / Confirmed Obesity / SNOMED CT 9772888811 / Confirmed Cough / SNOMED CT 0974335837 / Confirmed Female dyspareunia / SNOMED CT 687282869 / Confirmed Pelvic pain / SNOMED CT 006512956 / Confirmed Breast pain / SNOMED CT 847560188 / Confirmed Dysuria / SNOMED CT 7373185848 / Confirmed Annual physical exam / SNOMED CT 131845969 / Confirmed Pap smear for cervical cancer screening / SNOMED CT 971449261 / Confirmed Screen for STD (sexually transmitted disease) / SNOMED CT 918724275 / Confirmed Prediabetes / SNOMED CT 6697968991 / Confirmed Prediabetes / SNOMED CT 1122757679 / Confirmed Pyelonephritis / SNOMED CT 12531738 / Confirmed Rectovaginal fistula / SNOMED CT 729071440 / Confirmed Diabetes mellitus screening / SNOMED CT 767863414 / Confirmed Seborrheic dermatitis / SNOMED CT 07931251 / Confirmed Left shoulder pain / SNOMED CT 98014830 / Confirmed Shoulder pain / SNOMED CT 36646870 / Confirmed Obesity due to excess calories / SNOMED CT 7139476789 / Confirmed Upper respiratory infection / SNOMED CT 27509432 / Confirmed Urge incontinence / SNOMED CT 9987074060 / Confirmed Urinary incontinence / SNOMED CT 7391324498 / Confirmed Vaginal discharge / SNOMED CT 875091122 / Confirmed Upper respiratory infection, viral / SNOMED CT 938432511 / Confirmed Histories Past Medical History: Active Hypothyroidism (32122430) HTN (hypertension) (9025346240) Prediabetes (0155053141) Choledochal cyst (8046191423) Family History: Diabetes. Aunt Procedure history: Colonoscopy (009005560) in 2012 at 28 Years. Procedure on knee (402787964) in 2010 at 26 Years. Comments: 06/25/2015 11:38 - Kya Hoover Left knee Papanicolaou smear taken (731642773). Comments: 06/25/2015 11:40 - Kya Hoover had it years ago section (24918491). Tubal ligation (128141377). Social History Social and Psychosocial Habits Alcohol 09/16/2018 Use: Never Substance Abuse 12/30/2018 Use: None Route Subcutaneous Tobacco 12/31/2018 Use: Never smoker Exposure to Tobacco Smoke None Cigarette Smoking Last 365 Days No Reg Smoking Cessation Counseling No. Physical Examination VS/Measurements Measurements from flowsheet : Measurements 12/31/2018 18:13 Heparin Dosing Weight (kg) 71.54 12/31/2018 18:13 Height 172.72 cm Height Collection Method Estimated Weight 83 kg Dosing Weight Difference Percent 0.884 % Dosing Weight Collection Method Measured Body Surface Area 1.9955 m2 Body Mass Index 27.82 m2 12/31/2018 06:43 Dosing Weight Difference Percent In Error % Normal (In Error) 12/30/2018 08:42 Heparin Dosing Weight (kg) 58.83 12/30/2018 08:38 Height 149.86 cm Height Collection Method Stated Weight 82.273 kg Dosing Weight Difference Percent DateCorrection (In Error) Dosing Weight Collection Method Estimated Body Surface Area 1.8506 m2 Body Mass Index 36.63 m2 , Vital Signs (last 24 hrs) Last Charted Temp Axillary H 98.5DegF (DEC 31 18:18) Heart Rate Apical 67 bpm (DEC 31 18:18) Resp Rate H 22BRMIN (DEC 31 18:18) SBP 116 mmHg (DEC 31 18:) DBP 68 mmHg (DEC 31 18:18) Weight 83 kg (DEC 31 18:13) Height 172.72 cm (DEC 31 18:13) BMI 27.82 (DEC 31 18:13) General: sedated, not responding to questions. Eye: Pupils are equal, round and reactive to light, Normal conjunctiva. HENT: Normocephalic, Oral mucosa is moist. Neck: Supple, No carotid bruit, No jugular venous distention. Respiratory: Lungs are clear to auscultation, Breath sounds are equal, Symmetrical chest wall expansion. Cardiovascular: Normal rate, No murmur, No gallop, Good pulses equal in all extremities. Gastrointestinal: Soft, Non-tender, Non-distended. Genitourinary: No costovertebral angle tenderness. Lymphatics: No lymphadenopathy neck, axilla, groin. Musculoskeletal No tenderness. No swelling. No deformity. Integumentary: Warm, Dry, incisional abdominal dressing intact. Neurologic: Gag reflex normal, lethargic. Review / Management Results review: Labs (Last four charted values) WBC H 12.3 (DEC 31) 6.6 (DEC 31) Hgb 12.9 (DEC 31) 12.7 (DEC 31) Hct 39.8 (DEC 31) 38.4 (DEC 31) Plt 262 (DEC 31) 268 (DEC 31) Na 140 (DEC 31) K 3.9 (DEC 31) CO2 25 (DEC 31) Cl 106 (DEC 31) Cr 0.72 (DEC 31) BUN 10 (DEC 31) Glucose Random 95 (DEC 31) Ca 8.6 (DEC 31) PT 14.3 (DEC 31) 13.7 (DEC 31) INR 1.13 (DEC 31) 1.07 (DEC 31) PTT 26.9 (DEC 31) 31.0 (DEC 31) . Impression and Plan Ms Shearer is a 33 year old female with a PMH of DM, HTN, hypothyroidism and type 1 choledochal cyst who underwent an open CBD resection with nadiya-en-Y hepaticojejunostomy. Of note, the patient initially presented to the ER the morning of her surgery for severe RUQ abdominal pain in which CT A/P was negative and was d/c to pre-op for her scheduled procedure. No complications were noted intra-op. During the procedure, the patient was given a total of 250 mg of ketamine. In the PACU, the patient was difficult to arouse post-procedure and was rapided to the TSICU for further management. Problem List: - encephalopathy 2/2 over sedation - CBD cyst s/p open CBD resection with nadiya-en Y hepaticojejunostomy - post-op pain - HTN - hypothyroidism - DM Neuro/Psych: - minimize use of sedation/narcotics - monitor for pain, on prn oxycodone - on scheduled tylenol - can give small dose of dilaudid for breakthrough pain if awake CV: - BP stable, cont to monitor Resp: - stable on NC, wean for sats >92% - aspiration precautions - initiate VEP/IS - OOB to chair as tolerated GI/Nutrition: - NPO except for meds - PO low sodium diet once awake - ppi for ppx - can start bowel regimen once on diet Renal/Electrolytes: - strict I&Os - check and replete lytes Endo: - cont levothyroxine - can start SSI for BS goal 110-150 Heme/Onc: - hgb stable, monitor for s/s of bleeding - monitor BLACK drain for excessive output ID: - cont ancef per SCIP - monitor for s/s of infection Deconditioned: - Consult PT/OT. Prophylaxis: - DVT ppx: start Lovenox 40mg SC daily . - GI ppx: start Protonix . Vascular/ Access: 12/31/2018 14:48 Peripheral Lines: Hand Right 16 gauge Over the needle catheter 12/31/2018 14:48 Gastric Tubes: Nasogastric Nostril, left 12/31/2018 14:40 12/31/2018 14:48 Indwelling Urinary Catheter: Urethral 16 [place] Indwelling/Continuous 12/31/2018 14:48 Surgical Drains: Godwin Traylor Drain Abdomen Right Upper 12/31/2018 14:48 Arterial Lines: Non-Tunneled Radial artery Left 20 gauge 12/31/2018 07:28 Peripheral Lines: Hand Left 20 gauge Over the needle catheter Code status: Full code Disposition: TSICU Plan discussed with Anesthesia CC attending Dr. Natty Bowers, AGACNP- [id number] Addendum by Fer Bowers EMERGENCY SERVICE RESTORER on 01/01/2019 06:00 Pt was taken back to surgery at 2330 for ex lap and nadiya-en-Y hepaticojejunostomy revision 2/2 bile leak. No complications were noted intra- op, EBL 100 ml, UOP 1355ml, crystalloids 3800 ml. Plan monitor post-op pain monitor BLACK outputs for excessive output cont current plan of care Addendum by Willi Luz MD on 01/01/2019 09:47 I have reviewed the note by the JODEE and agree with the findings and plans as written. Willi Luz MD Anesthesia Critical Care Medicine 01/07/2019 [facility] Plan of Care No Data Provided for This Section Social History Social History Date Source Social History TypeResponse Alcohol Never Substance Abuse Use: None. Recreational Drug Route: Subcutaneous. Smoking Status Never smoker; Exposure to Tobacco Smoke None; Cigarette Smoking Last 365 Days No; Reg Smoking Cessation Counseling No entered on: 01/20/19 09/16/2018 [facility] Social History TypeResponse Alcohol Never Substance Abuse Use: None. Recreational Drug Route: Subcutaneous. Smoking Status Never smoker; Exposure to Tobacco Smoke None; Cigarette Smoking Last 365 Days No; Reg Smoking Cessation Counseling No entered on: 12/31/18 09/16/2018 [facility] Social History TypeResponse Alcohol Never Substance Abuse Use: None. Recreational Drug Route: Subcutaneous. Smoking Status Never smoker; Exposure to Tobacco Smoke None; Cigarette Smoking Last 365 Days No; Reg Smoking Cessation Counseling No entered on: 02/01/19 09/16/2018 [facility] Social History TypeResponse Alcohol Never Smoking Status Never smoker; Exposure to Tobacco Smoke None; Cigarette Smoking Last 365 Days No; Reg Smoking Cessation Counseling No entered on: 09/19/18 09/16/2018 [facility] Social History TypeResponse Alcohol Never Smoking Status Never smoker; Exposure to Tobacco Smoke None; Cigarette Smoking Last 365 Days No; Reg Smoking Cessation Counseling No 07/16/2015 [facility] Lexi Family History No Data Provided for This Section Advance Directives No Data Provided for This Section Functional Status No Data Provided for This Section
--- OUTSIDE RECORDS SUMMARY | 2019-02-08 10:21 | XMS REPORT | Summary of Care ---
Author Author [facility] Address Unknown Phone Unavailable Encounter HQ Encntr_alijanice(FIN) [id number] Date(s): 11/21/15 - 12/20/15 [facility] Discharge Disposition: Home or Self Care Attending Physician: Denise Dias MD Vital Signs No data available for this section Problem List Condition Effective Dates Status Health Status Informant Hypothyroidism(Confi Active rmed) Allergies, Adverse Reactions, Alerts Substance Reaction Severity Status NKDA Active Medications No data available for this section Results No data available for this section Immunizations No data available for this section Procedures Procedure Date Related Diagnosis Body Site Colonoscopy 2012 Procedure on knee1 2010 Papanicolaou smear taken2 1Left knee 2had it years ago Social History Social History Type Response Alcohol Never Smoking Status Never smoker; Exposure to Tobacco Smoke None; Cigarette Smoking Last 365 Days No; Reg Smoking Cessation Counseling No Assessment and Plan No data available for this section
--- OUTSIDE RECORDS SUMMARY | 2019-02-08 10:21 | XMS REPORT | Summary of Care ---
Author Author [facility] Organization [facility] Address Unknown Phone Unavailable Encounter HQ Ángel_jimmy(VERONICA) [id number] Date(s): 07/12/15 - 07/12/15 [facility] [address] [place] [address]- Discharge Disposition: Home Attending Physician: Denise Dias MD Vital Signs [...]
--- OUTSIDE RECORDS SUMMARY | 2019-02-08 10:21 | XMS REPORT | Summary of Care ---
Author Author [facility] Organization [facility] Address Unknown Phone Unavailable Encounter HQ Max(VERONICA) [id number] Date(s): 06/09/18 - 06/09/18 [facility] [address] [place] [address]- [phone] Encounter Diagnosis Low back pain (Final) - 06/11/18 Unspecified abdominal pain (Final) - Pelvic and perineal pain (Final) - Unspecified ovarian cyst, left side (Final) - Discharge Disposition: Home or Self Care Attending Physician: Denise Dias MD Admitting Physician: Denise Dias MD Referring Physician: Denise Dias MD Vital Signs No data available for this section Problem List Condition Effective Dates Status Health Status Informant Abdominal Active pain(Confirmed) Acute Active diarrhea(Confirmed) Acute UTI(Confirmed) Active Bacterial Active vaginosis(Confirmed) Benign essential Active HTN(Confirmed) Vaginal yeast Active infection(Confirmed) Chest Active pain(Confirmed) Low serum vitamin Active D(Confirmed) Hospital discharge Active follow-up(Confirmed) GERD Active (gastroesophageal reflux disease)(Confirmed) Enlarged Active thyroid(Confirmed) Headache(Confirmed) Active Shingles(Confirmed) Active Hip pain(Confirmed) Active [...] Active (sexually transmitted disease)(Confirmed) Prediabetes(Confirme Active d) Pyelonephritis(Confi Active rmed) Rectovaginal Active fistula(Confirmed) Diabetes mellitus Active screening(Confirmed) Seborrheic Active dermatitis(Confirmed ) Shoulder Active pain(Confirmed) Left shoulder Active pain(Confirmed) Obesity due to Active excess calories(Confirmed) Upper respiratory Active infection(Confirmed) Urge Active incontinence(Confirm ed) Urinary Active incontinence(Confirm ed) Vaginal Active discharge(Confirmed) Upper respiratory Active infection, viral(Confirmed) Allergies, Adverse Reactions, Alerts No Known Allergies Medications Omnipaque 300 injectable solution 100 mL, Route: IVP, Drug Form: SOLN, Dosing Weight 89.545, kg, ONCALL, GFR > 45 mL/min, Start date: 06/09/18 11:00:00 COMPUTER APPLICATIONS INSTRUCTOR, Duration: 1 doses or times, Stop date: 06/10/18 0:00:00 COMPUTER APPLICATIONS INSTRUCTOR Notes: (Same as:Omnipaque 300).WASTE: F/P - Black; E - WTFast Trash Bin Start Date: 06/09/18 Stop Date: 06/10/18 Status: Completed Results Most recent to 1 oldest [Reference Range]: eGFR 111 mL/min/1.73m2 1 *NA* (06/09/18 10:46 AM) POC Creatinine 0.8 mg/dL [0.5-1.4 mg/dL] (06/09/18 10:46 AM) 1Result Comment: The eGFR is calculated using the [...] from the National Kidney Disease Education Program ( NKDEP) which additionally recommends that when the eGFR is used in patients with extremes of body mass index for purposes of drug dosing, the eGFR should be mul tiplied by the estimated BMI. Immunizations Given and Recorded Vaccine Date Status Refusal Reason influenza virus vaccine, inactivated1 01/27/18 Given 1Result Comment: Patient waited 15 min with no reaction Procedures Procedure Date Related Diagnosis Body Site Status Colonoscopy 2012 Completed Procedure on knee1 2010 Completed Papanicolaou smear taken2 Completed 1Left knee 2had it years ago Social History Social History Type Response Alcohol Never Smoking Status Never smoker; Exposure to Tobacco Smoke None; Cigarette Smoking Last 365 Days No; Reg Smoking Cessation Counseling No entered on: 12/21/18 Assessment and Plan No data available for this section
--- OUTSIDE RECORDS SUMMARY | 2019-02-08 10:21 | XMS REPORT | Summary of Care ---
Author Author [facility] Organization [facility] Address Unknown Phone Unavailable Encounter HQ Ángel_jimmy(VERONICA) [id number] Date(s): 09/18/15 - 09/18/15 [facility] [address] [place] [address]- Discharge Disposition: Home Attending Physician: Denise Dias MD Referring Physician: Denise [...]
--- OUTSIDE RECORDS SUMMARY | 2019-02-08 10:21 | XMS REPORT | Summary of Care ---
Author Author [facility] Organization [facility] Address Unknown Phone Unavailable Encounter NEEL Santana(VERONICA) [id number] Date(s): 10/14/18 - 10/14/18 [facility] [address] [place] [address]- Discharge Disposition: Home or Self Care Attending Physician: Denise Dias MD Vital Signs Most recent to 1 oldest [Reference Range]: Height 149.86 cm (10/14/18 2:27 PM) Temperature Oral 98.7 DegF [96.4-99.1 DegF] (10/14/18 2:27 PM) Blood Pressure 121/86 mmHg [90-140/60-90 mmHg] (10/14/18 2:27 PM) Respiratory Rate 16 BRMIN [14-20 BRMIN] (10/14/18 2:27 PM) Peripheral Pulse 69 bpm Rate [60-100 bpm] (10/14/18 2:27 PM) Weight 90 kg (10/14/18 2:27 PM) Body Mass Index 40.07 m2 (10/14/18 2:27 PM) Problem List Condition Effective Dates Status Health Status Informant Abdominal Active pain(Confirmed) Acute Active diarrhea(Confirmed) Acute UTI(Confirmed) Active Bacterial Active vaginosis(Confirmed) Benign essential Active HTN(Confirmed) Vaginal yeast Active infection(Confirmed) Chest Active pain(Confirmed) Low serum vitamin Active D(Confirmed) Hospital discharge Active follow-up(Confirmed) GERD Active (gastroesophageal reflux disease)(Confirmed) Headache(Confirmed) Active Shingles(Confirmed) Active Hip pain(Confirmed) Active [...] pain(Confirmed) Dysuria(Confirmed) Active Annual physical Active exam(Confirmed) Prediabetes(Confirme Active d) Pyelonephritis(Confi Active rmed) Rectovaginal Active fistula(Confirmed) Diabetes mellitus Active screening(Confirmed) Seborrheic Active dermatitis(Confirmed ) Shoulder Active pain(Confirmed) Left shoulder Active pain(Confirmed) Obesity due to Active excess calories(Confirmed) Upper respiratory Active infection(Confirmed) Urge Active incontinence(Confirm ed) Urinary Active incontinence(Confirm ed) Vaginal Active discharge(Confirmed) Upper respiratory Active infection, viral(Confirmed) Allergies, Adverse Reactions, Alerts No Known Allergies Medications Bromfed DM oral syrup 5 mL, PO, Q4H, PRN cough, X 8 day, # 240 mL, 0 Refill(s), [facility]acy[id number] Start Date: 10/14/18 Stop Date: 10/22/18 Status: Ordered Synthroid 112 mcg (0.112 mg) oral tablet 112 microgram=1 tab, PO, Daily, # 90 tab, 1 Refill(s), Pharmacy: [id number] Start Date: 10/14/18 Stop Date: 04/12/19 Status: Ordered Results No data available for this section Immunizations Given and Recorded Vaccine Date Status Refusal Reason influenza virus vaccine, inactivated1 01/27/18 Given 1Result Comment: Patient waited 15 min with no reaction Procedures Procedure Date Related Diagnosis Body Site Status Colonoscopy 2013 Completed Procedure on knee1 2010 Completed Papanicolaou smear taken2 Completed 1Left knee 2had it years ago Social History Social History Type Response Alcohol Never Smoking Status Never smoker; Exposure to Tobacco Smoke None; Cigarette Smoking Last 365 Days No; Reg Smoking Cessation Counseling No entered on: 10/14/18 Assessment and Plan No data available for this section
--- OUTSIDE RECORDS SUMMARY | 2019-02-08 10:22 | XMS REPORT | Summary of Care ---
Author Author [facility] Organization [facility] Address Unknown Phone Unavailable Encounter HQ Max(FIN) [id number] Date(s): 12/23/17 - 12/23/17 [facility] [address], [address] [place] [address]- [phone] Attending Physician: Denise Dias MD Vital Signs No data available for this section Problem List Condition Effective Dates Status Health Status Informant Abdominal Active pain(Confirmed) Acute Active diarrhea(Confirmed) Acute UTI(Confirmed) Active Bacterial Active vaginosis(Confirmed) Benign essential Active HTN(Confirmed) Vaginal yeast Active infection(Confirmed) Chest Active pain(Confirmed) Low serum vitamin Active D(Confirmed) Hospital discharge Active follow-up(Confirmed) GERD Active (gastroesophageal reflux disease)(Confirmed) Shingles(Confirmed) Active Hypothyroidism(Confi Active rmed) Loss of Active balance(Confirmed) Female Active incontinence(Confirm ed) Urinary Active frequency(Confirmed) Tailbone Active injury(Confirmed) Low back Active pain(Confirmed) Hyperlipemia, Active mixed(Confirmed) Yeast Active infection(Confirmed) Obesity(Confirmed) Active Cough(Confirmed) Active Female Active dyspareunia(Confirme d) Pelvic Active pain(Confirmed) Breast Active pain(Confirmed) Dysuria(Confirmed) Active Annual physical Active exam(Confirmed) Prediabetes(Confirme Active d) Pyelonephritis(Confi Active rmed) Rectovaginal Active fistula(Confirmed) Diabetes mellitus Active screening(Confirmed) Seborrheic Active dermatitis(Confirmed ) Left shoulder Active pain(Confirmed) Obesity due to Active excess calories(Confirmed) Urge Active incontinence(Confirm ed) Urinary Active incontinence(Confirm ed) Vaginal Active discharge(Confirmed) Upper respiratory Active infection, viral(Confirmed) Allergies, Adverse Reactions, Alerts Substance Reaction Severity [...] Reg Smoking Cessation Counseling No entered on: 07/08/18 Assessment and Plan No data available for this section
--- OUTSIDE RECORDS SUMMARY | 2019-02-08 10:22 | XMS REPORT | Summary of Care ---
Author Author [facility] Organization [facility] Address Unknown Phone Unavailable Encounter NEEL Santana(VERONICA) [id number] Date(s): 10/19/18 - 10/19/18 [facility] [address] [place] [address]- Discharge Disposition: Home or Self Care Attending Physician: Thi Ybarra MD Referring Physician: Thi Ybarra MD Vital Signs No data available for [...] Reactions, Alerts No Known Allergies Medications No data available for this section [...]
--- OUTSIDE RECORDS SUMMARY | 2019-02-08 10:22 | XMS REPORT | Summary of Care ---
Author Author [facility] Organization [facility] Address Unknown Phone Unavailable Encounter NEEL Santana(VERONICA) [id number] Date(s): 10/15/18 - 10/15/18 [facility] [address] [place] [address]- [phone] Discharge Disposition: Home or Self Care Attending Physician: Neeru Grullon MD Admitting Physician: Neeru Grullon MD Referring Physician: Neeru Grullon MD Vital Signs No data available for [...]
--- OUTSIDE RECORDS SUMMARY | 2019-02-08 10:22 | XMS REPORT | Summary of Care ---
Author Author [facility] Organization [facility] Address Unknown Phone Unavailable Encounter HQ Max(VERONICA) [id number] Date(s): 05/05/17 - 05/05/17 [facility] [address], [address] [place] [address]- [phone] Discharge Disposition: Home or Self Care Attending Physician: Denise Dias MD Vital Signs Most recent to 1 oldest [Reference Range]: Height 149.86 cm (05/05/17 9:11 AM) Temperature Oral 98.6 DegF [96.4-99.1 DegF] (05/05/17 9:11 AM) Blood Pressure 106/73 mmHg [90-140/60-90 mmHg] (05/05/17 9:11 AM) Respiratory Rate 14 BRMIN [14-20 BRMIN] (05/05/17 9:11 AM) Peripheral Pulse 91 bpm Rate [60-100 bpm] (05/05/17 9:11 AM) Weight 87.727 kg (05/05/17 9:11 AM) Body Mass Index 39.06 m2 (05/05/17 9:11 AM) Problem List Condition Effective Dates Status Health Status Informant Acute Active diarrhea(Confirmed) Chest Active pain(Confirmed) Low serum vitamin Active D(Confirmed) Shingles(Confirmed) Active Hypothyroidism(Confi Active rmed) Urinary Active frequency(Confirmed) Low back Active pain(Confirmed) Yeast Active infection(Confirmed) Obesity(Confirmed) Active Cough(Confirmed) Active Breast Active pain(Confirmed) Dysuria(Confirmed) Active Annual physical Active exam(Confirmed) Prediabetes(Confirme Active d) Rectovaginal Active fistula(Confirmed) Diabetes mellitus Active screening(Confirmed) Seborrheic Active dermatitis(Confirmed ) Obesity due to Active excess calories(Confirmed) Upper respiratory Active infection, viral(Confirmed) Allergies, Adverse Reactions, Alerts Substance Reaction Severity Status NKDA Active Medications ergocalciferol 50,000 intl units oral capsule 50,000 IntlUnit=1 cap, PO, qWeek, # 13 cap, 1 Refill(s), Pharmacy: [id number] Start Date: 05/05/17 Stop Date: 11/01/17 Status: Ordered fluconazole 150 mg oral tablet 150 mg=1 tab, PO, ONCE, # 1 tab, 0 Refill(s), Pharmacy: [facility] [id number] Start Date: 05/05/17 Status: Ordered ketoconazole topical 1% shampoo 1 appl, TOP, Q3D, X 8 week, # 210 ml, 0 Refill(s), [facility] Start Date: 05/05/17 Stop Date: 06/30/17 Status: Ordered Synthroid 137 mcg (0.137 mg) oral tablet 137 microgram=1 tab, PO, Daily, # 90 tab, 1 Refill(s), Pharmacy: [facility] [id number] Start Date: 05/05/17 Stop Date: 11/01/17 Status: Ordered valACYclovir 1 g oral tablet 1,000 mg, PO, TID, X 7 day, # 21 tab, 0 Refill(s), [facility]acy: [facility] [address] Start Date: 05/05/17 Stop Date: 05/12/17 Status: Ordered Results No data available for [...]
--- OUTSIDE RECORDS SUMMARY | 2019-02-08 10:22 | XMS REPORT | Summary of Care ---
Author Author [facility] Organization [facility] Address Unknown Phone Unavailable Encounter NEEL Santana(VERONICA) [id number] Date(s): 09/16/18 - 09/16/18 [facility] [address] [place] [address]- Discharge Disposition: Home or Self Care Attending Physician: Denise Dias MD Vital Signs Most recent to 1 oldest [Reference Range]: Height 149.86 cm (09/16/18 8:55 AM) Temperature Oral 98.1 DegF [96.4-99.1 DegF] (09/16/18 8:55 AM) Blood Pressure 109/71 mmHg [90-140/60-90 mmHg] (09/16/18 8:55 AM) Respiratory Rate 14 BRMIN [14-20 BRMIN] (09/16/18 8:55 AM) Peripheral Pulse 67 bpm Rate [60-100 bpm] (09/16/18 8:55 AM) Weight 89.091 kg (09/16/18 8:55 AM) Body Mass Index 39.67 m2 (09/16/18 8:55 AM) Problem List Condition Effective Dates Status [...] pain(Confirmed) Hyperlipemia, Active mixed(Confirmed) Moderate Active anxiety(Confirmed) Yeast Active infection(Confirmed) Obesity(Confirmed) Active Cough(Confirmed) Active [...] Adverse Reactions, Alerts No Known Allergies Medications Keflex 500 mg oral capsule 500 mg=1 cap, PO, BID, X 5 day, # 10 cap, 0 Refill(s), Pharmacy: [facility] [id number] Start Date: 09/18/18 Stop Date: 09/23/18 Status: Ordered sertraline 50 mg oral tablet 50 mg=1 tab, PO, Daily, # 90 tab, 0 Refill(s) Start Date: 09/16/18 Stop Date: 09/16/18 Status: Discontinued sertraline 50 mg oral tablet 50 mg=1 tab, PO, Daily, FIRST WEEK TAKE HALF OF THE TABLET DAILY AND FROM THE SE COND WEEK AND ON, TAKE ONE TABLET DAILY, # 90 tab, 1 Refill(s), Pharmacy: [id number] Start Date: 09/16/18 Stop Date: 03/15/19 Status: Ordered Voltaren Topical 1% topical gel 4 gm=1 appl, TOP, BID, PRN Apply to affected area, # 100 gm, 1 Refill(s) Start Date: 09/16/18 Stop Date: 11/15/18 Status: Ordered Results No data available for [...] Reg Smoking Cessation Counseling No entered on: 09/16/18 Assessment and Plan No data available for this section
--- OUTSIDE RECORDS SUMMARY | 2019-02-08 10:22 | XMS REPORT | Summary of Care ---
Author Author [facility] Organization [facility] Address Unknown Phone Unavailable Encounter HQ Ángel_jimmy(FIN) [id number] Date(s): 05/13/17 - 05/13/17 [facility] [address], [address] [place], [place] [address]- [phone] Attending Physician: Denise Dias MD Vital Signs [...]
--- OUTSIDE RECORDS SUMMARY | 2019-02-08 10:22 | XMS REPORT | Summary of Care ---
Author Author [facility] Organization [facility] Address Unknown Phone Unavailable Encounter NEEL Santana(VERONICA) [id number] Date(s): 06/01/18 - 06/01/18 [facility] [address] [place] [address]- Discharge Disposition: Home or Self Care Attending Physician: Denise Dias MD Vital Signs Most recent to 1 oldest [Reference Range]: Height 149.86 cm (06/01/18 8:47 AM) Temperature Oral 98 DegF [96.4-99.1 DegF] (06/01/18 8:47 AM) Blood Pressure 132/95 mmHg [90-140/60-90 mmHg] (06/01/18 8:47 AM) Respiratory Rate 16 BRMIN [14-20 BRMIN] (06/01/18 8:47 AM) Peripheral Pulse 70 bpm Rate [60-100 bpm] (06/01/18 8:47 AM) Weight 89.545 kg (06/01/18 8:47 AM) Body Mass Index 39.87 m2 (06/01/18 8:47 AM) Problem List Condition Effective Dates Status [...] Adverse Reactions, Alerts No Known Allergies Medications Cipro 500 mg oral tablet 500 mg=1 tab, PO, Q12H, for UTI, X 3 day, # 6 tab, 0 Refill(s), Pharmacy: [facility] [id number] Start Date: 06/04/18 Stop Date: 06/07/18 Status: Completed imipramine 50 mg oral tablet 50 mg=1 tab, PO, Bedtime, # 90 tab, 1 Refill(s), Pharmacy: [facility] [id number] Start Date: 06/01/18 Stop Date: 08/13/18 Status: Completed lisinopril 5 mg oral tablet 5 mg=1 tab, PO, Daily, # 90 tab, 0 Refill(s), Pharmacy: [facility] [id number] 22 Start Date: 06/01/18 Stop Date: 07/23/18 Status: Discontinued omeprazole 40 mg oral delayed release capsule 40 mg=1 cap, PO, BID, # 180 cap, 0 Refill(s), Pharmacy: [facility] [id number] 22 Start Date: 06/01/18 Stop Date: 07/23/18 Status: Discontinued Results No data available for this section Immunizations Given and Recorded Vaccine Date Status Refusal Reason influenza virus vaccine, inactivated1 9/12/18 Given 1Result Comment: Patient waited 15 min [...] Reg Smoking Cessation Counseling No entered on: 10/27/18 Assessment and Plan No data available for this section
--- OUTSIDE RECORDS SUMMARY | 2019-02-08 10:22 | XMS REPORT | Summary of Care ---
Author Author [facility] Organization [facility] Address Unknown Phone Unavailable Encounter HQ Ángel_jimmy(FIN) [id number] Date(s): 05/19/17 - 05/19/17 [facility] [address], [address] [place], [place] [address]- [phone] Attending Physician: Denise Dias MD Vital Signs [...]
--- OUTSIDE RECORDS SUMMARY | 2019-02-08 10:22 | XMS REPORT | Summary of Care ---
Author Author [facility] Organization [facility] Address Unknown Phone Unavailable Encounter NEEL Santana(VERONICA) [id number] Date(s): 08/13/18 - 08/13/18 [facility] [address] [place] [address]- [phone] Discharge Disposition: Home or Self Care Attending Physician: Thi Ybarra MD Admitting Physician: Thi Ybarra MD Referring Physician: Thi [...] GERD Active (gastroesophageal reflux disease)(Confirmed) Shingles(Confirmed) Active HTN Active (hypertension)(Confi rmed) Hypothyroidism(Confi Active [...] Reg Smoking Cessation Counseling No entered on: 08/13/18 Assessment and Plan No data available for this section
--- OUTSIDE RECORDS SUMMARY | 2019-02-08 10:22 | XMS REPORT | Summary of Care ---
Author Author [facility] Organization [facility] Address Unknown Phone Unavailable Encounter NEEL Santana(VERONICA) [id number] Date(s): 01/25/19 - 01/25/19 [facility] [address] [place] [address] [place] [address]- [phone] Discharge Disposition: Home or Self Care Attending Physician: Toni Ye MD Referring Physician: Toni Ye MD Vital Signs Most recent to 1 oldest [Reference Range]: Height 149.86 cm (01/25/19 12:08 PM) Temperature Oral 100.0 DegF [96.4-99.1 DegF] *HI* (01/25/19 12:08 PM) Blood Pressure 108/72 mmHg [90-140/60-90 mmHg] (01/25/19 12:08 PM) Peripheral Pulse 82 bpm Rate [60-100 bpm] (01/25/19 12:08 PM) Weight 80.909 kg (01/25/19 12:08 PM) Body Mass Index 36.03 m2 (01/25/19 12:08 PM) Problem List Condition Effective Dates Status [...] Adverse Reactions, Alerts No Known Allergies Medications levofloxacin 500 mg oral tablet 500 mg=1 tab, PO, Daily, # 7 tab, 0 Refill(s) Start Date: 01/24/19 Stop Date: 01/31/19 Status: Ordered metroNIDAZOLE 500 mg oral tablet 500 mg=1 tab, PO, Q8H, # 21 tab, 0 Refill(s) Start Date: 01/25/19 Stop Date: 02/01/19 Status: Ordered Tylenol Extra Strength 500 mg oral tablet 500 mg=1 tab, PO, PRN, PRN Q8H, 0 Refill(s) Start Date: 01/25/19 Status: Ordered Results No data available for [...] Reg Smoking Cessation Counseling No entered on: 01/25/19 Assessment and Plan No data available for this section
--- OUTSIDE RECORDS SUMMARY | 2019-02-08 10:22 | XMS REPORT | Summary of Care ---
Author Author [facility] Organization [facility] Address Unknown Phone Unavailable Encounter NEEL Santana(VERONICA) [id number] Date(s): 01/27/18 - 01/27/18 [facility] [address] [place] [address]- Discharge Disposition: Home or Self Care Attending Physician: Denise Dias MD Vital Signs Most recent to 1 oldest [Reference Range]: Height 149.86 cm (01/27/18 10:24 AM) Temperature Oral 82 DegF [96.4-99.1 DegF] *LOW* (01/27/18 10:24 AM) Blood Pressure 119/82 mmHg [90-140/60-90 mmHg] (01/27/18 10:24 AM) Respiratory Rate 14 BRMIN [14-20 BRMIN] (01/27/18 10:24 AM) Peripheral Pulse 82 bpm Rate [60-100 bpm] (01/27/18 10:24 AM) Problem List Condition Effective Dates Status [...] Substance Reaction Severity Status NKDA Active Medications clindamycin 100 mg vaginal suppository 100 mg=1 supp, VAG, Bedtime, X 3 day, # 3 supp, 0 Refill(s), Pharmacy: [id number] Start Date: 01/27/18 Stop Date: 01/30/18 Status: Completed fluconazole 150 mg oral tablet 150 mg=1 tab, PO, ONCE, # 1 tab, 0 Refill(s), Pharmacy: [facility] [id number] 22 Start Date: 01/27/18 Stop Date: 02/11/18 Status: Discontinued ibuprofen 800 mg oral tablet 800 mg=1 tab, PO, Q8H, PRN Fever or Pain, Take with food, X 10 day, # 30 tab, 0 Refill(s), Pharmacy: [facility] [id number] Start Date: 01/27/18 Stop Date: 02/06/18 Status: Completed Synthroid 125 mcg (0.125 mg) oral tablet 125 microgram=1 tab, PO, Daily, X 90 day, # 90 tab, 1 Refill(s), Pharmacy: [facility] [address] Start Date: 02/01/18 Stop Date: 05/26/18 Status: Completed Results No data available for this section [...]
--- OUTSIDE RECORDS SUMMARY | 2019-02-08 10:22 | XMS REPORT | Summary of Care ---
Author Author [facility] Organization [facility] Address Unknown Phone Unavailable Encounter NEEL Santana(VERONICA) [id number] Date(s): 12/21/18 - 12/21/18 [facility] [address] [place] [address] [phone] Discharge Disposition: Home or Self Care Attending Physician: Toni Ye MD Referring Physician: Toni Ye MD Vital Signs Most recent to 1 oldest [Reference Range]: Height 149.86 cm (12/21/18 2:27 PM) Temperature Oral 97.6 DegF [96.4-99.1 DegF] (12/21/18 2:27 PM) Blood Pressure 123/81 mmHg [90-140/60-90 mmHg] (12/21/18 2:27 PM) Peripheral Pulse 68 bpm Rate [60-100 bpm] (12/21/18 2:27 PM) Weight 84.273 kg (12/21/18 2:27 PM) Body Mass Index 37.52 m2 (12/21/18 2:27 PM) Problem List Condition Effective Dates [...] No data available for this section Results Most recent to 1 oldest [Reference Range]: Neutrophils # 2.5 K/CMM [1.5-8.1 K/CMM] (12/21/18 3:53 PM) Lymphocytes # 1.5 K/CMM [1.0-5.5 K/CMM] (12/21/18 3:53 PM) Monocytes # [0.0-0.8 0.4 K/CMM K/CMM] (12/21/18 3:53 PM) CA 125 [0.0-35.0 6.0 unit/mL unit/mL] (12/21/18 3:53 PM) eGFR 134 mL/min/1.73m2 1 *NA* (12/21/18 3:53 PM) A/G Ratio [0.7-1.6] 0.9 (12/21/18 3:53 PM) Albumin Lvl [3.5-5.0 3.4 g/dL g/dL] *LOW* (12/21/18 3:53 PM) Alk Phos [39-136 79 unit/L unit/L] (12/21/18 3:53 PM) ALT [0-65 unit/L] 20 unit/L (12/21/18 3:53 PM) AGAP [10.0-20.0 13.0 mEq/L mEq/L] (12/21/18 3:53 PM) AST [0-37 unit/L] 15 unit/L (12/21/18 3:53 PM) B/C Ratio [6-25] 11 (12/21/18 3:53 PM) Basophils [0.0-1.0 0.4 % %] (12/21/18 3:53 PM) BUN [7-22 mg/dL] 7 mg/dL (12/21/18 3:53 PM) Calcium Lvl 8.7 mg/dL [8.5-10.5 mg/dL] (12/21/18 3:53 PM) CA 19-9 [0.0-35.0 4.7 unit/mL unit/mL] (12/21/18 3:53 PM) CEA [0.0-3.0 ng/mL] 0.2 ng/mL (12/21/18 3:53 PM) Chloride Lvl [95-109 106 mEq/L mEq/L] (12/21/18 3:53 PM) CO2 [24-32 mEq/L] 26 mEq/L (12/21/18 3:53 PM) Creatinine Lvl 0.66 mg/dL [0.50-1.40 mg/dL] (12/21/18 3:53 PM) Bili Direct [0.0-0.3 0.1 mg/dL mg/dL] (12/21/18 3:53 PM) Eosinophils [0.0-4.0 0.4 % %] (12/21/18 3:53 PM) Globulin [2.7-4.2 3.9 g/dL g/dL] (12/21/18 3:53 PM) Glucose Lvl [70-99 91 mg/dL mg/dL] (12/21/18 3:53 PM) Hct [36.0-48.0 %] 38.9 % (12/21/18 3:53 PM) Hgb [12.0-16.0 g/dL] 12.6 g/dL (12/21/18 3:53 PM) INR [0.85-1.17] 1.00 (12/21/18 3:53 PM) Potassium Lvl 4.0 mEq/L [3.5-5.1 mEq/L] (12/21/18 3:53 PM) Lymphocytes 34.4 % [20.0-40.0 %] (12/21/18 3:53 PM) MCH [27.0-31.0 pg] 25.3 pg *LOW* (12/21/18 3:53 PM) MCHC [32.0-36.0 32.4 g/dL g/dL] (12/21/18 3:53 PM) MCV [80.0-98.0 fL] 78.1 fL *LOW* (12/21/18 3:53 PM) Microcyte [None 1+ Seen] *ABN* (12/21/18 3:53 PM) Monocytes [2.0-12.0 8.0 % %] (12/21/18 3:53 PM) MPV [7.4-10.4 fL] 7.7 fL (12/21/18 3:53 PM) Sodium Lvl [135-145 141 mEq/L mEq/L] (12/21/18 3:53 PM) Platelet [133-450 249 K/CMM K/CMM] (12/21/18 3:53 PM) Segs [45.0-75.0 %] 56.8 % (12/21/18 3:53 PM) Total Protein 7.3 g/dL [6.4-8.4 g/dL] (12/21/18 3:53 PM) PT [12.0-14.7 13.0 seconds seconds] (12/21/18 3:53 PM) RBC [4.20-5.40 4.98 M/CMM M/CMM] (12/21/18 3:53 PM) RDW [11.5-14.5 %] 16.8 % *HI* (12/21/18 3:53 PM) Bili Total [0.2-1.3 0.2 mg/dL mg/dL] (12/21/18 3:53 PM) WBC [3.7-10.4 K/CMM] 4.4 K/CMM (12/21/18 3:53 PM) 1Result Comment: The eGFR is calculated using [...]
--- OUTSIDE RECORDS SUMMARY | 2019-02-08 10:22 | XMS REPORT | Summary of Care ---
Author Author [facility] Organization [facility] Address Unknown Phone Unavailable Encounter NEEL Santana(VERONICA) [id number] Date(s): 07/08/18 - 07/08/18 [facility] [address], [address] [place] [address] [phone] Discharge Disposition: Home or Self Care Attending Physician: Orly Land PA-C Vital Signs Most recent to 1 oldest [Reference Range]: Height 149.86 cm (07/08/18 9:28 AM) Blood Pressure 122/84 mmHg [90-140/60-90 mmHg] (07/08/18 9:28 AM) Peripheral Pulse 111 bpm Rate [60-100 bpm] *HI* (07/08/18 9:28 AM) Weight 87.273 kg (07/08/18 9:28 AM) Body Mass Index 38.86 m2 (07/08/18 9:28 AM) Problem List Condition Effective Dates Status [...] Substance Reaction Severity Status NKDA Active Medications Flagyl 500 mg oral tablet 500 mg=1 tab, PO, BID, X 7 day, # 14 tab, 0 Refill(s), Pharmacy: [facility] [address] Start Date: 07/08/18 Stop Date: 07/15/18 Status: Ordered Levaquin 500 mg oral tablet 500 mg=1 tab, PO, Q24H, X 10 day, # 10 tab, 0 Refill(s), Pharmacy: [facility] [id number] Start Date: 07/08/18 Stop Date: 07/18/18 Status: Ordered Results URINE AND STOOL Most recent to 1 oldest [Reference Range]: POC UA Turbidity Clear [Clear] *NA* (07/08/18 9:38 AM) POC UA Color Yellow [Yellow] *NA* (07/08/18 9:38 AM) POC UA pH [5.0-8.0] 6.0 (07/08/18 9:38 AM) POC UA SG [<=1.030] >=1.030 *ABN* (07/08/18 9:38 AM) POC UA Glu [Negative Negative mg/dL mg/dL] *NA* (07/08/18 9:38 AM) POC UA Bld Moderate [Negative] *ABN* (07/08/18 9:38 AM) POC UA Ket [Negative Negative mg/dL mg/dL] *NA* (07/08/18 9:38 AM) POC UA Prot 30 mg/dL [Negative mg/dL] *ABN* (07/08/18 9:38 AM) POC UA Uro [0.1-1.0 2.0 EU/dL EU/dL] *HI* (07/08/18 9:38 AM) POC UA Bili Small [Negative] *ABN* (07/08/18 9:38 AM) POC UA LeukEst Trace [Negative] *ABN* (07/08/18 9:38 AM) POC UA Nit Positive [Negative] *ABN* (07/08/18 9:38 AM) Immunizations Given and Recorded Vaccine Date Status Refusal Reason influenza virus vaccine, inactivated1 01/27/18 Given 1Result Comment: Patient waited 15 min with no reaction Procedures Procedure Date Related Diagnosis Body Site Status Measurement of post-voiding residual urine 07/08/18 Completed and/or bladder capacity by ultrasound, non-imaging Colonoscopy 2012 Completed Procedure on knee1 2010 [...]
--- OUTSIDE RECORDS SUMMARY | 2019-02-08 10:22 | XMS REPORT | Summary of Care ---
Author Author [facility] Organization [facility] Address Unknown Phone Unavailable Encounter HQ Ángel_jimmy(FIN) [id number] Date(s): 05/14/17 - 05/15/17 [facility] [address], [address] [place], [place] [address]- [phone] Vital Signs No data available for this [...] Procedure Date Related Diagnosis Body Site Colonoscopy 2013 Procedure on knee1 2010 Papanicolaou smear taken2 1Left knee 2had it years ago Social History Social History Type Response Alcohol Never Smoking Status Never smoker; Exposure to Tobacco Smoke None; Cigarette Smoking Last 365 Days No; Reg Smoking Cessation Counseling No Assessment and Plan No data available for this section
--- OUTSIDE RECORDS SUMMARY | 2019-02-08 10:23 | XMS REPORT | Summary of Care ---
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 Discharge Disposition: Home or Self Care Attending Physician: Jenny Hicks V Referring Physician: Jenny Hicks V Vital Signs No data available for this section Problem List Condition Effective Dates Status Health Status Informant Acute Active diarrhea(Confirmed) Vaginal yeast Active infection(Confirmed) Chest Active pain(Confirmed) Low serum vitamin Active D(Confirmed) Hospital discharge Active follow-up(Confirmed) Shingles(Confirmed) Active Hypothyroidism(Confi Active rmed) Urinary Active frequency(Confirmed) Low back Active pain(Confirmed) Hyperlipemia, Active mixed(Confirmed) Yeast Active infection(Confirmed) Obesity(Confirmed) Active Cough(Confirmed) Active Breast Active pain(Confirmed) Dysuria(Confirmed) Active Annual physical Active exam(Confirmed) Prediabetes(Confirme Active d) Pyelonephritis(Confi Active rmed) Rectovaginal Active fistula(Confirmed) Diabetes mellitus Active screening(Confirmed) Seborrheic Active dermatitis(Confirmed ) Obesity due to Active excess calories(Confirmed) Urge Active incontinence(Confirm ed) Upper respiratory Active infection, viral(Confirmed) Allergies, Adverse Reactions, Alerts Substance Reaction Severity Status NKDA Active Medications No data available for this section Results URINE CHEM Most recent to 1 oldest [Reference Range]: U Preg [Negative] Negative (06/17/17 12:55 PM) Immunizations No data available for this section Procedures Procedure Date Related Diagnosis Body Site Status Colonoscopy 2013 Completed Procedure on knee1 2010 Completed Papanicolaou smear taken2 Completed 1Left knee 2had it years ago Social History Social History Type Response Alcohol Never Smoking Status Never smoker; Exposure to Tobacco Smoke None; Cigarette Smoking Last 365 Days No; Reg Smoking Cessation Counseling No entered on: 08/10/17 Assessment and Plan No data available for this section
--- OUTSIDE RECORDS SUMMARY | 2019-02-08 10:23 | XMS REPORT | Summary of Care ---
Author Author [facility] Organization [facility] Address Unknown Phone Unavailable Encounter HQ Ángel_jimmy(FIN) [id number] Date(s): 07/02/17 - 07/02/17 [facility] [address], [address] [place] [address]- [phone] Attending Physician: Denise Dias MD Vital Signs [...]
--- OUTSIDE RECORDS SUMMARY | 2019-02-08 10:23 | XMS REPORT | Summary of Care ---
Author Author [facility] Organization [facility] Address Unknown Phone Unavailable Encounter HQ Max(FIN) [id number] Date(s): 02/05/18 - 02/05/18 [facility] [address] [facility] [facility] [address] [place] [address]- Attending Physician: Denise Dias MD Vital Signs [...]
--- OUTSIDE RECORDS SUMMARY | 2019-02-08 10:23 | XMS REPORT | Summary of Care ---
Author Author [facility] Organization [facility] Address Unknown Phone Unavailable Encounter NEEL Santana(VERONICA) [id number] Date(s): 07/15/18 - 07/15/18 [facility] [address] [place] [address]- Discharge Disposition: Home or Self Care Attending [...] Reg Smoking Cessation Counseling No entered on: 07/15/18 Assessment and Plan No data available for this section
--- OUTSIDE RECORDS SUMMARY | 2019-02-08 10:23 | XMS REPORT | Summary of Care ---
Author Author [facility] [place] Address Unknown Phone Unavailable Encounter HQ Max(VERONICA) [id number] Date(s): 01/20/19 - 01/20/19 [facility] [place] [address] [place] [address]- [phone] Discharge Disposition: Home or Self Care Attending Physician: Denise Dias MD Vital Signs Most recent to 1 oldest [Reference Range]: Height 149.86 cm (01/20/19 2:44 PM) Temperature Oral 98.9 DegF [96.4-99.1 DegF] (01/20/19 2:44 PM) Blood Pressure 97/68 mmHg [90-140/60-90 mmHg] (01/20/19 2:44 PM) Respiratory Rate 20 BRMIN [14-20 BRMIN] (01/20/19 2:44 PM) Peripheral Pulse 87 bpm Rate [60-100 bpm] (01/20/19 2:44 PM) Weight 80.455 kg (01/20/19 2:44 PM) Body Mass Index 35.82 m2 (01/20/19 2:44 PM) Problem List Condition Effective Dates Status [...] Adverse Reactions, Alerts No Known Allergies Medications DME Addition #1 See Instructions, Blood pressure monitor to check blood pressure, # 1 ea, 0 Refi ll(s), Pharmacy: [id number] #[id number] Start Date: 01/20/19 Status: Ordered Results No data available for [...] Smoking Cessation Counseling No entered on: 01/20/19 Assessment and Plan No data available for this section
--- OUTSIDE RECORDS SUMMARY | 2019-02-08 10:23 | XMS REPORT | Summary of Care ---
Author Author [facility] Organization [facility] Address Unknown Phone Unavailable Encounter HQ Max(FIN) [id number] Date(s): 09/19/18 - 09/19/18 [facility] [address] [place] [address]- Encounter Diagnosis Generalized weakness (Discharge Diagnosis) - 09/19/18 History of hypothyroidism (Discharge Diagnosis) - 09/19/18 Discharge Disposition: Home or Self Care Attending Physician: Samson Whelan DO Vital Signs 1 2 3 Most recent to oldest [Reference Range]: 149.86 cm (09/19/18 1:08 AM) Height 98.5 DegF (09/19/18 7:19 AM) 98.7 DegF (09/19/18 1:08 AM) Temperature Oral [96.4-99.1 DegF] 115/75 mmHg (09/19/18 7:19 AM) 120/92 mmHg (09/19/18 4:00 AM) 136/89 mmHg (09/19/18 3:00 AM) Blood Pressure [90-140/60-90 mmHg] 23 BRMIN *HI* (09/19/18 7:19 AM) 14 BRMIN (09/19/18 4:00 AM) 15 BRMIN (09/19/18 3:00 AM) Respiratory Rate [14-20 BRMIN] 86 bpm (09/19/18 1:08 AM) Peripheral Pulse Rate [60-100 bpm] 81.818 kg (09/19/18 1:08 AM) Weight 36.43 m2 (09/19/18 1:08 AM) Body Mass Index Problem List Condition Effective Dates Status Health [...] Adverse Reactions, Alerts No Known Allergies Medications Saline Flush 0.9% 10 mL, Route: IVP, Drug Form: INJ, Dosing Weight 81.818, kg, PRN, PRN Line Flush , Start date: 09/19/18 3:05:00 CDT, Duration: 30 day, Stop date: 10/19/18 3:04:0 0 CDT Notes: (Same as: BD Posiflush) Start Date: 09/19/18 Stop Date: 09/19/18 Status: Discontinued Results Most recent to 1 oldest [Reference Range]: Neutrophils # 4.2 K/CMM [1.5-8.1 K/CMM] (09/19/18 3:37 AM) Lymphocytes # 2.1 K/CMM [1.0-5.5 K/CMM] (09/19/18 3:37 AM) Monocytes # [0.0-0.8 0.4 K/CMM K/CMM] (09/19/18 3:37 AM) Basophils # [0.0-0.2 0.1 K/CMM K/CMM] (09/19/18 3:37 AM) eGFR 104 mL/min/1.73m2 1 *NA* (09/19/18 3:37 AM) A/G Ratio [0.7-1.6] 0.8 (09/19/18 3:37 AM) Albumin Lvl [3.5-5.0 3.5 g/dL g/dL] (09/19/18 3:37 AM) Alk Phos [39-136 84 unit/L unit/L] (09/19/18 3:37 AM) ALT [0-65 unit/L] 19 unit/L (09/19/18 3:37 AM) AGAP [10.0-20.0 10.8 mEq/L mEq/L] (09/19/18 3:37 AM) AST [0-37 unit/L] 11 unit/L (09/19/18 3:37 AM) B/C Ratio [6-25] 12 (09/19/18 3:37 AM) Basophils [0.0-1.0 1.3 % %] *HI* (09/19/18 3:37 AM) BUN [7-22 mg/dL] 10 mg/dL (09/19/18 3:37 AM) Calcium Lvl 9.6 mg/dL [8.5-10.5 mg/dL] (09/19/18 3:37 AM) Total CK [12-191 88 unit/L unit/L] (09/19/18 3:37 AM) Chloride Lvl [95-109 104 mEq/L mEq/L] (09/19/18 3:37 AM) CO2 [24-32 mEq/L] 28 mEq/L (09/19/18 3:37 AM) Creatinine Lvl 0.85 mg/dL [0.50-1.40 mg/dL] (09/19/18 3:37 AM) Eosinophils [0.0-4.0 0.5 % %] (09/19/18 3:37 AM) Globulin [2.7-4.2 4.2 g/dL g/dL] (09/19/18 3:37 AM) Glucose Lvl [70-99 96 mg/dL mg/dL] (09/19/18 3:37 AM) Hct [36.0-48.0 %] 39.3 % (09/19/18 3:37 AM) Hgb [12.0-16.0 g/dL] 12.7 g/dL (09/19/18 3:37 AM) Potassium Lvl 3.8 mEq/L [3.5-5.1 mEq/L] (09/19/18 3:37 AM) Lipase Lvl [73-393 92 unit/L unit/L] (09/19/18 3:37 AM) Lymphocytes 31.0 % [20.0-40.0 %] (09/19/18 3:37 AM) MCH [27.0-31.0 pg] 25.0 pg *LOW* (09/19/18 3:37 AM) MCHC [32.0-36.0 32.2 g/dL g/dL] (09/19/18 3:37 AM) MCV [80.0-98.0 fL] 77.6 fL *LOW* (09/19/18 3:37 AM) Magnesium Lvl 2.0 mg/dL [1.8-2.4 mg/dL] (09/19/18 3:37 AM) Microcyte [None 1+ Seen] *ABN* (09/19/18 3:37 AM) Monocytes [2.0-12.0 6.2 % %] (09/19/18 3:37 AM) MPV [7.4-10.4 fL] 7.6 fL (09/19/18 3:37 AM) Sodium Lvl [135-145 139 mEq/L mEq/L] (09/19/18 3:37 AM) Platelet [133-450 314 K/CMM K/CMM] (09/19/18 3:37 AM) Segs [45.0-75.0 %] 61.0 % (09/19/18 3:37 AM) Total Protein 7.7 g/dL [6.4-8.4 g/dL] (09/19/18 3:37 AM) RBC [4.20-5.40 5.06 M/CMM M/CMM] (09/19/18 3:37 AM) RDW [11.5-14.5 %] 14.7 % *HI* (09/19/18 3:37 AM) S Preg [Negative] Negative *NA* (09/19/18 3:37 AM) Bili Total [0.2-1.3 0.4 mg/dL mg/dL] (09/19/18 3:37 AM) Troponin-I <0.02 ng/mL [0.00-0.40 ng/mL] (09/19/18 3:37 AM) WBC [3.7-10.4 K/CMM] 6.8 K/CMM (09/19/18 3:37 AM) 1Result Comment: The eGFR is calculated [...] Smoking Cessation Counseling No entered on: 09/19/18 Assessment and Plan No data available for this section
--- OUTSIDE RECORDS SUMMARY | 2019-02-08 10:23 | XMS REPORT | Summary of Care ---
Author Author [facility] Organization [facility] Address Unknown Phone Unavailable Encounter NEEL Santana(VERONICA) [id number] Date(s): 01/18/19 - 01/18/19 [facility] [address] [facility] [address] [facility] [address] [place] [address]- [phone] Discharge Disposition: Home or Self Care Attending Physician: Toni Ye MD Referring Physician: Toni Ye MD Vital Signs Most recent to 1 oldest [Reference Range]: Height 149.8 cm (01/18/19 10:36 AM) Temperature Oral 96.6 DegF [96.4-99.1 DegF] (01/18/19 10:36 AM) Blood Pressure 127/87 mmHg [90-140/60-90 mmHg] (01/18/19 10:36 AM) Peripheral Pulse 81 bpm Rate [60-100 bpm] (01/18/19 10:36 AM) Weight 80.909 kg (01/18/19 10:36 AM) Body Mass Index 36.06 m2 (01/18/19 10:36 AM) Problem List Condition Effective Dates Status [...] Adverse Reactions, Alerts No Known Allergies Medications gabapentin 250 mg/5 mL oral solution 600 mg=12 mL, PO, Q8H, # 1080 mL, 1 Refill(s), Pharmacy: [facility] #[id number] Start Date: 01/18/19 Stop Date: 03/19/19 Status: Ordered gabapentin 300 mg oral capsule 300 mg=1 cap, PO, TID, # 90 cap, 0 Refill(s), Pharmacy: [facility] #[id number] Start Date: 01/18/19 Stop Date: 02/17/19 Status: Ordered pantoprazole 40 mg oral enteric coated tablet 40 mg=1 tab, PO, BID-Before Meals, # 60 tab, 6 Refill(s), Pharmacy: [facility] #[id number] Start Date: 01/18/19 Stop Date: 08/16/19 Status: Ordered Results No data available for [...]
--- OUTSIDE RECORDS SUMMARY | 2019-02-08 10:23 | XMS REPORT | Summary of Care ---
Author Author [facility] Organization [facility] Address Unknown Phone Unavailable Encounter NEEL Santana(VERONICA) [id number] Date(s): 08/18/18 - 08/18/18 [facility] [address] [place] [address]- [phone] Discharge Disposition: Home or Self Care Attending Physician: Thi Ybarra MD Admitting Physician: Thi Ybarra MD Referring Physician: Thi Ybarra MD Vital Signs 1 2 3 Most recent to oldest [Reference Range]: 149.86 cm (08/13/18 10:26 AM) Height 97.6 DegF (08/13/18 10:26 AM) Temperature Oral [96.4-99.1 DegF] 124/88 mmHg (08/18/18 11:30 AM) 123/95 mmHg (08/18/18 11:15 AM) 137/103 mmHg (08/18/18 11:00 AM) Blood Pressure [90-140/60-90 mmHg] 17 BRMIN (08/18/18 11:30 AM) 21 BRMIN *HI* (08/18/18 11:15 AM) 24 BRMIN *HI* (08/18/18 11:00 AM) Respiratory Rate [14-20 BRMIN] 66 bpm (08/13/18 10:26 AM) Peripheral Pulse Rate [60-100 bpm] 88.636 kg (08/13/18 10:26 AM) Weight 39.47 m2 (08/13/18 10:26 AM) Body Mass Index Problem List Condition [...] Substance Reaction Severity Status NKDA Active Medications pantoprazole 40 mg oral enteric coated tablet 40 mg=1 tab, PO, Daily, # 90 tab, 1 Refill(s) Start Date: 08/18/18 Status: Ordered Sodium Chloride 0.9% IV 1,000 mL 1,000 mL, Rate: 25 ml/hr, Infuse over: 40 hr, Route: IV, Dosing Weight 88.636 kg , Total Volume: 1,000, Start date: 08/18/18 9:19:00 CDT, Duration: 1 day, Stop d ate: 08/19/18 9:18:00 CDT, 1.96, m2 Start Date: 08/18/18 Stop Date: 08/18/18 Status: Discontinued Results ENDOCRINOLOGY Most recent to 1 oldest [Reference Range]: S Preg [Negative] Negative *NA* (08/18/18 9:25 AM) Immunizations Given and Recorded Vaccine Date [...]
--- OUTSIDE RECORDS SUMMARY | 2019-02-08 10:23 | XMS REPORT | Summary of Care ---
Author Author [facility] Organization [facility] Address Unknown Phone Unavailable Encounter NEEL Santana(VERONICA) [id number] Date(s): 07/15/18 - 07/15/18 [facility] [address], [address] [place] [address] [phone] Discharge Disposition: Home or Self Care Attending Physician: Orly Land PA-C Vital Signs Most recent to 1 oldest [Reference Range]: Height 149.86 cm (07/15/18 10:31 AM) Blood Pressure 125/79 mmHg [90-140/60-90 mmHg] (07/15/18 10:31 AM) Peripheral Pulse 97 bpm Rate [60-100 bpm] (07/15/18 10:31 AM) Weight 88.182 kg (07/15/18 10:31 AM) Body Mass Index 39.27 m2 (07/15/18 10:31 AM) Problem List Condition Effective Dates Status [...] Reaction Severity Status NKDA Active Medications No Known Medications Results URINE AND STOOL Most recent to 1 oldest [Reference Range]: POC UA Turbidity Clear [Clear] *NA* (07/15/18 10:31 AM) POC UA Color Yellow [Yellow] *NA* (07/15/18 10:31 AM) POC UA pH [5.0-8.0] 6.0 (07/15/18 10:31 AM) POC UA SG [<=1.030] 1.020 (07/15/18 10:31 AM) POC UA Glu [Negative Negative mg/dL mg/dL] *NA* (07/15/18 10:31 AM) POC UA Bld Negative [Negative] *NA* (07/15/18 10:31 AM) POC UA Ket [Negative Negative mg/dL mg/dL] *NA* (07/15/18 10:31 AM) POC UA Prot Negative mg/dL [Negative mg/dL] *NA* (07/15/18 10:31 AM) POC UA Uro [0.1-1.0 0.2 EU/dL EU/dL] (07/15/18 10:31 AM) POC UA Bili Negative [Negative] *NA* (07/15/18 10:31 AM) POC UA LeukEst Negative [Negative] *NA* (07/15/18 10:31 AM) POC UA Nit Negative [Negative] *NA* (07/15/18 10:31 AM) Immunizations Given and Recorded Vaccine Date Status Refusal Reason influenza virus vaccine, inactivated1 01/27/18 Given 1Result Comment: Patient waited 15 min with no reaction Procedures Procedure Date Related Diagnosis Body Site Status Measurement of post-voiding residual urine 07/15/18 Completed and/or bladder capacity by ultrasound, non-imaging Colonoscopy 2012 Completed Procedure on knee2010 Completed Papanicolaou smear taken2 Completed 1Left knee 2had it years ago Social History Social History Type Response Alcohol Never Smoking Status Never smoker; Exposure to Tobacco Smoke None; Cigarette Smoking Last 365 Days No; Reg Smoking Cessation Counseling No entered on: 07/15/18 Assessment and Plan No data available for this section
--- OUTSIDE RECORDS SUMMARY | 2019-02-08 10:23 | XMS REPORT | Summary of Care ---
Author Author [facility] Organization [facility] Address Unknown Phone Unavailable Encounter HQ Ángel_jimmy(FIN) [id number] Date(s): 07/10/17 - 07/10/17 [facility] [address], [address] [place] [address] [phone] Attending Physician: Denise Dias MD Vital Signs [...]
--- OUTSIDE RECORDS SUMMARY | 2019-02-08 10:24 | XMS REPORT | Summary of Care ---
Author Author [facility] Organization [facility] Address Unknown Phone Unavailable Encounter HQ Elijahr_jimmy(FIN) [id number] Date(s): 09/30/17 - 10/01/17 [facility] [address] [facility] [address], [address] [place] [address] [phone] Vital Signs No data available for this [...]
--- OUTSIDE RECORDS SUMMARY | 2019-02-08 10:24 | XMS REPORT | Summary of Care ---
Author Author [facility] Organization [facility] Address Unknown Phone Unavailable Encounter NEEL Santana(VERONICA) [id number] Date(s): 10/27/18 - 10/27/18 [facility] [address] [facility] [address] [place] [address]- Discharge Disposition: Home or Self Care Attending Physician: Denise Dias MD Vital Signs Most recent to 1 oldest [Reference Range]: Height 149.86 cm (10/27/18 3:24 PM) Temperature Oral 98.2 DegF [96.4-99.1 DegF] (10/27/18 3:24 PM) Blood Pressure 113/79 mmHg [90-140/60-90 mmHg] (10/27/18 3:24 PM) Respiratory Rate 16 BRMIN [14-20 BRMIN] (10/27/18 3:24 PM) Peripheral Pulse 72 bpm Rate [60-100 bpm] (10/27/18 3:24 PM) Weight 85 kg (10/27/18 3:24 PM) Body Mass Index 37.85 m2 (10/27/18 3:24 PM) Problem List Condition Effective Dates Status [...]
--- OUTSIDE RECORDS SUMMARY | 2019-02-08 10:24 | XMS REPORT | Summary of Care ---
Author Author [facility] Organization [facility] Address Unknown Phone Unavailable Encounter NEEL Santana(VERONICA) [id number] Date(s): 07/21/18 - 07/21/18 [facility] [address], [address] [place] [address] [phone] Discharge Disposition: Home or Self Care Attending Physician: Sylvester Greene MD Vital Signs Most recent to 1 oldest [Reference Range]: Height 149.86 cm (07/21/18 10:43 AM) Blood Pressure 120/83 mmHg [90-140/60-90 mmHg] (07/21/18 10:43 AM) Peripheral Pulse 101 bpm Rate [60-100 bpm] *HI* (07/21/18 10:43 AM) Weight 89.091 kg (07/21/18 10:43 AM) Body Mass Index 39.67 m2 (07/21/18 10:43 AM) Problem List Condition Effective Dates Status [...] Range]: POC UA Turbidity Clear [Clear] *NA* (07/21/18 10:23 AM) POC UA Color Yellow [Yellow] *NA* (07/21/18 10:23 AM) POC UA pH [5.0-8.0] 6.0 (07/21/18 10:23 AM) POC UA SG [<=1.030] 1.025 (07/21/18 10:23 AM) POC UA Glu [Negative Negative mg/dL mg/dL] *NA* (07/21/18 10:23 AM) POC UA Bld Negative [Negative] *NA* (07/21/18 10:23 AM) POC UA Ket [Negative Trace mg/dL mg/dL] *ABN* (07/21/18 10:23 AM) POC UA Prot Negative mg/dL [Negative mg/dL] *NA* (07/21/18 10:23 AM) POC UA Uro [0.1-1.0 0.2 EU/dL EU/dL] (07/21/18 10:23 AM) POC UA Bili Negative [Negative] *NA* (07/21/18 10:23 AM) POC UA LeukEst Trace [Negative] *ABN* (07/21/18 10:23 AM) POC UA Nit Negative [Negative] *NA* (07/21/18 10:23 AM) Immunizations Given and Recorded Vaccine Date Status Refusal Reason influenza virus vaccine, inactivated1 01/27/18 Given 1Result Comment: Patient waited 15 min with no reaction Procedures Procedure Date Related Diagnosis Body Site Status Measurement of post-voiding residual urine 07/21/18 Completed and/or bladder capacity by ultrasound, non-imaging Colonoscopy 2012 Completed Procedure on knee2010 Completed Papanicolaou smear taken2 Completed 1Left knee 2had it years ago Social History Social History Type Response Alcohol Never Smoking Status Never smoker; Exposure to Tobacco Smoke None; Cigarette Smoking Last 365 Days No; Reg Smoking Cessation Counseling No entered on: 07/23/18 Assessment and Plan No data available for this section
--- OUTSIDE RECORDS SUMMARY | 2019-02-08 10:24 | XMS REPORT | Summary of Care ---
Author Author [facility] Organization [facility] Address Unknown Phone Unavailable Encounter NEEL Santana(VERONICA) [id number] Date(s): 01/12/19 - 01/12/19 [facility] [address] [place] [address] [place] [address]- [phone] Discharge Disposition: Home or Self Care Attending Physician: Toni Ye MD Referring Physician: Denise Dias MD Vital Signs Most recent to 1 oldest [Reference Range]: Height 149.86 cm (01/12/19 11:00 AM) Temperature Oral 97.9 DegF [96.4-99.1 DegF] (01/12/19 11:00 AM) Blood Pressure 118/79 mmHg [90-140/60-90 mmHg] (01/12/19 11:00 AM) Peripheral Pulse 73 bpm Rate [60-100 bpm] (01/12/19 11:00 AM) Weight 80.909 kg (01/12/19 11:00 AM) Body Mass Index 36.03 m2 (01/12/19 11:00 AM) Problem List Condition Effective Dates Status [...] to 1 oldest [Reference Range]: Neutrophils # 4.0 K/CMM [1.5-8.1 K/CMM] (01/12/19 11:27 AM) Lymphocytes # 2.1 K/CMM [1.0-5.5 K/CMM] (01/12/19 11:27 AM) Monocytes # [0.0-0.8 0.5 K/CMM K/CMM] (01/12/19 11:27 AM) Eosinophils # 0.1 K/CMM [0.0-0.5 K/CMM] (01/12/19 11:27 AM) eGFR 134 mL/min/1.73m2 1 *NA* (01/12/19 11: AM) A/G Ratio [0.7-1.6] 0.9 (01/12/19 11: AM) Albumin Lvl [3.5-5.0 3.2 g/dL g/dL] *LOW* (01/12/19 11:27 AM) Alk Phos [39-136 75 unit/L unit/L] (01/12/19 11:27 AM) ALT [0-65 unit/L] 20 unit/L (01/12/19 AM) AGAP [10.0-20.0 13.4 mEq/L mEq/L] (01/12/19 AM) AST [0-37 unit/L] 14 unit/L (01/12/19 AM) B/C Ratio [6-25] 14 (01/12/19 AM) Basophils [0.0-1.0 0.4 % %] (01/12/19) BUN [7-22 mg/dL] 9 mg/dL (01/12/19 AM) Calcium Lvl 8.7 mg/dL [8.5-10.5 mg/dL] (01/12/19 AM) Chloride Lvl [95-109 101 mEq/L mEq/L] (01/12/19 AM) CO2 [24-32 mEq/L] 30 mEq/L (01/12/19 AM) Creatinine Lvl 0.64 mg/dL [0.50-1.40 mg/dL] (01/12/19 AM) Bili Direct [0.0-0.3 0.1 mg/dL mg/dL] (01/12/19 AM) Eosinophils [0.0-4.0 2.0 % %] (01/12/19 AM) Globulin [2.7-4.2 3.7 g/dL g/dL] (01/12/19 AM) Glucose Lvl [70-99 86 mg/dL mg/dL] (01/12/19 AM) Hct [36.0-48.0 %] 33.7 % *LOW* (01/12/19) Hgb [12.0-16.0 g/dL] 10.9 g/dL *LOW* (01/12/19) Potassium Lvl 4.4 mEq/L [3.5-5.1 mEq/L] (01/12/19 AM) Lymphocytes 30.9 % [20.0-40.0 %] (01/12/19 AM) MCH [27.0-31.0 pg] 26.0 pg *LOW* (01/12/19:27 AM) MCHC [32.0-36.0 32.5 g/dL g/dL] (01/12/19 AM) MCV [80.0-98.0 fL] 80.0 fL (01/12/19 AM) Monocytes [2.0-12.0 7.3 % %] (01/12/19 AM) MPV [7.4-10.4 fL] 7.7 fL (01/12/19 AM) Sodium Lvl [135-145 140 mEq/L mEq/L] (01/12/19 AM) Platelet [133-450 370 K/CMM K/CMM] (01/12/19 AM) Segs [45.0-75.0 %] 59.4 % (01/12/19: AM) Total Protein 6.9 g/dL [6.4-8.4 g/dL] (01/12/19 AM) RBC [4.20-5.40 4.21 M/CMM M/CMM] (01/12/19: AM) RDW [11.5-14.5 %] 16.6 % *HI* (01/12/19: AM) S Preg [Negative] Negative *NA* (01/12/19: AM) Bili Total [0.2-1.3 0.3 mg/dL mg/dL] (01/12/19: AM) WBC [3.7-10.4 K/CMM] 6.8 K/CMM (01/12/19 11: AM) 1Result Comment: The eGFR is calculated [...] Smoking Cessation Counseling No entered on: 12/31/18 Assessment and Plan No data available for this section
--- OUTSIDE RECORDS SUMMARY | 2019-02-08 10:24 | XMS REPORT | Summary of Care ---
Author Author [facility] Organization [facility] Address Unknown Phone Unavailable Encounter NEEL Santana(FIN) [id number] Date(s): 08/23/18 - 08/23/18 [facility] [address] [place] [address]- Attending Physician: Sylvester Greene MD Vital Signs No data available for [...]
--- OUTSIDE RECORDS SUMMARY | 2019-02-08 10:24 | XMS REPORT | Summary of Care ---
Author Author [facility] Organization [facility] Address Unknown Phone Unavailable Encounter HQ Ángel_jimmy(FIN) [id number] Date(s): 10/09/17 - 10/09/17 [facility] [address], [address] [place] [address]- [phone] Attending Physician: Denise Dias MD Vital Signs [...]
--- OUTSIDE RECORDS SUMMARY | 2019-02-08 10:24 | XMS REPORT | Summary of Care ---
Author Author [facility] Organization [facility] Address Unknown Phone Unavailable Encounter HQ Ángel_jimmy(FIN) [id number] Date(s): 06/22/17 - 06/22/17 [facility] [address], [address] [place] [address]- [phone] Attending Physician: Denise Dias MD Vital Signs [...]
--- OUTSIDE RECORDS SUMMARY | 2019-02-08 10:25 | XMS REPORT | Summary of Care ---
Author Author [facility] Organization [facility] Address Unknown Phone Unavailable Encounter HQ Max(FIN) [id number] Date(s): 07/28/18 - 07/29/18 [facility] [address], [address] [place] [address]- [phone] Vital Signs No data available for this [...]
--- OUTSIDE RECORDS SUMMARY | 2019-02-08 10:25 | XMS REPORT | Summary of Care ---
Author Author [facility] Organization [facility] Address Unknown Phone Unavailable Encounter HQ Max(FIN) [id number] Date(s): 08/10/17 - 08/10/17 [facility] [address], [address] [place] [address]- [phone] Discharge Disposition: Home or Self Care Attending Physician: Denise Dias MD Vital Signs Most recent to 1 oldest [Reference Range]: Height 149.86 cm (08/10/17 9:07 AM) Temperature Oral 97.8 DegF [96.4-99.1 DegF] (08/10/17 9:07 AM) Blood Pressure 121/78 mmHg [90-140/60-90 mmHg] (08/10/17 9:07 AM) Respiratory Rate 14 BRMIN [14-20 BRMIN] (08/10/17 9:07 AM) Peripheral Pulse 69 bpm Rate [60-100 bpm] (08/10/17 9:07 AM) Weight 87.955 kg (08/10/17 9:07 AM) Body Mass Index 39.16 m2 (08/10/17 9:07 AM) Problem List Condition Effective Dates Status [...] Substance Reaction Severity Status NKDA Active Medications ciprofloxacin 500 mg oral tablet PO, Q12H, # 20 tab, 0 Refill(s) Start Date: 08/10/17 Stop Date: 08/20/17 Status: Ordered fluconazole 150 mg oral tablet 150 mg=1 tab, PO, ONCE, # 1 tab, 0 Refill(s), Pharmacy: [email or web address] [id number] Start Date: 08/10/17 Stop Date: 09/30/17 Status: Completed fluconazole 150 mg oral tablet See Instructions, # 1 tab, TAKE 1 TABLET BY MOUTH EVERY DAY FOR 1 DOSE., Pharmac y: [email or web address] [id number] Start Date: 09/30/17 Status: Ordered oxybutynin 10 mg oral tablet, extended release 10 mg=1 tab, PO, Daily, # 90 tab, 1 Refill(s), Pharmacy: [email or web address] [id number] Start Date: 08/10/17 Stop Date: 02/06/18 Status: Ordered Zofran 4 mg oral tablet 4 mg=1 tab, PO, Q6H, PRN Nausea/Vomiting, # 30 tab, 0 Refill(s) Start Date: 08/10/17 Stop Date: 08/18/17 Status: Ordered Results No data available for [...]
--- OUTSIDE RECORDS SUMMARY | 2019-02-08 10:25 | XMS REPORT | Summary of Care ---
Author Author [facility] Organization [facility] Address Unknown Phone Unavailable Encounter HQ Max(FIN) [id number] Date(s): 07/23/18 - 07/23/18 [facility] [address], [address] [place] [address]- [phone] Discharge Disposition: Home or Self Care Attending Physician: Denise Dias MD Vital Signs Most recent to 1 oldest [Reference Range]: Height 149.86 cm (07/23/18 12:39 PM) Temperature Oral 97.3 DegF [96.4-99.1 DegF] (07/23/18 12:39 PM) Blood Pressure 135/86 mmHg [90-140/60-90 mmHg] (07/23/18 12:39 PM) Respiratory Rate 16 BRMIN [14-20 BRMIN] (07/23/18 12:39 PM) Peripheral Pulse 84 bpm Rate [60-100 bpm] (07/23/18 12:39 PM) Weight 89.545 kg (07/23/18 12:39 PM) Body Mass Index 39.87 m2 (07/23/18 12:39 PM) Problem List Condition Effective Dates Status [...] Substance Reaction Severity Status NKDA Active Medications lisinopril 5 mg oral tablet 5 mg=1 tab, PO, Daily, # 90 tab, 0 Refill(s), Pharmacy: [facility] [id number] Start Date: 07/23/18 Status: Ordered Synthroid 112 mcg (0.112 mg) oral tablet 112 microgram=1 tab, PO, Daily, # 60 tab, 0 Refill(s), Pharmacy: [facility] [id number] Start Date: 07/23/18 Stop Date: 09/21/18 Status: Ordered Results No data available for [...]
--- OUTSIDE RECORDS SUMMARY | 2019-02-08 10:25 | XMS REPORT | Summary of Care ---
Author Author [facility] Organization [facility] Address Unknown Phone Unavailable Encounter HQ Max(FIN) [id number] Date(s): 12/14/17 - 12/14/17 [facility] [address], [address] [place] [address]- [phone] Attending Physician: Denise Dias MD Vital Signs [...] Substance Reaction Severity Status NKDA Active Medications fluconazole 150 mg oral tablet See Instructions, TAKE 1 TABLET BY MOUTH ONCE, # 1 tab, 1 Refill(s), Pharmacy: [facility] [id number] Start Date: 12/14/17 Status: Ordered Results No data available for [...]
--- OUTSIDE RECORDS SUMMARY | 2019-02-08 10:25 | XMS REPORT | Summary of Care ---
Author Author [facility] Organization [facility] Address Unknown Phone Unavailable Encounter NEEL Santana(VERONICA) [id number] Date(s): 03/11/18 - 03/11/18 [facility] [address] [place] [address]- Attending Physician: Denise Dias MD Vital Signs [...] Adverse Reactions, Alerts No Known Allergies Medications Synthroid 125 mcg (0.125 mg) oral tablet 125 microgram=1 tab, PO, Daily, # 90 tab, 1 Refill(s), Pharmacy: [facility] [id number] Start Date: 05/26/18 Stop Date: 07/23/18 Status: Discontinued Results No [...]
--- OUTSIDE RECORDS SUMMARY | 2019-02-08 10:25 | XMS REPORT | Summary of Care ---
Author Author [facility] Organization [facility] Address Unknown Phone Unavailable Encounter HQ Ángel_jimmy(FIN) [id number] Date(s): 12/02/17 - 12/02/17 [facility] [address], [address] [place] [address]- [phone] Attending Physician: Denise Dias MD Vital Signs [...]
--- OUTSIDE RECORDS SUMMARY | 2019-02-08 10:25 | XMS REPORT | Summary of Care ---
Author Author [facility] Organization [facility] Address Unknown Phone Unavailable Encounter NEEL Santana(VERONICA) [id number] Date(s): 01/10/19 - 01/10/19 [facility] [address] [place] [address]- Discharge Disposition: Home or Self Care Attending Physician: Neeru Grullon MD Referring Physician: Neeru [...]
--- OUTSIDE RECORDS SUMMARY | 2019-02-08 10:25 | XMS REPORT | Summary of Care ---
Author Author [facility] Organization [facility] Address Unknown Phone Unavailable Encounter HQ Max(FIN) [id number] Date(s): 02/11/18 - 02/11/18 [facility] [address] [place] [address]- [phone] Discharge Disposition: Home or Self Care Attending Physician: Denise Dias MD Vital Signs Most recent to 1 oldest [Reference Range]: Height 149.86 cm (02/11/18 10:04 AM) Temperature Oral 98.3 DegF [96.4-99.1 DegF] (02/11/18 10:04 AM) Blood Pressure 113/73 mmHg [90-140/60-90 mmHg] (02/11/18 10:04 AM) Respiratory Rate 14 BRMIN [14-20 BRMIN] (02/11/18 10:04 AM) Peripheral Pulse 87 bpm Rate [60-100 bpm] (02/11/18 10:04 AM) Weight 88.636 kg (02/11/18 10:04 AM) Body Mass Index 39.47 m2 (02/11/18 10:04 AM) Problem List Condition Effective Dates Status [...] Substance Reaction Severity Status NKDA Active Medications imipramine 25 mg oral tablet 25 mg=1 tab, PO, Bedtime, START TAKING 1 TABLET AT BEDTIME AND AFTER 3 DAYS CAN INCREASE THE DOSE AND TAKE 2 TABLETS AT BEDTIME, # 90 tab, 0 Refill(s), Pharmacy : [facility] Start Date: 02/11/18 Stop Date: 06/01/18 Status: Discontinued Results No data available for [...]
--- OUTSIDE RECORDS SUMMARY | 2019-02-08 10:26 | XMS REPORT | Summary of Care ---
Author Author [facility] Organization [facility] Address Unknown Phone Unavailable Encounter HQ Max(VERONICA) [id number] Date(s): 06/21/18 - 06/21/18 [facility] [address], [address] [place] [address]- [phone] Attending Physician: Denise Dias MD Vital Signs No data available for this section Problem List Condition Effective Dates Status Health Status Informant Abdominal Active pain(Confirmed) Acute Active diarrhea(Confirmed) Bacterial Active vaginosis(Confirmed) Benign essential Active HTN(Confirmed) Vaginal yeast Active infection(Confirmed) Chest Active pain(Confirmed) Low serum vitamin Active D(Confirmed) Hospital discharge Active follow-up(Confirmed) GERD Active (gastroesophageal reflux disease)(Confirmed) Shingles(Confirmed) Active Hypothyroidism(Confi Active rmed) Loss of Active balance(Confirmed) Urinary Active frequency(Confirmed) Tailbone Active injury(Confirmed) Low [...] Reg Smoking Cessation Counseling No entered on: 06/01/18 Assessment and Plan No data available for this section
--- OUTSIDE RECORDS SUMMARY | 2019-02-08 10:26 | XMS REPORT | Summary of Care ---
Author Author [facility] Organization [facility] Address Unknown Phone Unavailable Encounter HQ Max(VERONICA) [id number] Date(s): 06/22/18 - 06/22/18 [facility] [address], [address] [place] [address]- [phone] Attending Physician: Denise Dias MD Vital Signs [...]
--- OUTSIDE RECORDS SUMMARY | 2019-02-08 10:26 | XMS REPORT | Summary of Care ---
Author Author [facility] Organization [facility] Address Unknown Phone Unavailable Encounter HQ Max(VERONICA) [id number] Date(s): 08/04/18 - 08/04/18 [facility] [address] [place] [address]- [phone] Attending Physician: Denise Dias MD Vital Signs [...]
--- OUTSIDE RECORDS SUMMARY | 2019-02-08 10:26 | XMS REPORT | Summary of Care ---
Author Author [facility] Organization [facility] Address Unknown Phone Unavailable Encounter HQ Max(VERONICA) [id number] Date(s): 12/02/17 - 12/02/17 [facility] [address], [address] [place] [address]- [phone] Attending Physician: Denise Dias MD Vital Signs [...]
--- OUTSIDE RECORDS SUMMARY | 2019-02-08 10:26 | XMS REPORT | Summary of Care ---
Author Author [facility] Primary Care [facility] Organization [facility] Address Unknown Phone Unavailable Encounter HQ Max(FIN) [id number] Date(s): 06/22/18 - 06/22/18 [facility] [address] [place] [address]- Attending Physician: Denise Dias MD Vital Signs [...]
--- OUTSIDE RECORDS SUMMARY | 2019-02-08 10:26 | XMS REPORT | Summary of Care ---
Author Author [facility] Primary Care [facility] Organization [facility] Address Unknown Phone Unavailable Encounter HQ Max(FIN) [id number] Date(s): 06/21/18 - 06/21/18 [facility] [address] [place] [address]- Attending Physician: Denise Dias MD Vital Signs [...]
--- OUTSIDE RECORDS SUMMARY | 2019-02-08 10:26 | XMS REPORT | Summary of Care ---
Author Author [facility] Organization [facility] Address Unknown Phone Unavailable Encounter NEEL Santana(VERONICA) [id number] Date(s): 12/31/18 - 01/07/19 [facility] [address] [employer] provided by [employer] [facility] [place] [address]- Discharge Disposition: Home or Self Care Attending Physician: Toni Ye MD Admitting Physician: Toni Ye MD Referring Physician: Toni Ye MD Vital Signs 1 2 3 Most recent to oldest [Reference Range]: 172.72 cm (01/05/19 5:56 AM) 172.72 cm (01/02/19 5:42 AM) 172.72 cm (01/01/19 6:49 AM) Height 85.005 kg (01/05/19 5:56 AM) 93.006 kg (01/02/19 5:42 AM) 92.008 kg (01/01/19 6:49 AM) Current Weight 98.2 DegF (01/07/19 11:18 AM) 98.3 DegF (01/07/19 7:30 AM) 98.9 DegF (01/07/19 3:15 AM) Temperature Oral [96.4-99.1 DegF] 125/84 mmHg (01/07/19 11:18 AM) 114/78 mmHg (01/07/19 7:30 AM) 108/70 mmHg (01/07/19 3:15 AM) Blood Pressure [90-140/60-90 mmHg] 18 BRMIN (01/07/19 11:18 AM) 18 BRMIN (01/07/19 7:30 AM) 18 BRMIN (01/07/19 3:15 AM) Respiratory Rate [14-20 BRMIN] 75 bpm (01/07/19 11:18 AM) 72 bpm (01/07/19 7:30 AM) 69 bpm (01/07/19 3:15 AM) Peripheral Pulse Rate [60-100 bpm] 83 kg (12/31/18 6:13 PM) 82.273 kg (12/30/18 8:38 AM) Weight 27.82 m2 (12/31/18 6:13 PM) 36.63 m2 (12/30/18 8:38 AM) Body Mass Index Problem List Condition [...] Adverse Reactions, Alerts No Known Allergies Medications acetaminophen 1,000 mg, 31.23 mL, Route: PO, Drug form: LIQ, ONCE, Dosing Weight 83, kg, PRN P ain Score 1-3, Start date: 01/04/19 6:14:00 CDT, 0 Notes: Max gnzdiljdchycf=2825cz/day (4 gm/day). (Same as: Tylenol) Start Date: 01/04/19 Stop Date: 01/04/19 Status: Completed acetaminophen 1,000 mg, 31.23 mL, Route: PO, Drug form: LIQ, ONCE, Dosing Weight 83, kg, PRN P ain Score 4-6, Start date: 01/06/19 4:52:00 CDT, 0 Notes: Max futxlnyfcfepn=9774vq/day (4 gm/day). (Same as: Tylenol) Start Date: 01/06/19 Stop Date: 01/06/19 Status: Completed albuterol (ANES) Route: INHALATION, Drug form: AERO/A, ONCE, Stop date: 01/01/19 2:27:00 CDT Start Date: 01/01/19 Stop Date: 01/01/19 Status: Completed ANES acetaminophen 1,000 mg, 2 tab, Route: PO, Drug form: TAB, ONCE, Dosing Weight 82.273, kg, PRN Pain Score 1-3, Start date: 12/31/18 9:14:00 CDT, 0 Notes: Max acetaminophen 4000 mg/day (4 gm/day). (Same as: Tylenol Extra Streng th) Start Date: 12/31/18 Stop Date: 12/31/18 Status: Discontinued ANES fentaNYL 25 microgram, 0.5 mL, Route: IVP, Drug form: INJ, Q5Min, Dosing Weight 82.273, k g, PRN Pain Score 4-6, Priority: Routine, Start date: 12/31/18 9:14:00 CDT, Dura tion: 4 doses or times, Stop date: 01/01/19 9:00:00 CDT, 0 Notes: (Same as: Sublimaze) Preservative free. Start Date: 12/31/18 Stop Date: 12/31/18 Status: Discontinued ANES fentaNYL 50 microgram, 1 mL, Route: IVP, Drug form: INJ, Q5Min, Dosing Weight 82.273, kg, PRN Pain Score 7-10, Priority: Routine, Start date: 12/31/18 9:14:00 CDT, Durat ion: 2 doses or times, Stop date: 01/01/19 9:00:00 CDT, 0 Notes: (Same as: Sublimaze) Preservative free. Start Date: 12/31/18 Stop Date: 12/31/18 Status: Discontinued ANES flumazenil 0.2 mg, 2 mL, Route: IVP, Drug form: INJ, PRN, Dosing Weight 82.273, kg, PRN Omar zodiazepine Reversal, Initial dose, Start date: 12/31/18 9:14:00 CDT, Duration: 1 day, Stop date: 01/01/19 9:13:00 CDT, 0 Notes: (Same as: Romazicon) Start Date: 12/31/18 Stop Date: 12/31/18 Status: Discontinued ANES flumazenil 0.2 mg, Route: IVP, PRN, Dosing Weight 83, kg, PRN Benzodiazepine Reversal, Init ial dose, Start date: 12/31/18 23:44:00 CDT, Duration: 30 day, Stop date: 23:43:00 CDT Start Date: 12/31/18 Stop Date: 01/01/19 Status: Discontinued ANES hydrALAZINE 10 mg, 0.5 mL, Route: IVP, Drug form: INJ, Q20Min, Dosing Weight 82.273, kg, PRN Elevated BP, Start date: 12/31/18 9:14:00 CDT, Duration: 2 doses or times, Stop date: 01/01/19 9:00:00 CDT, 0 Notes: (Same as: Apresoline)Push over 5 minutes Start Date: 12/31/18 Stop Date: 12/31/18 Status: Discontinued ANES hydrALAZINE 10 mg, Route: IVP, Q20Min, Dosing Weight 83, kg, PRN Elevated BP, Start date: 23:44:00 CDT, Duration: 2 doses or times, Stop date: Limited # of times Start Date: 12/31/18 Stop Date: 01/01/19 Status: Discontinued ANES HYDROmorphone 0.5 mg, Route: IVP, Q5Min, Dosing Weight 83, kg, PRN Pain Score 7-10, Start date : 12/31/18 23:44:00 CDT, Duration: 4 doses or times, Stop date: Limited # of graciela es Start Date: 12/31/18 Stop Date: 01/01/19 Status: Discontinued ANES labetalol 10 mg, 2 mL, Route: IVP, Drug form: INJ, Q5Min, Dosing Weight 82.273, kg, PRN El evated BP, Start date: 12/31/18 9:14:00 CDT, Duration: 5 doses or times, Stop da te: 01/01/19 9:00:00 CDT, 0 Start Date: 12/31/18 Stop Date: 12/31/18 Status: Discontinued ANES labetalol 10 mg, Route: IVP, Q5Min, Dosing Weight 83, kg, PRN Elevated BP, Start date: 23:44:00 CDT, Duration: 5 doses or times, Stop date: Limited # of times Start Date: 12/31/18 Stop Date: 01/01/19 Status: Discontinued ANES naloxone 0.4 mg, 1 mL, Route: IVP, Drug form: INJ, Q2MIN, Dosing Weight 82.273, kg, PRN N arcotic Reversal, Start date: 12/31/18 9:14:00 CDT, Duration: 8 doses or times, Stop date: 01/01/19 9:00:00 CDT, 0 Notes: Same as Narcan Start Date: 12/31/18 Stop Date: 12/31/18 Status: Discontinued ANES naloxone 0.4 mg, Route: IVP, Q2MIN, Dosing Weight 83, kg, PRN Narcotic Reversal, Start da te: 12/31/18 23:44:00 CDT, Duration: 8 doses or times, Stop date: Limited # of t imes Start Date: 12/31/18 Stop Date: 01/01/19 Status: Discontinued ANES ondansetron 4 mg, 2 mL, Route: IVP, Drug form: INJ, ONCE, Dosing Weight 82.273, kg, PRN Naus ea & Vomiting, Start date: 12/31/18 9:14:00 CDT, 0 Notes: (Same as: Nathaniel) MEDICATION WASTE Product Size: 4 mgProduct Was sheela: ___ mg Start Date: 12/31/18 Stop Date: 12/31/18 Status: Discontinued ANES ondansetron 4 mg, Route: IVP, ONCE, Dosing Weight 83, kg, PRN Nausea & Vomiting, Start date: 12/31/18 23:44:00 CDT Start Date: 12/31/18 Stop Date: 01/01/19 Status: Discontinued ANES oxyCODONE 5 mg, Route: NG, Drug form: LIQ, Q4H, Dosing Weight 83, kg, PRN Pain Score 4-6, Start date: 12/31/18 23:44:00 CDT, Duration: 30 day, Stop date: 01/30/19 23:43:0 0 CDT Start Date: 12/31/18 Stop Date: 01/01/19 Status: Discontinued bisacodyl 10 mg, 1 supp, Route: TN, Drug form: SUPP, ONCE, Dosing Weight 83, kg, Priority: NOW, Start date: 01/05/19 13:01:00 CDT, Stop date: 01/05/19 13:01:00 CDT, 0 Notes: (Same As: Dulcolax, Bisco-Lax) Start Date: 01/05/19 Stop Date: 01/05/19 Status: Completed bisacodyl 10 mg, 1 supp, Route: TN, Drug form: SUPP, ONCE, Dosing Weight 83, kg, Start amari e: 01/03/19 7:37:00 CDT, Stop date: 01/03/19 7:37:00 CDT, 0 Notes: (Same As: Dulcolax, Bisco-Lax) Start Date: 01/03/19 Stop Date: 01/03/19 Status: Completed calcium chloride (ANES) Route: IV, Drug form: INJ, ONCE, Stop date: 12/31/18 13:32:00 CDT Start Date: 12/31/18 Stop Date: 12/31/18 Status: Completed calcium chloride (ANES) Route: IV, Drug form: INJ, ONCE, Stop date: 01/01/19 0:04:00 CDT Start Date: 01/01/19 Stop Date: 01/01/19 Status: Completed ceFAZolin (ANES) Route: IV, Drug form: INJ, ONCE, Stop date: 12/31/18 9:15:00 CDT Start Date: 12/31/18 Stop Date: 12/31/18 Status: Completed ceFAZolin (SCIP) 1 gm, Route: IVPB, Drug form: PDR/INJ, Q8H, Dosing Weight 82.273, kg, Start date : 12/31/18 20:00:00 CDT, Stop date: 01/01/19 14:00:00 CDT, ABX Indication: Surgi verónica Prophylaxis, 0 Notes: (Same As: AncCarl rodrigez) MEDICATION WASTE Product Size: 1000 mgP roduct Wasted: ___ mg Start Date: 12/31/18 Stop Date: 01/01/19 Status: Completed cefepime 1 gm, Route: IVP, Drug form: INJ, ABXQ8H, Dosing Weight 83, kg, (CrCl >/=60 ml/min), Start date: 01/01/19 20:00:00 CDT, Duration: 4 day, Stop date: 01/05/19 12:00:00 CDT, ABX Indication: Intra-abdominal Infection, 0 Notes: (Same As: Maxipime) MEDICATION WASTE Product Size: 1000 mgProduc t Wasted: ___ mg Start Date: 01/01/19 Stop Date: 01/05/19 Status: Discontinued cefOXitin (ANES) Route: IV, Drug form: INJ, ONCE, Stop date: 12/31/18 23:44:00 CDT Start Date: 12/31/18 Stop Date: 12/31/18 Status: Completed D5W 1/2NS + KCL 20mEq/L 1000ml (Premix) 1,000 mL 1,000 mL, Rate: 100 ml/hr, Infuse over: 10 hr, Route: IV, Dosing Weight 82.273 k g, Total Volume: 1,000, Start date: 12/31/18 13:50:00 CDT, Duration: 30 day, Sto p date: 01/30/19 13:49:00 CDT, 1.89, m2, 0 Notes: PREMIX IV - Do Not AlterWASTE: F/P - Sink; E - Municipal Trash Bin Start Date: 12/31/18 Stop Date: 01/04/19 Status: Discontinued dexamethasone (ANES) Route: IV, Drug form: INJ, ONCE, Stop date: 12/31/18 8:50:00 CDT Start Date: 12/31/18 Stop Date: 12/31/18 Status: Completed dexamethasone (ANES) Route: IV, Drug form: INJ, ONCE, Stop date: 01/01/19 0:04:00 CDT Start Date: 01/01/19 Stop Date: 01/01/19 Status: Completed Dextrose 50% Syringe 12.5 gm, 25 mL, Route: IVP, Drug Form: INJ, Dosing Weight 83, kg, PRN, PRN Blood Glucose Results, Start date: 01/01/19 7:05:00 CDT, Duration: 30 day, Stop date: 01/31/19 7:04:00 CDT, 0 Start Date: 01/01/19 Stop Date: 01/02/19 Status: Discontinued Dextrose 50% Syringe 25 gm, 50 mL, Route: IVP, Drug Form: INJ, Dosing Weight 83, kg, PRN, PRN Blood G lucose Results, Start date: 01/01/19 7:05:00 CDT, Duration: 30 day, Stop date: 0 01/31/19 7:04:00 CDT, 0 Start Date: 01/01/19 Stop Date: 01/02/19 Status: Discontinued Dilaudid 0.2 mg, 0.1 mL, Route: IVP, Drug form: INJ, Q4H, Dosing Weight 83, kg, PRN, Star t date: 01/04/19 18:13:00 CDT, Duration: 30 day, Stop date: 02/03/19 18:12:00 CD T, Pain Score 9-10, 0 Notes: Same as Dilaudid Start Date: 01/04/19 Stop Date: 01/05/19 Status: Discontinued Dilaudid 0.2 mg, 0.1 mL, Route: IVP, Drug form: INJ, Q3H, Dosing Weight 83, kg, PRN Pain Score 7-10, Start date: 01/01/19 13:12:00 CDT, Duration: 30 day, Stop date: 01/16 11/03 13:11:00 CDT, 0 Notes: Same as Dilaudid Start Date: 01/01/19 Stop Date: 01/04/19 Status: Discontinued Dilaudid 0.2 mg, 0.1 mL, Route: IVP, Drug form: INJ, Q4H, Dosing Weight 83, kg, PRN, Star t date: 01/05/19 15:18:00 CDT, Duration: 30 day, Stop date: 02/04/19 15:17:00 CD T, Pain Score 10, 0 Notes: Same as Dilaudid Start Date: 01/05/19 Stop Date: 01/06/19 Status: Discontinued docusate-senna 50 mg-8.6 mg oral tablet 2 tab, Route: PO, Drug Form: TAB, Dosing Weight 82.273, kg, Q12H, Start date: 21:00:00 CDT, Duration: 30 day, Stop date: 01/30/19 9:00:00 CDT, 0 Notes: (Same as Senokot-S) Equiv. to Alisa-Colace. Start Date: 12/31/18 Stop Date: 01/07/19 Status: Discontinued docusate-senna 50 mg-8.6 mg oral tablet 2 tab, PO, Q12H, 0 Refill(s) Start Date: 01/07/19 Status: Ordered famotidine (ANES) Route: IV, Drug form: INJ, ONCE, Stop date: 12/31/18 8:50:00 CDT Start Date: 12/31/18 Stop Date: 12/31/18 Status: Completed famotidine (ANES) Route: IV, Drug form: INJ, ONCE, Stop date: 12/31/18 23:59:00 CDT Start Date: 12/31/18 Stop Date: 12/31/18 Status: Completed fentaNYL (ANES) Route: IV, Drug form: INJ, ONCE, Stop date: 12/31/18 8:55:00 CDT Start Date: 12/31/18 Stop Date: 12/31/18 Status: Completed fentaNYL (ANES) Route: IV, Drug form: INJ, ONCE, Stop date: 12/31/18 23:44:00 CDT Start Date: 12/31/18 Stop Date: 12/31/18 Status: Completed Flagyl 500 mg, 100 mL, Route: IVPB, Drug form: INJ, ABXQ8H, Dosing Weight 83, kg, Start date: 01/01/19 20:00:00 CDT, Duration: 4 day, Stop date: 01/05/19 12:00:00 CDT, ABX Indication: Intra-abdominal Infection, 0 Notes: (Same as: Flagyl) Avoid alcohol. Start Date: 01/01/19 Stop Date: 01/05/19 Status: Completed gabapentin 250 mg/5 mL oral solution 300 mg, 6 mL, Route: PO, Drug form: SOLN, Q8H, Dosing Weight 83, kg, Start date: 01/04/19 16:00:00 CDT, Duration: 30 day, Stop date: 02/03/19 8:00:00 CDT, 0 Notes: (Same as: Neurontin) Start Date: 01/04/19 Stop Date: 01/07/19 Status: Discontinued gabapentin 250 mg/5 mL oral solution 300 mg=6 mL, PO, Q8H, # 252 mL, 0 Refill(s), Pharmacy: [id number] Start Date: 01/07/19 Stop Date: 01/21/19 Status: Ordered gabapentin 300 mg oral capsule 300 mg, 1 cap, Route: PO, Drug form: CAP, Q8H, Dosing Weight 82.273, kg, (CrCl > 60 ml/min), Priority: NOW, Start date: 12/31/18 13:50:00 CDT, Duration: 30 day, Stop date: 01/30/19 12:00:00 CDT, 0 Notes: (Same as: Neurontin) Start Date: 12/31/18 Stop Date: 01/04/19 Status: Discontinued glucagon 1 mg, Route: IM, Drug form: PDR/INJ, PRN, Dosing Weight 83, kg, PRN Blood Glucos e Results, Start date: 01/01/19 7:05:00 CDT, Duration: 30 day, Stop date: 7:04:00 CDT, 0 Start Date: 01/01/19 Stop Date: 01/02/19 Status: Discontinued glycopyrrolate (ANES) Route: IV, Drug form: INJ, ONCE, Stop date: 12/31/18 14:18:00 CDT Start Date: 12/31/18 Stop Date: 12/31/18 Status: Completed glycopyrrolate (ANES) Route: IV, Drug form: INJ, ONCE, Stop date: 01/01/19 5:13:00 CDT Start Date: 01/01/19 Stop Date: 01/01/19 Status: Completed hydromorphone (ANES) + sodium chloride (ANES) 9 mL Route: IV, Drug form: INJ, ONCE, Stop date: 01/01/19 1:21:00 CDT Start Date: 01/01/19 Stop Date: 01/01/19 Status: Completed Insulin regular 1 unit, 0.01 mL, Route: SUB-Q, Drug form: SOLN, Sliding Scale, Dosing Weight 83, kg, PRN Blood Glucose Results, Start date: 01/01/19 7:05:00 CDT, Duration: 30 d ay, Stop date: 01/31/19 7:04:00 CDT, 0 Notes: (Same as: Humulin R) Roll in palms of hands gently; Do not shake vigorous ly. WASTE: F/P - Black; E - Municipal Trash BinStable for 31 days at r oom temperature Expires in days from Date Start Date: 01/01/19 Stop Date: 01/02/19 Status: Discontinued Insulin regular 2 unit, 0.02 mL, Route: SUB-Q, Drug form: SOLN, Sliding Scale, Dosing Weight 83, kg, PRN Blood Glucose Results, Start date: 01/01/19 7:05:00 CDT, Duration: 30 d ay, Stop date: 01/31/19 7:04:00 CDT, 0 Notes: (Same as: Humulin R) Roll in palms of hands gently; Do not shake vigorous ly. WASTE: F/P - Black; E - Municipal Trash BinStable for 31 days at r oom temperature Expires in days from Date Start Date: 01/01/19 Stop Date: 01/02/19 Status: Discontinued Insulin regular 3 unit, 0.03 mL, Route: SUB-Q, Drug form: SOLN, Sliding Scale, Dosing Weight 83, kg, PRN Blood Glucose Results, Start date: 01/01/19 7:05:00 CDT, Duration: 30 d ay, Stop date: 01/31/19 7:04:00 CDT, 0 Notes: (Same as: Humulin R) Roll in palms of hands gently; Do not shake vigorous ly. WASTE: F/P - Black; E - Municipal Trash BinStable for 31 days at r [facility] temperature Expires in days from Date Start Date: 01/01/19 Stop Date: 01/02/19 Status: Discontinued Insulin regular 4 unit, 0.04 mL, Route: SUB-Q, Drug form: SOLN, Sliding Scale, Dosing Weight 83, kg, PRN Blood Glucose Results, Start date: 01/01/19 7:05:00 CDT, Duration: 30 d ay, Stop date: 01/31/19 7:04:00 CDT, 0 Notes: (Same as: Humulin R) Roll in palms of hands gently; Do not shake vigorous ly. WASTE: F/P - Black; E - Municipal Trash BinStable for 31 days at [facility] temperature Expires in days from Date Start Date: 01/01/19 Stop Date: 01/02/19 Status: Discontinued Insulin regular 5 unit, 0.05 mL, Route: SUB-Q, Drug form: SOLN, Sliding Scale, Dosing Weight 83, kg, PRN Blood Glucose Results, Start date: 01/01/19 7:05:00 CDT, Duration: 30 d ay, Stop date: 01/31/19 7:04:00 CDT, 0 Notes: (Same as: Humulin R) Roll in palms of hands gently; Do not shake vigorous ly. WASTE: F/P - Black; E - Municipal Trash BinStable for 31 days at [facility] temperature Expires in days from Date Start Date: 01/01/19 Stop Date: 01/02/19 Status: Discontinued Isolyte S PH 7.4 (ANES) 1000 mL Route: IV, Total Volume: 1,000, Start date: 12/31/18 23:05:00 CDT, Stop date: 0:05:00 CDT Start Date: 12/31/18 Stop Date: 01/01/19 Status: Completed Isolyte S PH 7.4 (ANES) 500 mL Route: IV, Total Volume: 500, Start date: 12/31/18 7:55:00 CDT, Stop date: 12/31 8:55:00 CDT Start Date: 12/31/18 Stop Date: 12/31/18 Status: Completed ketAMINE (ANES) Route: IV, Drug form: INJ, ONCE, Stop date: 12/31/18 9:21:00 CDT Start Date: 12/31/18 Stop Date: 12/31/18 Status: Completed ketOROLAC 30 mg, 1 mL, Route: IVP, Drug form: INJ, Q6H, Dosing Weight 83, kg, PRN Pain Sco re 4-6, Start date: 12/31/18 21:31:00 CDT, Duration: 4 day, Stop date: 01/04/19 21:30:00 CDT, 0 Notes: (Same as:Toradol) IV bolus must be given >15 seconds. Give IM administration slowly and deeply into the muscle.Not for use > 4 days MEDICATION WASTE Product Size: 30 mgProduct Wasted: ___ mg Start Date: 12/31/18 Stop Date: 01/02/19 Status: Discontinued ketOROLAC 30 mg, 1 mL, Route: IVP, Drug form: INJ, Q6H, Dosing Weight 83, kg, Start date: 01/02/19 18:00:00 CDT, Duration: 5 doses or times, Stop date: 01/03/19 18:00:00 CDT, 0 Notes: (Same as:Toradol) IV bolus must be given >15 seconds. Give IM administration slowly and deeply into the muscle.Not for use > 4 days MEDICATION WASTE Product Size: 30 mgProduct Wasted: ___ mg Start Date: 01/02/19 Stop Date: 01/03/19 Status: Completed Lactated Ringers (Bolus) IV 1,000 mL, 1,000 ml/hr, Infuse Over: 1 hr, Route: IV, ONCE, Priority: STAT, Dosin g Weight 83 kg, Start date: 01/01/19 13:03:00 CDT, Stop date: 01/01/19 13:03:00 CDT Start Date: 01/01/19 Stop Date: 01/01/19 Status: Completed Lactated Ringers (Bolus) IV 1,000 mL, 1,000 ml/hr, Infuse Over: 1 hr, Route: IV, 1,000, Drug form: INJ, ONCE , Priority: STAT, Dosing Weight 83 kg, Start date: 01/01/19 16:35:00 CDT, Stop d ate: 01/01/19 16:35:00 CDT, 0 Start Date: 01/01/19 Stop Date: 01/01/19 Status: Completed Lactated Ringers Injection IV (ANES) 1000 mL Route: IV, Total Volume: 1,000, Start date: 12/31/18 7:41:00 CDT, Stop date: 8:41:00 CDT Start Date: 12/31/18 Stop Date: 12/31/18 Status: Completed lidocaine (ANES) Route: IV, Drug form: INJ, ONCE, Stop date: 12/31/18 8:55:00 CDT Start Date: 12/31/18 Stop Date: 12/31/18 Status: Completed lidocaine (ANES) Route: IV, Drug form: INJ, ONCE, Stop date: 12/31/18 23:44:00 CDT Start Date: 12/31/18 Stop Date: 12/31/18 Status: Completed lidocaine topical patch (5% film) 1 patch, Route: TOP, Daily, Drug form: FILM, Start date: 01/05/19 9:00:00 CDT, D uration: 30 day, Stop date: 02/03/19 9:00:00 CDT, 0 Notes: Apply only once for up to 12 hours in [id number] period (12 hours on and 12 hours off).(Same as: Lidoderm)"Remove old patch before application of new patch" Start Date: 01/05/19 Stop Date: 01/07/19 Status: Discontinued Lidoderm 5% topical film (patch) 1 patch, Route: TOP, Daily, Drug form: FILM, Start date: 01/01/19 9:00:00 CDT, D uration: 30 day, Stop date: 01/30/19 9:00:00 CDT, Remove after 12 hours, 0 Notes: Apply only once for up to 12 hours in [id number] period (12 hours on and 12 hours off).(Same as: Lidoderm)"Remove old patch before application of new patch" Start Date: 01/01/19 Stop Date: 01/07/19 Status: Discontinued Lovenox 40 mg, Route: SUB-Q, Drug form: INJ, [id number], Dosing Weight 82.273, kg, Start d ate: 12/31/18 14:00:00 CDT, Duration: 30 day, Stop date: 01/29/19 14:00:00 CDT Start Date: 12/31/18 Stop Date: 12/31/18 Status: Discontinued Lovenox 40 mg, 0.4 mL, Route: SUB-Q, Drug form: INJ, [id number], Dosing Weight 82.273, kg, Start date: 12/31/18 19:00:00 CDT, Duration: 30 day, Stop date: 01/29/19 19:00: 00 CDT, 0 Notes: (Same as: Lovenox) Start Date: 12/31/18 Stop Date: 01/07/19 Status: Discontinued methocarbamol 500 mg oral tablet 500 mg=1 tab, PO, Q6H, PRN Pain Score 4-6, X 7 day, # 28 tab, 0 Refill(s) Start Date: 01/07/19 Stop Date: 01/14/19 Status: Ordered metoclopramide (ANES) Route: IV, Drug form: INJ, ONCE, Stop date: 12/31/18 8:55:00 CDT Start Date: 12/31/18 Stop Date: 12/31/18 Status: Completed metoclopramide (ANES) Route: IV, Drug form: INJ, ONCE, Stop date: 12/31/18 23:59:00 CDT Start Date: 12/31/18 Stop Date: 12/31/18 Status: Completed midazolam (ANES) Route: IV, Drug form: SOLN, ONCE, Stop date: 12/31/18 8:50:00 CDT Start Date: 12/31/18 Stop Date: 12/31/18 Status: Completed Milk of Magnesia 60 ml, Route: PO, Drug Form: SUSP, Dosing Weight 83, kg, BID, Start date: 17:00:00 CDT, Duration: 4 doses or times, Stop date: 01/07/19 9:00:00 CDT, 0 Notes: (Same as: Milk of Flores, MOM) Start Date: 01/05/19 Stop Date: 01/07/19 Status: Completed Milk of Magnesia 60 ml, Route: PO, Drug Form: SUSP, Dosing Weight 83, kg, ONCE, NOW, Start date: 01/03/19 12:20:00 CDT, Stop date: 01/03/19 12:20:00 CDT, 0 Notes: (Same as: Milk of Flores, MOM) Start Date: 01/03/19 Stop Date: 01/03/19 Status: Completed MiraLax 17 gm, 1 pkt, Route: PO, Drug form: PWDR, Daily, Dosing Weight 82.273, kg, PRN C onstipation, Start date: 12/31/18 13:50:00 CDT, Duration: 30 day, Stop date: 13:49:00 CDT, 0 Notes: Dissolve in 8 oz of water or juice.(Same as: Miralax) Start Date: 12/31/18 Stop Date: 01/07/19 Status: Discontinued molasses 240 mL, Route: TN, Drug Form: SYRP, Dosing Weight 83, kg, ONCE, Milk of Molasses Enema, NOW, Start date: 01/03/19 12:20:00 CDT, Stop date: 01/03/19 12:20:00 CDT, 0 Notes: (Same as:Molasses) Start Date: 01/03/19 Stop Date: 01/03/19 Status: Completed molasses 240 mL, Route: TN, Drug Form: SYRP, Dosing Weight 83, kg, ONCE, Milk of Molasses Enema, Start date: 01/05/19 22:28:00 CDT, Stop date: 01/05/19 22:28:00 CDT, 0 Notes: (Same as:Molasses) Start Date: 01/05/19 Stop Date: 01/06/19 Status: Completed naproxen 500 mg, 1 tab, Route: PO, Drug form: TAB, Q12H, Dosing Weight 82.273, kg, Priori ty: NOW, Start date: 12/31/18 13:50:00 CDT, Duration: 30 day, Stop date: 9 9:00:00 CDT, 0 Notes: (Same as: Naprosyn) Take with food. Start Date: 12/31/18 Stop Date: 01/01/19 Status: Discontinued neostigmine (ANES) Route: IV, Drug form: INJ, ONCE, Stop date: 12/31/18 14:18:00 CDT Start Date: 12/31/18 Stop Date: 12/31/18 Status: Completed neostigmine (ANES) Route: IV, Drug form: INJ, ONCE, Stop date: 01/01/19 5:13:00 CDT Start Date: 01/01/19 Stop Date: 01/01/19 Status: Completed [place] 10/325 oral tablet 1 tab, Route: PO, Drug Form: TAB, Dosing Weight 83, kg, Q6H, PRN Pain Score 7-10 , Start date: 01/06/19 15:07:00 CDT, Duration: 1 doses or times, Stop date: Srini coker # of times, 0 Notes: Do not exceed 4gm/day of acetaminophen. (Same as: [place] 325/10) Start Date: 01/06/19 Stop Date: 01/06/19 Status: Completed [place] 10/325 oral tablet 1 tab, Route: PO, Drug Form: TAB, Dosing Weight 83, kg, Q6H, PRN Pain Score 7-10 , Start date: 01/05/19 15:16:00 CDT, Duration: 30 day, Stop date: 02/04/19 15:15 :00 CDT, 0 Notes: Do not exceed 4gm/day of acetaminophen. (Same as: [place] 325/10) Start Date: 01/05/19 Stop Date: 01/06/19 Status: Discontinued [place] 5/325 oral tablet 1 tab, Route: PO, Drug Form: TAB, Dosing Weight 83, kg, Q6H, PRN Pain Score 4-6, Start date: 01/05/19 15:16:00 CDT, Duration: 30 day, Stop date: 02/04/19 15:15: 00 CDT, 0 Notes: (Same as: [place] 325/5) Do not exceed 4gm/day of acetaminophen. Start Date: 01/05/19 Stop Date: 01/06/19 Status: Discontinued nystatin topical 100,000 units/g powder 1 appl, Route: TOP, PRN, Drug form: PWDR, PRN For Fungal Prophylaxis, Start date : 12/31/18 17:58:00 CDT, Duration: 30 day, Stop date: 01/30/19 17:57:00 CDT, 0 Notes: (Same as:Mycostatin, Nilstat) For external use only. Start Date: 12/31/18 Stop Date: 01/03/19 Status: Discontinued Omnipaque 350mg/ml 100 mL, Route: IVP, Drug Form: SOLN, Dosing Weight 83, kg, ONCALL, STAT, Start d ate: 01/03/19 7:34:00 CDT, Duration: 1 doses or times, Dose=2.2ml/kg, Max dose= 100ml -- "To be infused by Radiology Staff ONLY", 0 Notes: (Same as:Omnipaque 350).WASTE: F/P - Black; E - Municipal Trash Bin Start Date: 01/03/19 Stop Date: 01/03/19 Status: Completed ondansetron (ANES) Route: IV, Drug form: INJ, ONCE, Stop date: 12/31/18 14:18:00 CDT Start Date: 12/31/18 Stop Date: 12/31/18 Status: Completed ondansetron (ANES) Route: IV, Drug form: INJ, ONCE, Stop date: 01/01/19 5:02:00 CDT Start Date: 01/01/19 Stop Date: 01/01/19 Status: Completed oxyCODONE 5 mg oral tablet, immediate release 10 mg, 2 tab, Route: PO, Drug form: TAB, Q6H, Dosing Weight 82.273, kg, PRN Pain Score 7-10, Start date: 12/31/18 13:50:00 CDT, Duration: 30 day, Stop date: 13:49:00 CDT, 0 Notes: (Same as: Roxicodone) Start Date: 12/31/18 Stop Date: 01/01/19 Status: Discontinued oxyCODONE 5 mg oral tablet, immediate release 5 mg, 1 tab, Route: PO, Drug form: TAB, Q6H, Dosing Weight 82.273, kg, PRN Pain Score 4-6, Start date: 12/31/18 13:50:00 CDT, Duration: 30 day, Stop date: 01/30 13:49:00 CDT, 0 Notes: (Same as: Roxicodone) Start Date: 12/31/18 Stop Date: 01/04/19 Status: Discontinued oxyCODONE 5 mg oral tablet, immediate release 10 mg, 2 tab, Route: PO, Drug form: TAB, Q6H, Dosing Weight 82.273, kg, PRN, Sta rt date: 01/04/19 18:12:00 CDT, Duration: 30 day, Stop date: 02/03/19 18:11:00 C DT, Pain Score 5-8, 0 Notes: (Same as: Roxicodone) Start Date: 01/04/19 Stop Date: 01/05/19 Status: Discontinued oxyCODONE 5 mg oral tablet, immediate release 5 mg, 1 tab, Route: PO, Drug form: TAB, Q6H, Dosing Weight 83, kg, PRN, Start da te: 01/04/19 18:14:00 CDT, Duration: 30 day, Stop date: 02/03/19 18:13:00 CDT, P ain Score 1-5, 0 Notes: (Same as: Roxicodone) Start Date: 01/04/19 Stop Date: 01/05/19 Status: Discontinued pantoprazole 40 mg, 1 tab, Route: PO, Drug form: ECTAB, Daily, Dosing Weight 83, kg, Start da te: 01/01/19 9:00:00 CDT, Duration: 30 day, Stop date: 01/30/19 9:00:00 CDT, 0 Notes: Tablet should not be chewed or crushed.(Same as: Protonix) Start Date: 01/01/19 Stop Date: 01/04/19 Status: Discontinued pantoprazole 40 mg, Route: IVP, Drug form: INJ, Daily, Dosing Weight 83, kg, Patient is NPO, Start date: 01/01/19 9:00:00 CDT, Duration: 30 day, Stop date: 01/30/19 9:00:00 CDT, 0 Notes: For IV push reconstitute with 10 ml 0.9% sodium chloride and push over 2 minutes. (Same as: Protonix) Start Date: 01/01/19 Stop Date: 01/01/19 Status: Canceled pantoprazole 40 mg, 1 tab, Route: PO, Drug form: ECTAB, BID-Before Meals, Dosing Weight 83, k g, Start date: 01/04/19 16:30:00 CDT, Duration: 30 day, Stop date: 02/03/19 7:30 :00 CDT, 0 Notes: Tablet should not be chewed or crushed.(Same as: Protonix) Start Date: 01/04/19 Stop Date: 01/07/19 Status: Discontinued pantoprazole 40 mg, Route: IV, Drug form: INJ, Daily, Dosing Weight 83, kg, Priority: NOW, St art date: 01/04/19 8:32:00 CDT, Duration: 30 day, Stop date: 02/02/19 9:00:00 CD T, 0 Notes: For IV push reconstitute with 10 ml 0.9% sodium chloride and push over 2 minutes. (Same as: Protonix) Start Date: 01/04/19 Stop Date: 01/04/19 Status: Discontinued pantoprazole 40 mg oral enteric coated tablet 40 mg=1 tab, PO, BID-Before Meals, # 60 tab, 0 Refill(s), Pharmacy: [id number] Start Date: 01/07/19 Stop Date: 02/06/19 Status: Ordered Phenergan 12.5 mg, Route: IV Central, ONCE, Dosing Weight 83, kg, PRN Nausea & Vomiting, Start date: 01/03/19 23:31:00 CDT Start Date: 01/03/19 Stop Date: 01/03/19 Status: Completed phenylephrine (ANES) Route: IV, Drug form: INJ, ONCE, Stop date: 12/31/18 8:55:00 CDT Start Date: 12/31/18 Stop Date: 12/31/18 Status: Completed potassium phosphate + Sodium Chloride 0.9% IV 250 mL 45 mmol, 15 mL, Route: IVPB, ONCE, Dosing Weight 83, kg, Start date: 01/03/19 9: 03:00 CDT, Stop date: 01/03/19 9:03:00 CDT, 0 Notes: (Same as: K Phosphate.)Do not infuse phosphorous concurrently in the same line as TPN or IVF that contains calcium. For double lumen central lines, phosp horous may be infused in a separate lumen from TPN. 1 mMol phoshate has 1.47 mE q potassium Infuse over 4 hours Start Date: 01/03/19 Stop Date: 01/03/19 Status: Completed propofol (ANES) Route: IV, Drug form: INJ, ONCE, Stop date: 12/31/18 8:55:00 CDT Start Date: 12/31/18 Stop Date: 12/31/18 Status: Completed propofol (ANES) Route: IV, Drug form: INJ, ONCE, Stop date: 12/31/18 23:44:00 CDT Start Date: 12/31/18 Stop Date: 12/31/18 Status: Completed propofol (ANES) 10 mg Route: IV, Drug form: INJ, Start date: 12/31/18 7:55:00 CDT, Stop date: 12/31/18 8:55:00 CDT Start Date: 12/31/18 Stop Date: 12/31/18 Status: Completed Protonix 40 mg, 1 pkt, Route: PO, Drug form: GRAN/REC, Daily, Dosing Weight 83, kg, Start date: 01/04/19 14:00:00 CDT, Duration: 30 day, Stop date: 02/03/19 9:00:00 CDT, 0, HH [id number] Notes: Same as: Protonix Mix in 5 mL apple juice or applesauce for oral & 10mL apple juice for NG tube Start Date: 01/04/19 Stop Date: 01/04/19 Status: Canceled remove patch 1 patch, Route: TOP, Bedtime, Drug form: ERFILM, Start date: 01/05/19 21:00:00 C DT, Duration: 30 day, Stop date: 02/03/19 21:00:00 CDT, 0 Notes: Remove patch 12 hours after application each day. Start Date: 01/05/19 Stop Date: 01/07/19 Status: Discontinued Robaxin 500 mg, 1 tab, Route: PO, Drug form: TAB, Q8H, Dosing Weight 82.273, kg, Priorit y: NOW, Start date: 12/31/18 13:50:00 CDT, Duration: 30 day, Stop date: 01/30/19 12:00:00 CDT, 0 Notes: (Same as:Robaxin) Start Date: 12/31/18 Stop Date: 01/03/19 Status: Discontinued Robaxin 500 mg, 1 tab, Route: PO, Drug form: TAB, Q6H, Dosing Weight 82.273, kg, Start d ate: 01/03/19 13:00:00 CDT, Duration: 30 day, Stop date: 02/02/19 12:00:00 CDT, 0 Notes: (Same as:Robaxin) Start Date: 01/03/19 Stop Date: 01/07/19 Status: Discontinued rocuronium (ANES) Route: IV, Drug form: INJ, ONCE, Stop date: 12/31/18 8:55:00 CDT Start Date: 12/31/18 Stop Date: 12/31/18 Status: Completed rocuronium (ANES) Route: IV, Drug form: INJ, ONCE, Stop date: 12/31/18 23:44:00 CDT Start Date: 12/31/18 Stop Date: 12/31/18 Status: Completed Saline Flush 0.9% 10 ml, Route: IVP, Drug Form: INJ, Dosing Weight 82.273, kg, Q12H, Start date: 0 12/31/18 21:00:00 CDT, Duration: 30 day, Stop date: 01/30/19 9:00:00 CDT, 0 Notes: (Same as: BD Posiflush) Start Date: 12/31/18 Stop Date: 01/07/19 Status: Discontinued Saline Flush 0.9% 10 ml, Route: IVP, Drug Form: INJ, Dosing Weight 82.273, kg, PRN, PRN Line Flush , Start date: 12/31/18 17:58:00 CDT, Duration: 30 day, Stop date: 01/30/19 17:57 :00 CDT, 0 Notes: (Same as: BD Posiflush) Start Date: 12/31/18 Stop Date: 01/07/19 Status: Discontinued scopolamine (ANES) Route: IV, Drug form: ERFILM, ONCE, Stop date: 12/31/18 13:00:00 CDT Start Date: 12/31/18 Stop Date: 12/31/18 Status: Completed sertraline 50 mg, 1 tab, Route: PO, Drug form: TAB, Daily, Dosing Weight 82.273, kg, Start date: 01/01/19 9:00:00 CDT, Duration: 30 day, Stop date: 01/30/19 9:00:00 CDT, 0 Notes: (Same as: Zoloft) Start Date: 01/01/19 Stop Date: 01/07/19 Status: Discontinued simethicone 80 mg, 1.2 mL, Route: PO, Drug form: DROP, Q6H, Dosing Weight 83, kg, PRN Gas, S tart date: 01/03/19 11:23:00 CDT, Duration: 30 day, Stop date: 02/02/19 11:22:00 CDT, 0 Notes: (Same as: Mylicon, Phazyme, Genasyme) Start Date: 01/03/19 Stop Date: 01/07/19 Status: Discontinued Sodium Chloride 0.9% IV (ANES) 500 mL Route: IV, Total Volume: 500, Start date: 12/31/18 8:05:00 CDT, Stop date: 12/31 9:05:00 CDT Start Date: 12/31/18 Stop Date: 12/31/18 Status: Completed Sodium Chloride 0.9% IV (ANES) 98 mL + dexmedetomidine (ANES) 200 microgram Route: IV, Drug form: INJ, Start date: 12/31/18 7:55:00 CDT, Stop date: 12/31/18 8:55:00 CDT Start Date: 12/31/18 Stop Date: 12/31/18 Status: Completed sodium phosphate 45 mmol, Route: IVPB, ONCE, Dosing Weight 83, kg, Start date: 01/04/19 8:30:00 C DT, Stop date: 01/04/19 8:30:00 CDT, Phosphate level < 1.5 mg/dL Start Date: 01/04/19 Stop Date: 01/04/19 Status: Deleted sodium phosphate + Sodium Chloride 0.9% IV 250 mL 45 mmol, 15 mL, Route: IV, ONCE, Start date: 01/04/19 12:00:00 CDT, Stop date: 0 01/04/19 12:00:00 CDT, 0 Notes: Infuse over 4 hour. Do not infuse phosphorous concurrently in the same li ne as TPN or IVF that contains calcium. For double lumen central lines, phosphor ous may be infused in a separate lumen from TPN. Start Date: 01/04/19 Stop Date: 01/04/19 Status: Completed sodium phosphate + Sodium Chloride 0.9% IV 250 mL 30 mmol, 10 mL, Route: IVPB, ONCE, Dosing Weight 83, kg, Start date: 01/02/19 7: 04:00 CDT, Stop date: 01/02/19 7:04:00 CDT, 0 Notes: Infuse over 4 hour. Do not infuse phosphorous concurrently in the same li ne as TPN or IVF that contains calcium. For double lumen central lines, phosphor ous may be infused in a separate lumen from TPN. Start Date: 01/02/19 Stop Date: 01/02/19 Status: Completed succinylcholine (ANES) Route: IV, Drug form: INJ, ONCE, Stop date: 12/31/18 23:44:00 CDT Start Date: 12/31/18 Stop Date: 12/31/18 Status: Completed Synthroid 112 microgram, 1 tab, Route: PO, Drug form: TAB, Q630AM, Dosing Weight 82.273, k g, Start date: 01/01/19 6:30:00 CDT, Duration: 30 day, Stop date: 01/30/19 6:30: 00 CDT, 0 Notes: Take 1 hour before or 2 hours after meal; Enteral feeds may interefere wi th the absorption of this medication.(Same as:Levothroid) Start Date: 01/01/19 Stop Date: 01/07/19 Status: Discontinued tramadol 50 mg, 1 tab, Route: PO, Drug form: TAB, Q6H, Dosing Weight 83, kg, PRN Pain Sco re 1-3, Start date: 01/05/19 18:00:00 CDT, Duration: 30 day, Stop date: 02/04/19 17:59:00 CDT, 0 Notes: Not to exceed 400mg/day. (Same As: Ultram) Start Date: 01/05/19 Stop Date: 01/07/19 Status: Discontinued tramadol 50 mg oral tablet 2 tab, Route: PO, Drug form: TAB, Q6H, Dosing Weight 82.273, kg, Priority: NOW, Start date: 12/31/18 13:50:00 CDT, Duration: 30 day, Stop date: 01/30/19 12:00:0 0 CDT Start Date: 12/31/18 Stop Date: 12/31/18 Status: Discontinued tramadol 50 mg oral tablet 50 mg, 1 tab, Route: PO, Drug form: TAB, Q6H, Dosing Weight 83, kg, PRN Pain Sco re 1-3, Start date: 01/01/19 7:03:00 CDT, Duration: 30 day, Stop date: 01/31/19 7:02:00 CDT, 0 Notes: Not to exceed 400mg/day. (Same As: Ultram) Start Date: 01/01/19 Stop Date: 01/02/19 Status: Discontinued tramadol 50 mg oral tablet 100 mg=2 tab, PO, Q8H, PRN Pain Score 10, X 7 day, # 30 tab, 0 Refill(s) Start Date: 01/07/19 Stop Date: 01/14/19 Status: Ordered Tums 500 mg, 1 tab, Route: CHEW, Drug form: CHEWTAB, TID, Dosing Weight 83, kg, PRN I ndigestion, Start date: 01/04/19 8:30:00 CDT, Duration: 30 day, Stop date: 02/03 8:29:00 CDT, 0 Notes: (Same As: Tums)Calcium Carbonate 500 xp=573 mg elemental calcium Dose=_ mg calcium carbonate ( mg elemental calcium) Start Date: 01/04/19 Stop Date: 01/07/19 Status: Discontinued Tylenol 1,000 mg, 2 tab, Route: PO, Drug form: TAB, Q6H, Dosing Weight 82.273, kg, Prior ity: NOW, Start date: 12/31/18 13:50:00 CDT, Duration: 3 day, Stop date: 9 6:00:00 CDT, 0 Notes: Max acetaminophen 4000 mg/day (4 gm/day). (Same as: Tylenol Extra Streng th) Start Date: 12/31/18 Stop Date: 01/04/19 Status: Voided With Results Tylenol with Codeine 120 mg-12 mg/5 mL oral liquid 30 mL, PO, Q6H, PRN Pain Score 7-10, X 10 day, # 120 mL, 0 Refill(s) Start Date: 01/07/19 Stop Date: 01/17/19 Status: Ordered Tylenol with Codeine 120 mg-12 mg/5 mL oral liquid 30 ml, Route: PO, Drug Form: LIQ, Dosing Weight 83, kg, Q6H, STAT, Start date: 0 01/06/19 13:49:00 CDT, Duration: 30 day, Stop date: 02/05/19 15:00:00 CDT, 0 Notes: (acetaminophen-codeine 120-12 mg/5 ml oral liq) Do not exceed 4gm/day of acetaminophen. (Same as: Tylenol w/Codeine) Start Date: 01/06/19 Stop Date: 01/07/19 Status: Discontinued Zofran 4 mg, 1 tab, Route: PO, Drug form: TAB, Q6H, Dosing Weight 83, kg, PRN Nausea, S tart date: 01/02/19 4:16:00 CDT, Duration: 30 day, Stop date: 02/01/19 4:15:00 C DT, 0 Notes: (Same as: Zofran) Start Date: 01/02/19 Stop Date: 01/07/19 Status: Discontinued Zofran 4 mg, 2 mL, Route: IVP, Drug form: INJ, Q6H, Dosing Weight 83, kg, PRN Nausea, S tart date: 01/02/19 5:35:00 CDT, Duration: 30 day, Stop date: 02/01/19 5:34:00 C DT, 0 Notes: (Same as: Zofran) MEDICATION WASTE Product Size: 4 mgProduct Was sheela: ___ mg Start Date: 01/02/19 Stop Date: 01/07/19 Status: Discontinued Zofran 4 mg, 2 mL, Route: IVP, Drug form: INJ, ONCE, Dosing Weight 83, kg, Priority: NO W, Start date: 12/31/18 21:24:00 CDT, Stop date: 12/31/18 21:24:00 CDT, 0 Notes: (Same as: Nathaniel) MEDICATION WASTE Product Size: 4 mgProduct Was sheela: ___ mg Start Date: 12/31/18 Stop Date: 12/31/18 Status: Completed Results 1 2 3 Most recent to oldest [Reference Range]: 5.0 K/CMM (01/05/19 2:46 AM) 4.0 K/CMM (01/04/19 5:52 AM) 4.8 K/CMM (01/03/19 4:56 AM) Neutrophils # [1.5-8.1 K/CMM] 1.8 K/CMM (01/05/19 2:46 AM) 1.5 K/CMM (01/04/19 5:52 AM) 1.2 K/CMM (01/03/19 4:56 AM) Lymphocytes # [1.0-5.5 K/CMM] 0.5 K/CMM (01/05/19 2:46 AM) 0.5 K/CMM (01/04/19 5:52 AM) 0.6 K/CMM (01/03/19 4:56 AM) Monocytes # [0.0-0.8 K/CMM] 0.1 K/CMM (01/05/19 2:46 AM) 0.1 K/CMM (01/04/19 5:52 AM) 0.1 K/CMM (12/31/18 6:03 PM) Eosinophils # [0.0-0.5 K/CMM] 0.3 mg/dL (01/05/19 2:46 AM) 0.2 mg/dL (01/04/19 5:52 AM) Bili Indirect [0.0-1.0 mg/dL] Unable to Calculate *NA* (01/03/19 4:56 AM) Bili Indirect [0.0-1.0] Negative (12/31/18 6:03 PM) MRSA by PCR BLACK Drain (12/31/18 9:31 PM) Bili BF Type 148 mL/min/1.73m2 1 *NA* (01/05/19 2:46 AM) 139 mL/min/1.73m2 2 *NA* (01/04/19 9:36 AM) 140 mL/min/1.73m2 3 *NA* (01/04/19 5:52 AM) eGFR A POS *Unknown* (12/31/18 6:56 AM) ABO/Rh 0.6 *LOW* (01/05/19 2:46 AM) 0.7 (01/04/19 9:36 AM) 0.6 *LOW* (01/04/19 5:52 AM) A/G Ratio [0.7-1.6] Negative (12/31/18 6:56 AM) Antibody Scrn 2.4 g/dL *LOW* (01/05/19 2:46 AM) 2.5 g/dL *LOW* (01/04/19 9:36 AM) 2.0 g/dL *LOW* (01/04/19 5:52 AM) Albumin Lvl [3.5-5.0 g/dL] 72 unit/L (01/05/19 2:46 AM) 80 unit/L (01/04/19 9:36 AM) 68 unit/L (01/04/19 5:52 AM) Alk Phos [39-136 unit/L] 39 unit/L (01/05/19 2:46 AM) 42 unit/L (01/04/19 9:36 AM) 38 unit/L (01/04/19 5:52 AM) ALT [0-65 unit/L] 11.8 mEq/L (01/05/19 2:46 AM) 8.8 mEq/L *LOW* (01/04/19 9:36 AM) 12.6 mEq/L (01/04/19 5:52 AM) AGAP [10.0-20.0 mEq/L] 23 unit/L (01/05/19 2:46 AM) 22 unit/L (01/04/19 9:36 AM) 20 unit/L (01/04/19 5:52 AM) AST [0-37 unit/L] 5 *LOW* (01/04/19 9:36 AM) B/C Ratio [6-25] 7.0 % (12/31/18 6:03 PM) Bands [0.0-11.0 %] 0.2 % (01/05/19 2:46 AM) 0.3 % (01/04/19 5:52 AM) 0.1 % (01/03/19 4:56 AM) Basophils [0.0-1.0 %] 40.1 mg/dL *NA* (12/31/18 9:31 PM) Bili BF 5 mg/dL *LOW* (01/05/19 2:46 AM) 3 mg/dL *LOW* (01/04/19 9:36 AM) 2 mg/dL *LOW* (01/04/19 5:52 AM) BUN [7-22 mg/dL] 8.7 mg/dL (01/05/19 2:46 AM) 8.3 mg/dL *LOW* (01/04/19 9:36 AM) 7.0 mg/dL *CRIT* (01/04/19 5:52 AM) Calcium Lvl [8.5-10.5 mg/dL] 102 mEq/L (01/05/19 2:46 AM) 104 mEq/L (01/04/19 9:36 AM) 106 mEq/L (01/04/19 5:52 AM) Chloride Lvl [95-109 mEq/L] 29 mEq/L (01/05/19 2:46 AM) 29 mEq/L (01/04/19 9:36 AM) 23 mEq/L *LOW* (01/04/19 5:52 AM) CO2 [24-32 mEq/L] 0.48 mg/dL *LOW* (01/05/19 2:46 AM) 0.58 mg/dL (01/04/19 9:36 AM) 0.57 mg/dL (01/04/19 5:52 AM) Creatinine Lvl [0.50-1.40 mg/dL] 0.1 mg/dL (01/05/19 2:46 AM) 0.1 mg/dL (01/04/19 5:52 AM) <0.1 mg/dL (01/03/19 4:56 AM) Bili Direct [0.0-0.3 mg/dL] 1.7 % (01/05/19 2:46 AM) 1.3 % (01/04/19 5:52 AM) 0.1 % (01/03/19 4:56 AM) Eosinophils [0.0-4.0 %] 3.7 g/dL (01/05/19 2:46 AM) 3.7 g/dL (01/04/19 9:36 AM) 3.2 g/dL (01/04/19 5:52 AM) Globulin [2.7-4.2 g/dL] 92 mg/dL (01/05/19 2:46 AM) 108 mg/dL *HI* (01/04/19 9:36 AM) 560 mg/dL 4 *CRIT* (01/04/19 5:52 AM) Glucose Lvl [70-99 mg/dL] 31.2 % *LOW* (01/05/19 2:46 AM) 27.5 % *LOW* (01/04/19 5:52 AM) 29.8 % *LOW* (01/03/19 4:56 AM) Hct [36.0-48.0 %] 10.2 g/dL *LOW* (01/05/19 2:46 AM) 8.9 g/dL *LOW* (01/04/19 5:52 AM) 9.9 g/dL *LOW* (01/03/19 4:56 AM) Hgb [12.0-16.0 g/dL] 1.17 (01/01/19 6:01 AM) 1.13 (12/31/18 6:03 PM) 1.07 (12/31/18 6:56 AM) INR [0.85-1.17] 3.8 mEq/L (01/05/19 2:46 AM) 3.8 mEq/L (01/04/19 9:36 AM) 5.6 mEq/L *HI* (01/04/19 5:52 AM) Potassium Lvl [3.5-5.1 mEq/L] 0.0 % (12/31/18 6:03 PM) Atypical Lymphs [<=0.0 %] 23.7 % (01/05/19 2:46 AM) 25.1 % (01/04/19 5:52 AM) 18.5 % *LOW* (01/03/19 4:56 AM) Lymphocytes [20.0-40.0 %] 25.8 pg *LOW* (01/05/19 2:46 AM) 25.9 pg *LOW* (01/04/19 5:52 AM) 26.2 pg *LOW* (01/03/19 4:56 AM) MCH [27.0-31.0 pg] 32.7 g/dL (01/05/19 2:46 AM) 32.3 g/dL (01/04/19 5:52 AM) 33.0 g/dL (01/03/19 4:56 AM) MCHC [32.0-36.0 g/dL] 78.7 fL *LOW* (01/05/19 2:46 AM) 80.2 fL (01/04/19 5:52 AM) 79.4 fL *LOW* (01/03/19 4:56 AM) MCV [80.0-98.0 fL] 1.9 mg/dL (01/03/19 4:56 AM) 2.1 mg/dL (01/02/19 4:11 AM) 2.1 mg/dL (01/01/19 6:01 AM) Magnesium Lvl [1.8-2.4 mg/dL] 1+ *ABN* (01/05/19 2:46 AM) 1+ *ABN* (01/02/19 4:11 AM) 1+ *ABN* (01/01/19 6:01 AM) Microcyte [None Seen] 7.3 % (01/05/19 2:46 AM) 7.5 % (01/04/19 5:52 AM) 8.7 % (01/03/19 4:56 AM) Monocytes [2.0-12.0 %] 8.0 fL (01/05/19 2:46 AM) 8.0 fL (01/04/19 5:52 AM) 7.7 fL (01/03/19 4:56 AM) MPV [7.4-10.4 fL] 139 mEq/L (01/05/19 2:46 AM) 138 mEq/L (01/04/19 9:36 AM) 136 mEq/L (01/04/19 5:52 AM) Sodium Lvl [135-145 mEq/L] 3.3 mg/dL (01/05/19 2:46 AM) 5.1 mg/dL *HI* (01/04/19 6:18 PM) 0.6 mg/dL *CRIT* (01/04/19 5:52 AM) Phosphorus [2.5-4.5 mg/dL] 215 K/CMM (01/05/19 2:46 AM) 170 K/CMM (01/04/19 5:52 AM) 170 K/CMM (01/03/19 4:56 AM) Platelet [133-450 K/CMM] 67.1 % (01/05/19 2:46 AM) 65.8 % (01/04/19 5:52 AM) 72.6 % (01/03/19 4:56 AM) Segs [45.0-75.0 %] 6.1 g/dL *LOW* (01/05/19 2:46 AM) 6.2 g/dL *LOW* (01/04/19 9:36 AM) 5.2 g/dL *LOW* (01/04/19 5:52 AM) Total Protein [6.4-8.4 g/dL] 14.7 seconds (01/01/19 6:01 AM) 14.3 seconds (12/31/18 6:03 PM) 13.7 seconds (12/31/18 6:56 AM) PT [12.0-14.7 seconds] 27.4 seconds (01/01/19 6:01 AM) 26.9 seconds (12/31/18 6:03 PM) 31.0 seconds (12/31/18 6:56 AM) PTT [22.9-35.8 seconds] 3.96 M/CMM *LOW* (01/05/19 2:46 AM) 3.43 M/CMM *LOW* (01/04/19 5:52 AM) 3.76 M/CMM *LOW* (01/03/19 4:56 AM) RBC [4.20-5.40 M/CMM] 15.9 % *HI* (01/05/19 2:46 AM) 16.3 % *HI* (01/04/19 5:52 AM) 16.5 % *HI* (01/03/19 4:56 AM) RDW [11.5-14.5 %] 0.4 mg/dL (01/05/19 2:46 AM) 0.4 mg/dL (01/04/19 9:36 AM) 0.3 mg/dL (01/04/19 5:52 AM) Bili Total [0.2-1.3 mg/dL] <0.02 ng/mL (01/05/19 11:20 PM) Troponin-I [0.00-0.40 ng/mL] Many /HPF *ABN* (12/31/18 6:03 PM) UA Amorph Rosanna [None Seen /HPF] Negative *NA* (01/07/19 2:20 AM) Negative *NA* (12/31/18 6:03 PM) UA Bili [Negative] Negative (01/07/19 2:20 AM) Negative (12/31/18 6:03 PM) UA Blood [Negative] Yellow *NA* (01/07/19 2:20 AM) Yellow *NA* (12/31/18 6:03 PM) UA Color [Yellow] Negative mg/dL *NA* (01/07/19 2:20 AM) Negative mg/dL *NA* (12/31/18 6:03 PM) UA Glucose [Negative mg/dL] 1 /LPF (01/07/19 2:20 AM) UA Hyal Cast [0-2 /LPF] Negative mg/dL *NA* (01/07/19 2:20 AM) 20 mg/dL *ABN* (12/31/18 6:03 PM) UA Ketones [Negative mg/dL] Negative (01/07/19 2:20 AM) Negative (12/31/18 6:03 PM) UA Leuk Est [Negative] Few /LPF *NA* (01/07/19 2:20 AM) Few /LPF *NA* (12/31/18 6:03 PM) UA Mucus [None Seen /LPF] Negative (01/07/19 2:20 AM) Negative (12/31/18 6:03 PM) UA Nitrite [Negative] 8.0 (01/07/19 2:20 AM) 5.0 (12/31/18 6:03 PM) UA pH [5.0-8.0] Negative mg/dL (01/07/19 2:20 AM) Negative mg/dL (12/31/18 6:03 PM) UA Protein [Negative mg/dL] 2 /HPF (01/07/19 2:20 AM) UA RBC [0-2 /HPF] 1.015 (01/07/19 2:20 AM) 1.036 *HI* (12/31/18 6:03 PM) UA Spec Grav [<=1.030] Occasional /LPF *NA* (01/07/19 2:20 AM) UA Sq Epi [Few /LPF] None Seen *NA* (12/31/18 6:03 PM) UA Sq Epi Clear (01/07/19 2:20 AM) Marked *ABN* (12/31/18 6:03 PM) UA Turbidity [Clear] <1.0 mg/dL (01/07/19 2:20 AM) 4.0 mg/dL *HI* (12/31/18 6:03 PM) UA Urobilinogen [0.1-1.0 mg/dL] 2 /HPF (01/07/19 2:20 AM) 1 /HPF (12/31/18 6:03 PM) UA WBC [0-5 /HPF] 7.4 K/CMM (01/05/19 2:46 AM) 6.1 K/CMM (01/04/19 5:52 AM) 6.7 K/CMM (01/03/19 4:56 AM) WBC [3.7-10.4 K/CMM] 1.11 mMol/L (01/04/19 9:36 AM) 1.10 mMol/L (12/31/18 6:03 PM) Ca Ion WB [1.05-1.25 mMol/L] 1.10 mMol/L (01/04/19 9:36 AM) 1.07 mMol/L (12/31/18 6:03 PM) Ca Norm WB [1.05-1.25 mMol/L] 1Result Comment: The eGFR is calculated using [...] be mul tiplied by the estimated BMI. 2Result Comment: The eGFR is calculated using the [...] be mul tiplied by the estimated BMI. 3Result Comment: The eGFR is calculated using the [...] be mul tiplied by the estimated BMI. 4Result Comment: Critical Result(s) called to Jorge Ellis at 01/04/2019 08:26 [facility]. Read back OK. Rechecked all Immunizations Given and Recorded Vaccine Date Status [...] No entered on: 12/31/18 Assessment and Plan Extracted from: Title: Transplant Surgery Author: Terrie Boyle Date: 01/06/19 [...] Nexium if needed Disposition 9wj floor Extracted from: Title: APMS Consult Note Author: Connor Rodríguez MD Date: 01/01/19 Basic Information Referral source Reason for consultation: Complex Acute Pain History of Present Illness The patient presents with 33 yo F with HTN, hypothyroidism, pre-DM, and type 1 choledochal cyst who underwent open CBD resection and Fatou-en-Y hepaticojejunostomy on 12/31 c/b bowel leak and returned to OR for takedown of biliary anastomosis, resection of previously anastomosed Fatou limb, and redo hepaticojejunostomy 01/01 early AM. Patient had post-induction bilateral QL blocks for postoperative pain on 12/31 prior to initial procedure. Patient doing well this morning and currently resting comfortably. Pain well-controlled. Block resolved without residual effects. Location: bilateral abdomen Quality: sharp, burning Severity: 0/10 Timing: acute post op Duration: intermittent Context: s/p open CBD resection and Fatou-en-Y hepaticojejunostomy on 12/31 c/b bowel leak and returned to OR for takedown of biliary anastomosis, resection of previously anastomosed Fatou limb, and redo hepaticojejunostomy Modifying factors: relieved with PNB and pain meds and worsened with movement . Histories Past Medical History: Active Hypothyroidism (86126796) HTN (hypertension) (4359433288) Prediabetes (9056776042) Choledochal cyst (9390938243) Family History: Diabetes. Aunt Procedure history: Colonoscopy (304026687) in 2012 at 28 Years. Procedure on knee (619266106) in 2010 at 26 Years. Comments: 06/25/2015 11:38 - Kya Hoover Left knee Papanicolaou smear taken ([id number]). Comments: 06/25/2015 11:40 - Kya Hoover had it years ago section ([id number]). Tubal ligation (186426145). Social History Social & Psychosocial Habits Alcohol 09/16/2018 Use: Never Substance Abuse 12/30/2018 Use: None Route Subcutaneous Tobacco 12/31/2018 Use: Never smoker Exposure to Tobacco Smoke None Cigarette Smoking Last 365 Days No Reg Smoking Cessation Counseling No. Health Status Allergies: Allergic Reactions (Selected) No Known Allergies No Known Medication Allergies, Allergies (2) ActiveReaction No Known AllergiesNone Documented No Known Medication AllergiesNone Documented Current medications: (Selected) Inpatient Medications Ordered [...] Daily Lovenox: 40 mg, 0.4 mL, SUB-Q, [id number] MiraLax: 17 gm, 1 pkt, PO, Daily, [...] ml INJ 40 mg 0.4 mL, SUB-Q, [id number] levothyroxine 112 microgram TAB 112 microgram 1 [...] 30 mg 1 mL, IVP, Q6H nystatin [id number] unit/gm 15 gm PWD 1 appl, TOP, [...] All Problems Abdominal pain / SNOMED CT 20609526 / Confirmed Acute diarrhea / SNOMED CT 7549239241 / Confirmed Acute UTI / SNOMED CT 1603190963 / Confirmed Bacterial vaginosis / SNOMED CT 4922016963 / Confirmed Benign essential HTN / SNOMED CT 1047045 / Confirmed Vaginal yeast infection / SNOMED CT 987299033 / Confirmed Chest pain / SNOMED CT 01271010 / Confirmed Choledochal cyst / SNOMED CT 4848886619 / Confirmed Low serum vitamin D / SNOMED CT 881913069 / Confirmed Hospital discharge follow-up / SNOMED CT 5325883630 / Confirmed GERD (gastroesophageal reflux disease) / SNOMED CT 1101820557 / Confirmed Enlarged thyroid / SNOMED CT 8842940 / Confirmed Headache / SNOMED CT 34812612 / Confirmed Shingles / SNOMED CT 2057331 / Confirmed Hip pain / SNOMED CT 77146393 / Confirmed HTN (hypertension) / SNOMED CT 1466017336 / Confirmed Hypothyroidism / SNOMED CT 65427639 / Confirmed Loss of balance / SNOMED CT 0789710044 / Confirmed Female incontinence / SNOMED CT 48073203 / Confirmed Urinary frequency / SNOMED CT 142449402 / Confirmed Tailbone injury / SNOMED CT 567125513 / Confirmed Low back pain / SNOMED CT 641184422 / Confirmed Hyperlipemia, mixed / SNOMED CT 458938132 / Confirmed Moderate anxiety / SNOMED CT 396446913 / Confirmed Morbidly obese / SNOMED CT 375574891 / Confirmed Yeast infection / SNOMED CT 2693457504 / Confirmed Obesity / SNOMED CT 7844240435 / Confirmed Cough / SNOMED CT 4072875616 / Confirmed Female dyspareunia / SNOMED CT 142882719 / Confirmed Pelvic pain / SNOMED CT 461632427 / Confirmed Breast pain / SNOMED CT 165998459 / Confirmed Dysuria / SNOMED CT 0802902367 / Confirmed Annual physical exam / SNOMED CT 926295542 / Confirmed Pap smear for cervical cancer screening / SNOMED CT 111618212 / Confirmed Screen for STD (sexually transmitted disease) / SNOMED CT 316432288 / Confirmed Prediabetes / SNOMED CT 8128682304 / Confirmed Prediabetes / SNOMED CT 3462548862 / Confirmed Pyelonephritis / SNOMED CT 57788383 / Confirmed Rectovaginal fistula / SNOMED CT 912036270 / Confirmed Diabetes mellitus screening / SNOMED CT 943168858 / Confirmed Seborrheic dermatitis / SNOMED CT 20550945 / Confirmed Left shoulder pain / SNOMED CT 09347385 / Confirmed Shoulder pain / SNOMED CT 70532072 / Confirmed Obesity due to excess calories / SNOMED CT 9487643407 / Confirmed Upper respiratory infection / SNOMED CT 74005403 / Confirmed Urge incontinence / SNOMED CT 9398621889 / Confirmed Urinary incontinence / SNOMED CT 7055201880 / Confirmed Vaginal discharge / SNOMED CT 581982176 / Confirmed Upper respiratory infection, viral / SNOMED CT 714508953 / Confirmed, Active Problems (49) Abdominal pain [...] Signs (last 24 hrs) Last Charted Temp Mkhvvaln19.7 DegF (JAN 01 05:59) Heart Rate Leedrc96 bpm (JAN 01 07:00) Resp Rate 20 BRMIN (JAN 01 07:00) AQO277 mmHg (JAN 01 07:00) DBP65 mmHg (JAN 01 07:00) Tunvmi84 kg (DEC 31 18:13) Hlkyty978.72 cm (JAN 01 06:49) BMI27.82 (DEC 31 18:13) General: No acute distress. Eye: Extraocular movements are intact. HENT: Normocephalic. Respiratory: Respirations are non-labored. Cardiovascular: Normal peripheral perfusion. Integumentary: Dry, [place]. Neurologic: Alert. Cognition and Speech: Speech clear and coherent. Psychiatric: Cooperative. Review / Management Results review: Labs (Last four charted values) WBC H 15.0(JAN 01)H 12.3(DEC 31)6.6(DEC 31) Hgb 12.4(JAN 01)12.9(DEC 31)12.7(DEC 31) Hct 38.7(JAN 01)39.8(DEC 31)38.4(DEC 31) Plt 279(JAN 01)262(DEC 16)268(DEC 31) Na 140(DEC 17)139(DEC 31)140(DEC 31) K 4.1(JAN 01)4.4(DEC 31)3.9(DEC 31) CO2 L 23(JAN 01)L 22(DEC 31)25(DEC 31) Cl 107(DEC 17)106(DEC 31)106(DEC 31) Cr 0.64(JAN 01)0.66(DEC 31)0.72(DEC 31) BUN L 6(JAN 01)8(DEC 31)10(DEC 31) Glucose Random H 163(JAN 01)H 146(DEC 31)95(DEC 31) Mg 2.1(JAN 01)2.1(DEC 31) Phos 3.3(JAN 01)3.2(DEC 31) Ca L 8.0(JAN 01)8.5(DEC 31)8.6(DEC 31) PT 14.7(JAN 01)14.3(DEC 31)13.7(DEC 31) INR 1.17(JAN 01)1.13(DEC 31)1.07(DEC 31) PTT 27.4(JAN 01)26.9(DEC 31)31.0(DEC 31). Chest x-ray results ECG interpretation Impression and Plan Diagnosis Orders Education and Follow-up: Counseled: Regarding treatment, Regarding medications. 33 yo F with HTN, hypothyroidism, pre-DM, and type 1 choledochal cyst who underwent open CBD resection and Fatou-en-Y hepaticojejunostomy on 12/31 c/b bowel leak and returned to OR for takedown of biliary anastomosis, resection of previously anastomosed Fatou limb, and redo hepaticojejunostomy 01/01 early AM. [...] Block Check, RUTHIE Rodríguez MD PGY-3, [place]-2 [facility] Anesthesiology Addendum I saw and examined the patient and discussed plan of care with the resident. I have by reviewed the note bellow and agree with the history, physical examination findings, Ioselevich assessment and plan of care. , Erasmo Irizarry MD on 01/02/2019 11:22 Extracted from: Title: TSICU H&P Author: Fer Bowers CAM MILLING MACHINE OPERATOR Date: 12/31/18 Basic Information Source of history: Medical record. Referral source: Recovery room. History limitation: Clinical condition. Chief Complaint 12/30/2018 20:35 Pt presents w/ RUQ abdominal pain. States "i have a bile duct blockage". Has scheduled surgery tomorrow but pain has increased today. aaox4. nad. resp e/u. PMH htn, hypothyroid History of Present Illness Ms Ponce is a 33 year old female with a PMH of DM, HTN, hypothyroidism and type 1 choledochal cyst who underwent an open CBD resection with fatou-en-Y hepaticojejunostomy. Of note, the patient initially presented [...] Daily Lovenox: 40 mg, 0.4 mL, SUB-Q, razrT16D MiraLax: 17 gm, 1 pkt, PO, Daily, [...] All Problems Abdominal pain / SNOMED CT 89758716 / Confirmed Acute diarrhea / SNOMED CT 8592404938 / Confirmed Acute UTI / SNOMED CT 6475445670 / Confirmed Bacterial vaginosis / SNOMED CT 3842395480 / Confirmed Benign essential HTN / SNOMED CT 8386159 / Confirmed Vaginal yeast infection / SNOMED CT 632786820 / Confirmed Chest pain / SNOMED CT 14633213 / Confirmed Choledochal cyst / SNOMED CT 9939252412 / Confirmed Low serum vitamin D / SNOMED CT 624086580 / Confirmed Hospital discharge follow-up / SNOMED CT 3169982919 / Confirmed GERD (gastroesophageal reflux disease) / SNOMED CT 0727785739 / Confirmed Enlarged thyroid / SNOMED CT 9253656 / Confirmed Headache / SNOMED CT 78976396 / Confirmed Shingles / SNOMED CT 1599434 / Confirmed Hip pain / SNOMED CT 13967473 / Confirmed HTN (hypertension) / SNOMED CT 9083191397 / Confirmed Hypothyroidism / SNOMED CT 00069758 / Confirmed Loss of balance / SNOMED CT 5445126995 / Confirmed Female incontinence / SNOMED CT 22303626 / Confirmed Urinary frequency / SNOMED CT 528787696 / Confirmed Tailbone injury / SNOMED CT 196828456 / Confirmed Low back pain / SNOMED CT 816305949 / Confirmed Hyperlipemia, mixed / SNOMED CT 819075876 / Confirmed Moderate anxiety / SNOMED CT 687512230 / Confirmed Morbidly obese / SNOMED CT 521856352 / Confirmed Yeast infection / SNOMED CT 7008764428 / Confirmed Obesity / SNOMED CT 4581157991 / Confirmed Cough / SNOMED CT 6833020805 / Confirmed Female dyspareunia / SNOMED CT 163836397 / Confirmed Pelvic pain / SNOMED CT 834946923 / Confirmed Breast pain / SNOMED CT 037441931 / Confirmed Dysuria / SNOMED CT 0841321818 / Confirmed Annual physical exam / SNOMED CT 787127919 / Confirmed Pap smear for cervical cancer screening / SNOMED CT 134627362 / Confirmed Screen for STD (sexually transmitted disease) / SNOMED CT 610101725 / Confirmed Prediabetes / SNOMED CT 3408494690 / Confirmed Prediabetes / SNOMED CT 6689435702 / Confirmed Pyelonephritis / SNOMED CT 15499427 / Confirmed Rectovaginal fistula / SNOMED CT 944704240 / Confirmed Diabetes mellitus screening / SNOMED CT 273389946 / Confirmed Seborrheic dermatitis / SNOMED CT 89423790 / Confirmed Left shoulder pain / SNOMED CT 30331072 / Confirmed Shoulder pain / SNOMED CT 49360151 / Confirmed Obesity due to excess calories / SNOMED CT 6451386431 / Confirmed Upper respiratory infection / SNOMED CT 05941278 / Confirmed Urge incontinence / SNOMED CT 9141007387 / Confirmed Urinary incontinence / SNOMED CT 8532492733 / Confirmed Vaginal discharge / SNOMED CT 147200176 / Confirmed Upper respiratory infection, viral / SNOMED CT 123796246 / Confirmed Histories Past Medical History: Active Hypothyroidism (10710055) HTN (hypertension) (2137616046) Prediabetes (9488977715) Choledochal cyst (7218457740) Family History: Diabetes. Aunt Procedure history: Colonoscopy (550323251) in 2012 at 28 Years. Procedure on knee (054740087) in 2010 at 26 Years. Comments: 06/25/2015 11:38 - Kya Hoover Left knee Papanicolaou smear taken (051896093). Comments: 06/25/2015 11:40 - Kya Hoover had it years ago section (31558326). Tubal ligation (395615013). Social History Social & Psychosocial Habits Alcohol 09/16/2018 Use: Never Substance [...] Signs (last 24 hrs) Last Charted Temp AxillaryH 98.5DegF (DEC 31 18:18) Heart Rate Mdhpgj70 bpm (DEC 31 18:18) Resp Rate H 22BRMIN (DEC 31 18:18) JQN459 mmHg (DEC 31 18:18) DBP68 mmHg (DEC 31 18:18) Biygnu80 kg (DEC 31:) Snrkyj976.72 cm (DEC 31 18:) BMI27.82 (DEC 31:) General: sedated, not responding to questions. Eye: [...] Labs (Last four charted values) WBC H 12.3(DEC 31)6.6(DEC 31) Hgb 12.9(DEC 31)12.7(DEC 31) Hct 39.8(DEC 31)38.4(DEC 31) Plt 262(DEC 31)268(DEC 31) Na 140(DEC 31) K 3.9(DEC 31) CO2 25(DEC 31) Cl 106(DEC 31) Cr 0.72(DEC 31) BUN 10(DEC 31) Glucose Random 95(DEC 31) Ca 8.6(DEC 31) PT 14.3(DEC 31)13.7(DEC 31) INR 1.13(DEC 31)1.07(DEC 31) PTT 26.9(DEC 31)31.0(DEC 31). Impression and Plan Ms Ponce is a 33 year old female with a PMH of DM, HTN, hypothyroidism and type 1 choledochal cyst who underwent an open CBD resection with fatou-en-Y hepaticojejunostomy. Of note, the patient initially presented [...] CBD cyst s/p open CBD resection with fatou-en Y hepaticojejunostomy - post-op pain - HTN [...] 12/31/2018 14:48 Indwelling Urinary Catheter: Urethral 16 Maltese Indwelling/Continuous 12/31/2018 14:48 Surgical Drains: Godwin Traylor Drain Abdomen Right Upper 12/31/2018 14:48 Arterial Lines: Non-Tunneled Radial artery Left 20 gauge 12/31/2018 07:28 Peripheral Lines: Hand Left 20 gauge Over the needle catheter Code status: Full code Disposition: TSICU Plan discussed with Anesthesia CC attending Dr. Natty Bowers, [facility] [id number] Addendum Pt was taken back to surgery at 2330 for ex lap and fatou-en-Y hepaticojejunostomy revision by 2/2 bile leak. No complications were noted intra-op, EBL 100 ml, UOP 1355ml, crystalloids Bowers, 3800 ml. Fer Cuadra Plan CAM MILLING MACHINE OPERATOR on monitor post-op pain 01/01/2019 monitor BLACK outputs for excessive output 06:00 cont current plan of care Addendum I have reviewed the note by the JODEE and agree with the findings and plans as written. by Willi Reskallah, MD Reskallah, Anesthesia Critical Care Medicine Willi SMITH on 01/01/2019 09:47
--- OUTSIDE RECORDS SUMMARY | 2019-02-08 10:26 | XMS REPORT | Summary of Care ---
Author Author [facility] Organization [facility] Address Unknown Phone Unavailable Encounter HQ Max(FIN) [id number] Date(s): 08/03/18 - 08/04/18 [facility] [address] [facility] [address] [place] [address]- Vital Signs No data available for this [...] Substance Reaction Severity Status NKDA Active Medications triamcinolone topical 0.1% cream 1 appl, TOP, TID, PRN For Rash, X 14 day, # 60 gm, 0 Refill(s), Pharmacy: [facility] [id number] Start Date: 08/04/18 Stop Date: 08/18/18 Status: Ordered Results No data available for [...]
--- OUTSIDE RECORDS SUMMARY | 2019-02-08 10:26 | XMS REPORT | Summary of Care ---
Author Author [facility] Primary Care [facility] Organization [facility] Address Unknown Phone Unavailable Encounter HQ Max(FIN) [id number] Date(s): 06/11/18 - 06/12/18 [facility] [address] [facility] [address] [place] [address]- Vital Signs No data available for this [...] Adverse Reactions, Alerts No Known Allergies Medications cetirizine 10 mg oral tablet 10 mg=1 tab, PO, Daily, # 30 tab, 0 Refill(s), Pharmacy: [facility] [id number] Start Date: 06/11/18 Stop Date: 07/23/18 Status: Discontinued triamcinolone topical 0.5% cream 1 appl, TOP, TID, PRN For rash, X 14 day, # 60 gm, 0 Refill(s), Pharmacy: [facility] [id number] Start Date: 06/11/18 Stop Date: 06/25/18 Status: Completed Results No data available for [...]
--- OUTSIDE RECORDS SUMMARY | 2019-02-08 10:26 | XMS REPORT | Summary of Care ---
Author Author [facility] Organization [facility] Address Unknown Phone Unavailable Encounter NEEL Santana(VERONICA) [id number] Date(s): 06/11/18 - 06/12/18 [facility] [address] [facility], [address] [place] [address]- [phone] Vital Signs No data available for this [...] Substance Reaction Severity Status NKDA Active Medications cetirizine 10 mg oral tablet 10 mg=1 tab, PO, Daily, # 30 tab, 0 Refill(s), Pharmacy: [facility] [id number] Start Date: 06/11/18 Stop Date: 07/11/18 Status: Ordered triamcinolone topical 0.5% cream 1 appl, TOP, TID, PRN For rash, X 14 day, # 60 gm, 0 Refill(s), Pharmacy: [facility] [id number] Start Date: 06/11/18 Stop Date: 06/25/18 Status: Ordered Results No data available for [...]
--- OUTSIDE RECORDS SUMMARY | 2019-02-08 10:26 | XMS REPORT | Summary of Care ---
Author Author [facility] Address Unknown Phone Unavailable Encounter HQ Max(FIN) [id number] Date(s): 09/01/18 - 09/02/18 [facility] [address] [facility] [address] [place] [address]- [phone] Vital Signs No data available for this [...]
--- OUTSIDE RECORDS SUMMARY | 2019-02-08 10:26 | XMS REPORT | Summary of Care ---
Author Author [facility] Organization [facility] Address Unknown Phone Unavailable Encounter NEEL Santana(VERONICA) [id number] Date(s): 11/09/18 - 11/09/18 [facility] [address] [place] [address]- [phone] Discharge Disposition: Home or Self Care Attending [...]
--- OUTSIDE RECORDS SUMMARY | 2019-02-08 10:26 | XMS REPORT | Summary of Care ---
Author Author [facility] Organization [facility] Address Unknown Phone Unavailable Encounter NEEL Santana(VERONICA) [id number] Date(s): 06/09/18 - 06/09/18 [facility] [address] [place] [address]- Discharge Disposition: Home or Self Care Attending [...] Substance Reaction Severity Status NKDA Active Medications Omnipaque 300 injectable solution 100 mL, Route: IVP, Drug Form: SOLN, Dosing Weight 89.545, kg, ONCALL, GFR > 45 mL/min, Start date: 06/09/18 11:00:00 BANKER MASON, Duration: 1 doses or times, Stop date: 06/10/18 0:00:00 BANKER MASON Notes: (Same as:Omnipaque 300).WASTE: F/P - Black; E - Municipal Trash Bin Start Date: 06/09/18 Stop Date: 06/10/18 Status: Completed Results CHEM PANEL Most recent to 1 oldest [Reference Range]: [...]
--- OUTSIDE RECORDS SUMMARY | 2019-02-08 10:27 | XMS REPORT ---
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 Allergies, Adverse Reactions, Alerts Allergy Name Allergy Type Status Severity Reaction(s) Onset Date Inactive Date Treating Clinician Comments No Known Allergies DA Active U 2019-01-19 00:00:00 No Known Allergies DA Active U 2017-08-05 00:00:00 Medications This patient has no known medications. Encounters Start Date/Time End Date/Time Encounter Type Admission Type Attending [facility] Facility Care Department Encounter ID 2018-12-31 05:36:00 Inpatient [facility] MED [id number] 2018-11-05 17:06:16 Outpatient [facility] MED 7524 2019-02-01 10:55:00 2019-02-01 10:55:00 Outpatient [facility] NATHANAEL 7532 2019-01-25 11:11:00 2019-01-25 11:11:00 Outpatient [facility] NATHANAEL 7531 2019-01-18 10:23:00 2019-01-18 10:23:00 Outpatient [facility] NATHANAEL 7530 2019-01-12 10:44:00 2019-01-12 10:44:00 Outpatient [facility] NATHANAEL 7529 2019 09:48:00 2019 09:48:00 [id number] 2018-12-30 20:34:00 2018-12-30 20:34:00 Emergency E [facility] 7528 2018-12-21 13:51:00 2018-12-21 13:51:00 Outpatient [facility] NATHANAEL 7526 2018-10-19 14:51:2018-10-19 14:51:00 Outpatient [facility] 7522 2018-10-15 17:10:00 2018-10-15 17:10:00 Outpatient [facility] 7521 2018-09-19 01:05:00 2018-09-19 01:05:00 Emergency E [facility] 7520 2018-08-18 08:39:00 2018-08-18 08:39:00 Outpatient [facility] 7515 2018-08-13 10:09:00 2018-08-13 10:09:00 Outpatient [facility] 7518 Results Test Description Test Time Test Comments Text Results Atomic Results Result Comments URINALYSIS COMPLETE 2019-01-31 21:35:00 UA COLOR (test code=COLU) YELLOW YELLOW UA APPEARANCE (test code=APPU) CLEAR CLEAR UA GLUCOSE DIPSTICK (test code=DGLUU) NEGATIVE mg/dL NEGATIVE UA BILIRUBIN DIPSTICK (test code=BILU) NEGATIVE NEGATIVE UA KETONE DIPSTICK (test code=KETU) TRACE mg/dL NEGATIVE UA SPECIFIC GRAVITY (test code=SGU) 1.025 1.001-1.035 UA BLOOD DIPSTICK (test code=SANDEEP) 3+ (Large) NEGATIVE UA PH DIPSTICK (test code=CARLEEN) 6.5 5.0-8.0 UA PROTEIN DIPSTICK (test code=PROU) TRACE (15) mg/dL Neg-15 UA UROBILINIOGEN DIPSTICK (test code=URO) 0.2 mg/dL 0.0-0.2 UA NITRITE DIPSTICK (test code=ANAYELI) NEGATIVE NEGATIVE UA LEUKOCYTE ESTERASE W REFLEX (test code=LEUUR) NEGATIVE NEGATIVE UA WBC (test code=WBCU) 0-5 per HPF 0-5 UA RBC (test code=RBCU) 101-150 #/HPF 0-5 UA EPITHELIAL CELLS (test code=EPIU) FEW per HPF FEW UA BACTERIA (test code=BACU) NONE SEEN #/HPF NONE UA MUCUS (test code=MUCU) MODERATE #/LPF FEW Urine Source? Clean CatchURINALYSIS [id number] 21:26:00* Test Item Value Reference Range Comments UA COLOR (test code=COLU) YELLOW YELLOW UA APPEARANCE (test code=APPU) CLEAR CLEAR UA GLUCOSE DIPSTICK (test code=DGLUU) NEGATIVE mg/dL NEGATIVE UA BILIRUBIN DIPSTICK (test code=BILU) NEGATIVE NEGATIVE UA KETONE DIPSTICK (test code=KETU) TRACE mg/dL NEGATIVE UA SPECIFIC GRAVITY (test code=SGU) 1.025 1.001-1.035 UA BLOOD DIPSTICK (test code=SANDEEP) 3+ (Large) NEGATIVE UA PH DIPSTICK (test code=CARLEEN) 6.5 5.0-8.0 UA PROTEIN DIPSTICK (test code=PROU) TRACE (15) mg/dL Neg-15 UA UROBILINIOGEN DIPSTICK (test code=URO) 0.2 mg/dL 0.0-0.2 UA NITRITE DIPSTICK (test code=ANAYELI) NEGATIVE NEGATIVE UA LEUKOCYTE ESTERASE W REFLEX (test code=LEUUR) NEGATIVE NEGATIVE UA WBC (test code=WBCU) per HPF 0-5 UA RBC (test code=RBCU) per HPF 0-5 UA EPITHELIAL CELLS (test code=EPIU) per HPF Few UA BACTERIA (test code=BACU) per HPF NONE Urine Source? Clean CatchBASIC METABOLIC [id number] 19:32:00* Test Item Value Reference Range Comments SODIUM (test code=NA) 138 mmol/L 136-145 POTASSIUM (test code=K) 3.4 mmol/L 3.5-5.1 CHLORIDE (test code=CL) 104.0 mmol/L 98-107 CARBON DIOXIDE (test code=CO2) 28.0 mmol/L 21-32 ANION GAP (test code=GAP) 9.4 10-20 GLUCOSE (test code=GLU) 103 mg/dL 74-106 BLOOD UREA NITROGEN (test code=BUN) 7 mg/dL 7-18 GLOMERULAR FILTRATION RATE (test code=GFR) > 60 mL/min >=60 Estimated GFR by using Modified MDRD formula.Chronic kidney disease is defined as either kidney damageor GFR <60 mL/min/1.73 m2 for >3 months. CREATININE (test code=CREAT) 0.60 mg/dL 0.55-1.02 Note change in reference range due to change in reagent. BUN/CREATININE RATIO (test code=BUN/CREA) 11.6 10-20 CALCIUM (test code=CA) 8.6 mg/dL 8.5-10.1 HEPATIC FUNCTION [id number] 19:32:00* Test Item Value Reference Range Comments TOTAL PROTEIN (test code=PROT) 7.4 gram/dL 6.4-8.2 ALBUMIN (test code=ALB) 3.0 g/dL 3.4-5.0 GLOBULIN (test code=GLOB) 4.4 gram/dL 2.7-4.2 ALBUMIN/GLOBULIN RATIO (test code=A/G) 0.7 0.75-1.50 BILIRUBIN TOTAL (test code=BILT) 0.20 mg/dL 0.0-1.0 BILIRUBIN DIRECT (test code=BILD) 0.07 mg/dL 0.0-0.20 SGOT/AST (test code=AST) 11 IUnit/L 15-37 SGPT/ALT (test code=ALT) 11 IUnit/L 12-78 ALKALINE PHOSPHATASE TOTAL (test code=ALKP) 66 IUnit/L 45-117 Note change in reference range due to change in reagent. CREATINE KINASE (CK)2019-01-31 19:32:00* Test Item Value Reference Range Comments CREATINE KINASE (CK) (test code=CK) 49 IUnit/L 26-208 [id number] 19:32:00* Test Item Value Reference Range Comments LIPASE (test code=LIP) 87 U/L 73.0-393.0 [id number] 19:32:00* Test Item Value Reference Range Comments MAGNESIUM (test code=MAG) 2.1 mg/dL 1.8-2.4 HCG SERUM [id number] 19:32:00* Test Item Value Reference Range Comments HCG SERUM QUAL (test code=HCGQL) NEGATIVE NEGATIVE This HCGQL test is NOT applicable for MALE patients.Check with nurse about probable order error.If Tumor Marker Test needed, nurse should order test "HCGTU"(Test #550.09307) THYROID STIMULATING [id number] 19:32:00* Test Item Value Reference Range Comments THYROID STIMULATING HORMONE (test code=TSH) 3.280 uIU/mL 0.36-3.74 TSH REFERENCE RANGES: EUTHYROID: 0.35 - 4.3 mIU/mL HYPO : > 5.5 mIU/mL HYPER : < 0.35 mIU/mL [id number] 19:32:00* Test Item Value Reference Range Comments TROPONIN-I (test code=TROPI) <0.015 ng/mL 0-0.045 [id number] 19:32:00* Test Item Value Reference Range Comments ALCOHOL (test code=ALC) < 3 mg/dL 0.0-3.0 INTERPRETIVE DATA NOTE: POSITIVE SCREENING RESULTS SHOULD BE CONSIDERED PRESUMPTIVE.WHEN COLLECTED FOR MEDICAL PURPOSES ONLY. SPECIMEN WILL NOTBE COLLECTED BY CHAIN OF CUSTODY.IF A CONFIRMATION OF POSITIVE RESULTS IS DESIRED, ACONFIRMATION TEST MUST BE REQUESTED BY THE PHYSICIAN AT ANADDITIONAL CHARGE TO THE PATIENT. BASIC METABOLIC [id number] 19:16:00* Test Item Value Reference Range Comments SODIUM (test code=NA) 138 mmol/L 136-145 POTASSIUM (test code=K) 3.4 mmol/L 3.5-5.1 CHLORIDE (test code=CL) 104.0 mmol/L 98-107 CARBON DIOXIDE (test code=CO2) mmol/L 21-32 ANION GAP (test code=GAP) 10-20 GLUCOSE (test code=GLU) mg/dL 74-106 BLOOD UREA NITROGEN (test code=BUN) mg/dL 7-18 GLOMERULAR FILTRATION RATE (test code=GFR) mL/min >=60 CREATININE (test code=CREAT) mg/dL 0.55-1.02 BUN/CREATININE RATIO (test code=BUN/CREA) 10-20 CALCIUM (test code=CA) mg/dL 8.5-10.1 HEPATIC FUNCTION [id number] 19:16:00* Test Item Value Reference Range Comments TOTAL PROTEIN (test code=PROT) gram/dL 6.4-8.2 ALBUMIN (test code=ALB) g/dL 3.4-5.0 GLOBULIN (test code=GLOB) gram/dL 2.7-4.2 ALBUMIN/GLOBULIN RATIO (test code=A/G) 0.75-1.50 BILIRUBIN TOTAL (test code=BILT) mg/dL 0.0-1.0 BILIRUBIN DIRECT (test code=BILD) mg/dL 0.0-0.20 SGOT/AST (test code=AST) IUnit/L 15-37 SGPT/ALT (test code=ALT) IUnit/L 12-78 ALKALINE PHOSPHATASE TOTAL (test code=ALKP) IUnit/L 45-117 CREATINE KINASE (CK)2019-01-31 19:16:00* Test Item Value Reference Range Comments CREATINE KINASE (CK) (test code=CK) IUnit/L 26-208 [id number] 19:16:00* Test Item Value Reference Range Comments LIPASE (test code=LIP) U/L 73.0-393.0 [id number] 19:16:00* Test Item Value Reference Range Comments MAGNESIUM (test code=MAG) mg/dL 1.8-2.4 HCG SERUM [id number] 19:16:00* Test Item Value Reference Range Comments HCG SERUM QUAL (test code=HCGQL) NEGATIVE NEGATIVE This HCGQL test is NOT applicable for MALE patients.Check with nurse about probable order error.If Tumor Marker Test needed, nurse should order test "HCGTU"(Test #550.09253) THYROID STIMULATING [id number] 19:16:00* Test Item Value Reference Range Comments THYROID STIMULATING HORMONE (test code=TSH) uIU/mL 0.36-3.74 [id number] 19:16:00* Test Item Value Reference Range Comments TROPONIN-I (test code=TROPI) ng/mL 0-0.045 [id number] 19:16:00* Test Item Value Reference Range Comments ALCOHOL (test code=ALC) mg/dL 0-3 PROTHROMBIN [id number] 19:16:00* Test Item Value Reference Range Comments PROTHROMBIN TIME PATIENT (test code=PTP) 13.6 seconds 9.0-14.0 INTERNATIONAL NORMAL RATIO (test code=INR) 1.2 0.8-1.2 The therapeutic range for oral anticoagulant therapy formost indications is an international normalized ratio (INR)of between 2.0 and 3.0. The recommended therapeutic INRrange for various clinical situations is listed below: Clinical Situation INR range Pulmonary e mbolism treatment (2.0-3.0)Venous thrombosis treatmentVenous thrombosis prophylaxis (high risk surgery)Prevention of systemic embolism from: Acute myocardial infarction Valvular heart disease Atrial fibrillation Mechanical prosthetic heart valves (2.5-3.5) IS PATIENT ON ANTICOAGULANTS? NTHROMBOPLASTIN TIME [id number] 19:16:00* Test Item Value Reference Range Comments THROMBOPLASTIN TIME PARTIAL (test code=PTT) 31.4 seconds 25.0-36.5 IS PATIENT ON ANTICOAGULANTS? NBASIC METABOLIC [id number] 19:15:00* Test Item Value Reference Range Comments SODIUM (test code=NA) mmol/L 136-145 POTASSIUM (test code=K) mmol/L 3.5-5.1 CHLORIDE (test code=CL) mmol/L 98-107 CARBON DIOXIDE (test code=CO2) mmol/L 21-32 ANION GAP (test code=GAP) 10-20 GLUCOSE (test code=GLU) mg/dL 74-106 BLOOD UREA NITROGEN (test code=BUN) mg/dL 7-18 GLOMERULAR FILTRATION RATE (test code=GFR) mL/min >=60 CREATININE (test code=CREAT) mg/dL 0.55-1.02 BUN/CREATININE RATIO (test code=BUN/CREA) 10-20 CALCIUM (test code=CA) mg/dL 8.5-10.1 HEPATIC FUNCTION [id number] 19:15:00* Test Item Value Reference Range Comments TOTAL PROTEIN (test code=PROT) gram/dL 6.4-8.2 ALBUMIN (test code=ALB) g/dL 3.4-5.0 GLOBULIN (test code=GLOB) gram/dL 2.7-4.2 ALBUMIN/GLOBULIN RATIO (test code=A/G) 0.75-1.50 BILIRUBIN TOTAL (test code=BILT) mg/dL 0.0-1.0 BILIRUBIN DIRECT (test code=BILD) mg/dL 0.0-0.20 SGOT/AST (test code=AST) IUnit/L 15-37 SGPT/ALT (test code=ALT) IUnit/L 12-78 ALKALINE PHOSPHATASE TOTAL (test code=ALKP) IUnit/L 45-117 CREATINE KINASE (CK)2019-01-31 19:15:00* Test Item Value Reference Range Comments CREATINE KINASE (CK) (test code=CK) IUnit/L 26-208 [id number] 19:15:00* Test Item Value Reference Range Comments LIPASE (test code=LIP) U/L 73.0-393.0 [id number] 19:15:00* Test Item Value Reference Range Comments MAGNESIUM (test code=MAG) mg/dL 1.8-2.4 HCG SERUM [id number] 19:15:00* Test Item Value Reference Range Comments HCG SERUM QUAL (test code=HCGQL) NEGATIVE NEGATIVE This HCGQL test is NOT applicable for MALE patients.Check with nurse about probable order error.If Tumor Marker Test needed, nurse should order test "HCGTU"(Test #550.61706) THYROID STIMULATING [id number] 19:15:00* Test Item Value Reference Range Comments THYROID STIMULATING HORMONE (test code=TSH) uIU/mL 0.36-3.74 [id number] 19:15:00* Test Item Value Reference Range Comments TROPONIN-I (test code=TROPI) ng/mL 0-0.045 [id number] 19:15:00* Test Item Value Reference Range Comments ALCOHOL (test code=ALC) mg/dL 0-3 CBC W/O [id number] 19:02:00* Test Item Value Reference Range Comments WHITE BLOOD CELL (test code=WBC) 8.1 K/mm3 4.5-12.5 RED BLOOD CELL (test code=RBC) 3.93 mill/mm3 3.7-5.2 HEMOGLOBIN (test code=HGB) 10.3 gram/dL 11.5-15.5 HEMATOCRIT (test code=HCT) 32.4 % 36.0-46.0 MEAN CELL VOLUME (test code=MCV) 82.4 fL 80-98 MEAN CELL HGB (test code=MCH) 26.2 picogram 27.0-33.0 MEAN CELL HGB CONCETRATION (test code=MCHC) 31.8 gram/dL 33.0-36.0 RED CELL DISTRIBUTION WIDTH (test code=RDW) 15.4 % 11.6-16.2 PLATELET COUNT (test code=PLT) 308 K/mm3 150-450 MEAN PLATELET VOLUME (test code=MPV) 9.2 fL 6.7-11.0 - CT HEAD/BRAIN W/O [id number] 18:03:00 Name: CARMEN SHEARER [facility] : 1985 Age/S: 34 / F [address] [facility] Unit #: [id number] Loc: [place] [address] Phys: Elimra Patel MD Acct: [id number] Dis Date: Status: REG ER PHONE #: [phone] Exam Date: 01/31/2019 1803 FAX #: [phone] Reason: dizzy EXAMS: CPT CODE: [id number] CT HEAD/BRAIN W/O CONT 00875 REASON FOR EXAM: dizzy EXAM ORDER DATE: 01/31/2019 5:36 PM Ordering M.D.: Elmira Patel MD PROCEDURE: - CT HEAD/BRAIN W/O CONT COMPARISON: FINDINGS: CT images of the brain were obtained without IV contrast. Dose modulation, iterative reconstruction, and/or weight based adjustment of the MA/KV was utilized to reduce the radiation dose to as low as reasonably achievable. The brain parenchyma is within normal limits. The valenzuela-white matter delineation is unremarkable. The ventricles, cisterns, and sulci are unremarkable. There is no evidence of hemorrhage, mass, mass effect. There is no evidence of acute or old infarct. The calvarium is intact. IMPRESSION: Unremarkable brain. at 1803 Reported and signed by: Liban Asif M.D. CC: Elmira Patel MD Technologist:Gela Guerrier RT(R); EZRA Holm CTDI: DLP: Trnscb Date/Time: 01/31/2019 (1802) [email or web address] Orig Print D/T: S: 01/31/2019 (1805) PAGE 1 Signed Report URINALYSIS [id number] 14:37:00* Test Item Value Reference Range Comments UA COLOR (test code=COLU) FLAKITA YELLOW UA APPEARANCE (test code=APPU) HAZY CLEAR UA GLUCOSE DIPSTICK (test code=DGLUU) NEGATIVE mg/dL NEGATIVE UA BILIRUBIN DIPSTICK (test code=BILU) NEGATIVE mg/dL NEGATIVE UA KETONE DIPSTICK (test code=KETU) 10 (1+) mg/dL NEGATIVE UA SPECIFIC GRAVITY (test code=SGU) 1.030 1.001-1.035 UA BLOOD DIPSTICK (test code=SANDEEP) Negative mg/dL NEGATIVE UA PH DIPSTICK (test code=CARLEEN) 5.5 5.0-8.0 UA PROTEIN DIPSTICK (test code=PROU) 10 (Trace) mg/dL NEGATIVE UA UROBILINIOGEN DIPSTICK (test code=URO) 1 mg/dL (1+) mg/dL NEGATIVE UA NITRITE DIPSTICK (test code=ANAYELI) POSITIVE NEGATIVE UA LEUKOCYTE ESTERASE W REFLEX (test code=LEUUR) 25 Katharine/uL (Trace) Katharine/uL NEGATIVE UA WBC (test code=WBCU) 11-20 per HPF 0-5 UA RBC (test code=RBCU) 0-2 #/HPF 0-5 UA EPITHELIAL CELLS (test code=EPIU) FEW per HPF FEW UA BACTERIA (test code=BACU) FEW #/HPF NONE UA HYALINE CAST (test code=HYALU) 0-2 #/LPF 0-5 UA MUCUS (test code=MUCU) FEW #/LPF FEW Urine Source? Clean Catch- CT ABD PELVIS [id number] 14:27:00 Name: CARMEN SHEARER [facility] : 1985 Age/S: 34 / F [address] Unit #: [id number] Loc: [place]iJ[place] PAUL [address] Phys: Shakira Gray MD Acct: [id number] Di s Date: Status: REG ER PHONE #: Exam Date: 01/19/2019 1357 FAX #: Reason: recent gallbladder resection, worsening pain, d EXAMS: CPT CODE: [id number] CT ABD PELVIS W/CONT 38816 REASON FOR EXAM: recent g allbladder resection, worsening pain, drainage EXAM ORDER DA TE: 01/19/2019 11:55 AM Ordering M.D.: Umberto Gray MD PROCEDURE: - CT ABD PELVIS W/CONT contrast-enhanced axial CT images were acquired through the abdomen/pelvis at 5 mm intervals. Sagittal and cor onal reformatted images were generated. Automated exposure control was ut ilized for this reduction. Phases of contrast: venous and delayed COMPARISON: CT abdomen and pelvis January 09, 2019 FI NDINGS: Visualized thorax: Normal Hepatobiliary sys tem: Postsurgical changes of cholecystectomy and what appears to be a hepa ticojejunostomy. Small amount of pneumobilia is present and may be seconda ry to the prior surgery. Pancreas: Normal Spleen: No rmal Adrenal glands: Normal Genitourinary system: Es sure microinsert is redemonstrated. Otherwise normal. Gastro intestinal tract and appendix: Postsurgical changes of hepaticojejunostomy as described above. Remainder of the GI tract is grossly within normal li mits. Abdominal vascular structures: Normal Peritone um and retroperitoneum: Mild stranding of the mesentery immediately deep t o the anterior abdominal wall likely represents postoperative changes. The re are surgical clips in the lower abdomen near the midline which are unch anged. Trace fluid is present in the pelvis however this may be physiologi c in a female of menstrual age. No free air. PAGE 1 Signed Report (CONTINUED) Name: CARMEN SHEARER [facility] : 1985 Age/S: 34 / F [address] Unit #: [id number] Loc: [place] [address] Phys: Umberto Gray MD Acct: [id number] Dis Date: Status: REG ER PHONE #: [phone] Exam Date: 08/2018 1354 FAX #: [phone] Reason: recent gallbl adder resection, worsening pain, d EXAMS: CPT CODE: [id number] CT ABD PELVIS W/CONT 96978 <Continued> Musculoskeletal structures and abdominal wall: Fatty stranding in the anterior abdominal wall along the right costal margin likely represents postsurgical changes from an open cholecystectomy. IMPRESSION: Postsurgical changes of open cholecystectomy and hepaticojejunostomy. These findings are grossly unchanged from the prior exam. No abnormal fluid collections are seen at the surgical site or in the incision along the anterior abdominal wall. Findings are grossly stable from the previous study. at 1425 Reported and signed by: Neeraj Day MD CC: Umberto Gray MD Technologist:Rachel Whaley RT(R),CT CTDI: DLP: Trnscb Date/Time: 01/19/2019 (4774) [email or web address] Orig Print D/T: S: 01/19/2019 (6424) PAGE 2 Signed Report - XR CHEST 1 [id number] 13:59:00 FAX: Umberto Gray MD [place]: St: REG Name: CARMEN MCKENNA [facility] : [birth year] Age/S: 34/F Bessy Bender [facility] Unit #: [id number] Loc: [place] [address] Phys: Umberto Gray MD Acct: [id number] Dis Date: Status: REG ER PHONE #: [phone] Exam Date: 01/19/2019 1250 FAX #: [phone] Reason: chest pain EXAMS: CPT CODE: [id number] XR CHEST 1 V 20947 REASON FOR EXAM: chest pain Exam Order Date: 01/19/2019 11:56 AM Ordering M.D.: Umberto Gray MD PROCEDURE: - XR CHEST 1 V COMPARISON: 2 view chest x-ray August 05, 2017 FINDINGS: The lungs are clear. There is no pleural effusion or pneumothorax. Pulmonary vascula rity is within normal limits. Cardiomediastinal silhouette is norm al in size for technique. The mediastinal contours are within normal limit s. Musculoskeletal structures are within normal limits. The visualized upper abdomen is within normal limits. IMPRESSION: No acute cardiopulmonary process. at 0954 Reported and signed by: Neeraj Day MD CC: Umberto Gray MD Technologist: RT ARANZA(R) Trnscrd Date/Time/By: 01/19/2019 (5900) : By: [email or web address] Orig Print D/T: S: 01/19/2019 (9761) PAGE 1 Signed Report CBC W/O [id number] 12:39:00 * Test Item Value Reference Range Comments WHITE BLOOD CELL (test code=WBC) 8.0 K/mm3 4.5-12.5 RED BLOOD CELL (test code=RBC) 4.14 mill/mm3 3.7-5.2 HEMOGLOBIN (test code=HGB) 10.7 gram/dL 11.5-15.5 HEMATOCRIT (test code=HCT) 34.2 % 36.0-46.0 MEAN CELL VOLUME (test code=MCV) 82.6 fL 80-98 MEAN CELL HGB (test code=MCH) 25.8 picogram 27.0-33.0 MEAN CELL HGB CONCETRATION (test code=MCHC) 31.3 gram/dL 33.0-36.0 RED CELL DISTRIBUTION WIDTH (test code=RDW) 16.0 % 11.6-16.2 PLATELET COUNT (test code=PLT) 322 K/mm3 150-450 MEAN PLATELET VOLUME (test code=MPV) 9.6 fL 6.7-11.0 [id number] 12:17:00* Test Item Value Reference Range Comments TROPONIN-I (test code=TROPI) <0.015 ng/mL 0-0.045 BASIC METABOLIC [id number] 12:14:00* Test Item Value Reference Range Comments SODIUM (test code=NA) 140 mmol/L 136-145 POTASSIUM (test code=K) 3.7 mmol/L 3.5-5.1 CHLORIDE (test code=CL) 107.0 mmol/L 98-107 CARBON DIOXIDE (test code=CO2) 27.0 mmol/L 21-32 ANION GAP (test code=GAP) 9.7 10-20 GLUCOSE (test code=GLU) 98 mg/dL 74-106 BLOOD UREA NITROGEN (test code=BUN) 7 mg/dL 7-18 GLOMERULAR FILTRATION RATE (test code=GFR) > 60 mL/min >=60 Estimated GFR by using Modified MDRD formula.Chronic kidney disease is defined as either kidney damageor GFR <60 mL/min/1.73 m2 for >3 months. CREATININE (test code=CREAT) 0.60 mg/dL 0.55-1.02 Note change in reference range due to change in reagent. BUN/CREATININE RATIO (test code=BUN/CREA) 11.7 10-20 CALCIUM (test code=CA) 9.3 mg/dL 8.5-10.1 HEPATIC FUNCTION [id number] 12:14:00* Test Item Value Reference Range Comments TOTAL PROTEIN (test code=PROT) 7.2 gram/dL 6.4-8.2 ALBUMIN (test code=ALB) 3.0 g/dL 3.4-5.0 GLOBULIN (test code=GLOB) 4.2 gram/dL 2.7-4.2 ALBUMIN/GLOBULIN RATIO (test code=A/G) 0.7 0.75-1.50 BILIRUBIN TOTAL (test code=BILT) 0.80 mg/dL 0.0-1.0 BILIRUBIN DIRECT (test code=BILD) 0.24 mg/dL 0.0-0.20 SGOT/AST (test code=AST) 13 IUnit/L 15-37 SGPT/ALT (test code=ALT) 15 IUnit/L 12-78 ALKALINE PHOSPHATASE TOTAL (test code=ALKP) 68 IUnit/L 45-117 Note change in reference range due to change in reagent. [id number] 12:14:00* Test Item Value Reference Range Comments LIPASE (test code=LIP) 143 U/L 73.0-393.0 HCG SERUM [id number] 12:14:00* Test Item Value Reference Range Comments HCG SERUM QUAL (test code=HCGQL) NEGATIVE NEGATIVE This HCGQL test is NOT applicable for MALE patients.Check with nurse about probable order error.If Tumor Marker Test needed, nurse should order test "HCGTU"(Test #550.81419) BASIC METABOLIC [id number] 12:06:00* Test Item Value Reference Range Comments SODIUM (test code=NA) 140 mmol/L 136-145 POTASSIUM (test code=K) 3.7 mmol/L 3.5-5.1 CHLORIDE (test code=CL) 107.0 mmol/L 98-107 CARBON DIOXIDE (test code=CO2) mmol/L 21-32 ANION GAP (test code=GAP) 10-20 GLUCOSE (test code=GLU) mg/dL 74-106 BLOOD UREA NITROGEN (test code=BUN) mg/dL 7-18 GLOMERULAR FILTRATION RATE (test code=GFR) mL/min >=60 CREATININE (test code=CREAT) mg/dL 0.55-1.02 BUN/CREATININE RATIO (test code=BUN/CREA) 10-20 CALCIUM (test code=CA) mg/dL 8.5-10.1 HEPATIC FUNCTION [id number] 12:06:00* Test Item Value Reference Range Comments TOTAL PROTEIN (test code=PROT) gram/dL 6.4-8.2 ALBUMIN (test code=ALB) g/dL 3.4-5.0 GLOBULIN (test code=GLOB) gram/dL 2.7-4.2 ALBUMIN/GLOBULIN RATIO (test code=A/G) 0.75-1.50 BILIRUBIN TOTAL (test code=BILT) mg/dL 0.0-1.0 BILIRUBIN DIRECT (test code=BILD) mg/dL 0.0-0.20 SGOT/AST (test code=AST) IUnit/L 15-37 SGPT/ALT (test code=ALT) IUnit/L 12-78 ALKALINE PHOSPHATASE TOTAL (test code=ALKP) IUnit/L 45-117 [id number] 12:06:00* Test Item Value Reference Range Comments LIPASE (test code=LIP) U/L 73.0-393.0 HCG SERUM [id number] 12:06:00* Test Item Value Reference Range Comments HCG SERUM QUAL (test code=HCGQL) NEGATIVE BASIC METABOLIC [id number] 12:06:00* Test Item Value Reference Range Comments SODIUM (test code=NA) 140 mmol/L 136-145 POTASSIUM (test code=K) 3.7 mmol/L 3.5-5.1 CHLORIDE (test code=CL) 107.0 mmol/L 98-107 CARBON DIOXIDE (test code=CO2) mmol/L 21-32 ANION GAP (test code=GAP) 10-20 GLUCOSE (test code=GLU) mg/dL 74-106 BLOOD UREA NITROGEN (test code=BUN) mg/dL 7-18 GLOMERULAR FILTRATION RATE (test code=GFR) mL/min >=60 CREATININE (test code=CREAT) mg/dL 0.55-1.02 BUN/CREATININE RATIO (test code=BUN/CREA) 10-20 CALCIUM (test code=CA) mg/dL 8.5-10.1 HEPATIC FUNCTION [id number] 12:06:00* Test Item Value Reference Range Comments TOTAL PROTEIN (test code=PROT) gram/dL 6.4-8.2 ALBUMIN (test code=ALB) g/dL 3.4-5.0 GLOBULIN (test code=GLOB) gram/dL 2.7-4.2 ALBUMIN/GLOBULIN RATIO (test code=A/G) 0.75-1.50 BILIRUBIN TOTAL (test code=BILT) mg/dL 0.0-1.0 BILIRUBIN DIRECT (test code=BILD) mg/dL 0.0-0.20 SGOT/AST (test code=AST) IUnit/L 15-37 SGPT/ALT (test code=ALT) IUnit/L 12-78 ALKALINE PHOSPHATASE TOTAL (test code=ALKP) IUnit/L 45-117 [id number] 12:06:00* Test Item Value Reference Range Comments LIPASE (test code=LIP) U/L 73.0-393.0 HCG SERUM [id number] 12:06:00* Test Item Value Reference Range Comments HCG SERUM QUAL (test code=HCGQL) NEGATIVE NEGATIVE This HCGQL test is NOT applicable for MALE patients.Check with nurse about probable order error.If Tumor Marker Test needed, nurse should order test "HCGTU"(Test #550.98413) - CT ABD PELVIS W/[id number] 16:38:00 Name: CARMEN SHEARER [facility] : 1985 Age/S: 34 / F [address] [facility] Unit #: [id number] Loc: [place] [address] Phys: Sonido Bales MD Acct: [id number] Dis Date: Status: REG ER PHONE #: [phone] Exam Date: 01/09/2019 1616 FAX #: [phone] Reason: abd pain, recent GB surgery EXAMS: CPT CODE: [id number] CT ABD PELVIS W/CONT [id number] REASON FOR EXAM: abd pain, recent GB surgery EXAM ORDER DATE: 01/09/2019 2:41 PM Ordering M.D.: Sonido Bales MD PROCEDURE: - CT ABD PELVIS W/CONT contrast-enhanced axial CT images were acquired through the abdomen/pelvis at 5 mm intervals. Sagittal and coronal reformatted images were generated. Automated exposure control was utilized for this reduction. Phases of contrast: venous and delayed COMPARISON: CT abdomen and pelvis August 05, 2017 FINDINGS: Visualized thorax: Normal Hepatobiliary system: Decreased hepatic parenchymal attenuation relative to the spleen may represent differences in perfusion versus steatosis. Gallbladder is surgically absent. Findings suggest hepaticojejunostomy with expected pneumobilia. Pancreas: Normal Spleen: Normal Adrenal glands: Normal Genitourinary system: Essure microinsert is present in the fallopian tubes. Otherwise normal. Gastrointestinal tract and appendix: Postsurgical changes of hepaticojejunostomy. Appendix is within normal limits. Mild to moderate colonic stool burden. No abnormal bowel distention. No mural thickening. Abdominal vascular structures: Normal Peritoneum and retroperitoneum: No free fluid or free air. No omental or mesenteric masses. There is mesenteric fat stranding in the upper abdomen, likely representing postoperative inflammation. There are also subcentimeter mesenteric lymph nodes in this area which are likely reactive. PAGE 1 Signed Report (CONTINUED) Name: CARMEN SHEARER [facility] : 1985 Age/S: 34 / F [address] [facility] Unit #: [id number] Loc: [place] [address] Phys: Amadou Bales MD Acct: [id number] Dis Date: Status: REG ER PHONE #: [phone] Exam Date: 01/09/2019 1616 FAX #: [phone] Reason: abd pain, recent GB surgery EXAMS: CPT CODE: [id number] CT ABD PELVIS W /CONT [id number] <Continued> Musculoskeletal structures and abdominal wall: Postsurgical changes of open cholecystectomy in the anterior abdominal wall. No fluid collections in the surgical site. IMPRESSION: Postsurgical changes of open cholecystectomy with hepaticojejunostomy. Pneumobilia is likely postoperative. Inflammatory changes in the mesentery of the upper abdomen as well as the anterior abdominal wall may represent posts urgical inflammation. No fluid collections are seen. Electro nically Signed by Neeraj Day MD on 01/09/2019 at 1638 R eported and signed by: Neeraj Day MD CC: Amadou Bales MD Technologist:Rahcel Whaley RT( R),CT CTDI: DLP: Trnscb Date/Time: 01/09/2019 (1638) [id number] Orig Print D/T: S: 01/09/2019 (1857) PAGE 2 Signed Report BASIC METABOLIC PANEL 2019-01-09 15:59:00* Test Item Value Reference Range Comments SODIUM (test code=NA) 143 mmol/L 136-145 POTASSIUM (test code=K) 3.6 mmol/L 3.5-5.1 CHLORIDE (test code=CL) 106.0 mmol/L 98-107 CARBON DIOXIDE (test code=CO2) 28.0 mmol/L 21-32 ANION GAP (test code=GAP) 12.6 10-20 GLUCOSE (test code=GLU) 112 mg/dL 74-106 BLOOD UREA NITROGEN (test code=BUN) 7 mg/dL 7-18 GLOMERULAR FILTRATION RATE (test code=GFR) > 60 mL/min >=60 Estimated GFR by using Modified MDRD formula.Chronic kidney disease is defined as either kidney damageor GFR <60 mL/min/1.73 m2 for >3 months. CREATININE (test code=CREAT) 0.70 mg/dL 0.55-1.02 Note change in reference range due to change in reagent. BUN/CREATININE RATIO (test code=BUN/CREA) 9.6 10-20 CALCIUM (test code=CA) 8.7 mg/dL 8.5-10.1 HEPATIC FUNCTION [id number] 15:59:00* Test Item Value Reference Range Comments TOTAL PROTEIN (test code=PROT) 7.0 gram/dL 6.4-8.2 ALBUMIN (test code=ALB) 2.9 g/dL 3.4-5.0 GLOBULIN (test code=GLOB) 4.1 gram/dL 2.7-4.2 ALBUMIN/GLOBULIN RATIO (test code=A/G) 0.7 0.75-1.50 BILIRUBIN TOTAL (test code=BILT) 0.30 mg/dL 0.0-1.0 BILIRUBIN DIRECT (test code=BILD) 0.07 mg/dL 0.0-0.20 SGOT/AST (test code=AST) 10 IUnit/L 15-37 SGPT/ALT (test code=ALT) 23 IUnit/L 12-78 ALKALINE PHOSPHATASE TOTAL (test code=ALKP) 73 IUnit/L 45-117 Note change in reference range due to change in reagent. [id number] 15:59:00* Test Item Value Reference Range Comments LIPASE (test code=LIP) 104 U/L 73.0-393.0 HCG SERUM [id number] 15:59:00* Test Item Value Reference Range Comments HCG SERUM QUAL (test code=HCGQL) NEGATIVE NEGATIVE This HCGQL test is NOT applicable for MALE patients.Check with nurse about probable order error.If Tumor Marker Test needed, nurse should order test "HCGTU"(Test #550.52611) BASIC METABOLIC [id number] 15:58:00* Test Item Value Reference Range Comments SODIUM (test code=NA) 143 mmol/L 136-145 POTASSIUM (test code=K) 3.6 mmol/L 3.5-5.1 CHLORIDE (test code=CL) 106.0 mmol/L 98-107 CARBON DIOXIDE (test code=CO2) 28.0 mmol/L 21-32 ANION GAP (test code=GAP) 12.6 10-20 GLUCOSE (test code=GLU) 112 mg/dL 74-106 BLOOD UREA NITROGEN (test code=BUN) 7 mg/dL 7-18 GLOMERULAR FILTRATION RATE (test code=GFR) > 60 mL/min >=60 Estimated GFR by using Modified MDRD formula.Chronic kidney disease is defined as either kidney damageor GFR <60 mL/min/1.73 m2 for >3 months. CREATININE (test code=CREAT) 0.70 mg/dL 0.55-1.02 Note change in reference range due to change in reagent. BUN/CREATININE RATIO (test code=BUN/CREA) 9.6 10-20 CALCIUM (test code=CA) 8.7 mg/dL 8.5-10.1 HEPATIC FUNCTION [id number] 15:58:00* Test Item Value Reference Range Comments TOTAL PROTEIN (test code=PROT) 7.0 gram/dL 6.4-8.2 ALBUMIN (test code=ALB) 2.9 g/dL 3.4-5.0 GLOBULIN (test code=GLOB) 4.1 gram/dL 2.7-4.2 ALBUMIN/GLOBULIN RATIO (test code=A/G) 0.7 0.75-1.50 BILIRUBIN TOTAL (test code=BILT) 0.30 mg/dL 0.0-1.0 BILIRUBIN DIRECT (test code=BILD) 0.07 mg/dL 0.0-0.20 SGOT/AST (test code=AST) 10 IUnit/L 15-37 SGPT/ALT (test code=ALT) 23 IUnit/L 12-78 ALKALINE PHOSPHATASE TOTAL (test code=ALKP) 73 IUnit/L 45-117 Note change in reference range due to change in reagent. [id number] 15:58:00* Test Item Value Reference Range Comments LIPASE (test code=LIP) 104 U/L 73.0-393.0 HCG SERUM [id number] 15:58:00* Test Item Value Reference Range Comments HCG SERUM QUAL (test code=HCGQL) NEGATIVE BASIC METABOLIC [id number] 15:52:00* Test Item Value Reference Range Comments SODIUM (test code=NA) 143 mmol/L 136-145 POTASSIUM (test code=K) 3.6 mmol/L 3.5-5.1 CHLORIDE (test code=CL) 106.0 mmol/L 98-107 CARBON DIOXIDE (test code=CO2) mmol/L 21-32 ANION GAP (test code=GAP) 10-20 GLUCOSE (test code=GLU) mg/dL 74-106 BLOOD UREA NITROGEN (test code=BUN) mg/dL 7-18 GLOMERULAR FILTRATION RATE (test code=GFR) mL/min >=60 CREATININE (test code=CREAT) mg/dL 0.55-1.02 BUN/CREATININE RATIO (test code=BUN/CREA) 10-20 CALCIUM (test code=CA) mg/dL 8.5-10.1 HEPATIC FUNCTION [id number] 15:52:00* Test Item Value Reference Range Comments TOTAL PROTEIN (test code=PROT) gram/dL 6.4-8.2 ALBUMIN (test code=ALB) g/dL 3.4-5.0 GLOBULIN (test code=GLOB) gram/dL 2.7-4.2 ALBUMIN/GLOBULIN RATIO (test code=A/G) 0.75-1.50 BILIRUBIN TOTAL (test code=BILT) mg/dL 0.0-1.0 BILIRUBIN DIRECT (test code=BILD) mg/dL 0.0-0.20 SGOT/AST (test code=AST) IUnit/L 15-37 SGPT/ALT (test code=ALT) IUnit/L 12-78 ALKALINE PHOSPHATASE TOTAL (test code=ALKP) IUnit/L 45-117 [id number] 15:52:00* Test Item Value Reference Range Comments LIPASE (test code=LIP) U/L 73.0-393.0 HCG SERUM [id number] 15:52:00* Test Item Value Reference Range Comments HCG SERUM QUAL (test code=HCGQL) NEGATIVE CBC W/O [id number] 15:51:00* Test Item Value Reference Range Comments WHITE BLOOD CELL (test code=WBC) 7.6 K/mm3 4.5-12.5 RED BLOOD CELL (test code=RBC) 4.07 mill/mm3 3.7-5.2 HEMOGLOBIN (test code=HGB) 10.4 gram/dL 11.5-15.5 HEMATOCRIT (test code=HCT) 33.3 % 36.0-46.0 MEAN CELL VOLUME (test code=MCV) 81.8 fL 80-98 MEAN CELL HGB (test code=MCH) 25.6 picogram 27.0-33.0 MEAN CELL HGB CONCETRATION (test code=MCHC) 31.2 gram/dL 33.0-36.0 RED CELL DISTRIBUTION WIDTH (test code=RDW) 15.9 % 11.6-16.2 PLATELET COUNT (test code=PLT) 303 K/mm3 150-450 MEAN PLATELET VOLUME (test code=MPV) 9.3 fL 6.7-11.0
--- OUTSIDE RECORDS SUMMARY | 2019-02-08 10:27 | XMS REPORT | Summary of Care ---
Author Author [facility] Organization [facility] Address Unknown Phone Unavailable Encounter NEEL Santana(FIN) [id number] Date(s): 06/28/18 - 06/28/18 [facility] [address], [address] [place] [address] [phone] Attending Physician: Sylvester Greene MD Vital Signs [...]
--- OUTSIDE RECORDS SUMMARY | 2019-02-08 10:27 | XMS REPORT | Summary of Care ---
Author Author Elsa Isidro M.A. Unknown Address Unknown Phone Unavailable Care Team Providers Care Store Operations Associate Name Role Phone CLINTON Pugh, WON Unavailable Brianna BRYANT M.D., SOPHY Unavailable Unavailable JIE Pugh, AIXA Unavailable Unavailable CHRISTIANE NELSON MD, YON Unavailable Unavailable Garry SMITH, Ph.D. 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 Allergic rhinitis (477.9, J30.9) Status: Active Cystitis (595.9, N30.90) Status: Active Nasal polyps (471.9, J33.9) Status: Active Deviated nasal septum (470, J34.2) Status: Active Esophageal reflux (530.81, K21.9) Status: Active Candidiasis of vulva and vagina (112.1, B37.3) Status: Active Hypertrophy of nasal turbinates (478.0, J34.3) Status: Active Vitamin D insufficiency (268.9, E55.9) Status: Active Costochondritis (733.6, M94.0) Status: Active Urinary symptom or sign (788.99, R39.9) Status: Active Female incontinence (625.6, R32) Status: Active Urgency of urination (788.63, R39.15) Status: Active Urinary urgency (788.63, R39.15) Status: Active 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, 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 Urge incontinence of urine (788.31, N39.41) Status: Active HENRIK (stress urinary incontinence, female) (625.6, N39.3) Status: Active Coccyx pain (724.79, M53.3) Status: Active Screening examination for STD (sexually transmitted disease) (V74.5, Z11.3) Status: Active Encounter for annual routine gynecological examination (V72.31, Z01.419) Status: Active Other ovarian cyst, left side (620.2, N83.292) Status: Active Yeast infection (112.9, B37.9) Status: Active Abnormal uterine bleeding (626.9, N93.9) Status: Active Pelvic pain (R10.2) Status: Active Cyst of left ovary (620.2, N83.202) Status: Active Medications Name Dates Details Ergocalciferol TABS Take 50,000 units orally once a week for 8 weeks Quantity: 8 WON ALONZO M.D. * Start : 15-Jul-2011 Active Ibuprofen 600 MG Oral Tablet * Refills: 0 * Start : 16-Jul-2018 Active Levocetirizine Dihydrochloride 5 MG Oral Tablet * Refills: 0 * Start : 16-Jul-2018 Active Omeprazole 20 MG Oral Capsule Delayed Release * Refills: 0 * Start : 16-Jul-2018 Active Pantoprazole Sodium 40 MG Oral Tablet Delayed Release * Refills: 0 * Start : 16-Jul-2018 Active Synthroid 125 MCG Oral Tablet * Refills: 0 * Start : 16-Jul-2018 Active Zofran 4 MG Oral Tablet * Refills: 0 * Start : 16-Jul-2018 Active Fluconazole 150 MG Oral Tablet TAKE 1 TABLET DAILY. * Quantity: 1 Refills: 0 SOPHY BRYANT M.D. * Start : 06-Oct-2018 Active traMADol HCl - 50 MG Oral Tablet TAKE 1 TABLET EVERY 6 HOURS * Quantity: 20 Refills: 0 CROSS SOPHY Pugh * Start : 24-Nov-2018 Active Fluconazole 150 MG Oral Tablet TAKE 1 TABLET TODAY AND 3 DAY LATER TAKE THE REMAINING TABLET * Quantity: 2 Refills: 2 CROSS ADDIE PughIKA * Start : 24-Nov-2018 Active Allergies and Adverse Reactions Name Dates Details No Known Drug Allergies (Allergy) Status: Active Past Medical History Name Dates Details History of essential hypertension (V12.59, Z86.79) Status: Resolved History of gastroesophageal reflux (GERD) (V12.79, Z87.19) Status: Resolved History of hyperparathyroidism (V12.29, Z86.39) Status: Resolved History of mixed hyperlipidemia (V12.29, Z86.39) Status: Resolved Procedures Procedure Dates Details Pelvis Transvag w Pelvis Doppler US Date: 24-Nov-2018 History of Knee Surgery Completed History of Hysteroscopic tubal occlusion Completed History of section Completed Immunization Name Dates Details Td on: 1998 Family History Name Dates Details Family history of Diabetes Mellitus (V18.0) Comments: Family History Status: Active Family history of Hypertension (V17.49) Comments: Family History Status: Active Social History Name Dates Details - Status: Name Dates Details Never smoker Vital Signs Date Test Result Details [id number] BP Systolic 115 mm[Hg] Status: Comments: Location: LUE; Position: Sitting BP Diastolic 74 mm[Hg] Status: Comments: Location: LUE; Position: Sitting Height 59 in Status: Weight 185 lb Status: Body Mass Index Calculated 37.37 kg/m2 Status: Body Surface Area Calculated 1.78 m2 Status: Temperature 98.6 f Status: Comments: Method: Oral Heart Rate 74 /min Status: Comments: Location: L Radial; Quality: Normal Results Date Description Value Details Results not documented Plan of Care Name Dates Details Planned Observations Planned Goals not documented Planned Encounters Appointment; AIXA CERON M.D. On: 13-Dec-2018 15:00 Appointment; FRANKIE CALIXTO M.D. On: 21-Jan-2019 9:00 Appointment; SOPHY BRYANT M.D. On: 02-Mar-2019 11:30 Instructions Name Dates Details Instructions not documented Encounters Appointment; TUAN PINTO Encounter Diagnosis: Problem not documented On: 27-May-2017 10:00 Appointment; VENESSA SIDDIQUI D.O. Encounter Diagnosis: Problem not documented On: 23-Jul-2018 13:40 Appointment; SURYA OROZCO M.D. Encounter Diagnosis: Problem not documented On: 12-Aug-2018 9:30 Appointment; VENESSA SIDDIQUI D.O. Encounter Diagnosis: Problem not documented On: 24-Aug-2018 10:30 Appointment; SOPHY BRYANT M.D. Encounter Diagnosis: Problem not documented On: 25-Aug-2018 11:00 Appointment; AIXA CERON M.D. Encounter Diagnosis: Problem not documented On: 27-Sep-2018 10:00 Appointment; SOPHY BRYANT M.D. Encounter Diagnosis: Problem not documented On: 06-Oct-2018 9:30 Appointment; KEELEY ZHU M.D. Encounter Diagnosis: Problem not documented On: 01-Nov-2018 14:30 Appointment; KEELEY ZHU M.D. Encounter Diagnosis: Problem not documented On: 04-Nov-2018 10:30 Appointment; SOPHY BRYANT M.D. Encounter Diagnosis: Problem not documented On: 10-Nov-2018 15:15 Appointment; FRANKIE CALIXTO M.D. Encounter Diagnosis: Problem not documented On: 12-Nov-2018 8:30 Appointment; SOPHY BRYANT M.D. Encounter Diagnosis: Problem not documented On: 17-Nov-2018 15:15 Appointment; SOPHY BRYANT M.D. Encounter Diagnosis: Problem not documented On: 24-Nov-2018 14:45 Appointment; AIXA CERON M.D. Encounter Diagnosis: Problem not documented On: 13-Dec-2018 15:00
--- OUTSIDE RECORDS SUMMARY | 2019-02-08 10:27 | XMS REPORT | Summary of Care ---
Author Author [facility] Organization [facility] Address Unknown Phone Unavailable Encounter [facility](VERONICA) [id number] Date(s): 12/14/17 - 12/14/17 [facility] [address], [address] [place] [address]- [phone] Attending Physician: Denise Dias MD Vital Signs [...] ONCE, # 1 tab, 1 Refill(s), Pharmacy: [facility] [id number] Start Date: 12/14/17 Stop Date: 02/11/18 Status: Discontinued Results No data available for [...]
[2019-02-08] MEDS ORDERED: SODIUM CHLORIDE 0.9% 50ML 50 ML ONE (10:48)
[2019-02-08] MEDS ORDERED: IOPAMIDOL 370 MG/ML 200 ML INFUS..BTL INJ ONE (10:49)
[2019-02-08] MEDS: ONDANSETRON HCL INJ 2MG/ML 2ML 2 MG/ML VIAL IV STA (11:19)
[2019-02-08] MEDS: SODIUM CHLORIDE 0.9% 1000ML 1,000 ML IV SCH (11:19)
[2019-02-08] MEDS ORDERED: SODIUM CHLORIDE 0.9% 1000ML 1,000 ML ONE (11:24)
[2019-02-08] MEDS ORDERED: ONDANSETRON HCL INJ 2MG/ML 2ML 2 MG/ML VIAL ONE (11:24)
[2019-02-08] MEDS: KETOROLAC TROMETHAMINE 30 MG/ML VIAL IV STA (11:25)
[2019-02-08] MEDS ORDERED: CEPHALEXIN500 MG PO (11:26)
[2019-02-08] MEDS ORDERED: TYLENOL WITH C1 EACH PO (11:26)
[2019-02-08] MEDS ORDERED: KETOROLAC TROMETHAMINE 30 MG/ML VIAL ONE (11:30)
--- NOTE | 2019-02-08 11:55 | Diagnostic Imaging Report ---
EXAM: CT Abdomen and Pelvis WITH intravenous contrast INDICATION: Abdominal pain COMPARISON: None. TECHNIQUE: Abdomen and pelvis were scanned utilizing a multidetector helical scanner from the lung base to the pubic symphysis after administration of IV contrast. Coronal and sagittal reformations were obtained. Routine protocol was performed. Scan was performed during portal venous phase. IV CONTRAST: 100mL of Isovue 370 ORAL CONTRAST: None RADIATION DOSE: Total DLP: 731.3 mGy*cm Dose modulation, iterative reconstruction, and/or weight based adjustment of the mA/kV was utilized to reduce the radiation dose to as low as reasonably achievable. FINDINGS: LOWER THORAX: Normal. HEPATOBILIARY: Diffuse hepatic steatosis. No focal liver lesions. Postoperative changes at the cheryl hepatis and internal biliary stent in place. Scattered foci of air in the intrahepatic bile ducts, expected in the setting of recent instrumentation. No biliary ductal dilation. SPLEEN: No splenomegaly. PANCREAS: No focal masses or ductal dilatation. ADRENALS: No adrenal nodules. KIDNEYS/URETERS: No hydronephrosis, stones, or solid mass lesions. PELVIC ORGANS/BLADDER: Status post bilateral Essure device placement. PERITONEUM / RETROPERITONEUM: No free air or fluid. Multiple surgical clips in the right abdomen. LYMPH NODES: No lymphadenopathy. VESSELS: Unremarkable. GI TRACT: Mild sigmoid diverticulosis. No CT evidence of diverticulitis. No abnormal bowel wall thickening. No bowel obstruction. Normal appendix. BONES AND SOFT TISSUES: Postoperative changes related to anterior abdominal midline incision. Small areas of focal fluid along the incisional tract measure 1.1 cm and 1.0 cm. No acute osseous injury. No suspicious lytic or blastic lesions. IMPRESSION: Status post recent biliary surgery and hepaticojejunostomy. No intrahepatic biliary ductal dilation. Small (1.1 and 1.0 cm) areas of focal fluid along the anterior midline surgical incisional track are likely postoperative phlegmon. No drainable fluid collections. Signed by: Vane Srinivasan MD on 02/08/2019 11:51 AM
[2019-02-08] MEDS ORDERED: BELLADONNA ALK/PHENOBARBITAL 5 ML UDC ONE (12:30)
[2019-02-08] MEDS ORDERED: LIDOCAINE VISC 2% SOLN 15 ML UDC ONE (12:30)
[2019-02-08] MEDS ORDERED: MAGNESIUM/ALUMINUM/SIMETHICONE 30 ML UDC ONE (12:31)
[2019-02-08] MEDS ORDERED: FAMOTIDINE 20 MG/2 ML VIAL IV ONE (12:31)
[2019-02-08] MEDS: KETOROLAC TROMETHAMINE 30 MG/ML VIAL IV NR (12:33)
[2019-02-08] MEDS: FAMOTIDINE 20 MG/2 ML VIAL IV NR (12:33)
[2019-02-08] MEDS: DONNATAL/LIDOCAINE/MAALOX 30 ML SUSP PO NR (12:33)
[2019-02-08] MEDS ORDERED: PEPCID20 MG PO (13:38)
== END 2019-02-08 13:59 | disposition home or self-care (01) ==
LOC: FSED 10:15
DX: R10.12 Left upper quadrant pain (principal); K29.00 Acute gastritis without bleeding; E03.4 Atrophy of thyroid (acquired); Z98.890 Other specified postprocedural states
CPT/HCPCS: 74177; 80048; 80076; 81003; 81025; 85025; 99284; J1885; J2405; J7030; Q9967

== ENCOUNTER 2019-03-09 15:22 | Emergency (ER) | payer OTHER ==
[~2019-03-09] VITALS: Ht 149.9 cm; Wt 78.5 kg
[~2019-03-09 15:22] MED LIST: CEPHALEXIN500 MG PO; PEPCID20 MG PO; TYLENOL WITH C1 EACH PO
--- NOTE | 2019-03-09 15:55 | NUR ---
WOUND CULTURE SWABBED AND SENT TO LAB.
== END 2019-03-09 16:00 | disposition home or self-care (01) ==
LOC: FSED 15:22
DX: Z48.01 Encounter for change or removal of surgical wound dressing (principal)
CPT/HCPCS: 87071; 87186; 87205; 99282

== ENCOUNTER 2019-06-17 15:19 | Emergency (ER) | payer OTHER ==
[~2019-06-17] VITALS: Ht 149.9 cm; Wt 89.9 kg
[~2019-06-17 15:19] MED LIST changes: +NAPROSYN500 MG PO
[2019-06-17] MEDS ORDERED: LEVOTHYROXINE112 MCG PO (15:40)
[2019-06-17] MEDS ORDERED: ONDANSETRON HCL INJ 2MG/ML 2ML 2 MG/ML VIAL IV STA (15:47)
[2019-06-17] MEDS ORDERED: MORPHINE SULFATE 2 MG/ML SYR 1ML IV STA (15:47)
[2019-06-17] MEDS ORDERED: SODIUM CHLORIDE 0.9% 1000ML 1,000 ML IV STA (15:48)
[2019-06-17] MEDS ORDERED: FAMOTIDINE 20 MG/2 ML VIAL IV STA (15:50)
[2019-06-17] MEDS ORDERED: ONDANSETRON HCL INJ 2MG/ML 2ML 2 MG/ML VIAL ONE (15:55)
[2019-06-17] MEDS ORDERED: SODIUM CHLORIDE 0.9% 1000ML 1,000 ML ONE (15:55)
[2019-06-17] MEDS ORDERED: MORPHINE SULFATE INJ 4 MG/ML INJ 1ML ONE (15:55)
[2019-06-17] MEDS ORDERED: IOPAMIDOL 370 MG/ML 200 ML INFUS..BTL INJ ONE (16:02)
[2019-06-17] MEDS ORDERED: FAMOTIDINE 20 MG/2 ML VIAL IV ONE (16:16)
--- NOTE | 2019-06-17 16:59 | Diagnostic Imaging Report ---
CT of the abdomen and pelvis, with contrast, 06/17/2019. History: Upper abdominal pain. Comparison: 05/25/2019. Technique: Multidetector CT scanning of the abdomen and pelvis was performed from the level of the lung bases to the inferior pubic rami after intravenous administration of contrast. Coronal and sagittal multiplanar reformations were obtained. RADIATION DOSE: Total DLP: 749 mGy*cm Dose modulation, iterative reconstruction, and/or weight based adjustment of the mA/kV was utilized to reduce the radiation dose to as low as reasonably achievable. Discussion: LUNG BASES: No visualized abnormalities. ABDOMEN: Right upper quadrant surgical clips are present. A plastic biliary stent and pneumobilia are again noted. Gallbladder is absent. The liver, spleen, pancreas, adrenal glands, and kidneys are normal. The hepatic vein, portal vein, and splenic vein are patent. The abdominal aorta is within normal limits for size. Evaluation of bowel is limited without oral contrast. There is no bowel dilatation. The appendix is visualized and is normal.. There is no evidence of adenopathy or free fluid. PELVIS: The bladder, uterus, and adnexa are normal in appearance. Bilateral Essure devices are noted. There is no evidence of free fluid or adenopathy. BONES AND SOFT TISSUES: Degenerative changes are present throughout the lumbar spine without evidence of lytic or sclerotic lesion. Postsurgical changes are again noted in the upper anterior abdominal wall. IMPRESSION: Stable findings of hepaticojejunostomy. No acute intra-abdominal or pelvic abnormality. Signed by: Ashvin Cordoba on 06/17/2019 4:56 PM
[2019-06-17] MEDS ORDERED: PROTONIX40 MG PO (17:08)
[2019-06-17 17:09] VITALS: BP 131/85
[2019-06-17] MEDS ORDERED: ULTRAM 50MG50 MG PO (17:09)
== END 2019-06-17 17:19 | disposition home or self-care (01) ==
LOC: FSED 15:19
DX: R10.13 Epigastric pain (principal); R11.2 Nausea with vomiting, unspecified
CPT/HCPCS: 36415; 74177; 80048; 80076; 81003; 81025; 83690; 85025; 96374; 96375; 96376; 99284; J2270; J2405; J7030; Q9967

== ENCOUNTER 2019-06-29 12:13 | Emergency (ER) | payer OTHER ==
[~2019-06-29 12:13] MED LIST changes: +LEVOTHYROXINE112 MCG PO; +PROTONIX40 MG PO; +ULTRAM 50MG50 MG PO
== END 2019-06-29 13:05 | disposition short-term general hospital (02) ==
LOC: FSED 12:13
DX: R50.9 Fever, unspecified (principal)

== ENCOUNTER 2019-10-09 13:27 | Emergency (ER) | payer OTHER ==
[~2019-10-09] VITALS: Ht 149.9 cm; Wt 89.8 kg
--- OUTSIDE RECORDS SUMMARY | 2019-10-09 13:30 | XMS REPORT | Summary of Care ---
Author Author [facility] - [facility] Organization [facility] - Health Address Unknown Phone Unavailable Care Team Providers Care House Steward/Stewardess Name Role Phone Erickson Patiño PCP Reason for Visit * Reason Comments Error Encounter Details Care Team Description Date Type Department Trae Noel MD [address] [place] [phone] ERRONEOUS ENCOUNTER--DISREGARD (Primary Dx) 10/06/2019 Telemedicine [facility] Visit GASTROENTEROLOGY -[facility] [address] [place] [phone] Allergies No Known Allergiesdocumented as of this encounter (statuses as of 10/06/2019) Medications End Date Status Medication Sig Dispensed Refills Start Date Active levothyroxine 100 mcg Take by 0 tablet mouth. Active traMADOL 50 mg tablet Take 50 mg by 0 10/18/19 1 mouth. 7 Active fluconazole 150 mg tablet TK 1 T PO 3 ONE DOSE 7 Active solifenacin (VESICARE) 10 Take 10 mg by 0 mg tablet mouth daily. Active esomeprazole (NEXIUM) 20 Take 20 mg by 0 mg capsule mouth daily before a meal. Active levonorgestrel-ethinyl Take 1 tablet 1 Package 3 0 estradiol 0.15 mg-30 mcg by mouth 7 per tablet daily. documented as of this encounter (statuses as of 10/06/2019) Active Problems Problem Noted Date Mixed incontinence 12/19/2016 Well woman exam 12/19/2016 Overview: Done September 2016 pvt w/ Kailash Anne. Pe r pt pap negative then. Has annual exam there Contraception 12/19/2016 Overview: ESSURE since 2006 Vaginal pain 12/19/2016 Overview: Since ESSURE was inserted Candidiasis of vulva and vagina 12/19/2016 STD (sexually transmitted disease) complicating pregn linnette, antepartum 12/19/2016 documented as of this encounter (statuses as of 10/06/2019) Social History Date Tobacco Use Types Packs/Day Years Used Never Smoker Smokeless Tobacco: Never Used Drinks/Week oz/Week Comments Alcohol Use No Sex Assigned at Date Recorded Not on file Industry Job Start Date Occupation Not on file Not on file Not on file Travel End Travel History Travel Start No recent travel history available. documented as of this encounter Last Filed Vital Signs Not on filedocumented in this encounter Progress Notes * Trae Noel MD - 10/06/2019 1:00 PM CDT Attempted to contact patient, no response. Voice message was not left given the welcoming message on the voicemail box was from someone who had a different name than the patient. documented in this encounter Plan of Treatment Health Maintenance Due Date Last Done Comments VARICELLA VACCINES (1 of 01/09/1985 2 - 2-dose childhood series) DTaP,Tdap,and Td Vaccines 01/09/1995 (1 - Tdap) PAP SMEAR 01/09/2005 INFLUENZA VACCINE (Season 01/17/2020 Ended) PNEUMOCOCCAL 0-64 YEARS Aged Out No longer elig ible based COMBINED SERIES on patient's age to complete this topic documented as of this encounter Results Not on filedocumented in this encounter Visit Diagnoses Diagnosis ERRONEOUS ENCOUNTER--DISREGARD - Primar y documented in this encounter Insurance Type Payer Benefit Subscriber ID Effective Phone Address Plan / Dates Group Medicaid [employer] [place] xxxxxxxxx 0-P PLAN - MANAGED MEDICAID [employer] (Home) [address] [place] [address] documented as of this encounter
--- OUTSIDE RECORDS SUMMARY | 2019-10-09 13:30 | XMS REPORT | Summary of Care ---
Author Author Dipak Norris, CARMEN CARRERA Organization Unknown Address [facility] Phone Unavailable Care Team Providers Care Criminal Legal Assistant Name Role Phone RICKI Pugh, CICI Unavailable Unavailable ISMAEL SMITH, GINGER Unavailable Unavailable FRANKLIN SMITH DC, ZULMA Araujo Unavailable Unavailable CLOTILDE SMITH DC, JOELLEN A Unavailable Unavailable VENESSA SIDDIQUI DO Unavailable Unavailable MARKOS, SURYA Unavailable Unavailable ANNETTE SMITH, SOPHY LENNON Unavailable Unavailable VARSHA SMITH, YON Unavailable Unavailarian Castañeda MD, Ph.D. 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 41) Status: Active HENRIK (stress urinary incontinence, female ) (625.6, N39.3) Status: Active Coccyx pain (724.79, M53.3) Status: Active Screening examination for STD (sexually transmitted disease) (V74.5, Z11.3) Status: Active Encounter for annual routine gynecologic al examination (V72.31, Z01.419) Status: Active Yeast infection (112.9, B37.9) Status: Active Pelvic pain (R10.2) Status: Active Cyst of left ovary (620.2, N83.202) Status: Active Abnormal uterine bleeding (626.9, N93.9) Status: Active Other ovarian cyst, left side (620.2, N8 3.292) Status: Active Medications Name Dates Details Synthroid 125 MCG Oral Tablet * Start : 16-Jul-2018 Active Allergies and Adverse Reactions Name Dates Details No Known Drug Allergies (Allergy) Status : Active Past Medical History Name Dates Details History of essential hypertension (V12.5 9, Z86.79) Status: Resolved History of gastroesophageal reflux (GERD ) (V12.79, Z87.19) Status: Resolved History of hyperparathyroidism (V12.29, Z86.39) Status: Resolved History of mixed hyperlipidemia (V12.29, Z86.39) Status: Resolved Procedures Procedure Dates Details History of Knee Surgery Completed History of Hysteroscopic tubal occlusion Completed History of section Completed Immunization Name Dates Details Td on: 1998 Family History Name Dates Details Family history of Diabetes Mellitus (V18 .0) Comments: Family History Status: Active Family history of Hypertension (V17.49) Comments: Family History Status: Active Social History Name Dates Details - Status: Name Dates Details Never smoked tobacco (finding) Vital Signs Date Test Result Details [id number] Systolic blood pressure 135 mm[Hg] Status: Comments : Location: RUE; Position: Sitting Diastolic blood pressure 90 mm[Hg] Status: Comment s: Location: RUE; Position: Sitting Body height 59 in Status: Weight 192 lb Status: Body mass index (BMI) [Ratio] 38.78 kg/m2 Status: Body surface area Derived from formula 1.81 m2 S tatus: Body temperature 97.9 f Status: Comments: Me thod: Tympanic Heart Rate 85 /min Status: Results Date Description Value Details Results not documented Plan of Care Name Dates Details Planned Observations Planned Goals not documented Instructions Name Dates Details Instructions not documented Encounters Appointment; VENESSA SIDDIQUI D.O. Encounter Diagnosis: Problem [...] not documented On: 10-Nov-2018 15:15 Appointment; FRANKIE CASTAÑEDA M.D. Encounter Diagnosis: Problem not documented On: 12-Nov-2018 8:30 Appointment; SOPHY BRYANT M.D. Encounter Diagnosis: Problem not documented On: 17-Nov-2018 15:15 Appointment; SOPHY BRYANT M.D. Encounter Diagnosis: Problem not documented On: 24-Nov-2018 14:45 Appointment; AIXA CERON M.D. Encounter Diagnosis: Problem not documented On: 13-Dec-2018 15:00 Appointment; [facility], OP Encounter Diagnosis: Problem not documented On: 18-Jan-2019 9:30 Appointment; FRANKIE CASTAÑEDA M.D. Encounter Diagnosis: Problem not documented On: 21-Jan-2019 9:00 Appointment; [facility]GANTRANSPLANT, OP Encounter Diagnosis: Problem not documented On: 15-Feb-2019 13:00 Appointment; [facility]GANTRANSPLANT, OP Encounter Diagnosis: Problem not documented On: 23-Feb-2019 13:00 Appointment; SOPHY BRYANT M.D. Encounter Diagnosis: Problem not documented On: 02-Mar-2019 11:30 Appointment; SOPHY BRYANT M.D. Encounter Diagnosis: Problem not documented On: 23-Mar-2019 15:15 Appointment; [facility], SERVICE Encounter Diagnosis: Problem not documented On: 15-Jul-2019 12:45
--- OUTSIDE RECORDS SUMMARY | 2019-10-09 13:30 | XMS REPORT | Clinical Summary ---
Author Author [facility] Organization [facility] Address Unknown Phone Unavailable Care Team Providers Care Business Office Representative Name Role Phone Asked, No Pcp PCP Unavailable Allergies No Known Allergies Medications End Date Status Medication Sig Dispensed Refills Start Date Active levothyroxine (SYNTHROID, Take 125 mcg 0 LEVOXYL) 125 mcg tablet by mouth daily. Active calcium carbonate (TUMS) Chew 2 0 200 mg calcium (500 mg) tablets 3 chewable tablet (three) times a day before meals. 02/01/2019 levoFLOXacin (LEVAQUIN) Take 1 tablet 7 tablet 0 500 MG tablet (500 mg 9 total) by mouth daily for 7 days. 01/31/2019 metroNIDAZOLE (FLAGYL) Take 1 tablet 21 tablet 0 0 500 MG tablet (500 mg 9 total) by mouth 3 (three) times a day for 7 days. 04/01/2019 Discontinued (Stop Taking at Discharge) mupirocin (BACTROBAN) 2 % Apply 15 g 0 cream topically 2 9 (two) times a day for 7 days. 04/08/2019 bacitracin 500 unit/gram Apply 14 g 0 1 ointment topically 9 daily for 7 days. Active Problems Problem Noted Date Cellulitis, abdominal wall 03/31/2019 Wound infection 01/24/2019 Encounters Care Team Description Date Type Specialty Julianna Enriquez MA 06/23/2019 Telephone Gastroenterology Rubio Lomas MD Nirmal, Kodavayour Sethuraman, MD Delayed wound healing (Primary Dx); RUQ abdominal pain; Intractable vomiting with nausea, unspecified vomiting type; Dehydration; Chest pain, unspecified type; Shortness of breath; Anemia, unspecified type; Abdominal wall dehiscence, initial encounter; Cellulitis, abdominal wall 03/31/2019 Emergency General Internal Me dicine - 04/01/2019 Rubio Lomas MD Tu, MD Juli Coreas, MD Ty Mccullough, Obey Meyer MD Wound infection (Primary Dx); Wound dehiscence; Anemia, unspecified type; High anion gap metabolic acidosis 01/23/2019 Emergency General Surgery - 01/24/2019 after 10/08/2018 Social History Date Tobacco Use Types Packs/Day [...] Signs Reading Time Taken Comments Vital Sign 111/76 04/01/2019 7:09 AM BUSINESS CENTER MANAGER Blood Pressure 75 04/01/2019 7:09 AM BUSINESS CENTER MANAGER Pulse 36.4 C (97.5 F) 04/01/2019 7:09 AM BUSINESS CENTER MANAGER Temperature 18 04/01/2019 7:09 AM BUSINESS CENTER MANAGER Respiratory Rate 100% 04/01/2019 7:09 AM BUSINESS CENTER MANAGER Oxygen Saturation - - Inhaled Oxygen Concentration 82.3 kg (181 lb 8 oz) 04/01/2019 1:52 AM BUSINESS CENTER MANAGER Weight 149.9 cm (4' 11") 03/31/2019 8:58 AM BUSINESS CENTER MANAGER Height 36.66 03/31/2019 8:58 AM BUSINESS CENTER MANAGER Body Mass Index Plan of Treatment Health Maintenance Due Date Last Done Comments CERVICAL CANCER SCREENING 01/09/2005 INFLUENZA VACCINE 12/17/2019 Implants Device Identifier Shelf Expiration Date Model / Serial / L ot Implanted Type Area Manufactur er Coils Coils Description:essure coil for female sterilization Coils-05/18/2005 Coils Fallopian Tube Implanted: 05/18/2005 (Quantity not on file) Procedures Comments Procedure Name Priority Date/Time Associated Diag nosis TROPONIN Routine 04/01/2019 4:40 AM BUSINESS CENTER MANAGER ESTIMATED GFR Routine 04/01/2019 4:40 AM BUSINESS CENTER MANAGER HC COMPLETE BLD COUNT Routine 04/01/2019 W/AUTO DIFF 4:40 AM BUSINESS CENTER MANAGER BASIC METABOLIC PANEL Routine 04/01/2019 4:40 AM BUSINESS CENTER MANAGER BLOOD CULTURE, AEROBIC & Routine 03/31/2019 ANAEROBIC 8:10 PM BUSINESS CENTER MANAGER BLOOD CULTURE, AEROBIC & Routine 03/31/2019 ANAEROBIC 8:00 PM BUSINESS CENTER MANAGER TROPONIN Timed 03/31/2019 3:[address] ABDOMEN PELVIS W STAT 03/31/2019 CONTRAST 11:[address] ANGIOGRAM PE CHEST STAT 03/31/2019 11:54 AM BUSINESS CENTER MANAGER ECG 12-LEAD Routine 03/31/2019 10:07 AM BUSINESS CENTER MANAGER ESTIMATED GFR STAT 03/31/2019 10:06 AM BUSINESS CENTER MANAGER B NATRIURETIC PEPTIDE STAT 03/31/2019 10:06 AM BUSINESS CENTER MANAGER TROPONIN STAT 03/31/2019 10:06 AM BUSINESS CENTER MANAGER LIPASE LEVEL STAT 03/31/2019 10:06 AM BUSINESS CENTER MANAGER COMPREHENSIVE METABOLIC STAT 03/31/2019 PANEL 10:06 AM BUSINESS CENTER MANAGER HC COMPLETE BLD COUNT STAT 03/31/2019 W/AUTO DIFF 10:06 AM BUSINESS CENTER MANAGER POC , URINE Routine 03/31/2019 9:40 AM BUSINESS CENTER MANAGER LACTIC ACID LEVEL, SEPSIS Timed 01/24/2019 - [...] REFLEX 5:48 PM CDT TO CULTURE after 10/08/2018 Results * Estimated GFR (04/01/2019 4:40 AM BUSINESS CENTER MANAGER) Only the most recent of 3 results within the time period is included. [facility] Estimated GFR >=90 mL/min/1.73 m2 [place] Comment: [facility] [place] Interpretation G1 >=90 Normal or high G2 60-89 Mildly decreased G3a 45-59 Mildly to moderately decreased G3b 30-44 Moderately to severely decreased G4 15-29 Severely decreased G5 <15 Kidney failure The eGFR was calculated using the Chronic Kidney Disease Epidemiology Collaboration (CKD-EPI) equation. Interpretation is based on recommendations of the National Kidney Foundation-Kidney Disease Outcomes Quality Initiative (NKF-KDOQI) published in 2014. Specimen Plasma specimen Performing Organization Address City/[facility] Ph one Number [facility] DEPARTMENT OF [address] [place] [address] PATHOLOGY AND GENOMIC MEDICINE [address] * Troponin (04/01/2019 4:40 AM BUSINESS CENTER MANAGER) Only the most recent of 3 results within the time period is included. [facility] Troponin <0.006 0.000 - 0.040 ng/mL [place] Comment: [facility] changed methodology effective: 09/21/2018 at 10:00 am The new method has a 99th percentile cutoff of 0.040 ng/mL Specimen Plasma specimen Performing Organization Address [facility]/Zipcode Ph one Number [facility] DEPARTMENT OF [address] [place] [address] PATHOLOGY AND GENOMIC MEDICINE [address] * CBC with platelet and differential (04/01/2019 4:40 AM BUSINESS CENTER MANAGER) Only the most recent of 3 results within the time period is included. WBC 5.03 4.50 - 11.00 k/uL [facility] RBC 4.29 4.20 - 5.50 m/uL [facility] HGB 10.5 (L) 12.0 - 16.0 g/dL [facility] HCT 34.5 (L) 37.0 - 47.0 % [facility] MCV 80.4 (L) 82.0 - 100.0 fL [facility] MCH 24.5 (L) 27.0 - 34.0 pg [facility] MCHC 30.4 (L) 31.0 - 37.0 g/dL [facility] RDW - SD 44.2 37.0 - 55.0 fL [facility] MPV 10.2 8.8 - 13.2 fL [facility] Platelet count 266 150 - 400 k/uL [facility] Nucleated RBC 0.00 /100 WBC [facility] Neutrophils 56.0 39.0 - 69.0 % [facility] Lymphocytes 35.2 25.0 - 45.0 % [facility] Monocytes 7.0 0.0 - 10.0 % [facility] Eosinophils 1.4 0.0 - 5.0 % [facility] Basophils 0.2 0.0 - 1.0 % [facility] Immature 0.2Comment: "Immature 0.0 - 1.0 % [place] granulocytes granulocytes" (promyelocytes, METHOD IST myelocytes, metamyelocytes) [facility] Specimen Blood Performing Organization Address City/State/Zipcode Ph one Number [facility] DEPARTMENT OF [address] [place] [address] PATHOLOGY AND GENOMIC MEDICINE [address] * Basic metabolic panel (04/01/2019 4:40 AM BUSINESS CENTER MANAGER) Pathologist [facility] Sodium 138 135 - 148 mEq/L [facility] Potassium 4.0 3.5 - 5.0 mEq/L [facility] Chloride 104 98 - 112 mEq/L [facility] CO2 23 (L) 24 - 31 mEq/L [facility] Anion gap 11@ANIO 7 - 15 mEq/L [facility] BUN 7 6 - 20 mg/dL [facility] Creatinine 0.80 0.50 - 0.90 mg/dL [facility] Glucose 81 65 - 99 mg/dL [facility] Calcium 9.1 8.3 - 10.2 mg/dL [facility] Specimen Plasma specimen Performing Organization Address City/[facility] Ph one Number [facility] DEPARTMENT OF [address] [place] [address] PATHOLOGY AND GENOMIC MEDICINE [address] * Blood culture, aerobic & anaerobic (03/31/2019 8:10 PM BUSINESS CENTER MANAGER) Only the most recent of 2 results within the time period is included. Blood culture No growth after 5 days of [place] isolate incubation. [facility]COPAL Comment: HOSPITAL Specimen Information Specimen Source: Blood Specimen Site: Arm, right Specimen Blood - Arm, right Performing Organization Address [facility] Ph one Number [facility] DEPARTMENT OF [address] [place] [address] PATHOLOGY AND GENOMIC MEDICINE [address] * CT Abdomen Pelvis W Contrast (03/31/2019 11:55 AM BUSINESS CENTER MANAGER) Only the most recent of 2 results within the time period is included. Specimen Narrative Performed At CT scan abdomen and pelvis. 03/31/2019 [facility] Clinical history: Abdominal pain Technique: Routine protocol CT abdomen and pelvis performed after 100 mL of opaque 350 intravenous contrast. No ent celina contrast was administered. Coronal, sagittal and axial images ge nerated from source data. CT imaging was performed with iterative reconstruction techniques and/or automa sheela exposure control to reduce radiation dose. Dose: 1183.43 mGy-cm Comparison: January 23, 2019 Findings: Clear lung bases. No pleural effusions. Normal heart size. Liver: Normal Gallbladder: Cholecystectomy. A plastic stent traverses a hepaticojejunal anastomosis. There is mild intrahepatic bile duct dilation and pneumobilia. Pancreas: Normal Spleen: Normal Adrenal glands:Normal Kidneys:Normal Ureters and urinary bladder: Normal Uterus and adnexa: Normal for age. Bowel: Normal caliber. No discrete wall thickening. Normal appendix. Peritoneum: Evolving fat necrosis/oment al infarct in the right lower quadrant without fluid collection. Otherwise, st able postsurgical changes. Vasculature: Normal caliber. Grossly un remarkable systemic and portal veins. Portal veins are patent. Lymph nodes: Normal Skeleton: Intact. Soft tissues: Prominent soft tissues pr esent at the surgical incision site and mildly increased relative to January 23, 2019. No discrete fluid collection. Impression: 1.Increased induration along the incisi on site suggesting cellulitis. No evidence of abscess. 2.Evolving right lower quadrant omental infarct or fat necrosis. No drainable fluid collection. 3.Slightly increased intrahepatic bile duct dilation in the setting of hepaticojejunostomy. A stent across the hepaticojejunal anastomosis is stable. Procedure Note Hm Interface, Radiology Results Incoming - 03/31/2019 12:22 PM BUSINESS CENTER MANAGER CT scan abdomen and pelvis. 03/31/2019 Clinical history: Abdominal pain Technique: Routine protocol CT abdomen and pelvis performed after 100 mL of opaque 350 intravenous contrast. No enteric contrast was administered. Coronal, sagittal and axial images generated from source data. CT imaging was performed with iterative reconstruction techniques and/or automated exposure control to reduce radiation dose. Dose: 1183.43 mGy-cm Comparison: January 23, 2019 Findings: Clear lung bases. No pleural effusions. Normal heart size. Liver: Normal Gallbladder: Cholecystectomy. A plastic stent traverses a hepaticojejunal anastomosis. There is mild intrahepatic bile duct dilation and pneumobilia. Pancreas: Normal Spleen: Normal Adrenal glands:Normal Kidneys:Normal Ureters and urinary bladder: Normal Uterus and adnexa: Normal for age. Bowel: Normal caliber. No discrete wall thickening. Normal appendix. Peritoneum: Evolving fat necrosis/omental infarct in the right lower quadrant without fluid collection. Otherwise, stable postsurgical changes. Vasculature: Normal caliber. Grossly unremarkable systemic and portal veins. Portal veins are patent. Lymph nodes: Normal Skeleton: Intact. Soft tissues: Prominent soft tissues present at the surgical incision site and mildly increased relative to January 23, 2019. No discrete fluid collection. Impression: 1.Increased induration along the incisio n site suggesting cellulitis. No evidence of abscess. 2.Evolving right lower quadrant omental infarct or fat necrosis. No drainable fluid collection. 3.Slightly increased intrahepatic bile d uct dilation in the setting of hepaticojejunostomy. A stent across the hepaticojejunal anastomosis is stable. Performing Organization Address City/State/Zipcode Ph one Number [facility] [address] [place] [address] * CT Angiogram Pe Chest (03/31/2019 11:54 AM BUSINESS CENTER MANAGER) Specimen Narrative Performed At EXAMINATION: [facility] CT ANGIOGRAM PE CHEST CLINICAL HISTORY: abd pain TECHNIQUE: CT angiographic images of the chest wer e obtained during intravenous administration of iodinated contrast. C omputerized reformatted images and 3-D MIP images were also obtained and archi thong (CT pulmonary embolus protocol). Approximately 100 cc of Omnipaque [address] scan performed using radiation d ose reduction techniques. Technical factors are evaluated and adjusted to e nsure appropriate moderation of exposure. Automated dose management technology is applied to adjust the radiation dose to minimize expose while achieving a diagnostic quality image. COMPARISON: CT of abdomen and pelvis 03/31/2019. FINDINGS: The main pulmonary artery, right pulmon roxann artery and left pulmonary artery as well as their visualized segmental and subsegmental branches demonstrate no evidence of pulmonary embolism. The pul monary arteries are normal in caliber. There is no evidence of aortic aneurysm or dissection. No mediastinum, hilar or axillary patho logic adenopathy is seen. The heart is normal in caliber. No sylvester cardial effusion is seen. No consolidation or pleural effusion is seen. There is no evidence of pneumothorax. No pulmonary nodule or ma ss is present. Postsurgical change of the abdomen as d iscussed in the CT abdomen and pelvis exam.. IMPRESSION: No CTA evidence of pulmonary embolism. No CTA evidence of aortic aneurysm or d issection. No CT evidence of acute cardiopulmonary process or pneumonia. [id number] Procedure Note Interface, Radiology Results Incoming - 03/31/2019 12:42 PM BUSINESS CENTER MANAGER EXAMINATION: CT ANGIOGRAM PE CHEST CLINICAL HISTORY: abd pain TECHNIQUE: CT angiographic images of the chest were obtained during intravenous administration of iodinated contrast. Computerized reformatted images and 3-D MIP images were also obtained and archived (CT pulmonary embolus protocol). Approximately 100 cc of Omnipaque [address] scan performed using radiation dose reduction techniques. Technical factors are evaluated and adjusted to ensure appropriate moderation of exposure. Automated dose management technology is applied to adjust the radiation dose to minimize expose while achieving a diagnostic quality image. COMPARISON: CT of abdomen and pelvis 03/31/2019. FINDINGS: The main pulmonary artery, right pulmonary artery and left pulmonary artery as well as their visualized segmental and subsegmental branches demonstrate no evidence of pulmonary embolism. The pulmonary arteries are normal in caliber. There is no evidence of aortic aneurysm or dissection. No mediastinum, hilar or axillary pathologic adenopathy is seen. The heart is normal in caliber. No pericardial effusion is seen. No consolidation or pleural effusion is seen. There is no evidence of pneumothorax. No pulmonary nodule or mass is present. Postsurgical change of the abdomen as discussed in the CT abdomen and pelvis exam.. IMPRESSION: No CTA evidence of pulmonary embolism. No CTA evidence of aortic aneurysm or dissection. No CT evidence of acute cardiopulmonary process or pneumonia. [id number] Performing Organization Address [facility] one Number [facility] [address] [place] [address] * ECG 12 lead (03/31/2019 10:07 AM BUSINESS CENTER MANAGER) Ventricular 85 [facility] rate Atrial rate 85 [facility] WA interval 180 [facility] QRSD interval 72 [facility] QT interval 336 [facility] QTC interval 399 [facility] P axis 1 66 [facility] QRS axis 1 28 [facility] T wave axis 47 [facility] EKG impression Normal sinus rhythm-Low [facility] voltage QRS-Borderline ECG-No previous ECGs available- Specimen Narrative Performed At This result has an attachment that is n ot available. Performing Organization Address [facility] one Number [facility] MUSE [address] [place], [place] [id number] * B natriuretic peptide (03/31/2019 10:06 AM BUSINESS CENTER MANAGER) BNP 14 0 - 100 pg/mL [facility] Specimen Blood Performing Organization Address [facility] one Number [facility] DEPARTMENT OF [address] [place] [address] PATHOLOGY AND GENOMIC MEDICINE [address] * Lipase level (03/31/2019 10:06 AM BUSINESS CENTER MANAGER) Only the most recent of 2 results within the time period is included. Lipase 16 13 - 60 U/L [facility] Specimen Plasma specimen Performing Organization Address City/[facility] Ph one Number [facility] DEPARTMENT OF [address] [place] [address] PATHOLOGY AND GENOMIC MEDICINE [address] * Comprehensive metabolic panel (03/31/2019 10:06 AM BUSINESS CENTER MANAGER) Only the most recent of 2 results within the time period is included. [facility] Sodium 138 135 - 148 mEq/L [facility] Potassium 3.9 3.5 - 5.0 mEq/L [facility] Chloride 102 98 - 112 mEq/L [facility] CO2 26 24 - 31 mEq/L [facility] Anion gap 10@ANIO 7 - 15 mEq/L [facility] BUN 10 6 - 20 mg/dL [facility] Creatinine 0.76 0.50 - 0.90 mg/dL [facility] Glucose 96 65 - 99 mg/dL [facility] Calcium 9.0 8.3 - 10.2 mg/dL [facility] Protein 7.5 6.3 - 8.3 g/dL [place] Comment: EPISCOPAL Fihhbrp1044.6-7.0 g/dL [facility] 1 ovlj8546.4-7.6 g/dL 7 months-2jzhb935.1-7.3 g/dL 1-2 ebidn517.6-7.5 g/dL >3 .0-8.0 g/dL 18-5238287.3-8.3 g/dL Albumin 3.2 (L) 3.5 - 5.0 g/dL [facility] A/G ratio 0.7 0.7 - 3.8 [facility] Alkaline 81 35 - 104 U/L [place] phosphatase [facility] AST 13 10 - 35 U/L [facility] ALT 13 5 - 50 U/L [facility] Total bilirubin 0.3 0.0 - 1.2 mg/dL [facility] Specimen Plasma specimen Performing Organization Address [facility] Ph one Number [facility] DEPARTMENT OF [address] [place] [address] PATHOLOGY AND GENOMIC MEDICINE [address] * POC , urine (03/31/2019 9:40 AM BUSINESS CENTER MANAGER) [facility] test Negative urine, POC QC done Yes Specimen Urine * Lactic acid level, SEPSIS - Now and repeat 2x every 3 hours (01/24/2019 7:00 AM CDT) Only the most recent of 3 results within the time period is included. [facility] Lactic acid 1.1 0.5 - 2.2 mmol/L [facility] Specimen Blood Performing Organization Address [facility] Ph one Number [facility] DEPARTMENT OF [address] [place] [address] PATHOLOGY AND [facility] MEDICINE [address] * Gram stain (01/23/2019 7:28 PM CDT) [facility] Gram stain Rare WBC's [place] result Occasional Gram positive rods [facility] Moderate Gram negative rods [facility] Comment: Specimen Information Specimen Source: Urine Specimen Site: Clean catch Specimen Urine Performing Organization Address [facility] one Number [facility] DEPARTMENT OF [address] [place] [address] PATHOLOGY AND GENOMIC MEDICINE [address] * Urine culture (01/23/2019 7:28 PM CDT) [facility] Urine culture Enterobacter cloacae complex [place] isolate >10-5 cfu/ml EP[facility]COP[facility] HOSPITAL characteristics of this assay on this isolate were validated by the Microbiology Laboratory at [facility]. This source has not been approved by the U.S. Food and Drug Administration. The results are not intended to be used as the sole means for clinical diagnosis or patient management. The Microbiology Laboratory is authorized under the clinical [...] Susceptible Enterobacter cloacae complex Performing Organization Address [facility] one Number [facility] DEPARTMENT OF [address] [place] [address] PATHOLOGY AND [facility] [address] * hCG qualitative, serum screen (01/23/2019 5:59 PM CDT) [facility] hCG NegativeComment: Sensitivity [place] qualitative, of HCG test: 25 mIU/mL [facility] Specimen Blood Performing Organization Address [facility] Ph one Number [facility] DEPARTMENT OF [address] [place] [address] PATHOLOGY AND GENOMIC MEDICINE [address] * Amylase level (01/23/2019 5:59 PM CDT) [facility] Amylase 92 28 - 100 U/L [facility] Specimen Blood Performing Organization Address [facility] Ph one Number [facility] DEPARTMENT OF [address] [place] [address] PATHOLOGY AND GENOMIC MEDICINE [address] * Urinalysis screen and microscopy, with reflex to culture (01/23/2019 5:48 PM CDT) Specimen site Clean catch [facility] Color, UA Dark Yellow [facility] Appearance, UA Hazy [facility] Specific 1.027 1.001 - 1.035 [place] gravity, UA [facility] pH, UA 5.0 5.0 - 8.5 [facility] Protein, UA Negative Negative [facility] Glucose, UA Negative Negative [facility] Ketones, UA Trace (A) Negative [facility] Bilirubin, UA Negative Negative [facility] Blood, UA Negative Negative [facility] Nitrite, UA Positive (A) Negative [facility] Urobilinogen, <2.0 <2.0 [facility] Leukocyte Moderate (A) Negative [place] esterase, [facility] Epithelial 5 /HPF [place] cells, [facility] WBC, UA 29 (H) 0 - 4 /HPF [facility] RBC, UA <1 0 - 5 /HPF [facility] Bacteria, UA Moderate (A) None seen [facility] Yeast, UA None seen [facility] Yeast with None seen [place] [facility] Specimen Urine Performing Organization Address City/State/Zipcode Ph one Number [facility] DEPARTMENT OF [address] [place] [address] PATHOLOGY AND [place]IC [place] [address] HOSPITAL after 10/08/2018 Insurance Type Payer Benefit Subscriber ID Effective Phone Address Plan / Dates Group O [employer] xxxxxxxxx [id number] [employer] [facility] Advance Directives For more information, please contact: [phone] Patient [employer] Explanation Type Date Recorded Advance Directives, Living Will and Medical Power of Legal Specialist
--- OUTSIDE RECORDS SUMMARY | 2019-10-09 13:30 | XMS REPORT | Summary of Care ---
Author Author [facility] - Health Organization [facility] - Health Address Unknown Phone Unavailable Care Team Providers Care Fire Protection Engineer Name Role Phone Erickson Patiño PCP Reason for Visit * Reason Comments Medical Records Encounter Details Care Team Description Date Type Department Trae Noel MD [address] [facility] [address] [place] [phone] Medical Records 10/04/2019 Telephone [facility] -[facility] [address] [facility] [address] [place] [phone] Allergies No Known Allergiesdocumented as of this encounter (statuses as of 10/04/2019) Medications End Date Status Medication Sig Dispensed [...] as of this encounter (statuses as of 10/04/2019) Active Problems Problem Noted Date Mixed incontinence 12/19/2016 Well woman exam 12/19/2016 Overview: Done September 2016 pvrosa SMITH w/ Kailash Anne. Pe r pt pap negative then. Has annual exam there Contraception 12/19/2016 Overview: ESSURE since 2006 Vaginal pain 12/19/2016 Overview: Since ESSURE was inserted Candidiasis of vulva and vagina 12/19/2016 STD (sexually transmitted disease) complicating pregn linnette, antepartum 12/19/2016 documented as of this encounter (statuses as of 10/04/2019) Social History Date Tobacco Use Types Packs/Day [...] Signs Not on filedocumented in this encounter Plan of Treatment Care Team Description Date Type Specialty Trae Noel MD [address] [facility] [address] [place] [address] [phone] 10/06/2019 Telemedicine Gastroenterology Visit Health Maintenance Due Date Last Done Comments VARICELLA VACCINES (1 of 01/09/1985 2 - 2-dose childhood series) DTaP,Tdap,and Td Vaccines 01/09/1995 (1 - Tdap) PAP SMEAR 01/09/2005 INFLUENZA VACCINE (Season 01/17/2020 Ended) PNEUMOCOCCAL 0-64 YEARS Aged Out No longer elig ible based COMBINED SERIES on patient's age to complete this topic documented as of this encounter Results Not on filedocumented in this encounter Insurance Type Payer Benefit Subscriber ID Effective Phone Address Plan / Dates Group Medicaid [employer] [place] xxxxxxxxx 0-P PLAN - MANAGED MEDICAID STAR PLUS resent documented as of this encounter
--- OUTSIDE RECORDS SUMMARY | 2019-10-09 13:30 | XMS REPORT ---
Author Author [facility] t Organization [facility] Address [address] [place] [address] Phone Unavailable Care Team Providers Care Ribbing Machine Operator Name Role Phone NONSTAFF PCP Unavailable Trae Noel MD Doctor Unassigned, Name No Attphys Unavailable Jamin SMITH, Guzman Sharma Attphys GENERAL, SERVICE Attphys Unavailable Mina FORBES, Julianna Attphys Unavailable FABRICIO, YOAN Attphys Unavailable Gayle AYOUB Attphys Unavailable PENG, A ROSA Attphys Unavailable Abebe SMITH, Rd Bergeron Attphys Garrett SMITH, Mike Simon Attphys [phone] SOPHY BRYANT M.D. Attphys Unavailable ORGANTRANSPLANT, OP Attphys Unavailable Aleks SMITH, Lai Grove-Te Attphys Juli SMITH, Christophe Garza Attphys Ty SMITH, Betsy Barnhart Attphys FRANKIE CALIXTO M.D. Attphys Unavailable AIXA CERON M.D. Attphys Unavailable GRETCHEN ZHU M.D. Attphys Unavailable VENESSA SIDDIQUI D.O. Attphys Unavailable SURYA OROZCO M.D. Attphys Unavailable TUAN PINTO Attphys Unavailable Payers Payer Name Policy Type Policy Number Effective Date Expiration Date S lauren [facility] Star Com [id number] 2011 00:00:00 2019 00:00:00 [facility] [employer] STAR+PLUS [id number]-PresentO xxxxxxxxx 2008 00:00:00 [facility] Star Com [id number] 2011 00:00:00 2019 00:00:00 [facility] Sarah Star Com [id number] 2019 00:00 :00 [facility] Sarah Star Com [id number] 2019 00:00 :00 [facility] [employer] Star [id number] 2011 00:00:00 [facility] [employer] Star [id number] 2011 00:00:00 [facility] Problems Condition Name Condition Details Condition Category Status Onset Date Resolution Date Last Treatment Date Treating Clinician Comments Source Cellulitis, abdominal wall Cellulitis, abdominal wall Disease Active 2019-03-31 00:00:00 Ry esqueda Wound infection Wound infection Disease Active 2019-01-24 00:00:00 Ry Spiritism History of essential hypertension History of essential hypertens ion Problem Resolved [facility] History of gastroesophageal reflux (GERD) History of g astroesophageal reflux (GERD) Problem Resolved [facility] History of hyperparathyroidism History of hyperparathyroidism Probl em Resolved [facility] History of mixed hyperlipidemia History of mixed hyperlipidemia Problem Resolved [facility] Neck pain Neck pain Problem Active [facility] Hypothyroidism Hypothyroidism Problem Active [facility] Allergic rhinitis Allergic rhinitis Problem Active [facility] Cystitis Cystitis Problem [facility] Nasal polyps Nasal polyps Problem Active [facility] Deviated nasal septum Deviated nasal septum Problem Active [facility] Esophageal reflux Esophageal reflux Problem Active [facility] Candidiasis of vulva and vagina Candidiasis of vulva and vagina Pro blem Active [facility] Hypertrophy of nasal turbinates Hypertrophy of nasal turbinates Pro blem Active [facility] Costochondritis Costochondritis Problem Active [facility] Urinary symptom or sign Urinary symptom or sign Problem Active [facility] Female incontinence Female incontinence Problem Active [facility] Urinary urgency Urinary urgency Problem Active [facility] 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 Active [facility] Urge incontinence of urine Urge incontinence of urine Problem Active [facility] HENRIK (stress urinary incontinence, female) HENRIK (stress urinary incontinence, female) Problem Active [facility] Abnormal uterine bleeding Abnormal uterine bleeding Problem Active [facility] Coccyx pain Coccyx pain Problem Active [facility] Encounter for annual routine gynecological examination Encounter for annual routine gynecological examination Problem Active [facility] Other ovarian cyst, left side Other ovarian cyst, left side Problem Active [facility] Yeast infection Yeast infection Problem Active [facility] Pelvic pain Pelvic pain Problem Active [facility] Goiter diffuse, nontoxic Goiter diffuse, nontoxic Problem Active [facility] Vitamin D insufficiency Vitamin D insufficiency Problem Active [facility] Allergies, Adverse Reactions, Alerts Allergy Name Allergy Type Status Severity Reaction(s) Onset Date Inacti ve Date Treating Clinician Comments Source No Known Allergies DA Active U 2019-01-19 00:00:00 [facility] No Known Allergies DA Active U 2017-08-05 00:00:00 [facility] Family History Family Member Diagnosis Comments Start Date Stop Date Source Unknown Family Member Family history of Diabetes Mellitus Family Hist ory [facility] Unknown Family Member Family history of Hypertension Family History [facility] Social History Social Habit Start Date Stop Date Quantity Comments Source Sex Assigned At Kris priest [facility] Alcohol intake 2019-03-31 00:00:00 2019-03-31 00:00:00 Ex-drinker (fi nding) Ry Chan Smoking Status Start Date Stop Date Source Never smoker Ry lee Medications Ordered Medication Name Filled Medication Name Start Date Stop Da te Current Medication? Ordering Clinician Indication Dosage Frequency Signature (SIG) Comments Components Source Pantoprazole Sodium (Protonix) 40 Mg Suspdr.pkt Pantop razole Sodium (Protonix) 40 Mg Suspdr.pkt 2019-06-17 00:00:00 Yes Yoan Palmer Md 40 Daily [facility] Tramadol Hcl (Ultram 50MG*) 50 Mg Tab Tramadol Hcl (Ultram 5 0MG*) 50 Mg Tab 2019-06-17 00:00:00 Yes Yoan Palmer Md 50 Every 6 Hours as needed for Pain [facility] Naproxen (Naprosyn) 500 Mg Tablet Naproxen (Naprosyn) 500 Mg Tablet 2019-05-28 00:00:00 Yes Hilaria Ayoub Md 500 Twice A Day as needed for Pain [facility] levothyroxine (SYNTHROID, LEVOXYL) 125 mcg tablet 2019-04-01 14:40:23 Yes 125ug QD Take 125 mcg by mouth daily. Ry Chan calcium carbonate (TUMS) 200 mg calcium (500 mg) chewable ta blet 2019-04-01 14:40:23 Yes 2{tbl} Q.[id number] 3D Chew 2 tablets 3 (three) times a day before meals. Ry Chan bacitracin 500 unit/gram ointment 2019-04-01 00:00:00 2018 23:59:00 No QD Apply topically daily for 7 days. Ry Chan mupirocin (BACTROBAN) 2 % cream 2019-04-01 00:00:00 00:00:00 No Q.5D Apply topically 2 (two) times a day for 7 days. Ry Chan Famotidine (Pepcid) 20 Mg Tablet Famotidine (Pepcid) 20 Mg T ablet 2019-02-08 00:00:00 Yes Rosa Khoury Md 20 Twice A Day for Ac id Reflux [facility] levoFLOXacin (LEVAQUIN) 500 MG tablet 2019-01-25 00:00 :00 2019-02-01 23:59:00 No 500mg QD Take 1 tablet (500 mg total) by mouth da zacarias for 7 days. Ry Chan metroNIDAZOLE (FLAGYL) 500 MG tablet 2019-01-24 00:00: 00 2019-01-31 23:59:00 No 500mg Q.[id number] Take 1 tablet (500 mg total) by mouth 3 (three) times a day for 7 days. Ry Chan Synthroid 125 MCG Oral Tablet Synthroid 125 MCG Oral Tablet 2018 00:00:00 Yes [facility] Levothyroxine Sodium 112 Mcg Tablet Levothyroxine Sodium 112 Mcg Tabl et Yes 112 Daily [facility] Immunizations Ordered Immunization Name Filled Immunization Name Date Status Comments Source Td Unknown Completed [facility] Vital Signs Vital Name Observation Time Observation Value Comments Source Systolic blood pressure 2019-07-15 13:45:00 135 mm[Hg] Loca tion: RUE; Position: Sitting [facility] Diastolic blood pressure 2019-07-15 13:45:00 90 mm[Hg] Loc ation: RUE; Position: Sitting [facility] Body height 2019-07-15 13:45:00 59 [in_us] [facility] Weight 2019-07-15 13:45:00 192 [lb_av] [facility] Body mass index (BMI) [Ratio] 2019-07-15 13:45:00 38.78 kg/m2 [facility] Body temperature 2019-07-15 13:45:00 97.9 [degF] Method: Tympanic [facility] Heart Rate 2019-07-15 13:45:00 85 /min [facility] Systolic blood pressure 2019-04-01 07:09:52 111 mm[Hg] [facility] Diastolic blood pressure 2019-04-01 07:09:52 76 mm[Hg] Ry Harringtonist Heart rate 2019-04-01 07:09:52 75 /min Ry Harringtonist Body temperature 2019-04-01 07:09:52 36.39 Hailee Gurinder rausch Spiritism Respiratory rate 2019-04-01 07:09:52 18 /min [place] [facility] Oxygen saturation in Arterial blood by Pulse oximetry 2018-05 07:09:52 100 /min Ry Chan Body weight 2019-04-01 01:52:55 82.328 kg Ry Chan BMI 2019-04-01 01:52:55 36.66 kg/m2 Ry Chan Body height 2019-03-31 08:58:00 149.9 cm Ry Chan BP Systolic 2019-03-23 15:50:00 102 mm[Hg] Location: TACHOE; Positi on: Sitting [facility] BP Diastolic 2019-03-23 15:50:00 69 mm[Hg] Location: HER[place]; Positi on: Sitting [facility] Height 2019-03-23 15:50:00 59 [in_us] [facility] Weight 2019-03-23 15:50:00 177.5 [lb_av] [facility] Body Mass Index Calculated 2019-03-23 15:50:00 35.85 kg/m2 [facility] Temperature 2019-03-23 15:50:00 97.5 [degF] Method: Oral [facility] Heart Rate 2019-03-23 15:50:00 66 /min Location: L Radial; Q uality: Normal [facility] BP Systolic 2018-11-24 13:03:00 115 mm[Hg] Location: TACH[place]; Positi on: Sitting [facility] BP Diastolic 2018-11-24 13:03:00 74 mm[Hg] Location: LUE; Positi on: Sitting [facility] Height 2018-11-24 13:03:00 59 [in_us] [facility] Weight 2018-11-24 13:03:00 185 [lb_av] [facility] Body Mass Index Calculated 2018-11-24 13:03:00 37.37 kg/m2 [facility] Temperature 2018-11-24 13:03:00 98.6 [degF] Method: Oral [facility] Heart Rate 2018-11-24 13:03:00 74 /min Location: L Radial; Q uality: Normal [facility] BP Systolic 2018-10-06 09:27:00 113 mm[Hg] Location: LUE; Positi on: Sitting [facility] BP Diastolic 2018-10-06 09:27:00 73 mm[Hg] Location: LUE; Positi on: Sitting [facility] Height 2018-10-06 09:27:00 59 [in_us] [facility] Weight 2018-10-06 09:27:00 195 [lb_av] [facility] Body Mass Index Calculated 2018-10-06 09:27:00 39.39 kg/m2 [facility] Temperature 2018-10-06 09:27:00 98.7 [degF] Method: Oral [facility] Heart Rate 2018-10-06 09:27:00 62 /min Location: L Radial; Q uality: Normal [facility] BP Systolic 2018-07-23 14:54:00 120 mm[Hg] Location: RUE; Positi on: Sitting [facility] BP Diastolic 2018-07-23 14:54:00 80 mm[Hg] Location: RUE; Positi on: Sitting [facility] Height 2018-07-23 14:54:00 59 [in_us] [facility] Weight 2018-07-23 14:54:00 195 [lb_av] [facility] Body Mass Index Calculated 2018-07-23 14:54:00 39.39 kg/m2 [facility] Temperature 2018-07-23 14:54:00 99 [degF] Method: Oral [facility] Procedures Procedure Date / Time Performed Performing Clinician Sour e BASIC METABOLIC PANEL 2019-04-01 04:40:00 Garrett, Aurora [facility]aza [facility] HC COMPLETE BLD COUNT W/AUTO DIFF 2019-04-01 04:40:00 GarrettAurora claros [place] Spirit[facility] ESTIMATED GFR 2019-04-01 04:40:00 GarrettAurora clarosa n [place] [facility] TROPONIN 2019-04-01 04:40:00 GarrettLing clarossohail Gilbertcolina n Ry Spiritism BLOOD CULTURE, AEROBIC & ANAEROBIC 2019-03-31 20:10:00 Arpan Lomas BLOOD CULTURE, AEROBIC & ANAEROBIC 2019-03-31 20:00:00 Arpan Lomas Spiritism TROPONIN 2019-03-31 15:50:00 GarrettLingsohail Gilbertshae chacho Raza Spiritism CT ABDOMEN PELVIS W CONTRAST 2019-03-31 11:55:[address] ANGIOGRAM PE CHEST 2019-03-31 11:54:45 Rubio Lomas Spiritism ECG 12-LEAD 2019-03-31 10:07:25 Rubio Lomas Ks thodist HC COMPLETE BLD COUNT W/AUTO DIFF 2019-03-31 10:06:00 Denver Lomas COMPREHENSIVE METABOLIC PANEL 2019-03-31 10:06:00 Rubio Lomas LIPASE LEVEL 2019-03-31 10:06:00 Rubio Lomas Me thodist TROPONIN 2019-03-31 10:06:00 GarrettSergeycholo Warebritta chacho [facility] B NATRIURETIC PEPTIDE 2019-03-31 10:06:00 Rubio Lomas Spiritism ESTIMATED GFR 2019-03-31 10:06:00 Rubio Lomas Ks thodist POC , URINE 2019-03-31 09:40:00 Rubio Lomas LACTIC ACID LEVEL, SEPSIS - NOW AND REPEAT 2X EVERY 3 HOURS 2019-01-24 07:00:00 Gretchen Fitch LACTIC ACID LEVEL, SEPSIS - NOW AND REPEAT 2X EVERY 3 HOURS 2019-01-24 02:22:[address] ABDOMEN PELVIS W CONTRAST 2019-01-23 20:40:13 Gretchen Fitch URINE CULTURE 2019-01-23 19:28:00 Gretchen Fitch odjace GRAM STAIN 2019-01-23 19:28:00 Gretchen Fitch HC COMPLETE BLD COUNT W/AUTO DIFF 2019-01-23 17:59:00 Gretchen Fitch COMPREHENSIVE METABOLIC PANEL 2019-01-23 17:59:00 Asmita Fitch HCG QUALITATIVE, SERUM SCREEN 2019-01-23 17:59:00 Asmita Fitch LACTIC ACID LEVEL, SEPSIS - NOW AND REPEAT 2X EVERY 3 HOURS 2019-01-23 17:59:00 Gretchen Fitch AMYLASE LEVEL 2019-01-23 17:59:00 Gretchen Fitch LIPASE LEVEL 2019-01-23 17:59:00 Gretchen Fitch ESTIMATED GFR 2019-01-23 17:59:00 Gretchen Fitch URINALYSIS SCREEN AND MICROSCOPY, WITH REFLEX TO CULTURE 201 01-25-08 17:48:00 Gretchen Fitch Pelvis Transvag w Pelvis Doppler US 2018-11-24 00:00:00 [facility] [[facility]] RPR 2018-10-06 00:00:00 [place] [facility] [] HIV AB, HIV 1/2, EIA, WITH REFLEXES 2018-10-06 00:00:00 [facility] [[facility]] HEPATITIS C ANTIBODY 2018-10-06 00:00:00 U [facility] [Q] HEPATITIS B SURFACE ANTIGEN W/REFL CONFIRM 2018-10-06 00:00 :00 [facility] . [facility] - PAP 2018-10-06 00:00:00 [place] [facility] Pelvis Transvag w Pelvis Doppler US 2018-10-06 00:00:00 [facility] [[facility]] CULTURE, URINE, ROUTINE 2018-07-23 00:00:00 [facility] [[facility]] URINALYSIS, COMPLETE 2018-07-23 00:00:00 U [facility] History of Knee Surgery [facility] History of Hysteroscopic tubal occlusion [facility] History of section [facility] Plan of Care Planned Activity Planned Date Details Comments Source Future Scheduled Test 2019-12-17 00:00:00 INFLUENZA VACCINE [code = INFLUENZA VACCINE] Ry Chan Diagnostic Test Pending 2018-12-20 00:00:00 Pelvis Transvag w Pelvis Doppler US [code = Pelvis Transvag w Pelvis Doppler US] [facility] Diagnostic Test Pending 2018-12-20 00:00:00 Pelvis Transvag w Pelvis Doppler US [code = Pelvis Transvag w Pelvis Doppler US] [facility] Future Scheduled Test 2005-01-09 00:00:00 Screening for guru gnant neoplasm of cervix (procedure) [code = 293347686] Raza Juanyis t Encounters Start Date/Time End Date/Time Encounter Type [facility] Type [facility] Care Department Encounter ID Source 2019-03-28 14:15:05 Outpatient [facility] [id number] [facility] 2018-12-31 05:36:00 Inpatient [facility] MED [id number] [facility] 2018-11-05 17:06:16 Outpatient [facility] [id number] SE 2019-10-06 07:25:48 2019-10-06 07:55:48 Telemedicine Visit Trae Noel [facility] [id number] 2019-10-04 00:00:00 2019-10-04 00:00:00 Orders Only D octor Unassigned, [place] [facility] [id number] 2019-10-04 00:00:00 2019-10-04 00:00:00 Telephone Trae Noel [facility] [id number] 2019-10-03 00:00:00 2019-10-03 00:00:00 Abstract Zachary Neville [facility] [id number] 2019-07-15 12:45:00 2019-07-15 12:45:00 Appointment; TANYA MORENO SERVICE [facility] General Surgery [facility] [id number] [facility] 2019-06-29 12:13:00 2019-06-29 13:05:00 Departed Emergency Room [facility] [id number] [facility] 2019-06-17 15:19:00 2019-06-17 17:19:00 Departed Emergency Room 1 YOAN PALMER [facility] [id number] [facility] 2019-05-28 15:18:00 2019-05-28 16:34:00 Departed Emergency Room 1 HILARIA AYOUB [facility] [id number] [facility] 2019-05-25 08:46:00 2019-05-25 12:39:00 Departed Emergency Room 1 ROSA KHOURY [facility] [id number] [facility] 2019-03-23 15:15:00 2019-03-23 15:15:00 Appointment; SOPHY BRYANT M.D. CROSS, TAMIKA, M.D. [facility] [id number] [facility] 2019-03-21 12:38:00 2019-03-21 12:38:00 Outpatient [facility] MED [id number] [facility] 2019-03-16 13:42:00 2019-03-16 13:42:00 Outpatient [facility] [id number] [facility] 2019-03-09 15:22:00 2019-03-09 16:00:00 Departed Emergency Room [facility] [id number] [facility] 2019-03-02 11:30:00 2019-03-02 11:30:00 Appointment; SOPHY BRYANT M.D. CROSS, TAMIKA, M.D. [facility] UTP [id number] [facility] 2019-02-23 17:19:00 2019-02-23 17:19:00 Outpatient [facility] MED [id number] [facility] 2019-02-23 13:00:00 2019-02-23 13:00:00 Appointment; ORGANTRANSPLAN T, OP ORGANTRANSPLANT, OP UTP UTP [id number] [facility] 2019-02-16 13:31:00 2019-02-16 13:31:00 Outpatient [facility] NATHANAEL [id number] [facility] 2019-02-15 13:00:00 2019-02-15 13:00:00 Appointment; ORGANTRANSPLAN T, OP ORGANTRANSPLANT, OP UTP UTP [id number] [facility] 2019-02-14 05:25:00 2019-02-14 05:25:00 Outpatient E [facility] MED [id number] SE 2019-02-12 22:37:00 2019-02-12 22:37:00 Emergency [facility] [id number] [facility] 2019-02-08 10:15:00 2019-02-08 13:59:00 Departed Emergency Room 1 ELIZABETHKhalifROSA [facility] [id number] [facility] 2019-02-01 10:55:00 2019-02-01 10:55:00 Outpatient [facility] NATHANAEL [id number] [facility] 2019-01-25 11:11:00 2019-01-25 11:11:00 Outpatient [facility] [id number] [facility] 2019-01-21 09:00:00 2019-01-21 09:00:00 Appointment; CANDE CALIXTO M.D. KOSHELEV, MISHA, M.D. [facility] UTP [id number] [facility] 2019-01-18 10:23:00 2019-01-18 10:23:00 Outpatient [facility] NATHANAEL [id number] [facility] 2019-01-18 09:30:00 2019-01-18 09:30:00 Appointment; ORGANTRANSPLAN T, OP ORGANTRANSPLANT, OP UTP UTP [id number] [facility] 2019-01-12 10:44:00 2019-01-12 10:44:00 Outpatient [facility] NATHANAEL [id number] [facility] 2019 09:48:00 2019 09:48:00 Outpatient [facility] [id number] [facility] 2018-12-30 20:34:00 2018-12-30 20:34:00 Emergency E [facility] [id number] [facility] 2018-12-21 13:51:00 2018-12-21 13:51:00 Outpatient [facility] NATHANAEL [id number] [facility] 2018-12-13 15:00:00 2018-12-13 15:00:00 Appointment; PETRA CERON M.D. AHMED, MOUSTAFA, M.D. [facility] [address] [id number] [facility] 2018-11-24 14:45:00 2018-11-24 14:45:00 Appointment; SOPHY BRYANT M.D. CROSS, TAMIKA, M.D. [facility] [id number] [facility] 2018-11-17 15:15:00 2018-11-17 15:15:00 Appointment; SOPHY BRYANT M.D. CROSS, TAMIKA, M.D. [facility] [id number] [facility] 2018-11-12 08:30:00 2018-11-12 08:30:00 Appointment; CANDE CALIXTO M.D. KOSHELEV, MISHA, M.D. [facility] [id number] [facility] 2018-11-10 15:15:00 2018-11-10 15:15:00 Appointment; SOPHY BRYANT M.D. CROSS, TAMIKA, M.D. UTP [facility] [id number] [facility] 2018-11-04 10:30:00 2018-11-04 10:30:00 Appointment; GRETCHEN ZHU M.D. NASSIF, JULIA, M.D. [facility] [id number] [facility] 2018-11-01 14:30:00 2018-11-01 14:30:00 Appointment; GRETCHEN ZHU M.D. NASSIF, JULIA, M.D. [facility] [id number] [facility] 2018-10-19 14:51:00 2018-10-19 14:51:00 Outpatient [facility] [id number] [facility] 2018-10-15 17:10:00 2018-10-15 17:10:00 Outpatient [facility] [id number] [facility] 2018-10-06 09:30:00 2018-10-06 09:30:00 Appointment; SOPHY BRYANT M.D. CROSS, TAMIKA, M.D. [facility] [address] [id number] [facility] 2018-09-27 10:00:00 2018-09-27 10:00:00 Appointment; PETRA CERON M.D. AHMED, MOUSTAFA, M.D. [facility] [id number] [facility] 2018-09-19 01:05:00 2018-09-19 01:05:00 Emergency E [facility] [id number] [facility] 2018-08-25 11:00:00 2018-08-25 11:00:00 Appointment; SOPHY BRYANT M.D. CROSS, TAMIKA, M.D. [facility] [id number] [facility] 2018-08-24 10:30:00 2018-08-24 10:30:00 Appointment; VENESSA SIDDIQUI D.O. DOUGHER, ERIN, D.O. [facility] [id number] [facility] 2018-08-18 08:39:00 2018-08-18 08:39:00 Outpatient [facility] [id number] [facility] 2018-08-13 10:09:00 2018-08-13 10:09:00 Outpatient [facility] [id number] [facility] 2018-08-12 09:30:00 2018-08-12 09:30:00 Appointment; SURYA OROZCO M.D. LI-YUNG HING, ANDREW, M.D. [facility] [id number] [facility] 2018-07-23 13:40:00 2018-07-23 13:40:00 Appointment; VENESSA SIDDIQUI D.O. DOUGHER, ERIN, D.O. [facility] [id number] [facility] 2017-05-27 10:00:00 2017-05-27 10:00:00 Appointment; NEVAEH PINTO MARIANNE [facility] [id number] [facility] Results Test Description Test Time Test Comments Results Result Comments Source - US ABDOMEN LTD 2019-07-14 11:46:00 Name: CARMEN SHEARER [facility] : 1985 Age/S: 34 / F [address] Unit #: [id number] Loc: JOHN PAUL [place] [address] Phys: Pedro Daily MD Acct: [id number] Dis Date: Status: REG ER PHONE #: [phone] Exam Date: 07/14/2019 1130 FAX #: [phone] Reason: ABD PAIN EXAMS: CPT CODE: [id number] ABDOMEN LTD 65003 HISTORY: Abdominal pain. COMPARISON: CT scan from January 19, 2019. Location: [facility]. The liver is mildly hyperechogenic suggesting mild fibrofatty infiltration which slightly limited evaluation for hepatic mass however no discrete lesions. The liver measured 15.2 cm in length. No intra or extrahepatic biliary ductal dilatation. CBD with stent measured 4.4 mm. Main portal vein is patent with hepatopedal flow and normal spectral waveform. Patient is post cholecystectomy. No ascites. Right kidney is free from hydronephrosis and calyceal stones. Normal echogenicity and texture. Right kidney measured 9.7 cm in length. Visualized portions of the IVC, aorta and pancreas are normal however imaged incompletely. IMPRESSION: Patient is post cholecystectomy. Normal CBD. Fibro fatty infiltrated liver without ascites. at 1146 Reported and signed by: Darnell Reinoso M.D. CC: Pedro Daily MD Technologist: STEVEN GONZALEZ RT(R),RDNH Trniab Date/Time: 07/14/2019 (1146) t.SDR.TH4 Orig Print D/T: S: 07/14/2019 (6750) Probe: PAGE 1 Signed Report URINALYSIS COMPLETE 2019-07-14 10:30:00 Test Item UA COLOR (test code = COLU) YELLOW YELLOW UA APPEARANCE (test code = APPU) CLEAR CLEAR UA GLUCOSE DIPSTICK (test code = DGLUU) NEGATIVE mg/dL NEGATIVE UA BILIRUBIN DIPSTICK (test code = BILU) NEGATIVE mg/dL NEGATIVE UA KETONE DIPSTICK (test code = KETU) NEGATIVE mg/dL NEGATIVE UA SPECIFIC GRAVITY (test code = SGU) 1.024 1.001-1.035 UA BLOOD DIPSTICK (test code = SANDEEP) Negative mg/dL NEGATIVE UA PH DIPSTICK (test code = CARLEEN) 7.0 5.0-8.0 UA PROTEIN DIPSTICK (test code = PROU) NEGATIVE mg/dL NEGATIVE UA UROBILINIOGEN DIPSTICK (test code = URO) Normal mg/dL NEGATIVE UA NITRITE DIPSTICK (test code = ANAYELI) NEGATIVE NEGATIVE UA LEUKOCYTE ESTERASE W REFLEX (test code = LEUUR) NEGATIVE Katharine/uL NEGATIVE UA WBC (test code = WBCU) 0-5 per HPF 0-5 UA RBC (test code = RBCU) 0-2 #/HPF 0-5 UA EPITHELIAL CELLS (test code = EPIU) FEW per HPF FEW UA BACTERIA (test code = BACU) FEW #/HPF NONE A UA MUCUS (test code = MUCU) FEW #/LPF FEW Urine Source? Clean CatchBASIC METABOLIC [id number] 10:29:00* Test Item Value Reference Range Interpretation Comments SODIUM (test code = NA) 137 mmol/L 136-145 N POTASSIUM (test code = K) 3.9 mmol/L 3.5-5.1 N CHLORIDE (test code = CL) 104.0 mmol/L 98-107 N CARBON DIOXIDE (test code = CO2) 28.0 mmol/L 21-32 N ANION GAP (test code = GAP) 8.9 10-20 L GLUCOSE (test code = GLU) 89 mg/dL 74-106 N BLOOD UREA NITROGEN (test code = BUN) 11 mg/dL 7-18 N GLOMERULAR FILTRATION RATE (test code = GFR) > 60 mL/min >=60 Estimated GFR by using Modified MDRD formula.Chronic kidney disease is defined as either kidney damageor GFR <60 mL/min/1.73 m2 for >3 months. CREATININE (test code = CREAT) 0.80 mg/dL 0.55-1.02 N Note change in reference range due to change in reagent. BUN/CREATININE RATIO (test code = BUN/CREA) 13.8 10-20 N CALCIUM (test code = CA) 9.0 mg/dL 8.5-10.1 N HEPATIC FUNCTION [id number] 10:29:00* Test Item Value Reference Range Interpretation Comments TOTAL PROTEIN (test code = PROT) 7.6 gram/dL 6.4-8.2 N ALBUMIN (test code = ALB) 2.9 g/dL 3.4-5.0 L GLOBULIN (test code = GLOB) 4.7 gram/dL 2.7-4.2 H ALBUMIN/GLOBULIN RATIO (test code = A/G) 0.6 0.75-1.50 L BILIRUBIN TOTAL (test code = BILT) 0.90 mg/dL 0.0-1.0 N BILIRUBIN DIRECT (test code = BILD) 0.37 mg/dL 0.0-0.20 H SGOT/AST (test code = AST) 139 IUnit/L 15-37 H SGPT/ALT (test code = ALT) 76 IUnit/L 12-78 N ALKALINE PHOSPHATASE TOTAL (test code = ALKP) 158 IUnit/L 45-117 H Note change in reference range due to change in reagent. [id number] 10:29:00* Test Item Value Reference Range Interpretation Comments LIPASE (test code = LIP) 108 U/L 73.0-393.0 N HCG SERUM [id number] 10:29:00* Test Item Value Reference Range Interpretation Comments HCG SERUM QUAL (test code = HCGQL) NEGATIVE [id number] 10:29:00* Test Item Value Reference Range Interpretation Comments TROPONIN-I (test code = TROPI) <0.015 ng/mL 0-0.045 N BASIC METABOLIC [id number] 10:29:00* Test Item Value Reference Range Interpretation Comments SODIUM (test code = NA) 137 mmol/L 136-145 N POTASSIUM (test code = K) 3.9 mmol/L 3.5-5.1 N CHLORIDE (test code = CL) 104.0 mmol/L 98-107 N CARBON DIOXIDE (test code = CO2) 28.0 mmol/L 21-32 N ANION GAP (test code = GAP) 8.9 10-20 L GLUCOSE (test code = GLU) 89 mg/dL 74-106 N BLOOD UREA NITROGEN (test code = BUN) 11 mg/dL 7-18 N GLOMERULAR FILTRATION RATE (test code = GFR) > 60 mL/min >=60 Estimated GFR by using Modified MDRD formula.Chronic kidney disease is defined as either kidney damageor GFR <60 mL/min/1.73 m2 for >3 months. CREATININE (test code = CREAT) 0.80 mg/dL 0.55-1.02 N Note change in reference range due to change in reagent. BUN/CREATININE RATIO (test code = BUN/CREA) 13.8 10-20 N CALCIUM (test code = CA) 9.0 mg/dL 8.5-10.1 N HEPATIC FUNCTION [id number] 10:29:00* Test Item Value Reference Range Interpretation Comments TOTAL PROTEIN (test code = PROT) 7.6 gram/dL 6.4-8.2 N ALBUMIN (test code = ALB) 2.9 g/dL 3.4-5.0 L GLOBULIN (test code = GLOB) 4.7 gram/dL 2.7-4.2 H ALBUMIN/GLOBULIN RATIO (test code = A/G) 0.6 0.75-1.50 L BILIRUBIN TOTAL (test code = BILT) 0.90 mg/dL 0.0-1.0 N BILIRUBIN DIRECT (test code = BILD) 0.37 mg/dL 0.0-0.20 H SGOT/AST (test code = AST) 139 IUnit/L 15-37 H SGPT/ALT (test code = ALT) 76 IUnit/L 12-78 N ALKALINE PHOSPHATASE TOTAL (test code = ALKP) 158 IUnit/L 45-117 H Note change in reference range due to change in reagent. [id number] 10:29:00* Test Item Value Reference Range Interpretation Comments LIPASE (test code = LIP) 108 U/L 73.0-393.0 N HCG SERUM [id number] 10:29:00* Test Item Value Reference Range Interpretation Comments HCG SERUM QUAL (test code = HCGQL) NEGATIVE NEGATIVE This HCGQL test is NOT applicable for MALE patients.Check with nurse about probable order error.If Tumor Marker Test needed, nurse should order test "HCGTU"(Test #550.55116) [id number] 10:29:00* Test Item Value Reference Range Interpretation Comments TROPONIN-I (test code = TROPI) <0.015 ng/mL 0-0.045 N BASIC METABOLIC [id number] 10:13:00* Test Item Value Reference Range Interpretation Comments SODIUM (test code = NA) 137 mmol/L 136-145 N POTASSIUM (test code = K) 3.9 mmol/L 3.5-5.1 N CHLORIDE (test code = CL) 104.0 mmol/L 98-107 N CARBON DIOXIDE (test code = CO2) mmol/L 21-32 ANION GAP (test code = GAP) 10-20 GLUCOSE (test code = GLU) mg/dL 74-106 BLOOD UREA NITROGEN (test code = BUN) mg/dL 7-18 GLOMERULAR FILTRATION RATE (test code = GFR) mL/min >=60 CREATININE (test code = CREAT) mg/dL 0.55-1.02 BUN/CREATININE RATIO (test code = BUN/CREA) 10-20 CALCIUM (test code = CA) mg/dL 8.5-10.1 HEPATIC FUNCTION [id number] 10:13:00* Test Item Value Reference Range Interpretation Comments TOTAL PROTEIN (test code = PROT) gram/dL 6.4-8.2 ALBUMIN (test code = ALB) g/dL 3.4-5.0 GLOBULIN (test code = GLOB) gram/dL 2.7-4.2 ALBUMIN/GLOBULIN RATIO (test code = A/G) 0.75-1.50 BILIRUBIN TOTAL (test code = BILT) mg/dL 0.0-1.0 BILIRUBIN DIRECT (test code = BILD) mg/dL 0.0-0.20 SGOT/AST (test code = AST) IUnit/L 15-37 SGPT/ALT (test code = ALT) IUnit/L 12-78 ALKALINE PHOSPHATASE TOTAL (test code = ALKP) IUnit/L 45-117 [id number] 10:13:00* Test Item Value Reference Range Interpretation Comments LIPASE (test code = LIP) U/L 73.0-393.0 HCG SERUM [id number] 10:13:00* Test Item Value Reference Range Interpretation Comments HCG SERUM QUAL (test code = HCGQL) NEGATIVE [id number] 10:13:00* Test Item Value Reference Range Interpretation Comments TROPONIN-I (test code = TROPI) ng/mL 0-0.045 CBC W/O [id number] 10:07:00* Test Item Value Reference Range Interpretation Comments WHITE BLOOD CELL (test code = WBC) 7.0 K/mm3 4.5-12.5 N RED BLOOD CELL (test code = RBC) 5.09 mill/mm3 3.7-5.2 N HEMOGLOBIN (test code = HGB) 12.3 gram/dL 11.5-15.5 N HEMATOCRIT (test code = HCT) 39.3 % 36.0-46.0 N MEAN CELL VOLUME (test code = MCV) 77.2 fL 80-98 L MEAN CELL HGB (test code = MCH) 24.2 picogram 27.0-33.0 L MEAN CELL HGB CONCETRATION (test code = MCHC) 31.3 gram/dL 33.0-36. 0 L RED CELL DISTRIBUTION WIDTH (test code = RDW) 15.2 % 11.6-16. 2 N PLATELET COUNT (test code = PLT) 242 K/mm3 150-450 N MEAN PLATELET VOLUME (test code = MPV) 9.2 fL 6.7-11.0 N CBC W/O [id number] 10:06:00* Test Item Value Reference Range Interpretation Comments WHITE BLOOD CELL (test code = WBC) K/mm3 4.5-12.5 RED BLOOD CELL (test code = RBC) mill/mm3 3.7-5.2 HEMOGLOBIN (test code = HGB) 12.3 gram/dL 11.5-15.5 N HEMATOCRIT (test code = HCT) 39.3 % 36.0-46.0 N MEAN CELL VOLUME (test code = MCV) fL 80-98 MEAN CELL HGB (test code = MCH) picogram 27.0-33.0 MEAN CELL HGB CONCETRATION (test code = MCHC) gram/dL 33.0-36. 0 RED CELL DISTRIBUTION WIDTH (test code = RDW) % 11.6-16. 2 PLATELET COUNT (test code = PLT) K/mm3 150-450 MEAN PLATELET VOLUME (test code = MPV) fL 6.7-11.0 POC [id number] 11:26:25* Test Item Value Reference Range Interpretation Comments Glucose POC (test code = Glucose POC) 90 mg/dL 70-115 If you consider your patient critically ill, the Lydia-Accu Check Infrom II meter should not be used for Glucose determination. Draw a venous Glucose and send to the main Lab for analysis. HCG Qualitative [id number] 11:06:46* Test Item Value Reference Range Interpretation Comments hCG Ur (test code = hCG Ur) Negative If the result is "Negative" in patients suspected to be , recommend retest with a sample obtained 48 to 72 hours later, or by ordering a quantitative assay. If the result is "Borderline" jonas ting should be repeated in 48 to 72 hours. Lot # (test code = Lot #) [id number] N Expiration Dt (test code = Expiration Dt) 2020-08-15 N Neg Control (test code = Neg Control) Negative Pos Control (test code = Pos Control) Positive Internal QC (test code = Internal QC) Acceptable CT ABD/PEL WITH [id number] 16:50:00 [place] [address] Patient Name: CARMEN SHEARER MR #: [id number] : 1985 Age/Sex: 34/F Req #: [id number] Adm Physician: Ordered by: YOAN PALMER MD Report #: [id number] Location: [facility] Room/Bed: Procedure: [id number] HOPD /CT ABD/PEL WITH CONTRAST-HOPD Exam Date: 06/17/19 E xam Time: 1628 REPORT STATUS: Malinda d CT of the abdomen and pelvis, with contrast, 06/17/2019. Hist ory: Upper abdominal pain. Comparison: 05/25/2019. Technique: Multidetec tor CT scanning of the abdomen and pelvis was performed from the level of the lung bases to the inferior pubic rami after intravenous administration of cont rast. Coronal and sagittal multiplanar reformations were obtained. RA DIATION DOSE: Total DLP: 749 mGy*cm Dose modulation, iterative rec onstruction, and/or weight based adjustment of the mA/kV was utilized to reduc e the radiation dose to as low as reasonably achievable. Discussion: LUNG BASES: No visualized abnormalities. ABDOMEN: Right upper quadrant surg ical clips are present. A plastic biliary stent and pneumobilia are again note d. Gallbladder is absent. The liver, spleen, pancreas, adrenal glands, and kid neys are normal. The hepatic vein, portal vein, and splenic vein are patent. The abdominal aorta is within normal limits for size. Evaluation of bowel is l imited without oral contrast. There is no bowel dilatation. The appendix is vi sualized and is normal.. There is no evidence of adenopathy or free fluid. PELVIS: The bladder, uterus, and adnexa are normal in appearance. Bilateral Essure devices are noted. There is no evidence of free fluid or adenopathy. BONES AND SOFT TISSUES: Degenerative changes are present throughout the tacho mbar spine without evidence of lytic or sclerotic lesion. Postsurgical changes are again noted in the upper anterior abdominal wall. IMPRESSION: S table findings of hepaticojejunostomy. No acute intra-abdominal or pelvic abno rmality. Signed by: Ashvin Cordoba on 06/17/2019 4:56 PM Dictated By: ASHVIN CORDOBA MD 55 T ranscribed By: NADIA on 06/17/191655 COPY TO: YOAN PALMER MD [id number] 16:46:00* Test Item Value Reference Range Interpretation Comments Lipase (test code = 3040-3) 26 8-78 [facility] - [id number] 16:18:00 [place] [address] Patient Name: CARMEN SHEARER MR #: [id number] : 1985 Age/Sex: 34/F Req #: [id number] Adm Physician: Ordered by: HILARIA AYOUB MD Report #: [id number] Location: [facility] Room/Bed: Procedure: [id number] HO PD/KNEE 3VW LT - HOPD Exam Date: 05/28/19 Exam Time: 1608 REPORT STATUS: Signed Left complete knee. CPT CODE: 91545. INDICATION: Fall COMPARISON: None FINDINGS: No evidence of acute fracture or dislocation. Trace medial and patellofemoral compartment narrowing. No joint effusion. No focal osseous lesions. IMPRESSION: No acute traumatic pathology. Signed by: Dr. Reji Horan MD on 05/28/2019 4:19 PM Dictated By: REJI HORAN MD 18 Transcribed By: NADIA on 05/28/191618 COPY TO: HILARIA AYOUB MD FOOT 3 VIEW LT - [id number] 16:17:00 [place] [address] Patient Name: CARMEN SHEARER MR #: [id number] : 1985 Age/Sex: 34/F Req #: [id number] Adm Physician: Ordered by: HILARIA AYOUB MD Report #: [id number] Location: [facility] Room/Bed: Procedure: [id number] HO PD/FOOT 3 VIEW LT - HOPD Exam Date: 05/28/19 Exam Ti me: 1608 REPORT STATUS: Signed F oot complete CPT code: 74802 Indication: Leg pain, foot pain 111 160 Technique: A.P., oblique and lateral views of the left foot obt ained. Comparison: None Findings: The area of pain is not indicated or marked. Calcaneus is intact and normal in morphology. The midfoot is intac t. No evidence of displaced fracture or dislocation involving any of the digi ts. No focal osseous lesions. No radiopaque foreign bodies in the soft tissu es. IMPRESSION: No radiographic abnormality to explain pain. Sig angel by: Dr. Reji Horan MD on 05/28/2019 4:18 PM Dictated By: CARLOS HORAN MD 17 Transcribed By: NADIA on 05/28/191617 COPY TO: HILARIA AYOUB MD ANKLE 3VIEW - [id number] 16:16:00 [place] [address] Patient Name: CARMEN SHEARER MR #: [id number] : 1985 Age/Sex: 34/F Req #: [id number] Adm Physician: Ordered by: HILARIA AYOUB MD Report #: [id number] Location: [facility] Room/Bed: Procedure: HO PD/ANKLE 3VIEW LT - HOPD Exam Date: 05/28/19 Exam Ti me: 1608 REPORT STATUS: Signed A nkle complete CPT CODE: 26353 HISTORY: Leg pain, foot pain TECHNIQU E: Three views left ankle obtained COMPARISON: None. FINDINGS: T he distal tibia and fibula appear intact. Ankle mortise remains symmetric. T he calcaneus appears intact. The visualized portions of the midfoot and foref oot are intact. No focal osseous lesions or degenerative changes. IMPRESSI ON: No evidence of acute fracture or osseous abnormality to explain pain. Signed by: Dr. Reji Horan MD on 05/28/2019 4:17 PM Dictated By: REJI HORAN MD 16 Transcribed By: NADIA on 05/28/191616 COPY TO: HILARIA AYOUB MD CT ABD/PEL WITH [id number]-[id number] 11:44:00 [place] [address] Patient Name: CARMEN SHEARER MR #: [id number] : 1985 Age/Sex: 34/F Req #: [id number] Adm Physician: Ordered by: ROSA KHOURY MD Report #: [id number] Location: [facility] Room/Bed: Procedure: [id number] HOPD/ CT ABD/PEL WITH CONTRAST-HOPD Exam Date: 05/25/19 Ex am Time: 1128 REPORT STATUS: Signed CT of the abdomen and pelvis History: Abdominal pain Comparison: 2 . Technique: Multidetector CT scanning of the abdomen and pelvis was perform ed from the level of the lung bases to the inferior pubic ramus, with IV contr ast. The contrast infiltrated the patient's arm. No intravascular contrast is identified. DOSE REDUCTION: The examination was performed according to de partmental dose-optimization program which includes automated exposure control , adjustment of the mA and/or kV according to patient size and/or use of itera tive reconstruction technique. Discussion: The lung bases are clear. No focal hepatic lesions are identified. Postsurgical changes at the cheryl hepatis are unchanged. A biliary stent is in place. There is no intrahepatic biliary dil atation. The spleen is within normal limits. The bilateral adrenal gla nds are unremarkable. The pancreas is homogeneous in attenuation. There is no pancreatic ductal dilatation. The kidneys are normal in size. There is no hydroureteronephrosis. No renal calculi are identified. The stomach, small, and large bowel are nondistended. There is no evidence of obstruction. No bowel wall thickening is appreciated. The appendix is normal. There is n o free intraperitoneal air or ascites. The uterus is normal limits. Bilater al Essure devices are in place. The urinary bladder is within normal limits . There are postsurgical changes of the anterior abdominal wall. No fluid collection is identified associated with the incisional tract. There are no acute osseous abnormalities. IMPRESSION: 1. Status post hepaticojeju nostomy. Biliary stent is in place. No intrahepatic ductal dilatation. 2. No CT evidence of acute abdominal or pelvic pathology. Signed by: Ant Traylor MD on 05/25/2019 11:50 AM Dictated By: ANT TRAYLOR MD Elect ronically Signed By: ANT TRAYLOR MD on 05/25/19 1150 Transcribed By: AMPARO ISAAC on 05/25/19 1150 COPY TO: ROSA KHOURY MD CXR 2 VIEW - [facility] 2019-05-25 11:39:00 [place] [address] Patient Name: CARMEN SHEARER MR #: [id number] : 1985 Age/Sex: 34/F Req #: [id number] Adm Physician: Ordered by: ROSA KHOURY MD Report #: [id number] Location: [facility] Room/Bed: Procedure: [id number] HOPD/ CXR 2 VIEW - HOPD Exam Date: 05/25/19 Exam Time: 105 0 REPORT STATUS: Signed Chest, P A and lateral. History: Chest pain. Comparison: None available. D iscussion: The cardiomediastinal silhouette and pulmonary vasculature are wit hin normal limits. The lungs are clear without evidence of consolidation or ef fusion. There are no acute osseous abnormalities. IMPRESSION: No acute cardiopulmonary abnormality. Signed by: Ant Traylor MD on 05/25/2019 11 :40 AM Dictated By: ANT TRAYLOR MD 1140 Transcribed By: NADIA on 05/25/19 1140 C OPY TO: ROSA KHOURY MD Blood culture, aerobic & [id number] 00:03:06* Test Item Value Reference Range Interpretation Comments Blood culture isolate (test code = 600-7) No growth after 5 days of incubation. Specimen InformationSpecimen Source: BloodSpecimen Site: Arm, right [facility] 12 [id number] 09:07:57* Test Item Value Reference Range Interpretation Comments Ventricular rate (test code = 253) 85 Atrial rate (test code = 255) 85 LA interval (test code = 266) 180 QRSD interval (test code = 260) 72 QT interval (test code = 264) 336 QTC interval (test code = 265) 399 P axis 1 (test code = 267) 66 QRS axis 1 (test code = 268) 28 T wave axis (test code = 270) 47 EKG impression (test code = 273) Normal sinus rhythm-L ow voltage QRS-Borderline ECG-No previous ECGs available- [facility]-97 07:43:11* Test Item Value Reference Range Interpretation Comments Troponin (test code = 74686-4) <0.006 0-0.04 [facility] [email or web address] changed methodology effective: 09/21/2018 at 10:00 amThe new method has a 99th percentile cutoff of 0.040 ng/mL [facility] with platelet and njicfdbhvrrn7345-89-74 07:41:36* Test Item Value Reference Range Interpretation Comments WBC (test code = 12569-1) 5.03 4.50- 11.00 k/uL RBC (test code = 54743-9) 4.29 m/uL 4.2-5.5 HGB (test code = 718-7) 10.5 g/dL 12-16 L HCT (test code = 4544-3) 34.5 % 37-47 L MCV (test code = 787-2) 80.4 fL 82-100 L MCH (test code = 785-6) 24.5 pg 27-34 L MCHC (test code = 786-4) 30.4 g/dL 31-37 L RDW - SD (test code = 31544-0) 44.2 fL 37-55 MPV (test code = 24630-4) 10.2 fL 8.8-13.2 Platelet count (test code = 28858-7) 266 150- 400 k/uL Nucleated RBC (test code = 52828-3) 0.00 /100 WBC Neutrophils (test code = 58335-6) 56.0 % 39-69 Lymphocytes (test code = 62266-1) 35.2 % 25-45 Monocytes (test code = 88323-2) 7.0 % 0-10 Eosinophils (test code = 39861-9) 1.4 % 0-5 Basophils (test code = 06196-5) 0.2 % 0-1 Immature granulocytes (test code = 46312-9) 0.2 % 0-1 "Immature granulocytes" (promyelocytes, myelocytes, metamyelocytes) Lab Interpretation (test code = 00881-1) Abnormal [facility] metabolic [id number] 07:37:05* Test Item Value Reference Range Interpretation Comments Sodium (test code = 2951-2) 138 135- 148 mEq/L Potassium (test code = 2823-3) 4.0 3.5- 5.0 mEq/L Chloride (test code = 2075-0) 104 98- 112 mEq/L CO2 (test code = 8-9) 23 24- 31 mEq/L L Anion gap (test code = 14438-9) 11@ANIO 7- 15 mEq/L BUN (test code = 3094-0) 7 mg/dL 6-20 Creatinine (test code = 2160-0) 0.80 mg/dL 0.5-0.9 Glucose (test code = 2345-7) 81 mg/dL 65-99 Calcium (test code = 73241-5) 9.1 mg/dL 8.3-10.2 Lab Interpretation (test code = 49831-2) Abnormal [facility] [id number] 07:37:05* Test Item Value Reference Range Interpretation Comments Estimated GFR (test code = 5488) >=90 mL/min/1.73 m2 Catergory Units InterpretationG1 >=90 Normal or highG2 60-89 Mildly ifhfkrsjeX4p 45-59 Mildly to moderately hbestnrxlW4w 30-44 Moderately to severely decreasedG4 15-29 Severely decreasedG5 <15 Kidney failureThe eGFR was calculated using the Chronic Kidney Disease Epidemiology Collaboration (CKD-EPI) equation. Interpretation is based on recommendations of the National Kidney Foundation-Kidney Disease Outcomes Quality Initiative (NKF-KDOQI) published in 2014. [facility] Pe [id number] 12:39:30Hm Interface, Radiology Results - 03/31/2019 12:42 PM CSTEXAMINATION:CT ANGIOGRAM PE CHESTCLINICAL HISTORY: abd painTECHNIQUE:CT angiographic images of the chest were obtained during intravenous administration of iodinated contrast. Computerized reformatted images and 3-D MIP images were also obtained and arch ived (CT pulmonary embolus protocol). Approximately 100 cc of Omnipaque [address] scan performed using radiation dose reduction techniques. Technical factors are evaluated and adjusted to ensure appropriate moderation of exposure. Automated dose management technology is applied to adjust the radiation dose to minimize expose while achieving a diagnostic quality image.COMPARISON:CT of ab domen and pelvis 03/31/2019.FINDINGS:The main pulmonary artery, right pulmonary artery and left pulmonary artery as well as their visualized segmental and subse gmental branches demonstrate no evidence of pulmonary embolism. The pulmonary ar teries are normal in caliber.There is no evidence of aortic aneurysm or dissecti on.No mediastinum, hilar or axillary pathologic adenopathy is seen.The heart is normal in caliber. No pericardial effusion is seen.No consolidation or pleural e ffusion is seen. There is no evidence of pneumothorax. No pulmonary nodule or ma ss is present.Postsurgical change of the abdomen as discussed in the CT abdomen and pelvis exam..IMPRESSION:No CTA evidence of pulmonary embolism.No CTA evidenc e of aortic aneurysm or dissection.No CT evidence of acute cardiopulmonary proce ss or pneumonia.[facility]-[id number] MethodistCT Abdomen Pelvis W Contrast 2019-03-31 12:19:51Hm Interface, Radiology Results 03/31/2019 12:22 PM CSTCT scan abdomen and pelvis. 03/31/2019Clinical history: Abdominal painTechnique: Routine protocol CT abdomen and pelvis performed after 100 mL of opaque 350 intravenous contrast. No enteric contrast was administered. Coronal, sagittal and axial images generated from source data. CT imaging was performed with iterative reconstruction techniques and/or automated exposure control to reduce radiation dose.Dose: 1183.43 mGy-cmComparison: January 23, 2019Findings:Clear lung bases. No pleural effusions. Normal heart size.Liver: NormalGallbladder: Cholecystectomy. A plastic stent traverses a hepaticojejunal anastomosis. There is mild intrahepatic bile duct dilation and pneumobilia.Pancreas: NormalSpleen: NormalAdrenal glands:[place] lKidneys:NormalUreters and urinary bladder: NormalUterus and adnexa: Normal for age.Bowel: Normal caliber. No discrete wall thickening. Normal appendix.Peritone um: Evolving fat necrosis/omental infarct in the right lower quadrant without fl uid collection. Otherwise, stable postsurgical changes.Vasculature: Normal calib er. Grossly unremarkable systemic and portal veins. Portal veins are patent.Lymp h nodes: NormalSkeleton: Intact.Soft tissues: Prominent soft tissues present at the surgical incision site and mildly increased relative to January 23, 2019. N o discrete fluid collection.Impression:1.Increased induration along the incision site suggesting cellulitis. No evidence of abscess.2.Evolving right lower quadr ant omental infarct or fat necrosis. No drainable fluid collection.3.Slightly in creased intrahepatic bile duct dilation in the setting of hepaticojejunostomy. A stent across the hepaticojejunal anastomosis is stable.[facility] natriuretic [id number] 11:55:11* Test Item Value Reference Range Interpretation Comments BNP (test code = 45280-2) 14 pg/mL 0-100 [place] [facility] metabolic [id number] 10:53:09* Test Item Value Reference Range Interpretation Comments Sodium (test code = 2951-2) 138 135- 148 mEq/L Potassium (test code = 2823-3) 3.9 3.5- 5.0 mEq/L Chloride (test code = 5-0) 102 98- 112 mEq/L CO2 (test code = 2027-9) 26 24- 31 mEq/L Anion gap (test code = 53027-5) 10@ANIO 7- 15 mEq/L BUN (test code = 3094-0) 10 mg/dL 6-20 Creatinine (test code = 2160-0) 0.76 mg/dL 0.5-0.9 Glucose (test code = 2345-7) 96 mg/dL 65-99 Calcium (test code = 50637-4) 9.0 mg/dL 8.3-10.2 Protein (test code = 2885-2) 7.5 g/dL 6.3-8.3 Zogbijg8520.6-7.0 g/dL1 cngh0596.4-7.6 g/dL7 months-8tbtf173.1-7.3 g/dL1-2 ubtne867.6-7.5 g/dL>3 waqej161.0-8.0 g/gX38-4262321.3-8.3 g/dL Albumin (test code = 1751-7) 3.2 g/dL 3.5-5 L A/G ratio (test code = 1759-0) 0.7 0.7-3.8 Alkaline phosphatase (test code = 6768-6) 81 U/L 35-104 AST (test code = 1920-8) 13 U/L 10-35 ALT (test code = 1742-6) 13 U/L 5-50 Total bilirubin (test code = 1975-2) 0.3 mg/dL 0-1.2 Lab Interpretation (test code = 76678-1) Abnormal [place] MethodistLipase [id number] 10:53:09* Test Item Value Reference Range Interpretation Comments Lipase (test code = 3040-3) 16 U/L 13-60 [facility] [id number] 09:43:00* Test Item Value Reference Range Interpretation Comments test urine, POC (test code = 9527637) Negative QC done (test code = 298) Yes Lab Interpretation (test code = 64677-9) Normal [place] [facility]CT ABD/PEL WITH [id number]-[id number] 11:35:00 [facility] [address] [address] Patient Name: CARMEN SHEARER MR #: [id number] : 1985 Age/Sex: 34/F Req #: [id number] Adm Physician: Ordered by: ROAS KHOURY MD Report #: [id number] Location: [facility] Room/Bed: Procedure: [id number] HOPD/ CT ABD/PEL WITH CONTRAST-HOPD Exam Date: 02/08/19 Ex am Time: 1131 REPORT STATUS: Signed EXAM: CT Abdomen and Pelvis WITH intravenous contrast INDICATION: Abd ominal pain COMPARISON: None. TECHNIQUE: Abdomen and pelvis were scann ed utilizing a multidetector helical scanner from the lung base to the pubic s ymphysis after administration of IV contrast. Coronal and sagittal reformation s were obtained. Routine protocol was performed. Scan was performed during por morgan venous phase. IV CONTRAST: 100mL of Isovue 370 ORAL CONTRAST: No ne RADIATION DOSE: Total DLP: 731.3 mGy*cm Dose modulation, iterati ve reconstruction, and/or weight based adjustment of the mA/kV was utilized to reduce the radiation dose to as low as reasonably achievable. FINDINGS: LOWER THORAX: Normal. HEPATOBILIARY: Diffuse hepatic steatosis. No focal liver lesions. Postoperative changes at the cheryl hepatis and internal biliary stent in place. Scattered foci of air in the intrahepatic bile ducts, expected in the setting of recent instrumentation. No biliary ductal dilation. SPLEEN: No splenomegaly. PANCREAS: No focal masses or ductal dilatation. ADRENALS: No adrenal nodules. KIDNEYS/URETERS: No hydronephrosis, stones, or solid mass lesions. PELVIC ORGANS/BLADDER: Status post bilateral Essure device placement. PERITONEUM / RETROPERITONEUM: No free air or fluid. Multiple surgical clips in the right abdomen. LYMPH NODES: No lymphadenopathy. VESS ELS: Unremarkable. GI TRACT: Mild sigmoid diverticulosis. No CT evidence of diverticulitis. No abnormal bowel wall thickening. No bowel obstruction. Norm al appendix. BONES AND SOFT TISSUES: Postoperative changes related to anter ior abdominal midline incision. Small areas of focal fluid along the incisiona l tract measure 1.1 cm and 1.0 cm. No acute osseous injury. No suspicious lyti c or blastic lesions. IMPRESSION: Status post recent biliary surgery a nd hepaticojejunostomy. No intrahepatic biliary ductal dilation. Small (1 .1 and 1.0 cm) areas of focal fluid along the anterior midline surgical incisi onal track are likely postoperative phlegmon. No drainable fluid collections. Signed by: Helga Mehta MD on 02/08/2019 11:51 AM Dictated By: BRIANNA MEHTA MD 1151 Transcribed By: NADIA on 02/08/19 1151 COPY TO: ROSA KHOURY MD URINALYSIS [id number] 21:35:00* Test Item Value Reference Range Interpretation Comments UA COLOR (test code = COLU) YELLOW YELLOW UA APPEARANCE (test code = APPU) CLEAR CLEAR UA GLUCOSE DIPSTICK (test code = DGLUU) NEGATIVE mg/dL NEGATIVE UA BILIRUBIN DIPSTICK (test code = BILU) NEGATIVE NEGATIVE UA KETONE DIPSTICK (test code = KETU) TRACE mg/dL NEGATIVE UA SPECIFIC GRAVITY (test code = SGU) 1.025 1.001-1.035 UA BLOOD DIPSTICK (test code = SANDEEP) 3+ (Large) NEGATIVE A UA PH DIPSTICK (test code = CARLEEN) 6.5 5.0-8.0 UA PROTEIN DIPSTICK (test code = PROU) TRACE (15) mg/dL Neg-15 UA UROBILINIOGEN DIPSTICK (test code = URO) 0.2 mg/dL 0.0-0.2 UA NITRITE DIPSTICK (test code = ANAYELI) NEGATIVE NEGATIVE UA LEUKOCYTE ESTERASE W REFLEX (test code = LEUUR) NEGATIVE NEG ATIVE UA WBC (test code = WBCU) 0-5 per HPF 0-5 UA RBC (test code = RBCU) 101-150 #/HPF 0-5 UA EPITHELIAL CELLS (test code = EPIU) FEW per HPF FEW UA BACTERIA (test code = BACU) NONE SEEN #/HPF NONE UA MUCUS (test code = MUCU) MODERATE #/LPF FEW A Urine Source? Clean CatchURINALYSIS [id number] 21:26:00* Test Item Value Reference Range Interpretation Comments UA COLOR (test code = COLU) YELLOW YELLOW UA APPEARANCE (test code = APPU) CLEAR CLEAR UA GLUCOSE DIPSTICK (test code = DGLUU) NEGATIVE mg/dL NEGATIVE UA BILIRUBIN DIPSTICK (test code = BILU) NEGATIVE NEGATIVE UA KETONE DIPSTICK (test code = KETU) TRACE mg/dL NEGATIVE UA SPECIFIC GRAVITY (test code = SGU) 1.025 1.001-1.035 UA BLOOD DIPSTICK (test code = SANDEEP) 3+ (Large) NEGATIVE A UA PH DIPSTICK (test code = CARLEEN) 6.5 5.0-8.0 UA PROTEIN DIPSTICK (test code = PROU) TRACE (15) mg/dL Neg-15 UA UROBILINIOGEN DIPSTICK (test code = URO) 0.2 mg/dL 0.0-0.2 UA NITRITE DIPSTICK (test code = ANAYELI) NEGATIVE NEGATIVE UA LEUKOCYTE ESTERASE W REFLEX (test code = LEUUR) NEGATIVE NEG ATIVE UA WBC (test code = WBCU) per HPF 0-5 UA RBC (test code = RBCU) per HPF 0-5 UA EPITHELIAL CELLS (test code = EPIU) per HPF Few UA BACTERIA (test code = BACU) per HPF NONE Urine Source? Clean CatchBASIC METABOLIC [id number] 19:32:00* Test Item Value Reference Range Interpretation Comments SODIUM (test code = NA) 138 mmol/L 136-145 N POTASSIUM (test code = K) 3.4 mmol/L 3.5-5.1 L CHLORIDE (test code = CL) 104.0 mmol/L 98-107 N CARBON DIOXIDE (test code = CO2) 28.0 mmol/L 21-32 N ANION GAP (test code = GAP) 9.4 10-20 L GLUCOSE (test code = GLU) 103 mg/dL 74-106 N BLOOD UREA NITROGEN (test code = BUN) 7 mg/dL 7-18 N GLOMERULAR FILTRATION RATE (test code = GFR) > 60 mL/min >=60 Estimated GFR by using Modified MDRD formula.Chronic kidney disease is defined as either kidney damageor GFR <60 mL/min/1.73 m2 for >3 months. CREATININE (test code = CREAT) 0.60 mg/dL 0.55-1.02 N Note change in reference range due to change in reagent. BUN/CREATININE RATIO (test code = BUN/CREA) 11.6 10-20 N CALCIUM (test code = CA) 8.6 mg/dL 8.5-10.1 N HEPATIC FUNCTION [id number] 19:32:00* Test Item Value Reference Range Interpretation Comments TOTAL PROTEIN (test code = PROT) 7.4 gram/dL 6.4-8.2 N ALBUMIN (test code = ALB) 3.0 g/dL 3.4-5.0 L GLOBULIN (test code = GLOB) 4.4 gram/dL 2.7-4.2 H ALBUMIN/GLOBULIN RATIO (test code = A/G) 0.7 0.75-1.50 L BILIRUBIN TOTAL (test code = BILT) 0.20 mg/dL 0.0-1.0 N BILIRUBIN DIRECT (test code = BILD) 0.07 mg/dL 0.0-0.20 N SGOT/AST (test code = AST) 11 IUnit/L 15-37 L SGPT/ALT (test code = ALT) 11 IUnit/L 12-78 L ALKALINE PHOSPHATASE TOTAL (test code = ALKP) 66 IUnit/L 45-117 N Note change in reference range due to change in reagent. CREATINE KINASE (CK)2019-01-31 19:32:00* Test Item Value Reference Range Interpretation Comments CREATINE KINASE (CK) (test code = CK) 49 IUnit/L 26-208 N [id number] 19:32:00* Test Item Value Reference Range Interpretation Comments LIPASE (test code = LIP) 87 U/L 73.0-393.0 N [id number] 19:32:00* Test Item Value Reference Range Interpretation Comments MAGNESIUM (test code = MAG) 2.1 mg/dL 1.8-2.4 N HCG SERUM [id number] 19:32:00* Test Item Value Reference Range Interpretation Comments HCG SERUM QUAL (test code = HCGQL) NEGATIVE NEGATIVE This HCGQL test is NOT applicable for MALE patients.Check with nurse about probable order error.If Tumor Marker Test needed, nurse should order test "HCGTU"(Test #550.63623) THYROID STIMULATING [id number] 19:32:00* Test Item Value Reference Range Interpretation Comments THYROID STIMULATING HORMONE (test code = TSH) 3.280 uIU/mL 0.36-3.7 4 N TSH REFERENCE RANGES: EUTHYROID: 0.35 - 4.3 mIU/mL HYPO : > 5.5 mIU/mL HYPER : < 0.35 mIU/mL [id number] 19:32:00* Test Item Value Reference Range Interpretation Comments TROPONIN-I (test code = TROPI) <0.015 ng/mL 0-0.045 N [id number] 19:32:00* Test Item Value Reference Range Interpretation Comments ALCOHOL (test code = ALC) < 3 mg/dL 0.0-3.0 N -- INTERPRETIVE DATA NOTE: POSITIVE SCREENING RESULTS SHOULD BE CONSIDERED PRESUMPTIVE.WHEN COLLECTED FOR MEDICAL PURPOSES ONLY. SPECIMEN WILL NOTBE COLLECTED BY CHAIN OF CUSTODY.IF A CONFIRMATION OF POSITIVE RESULTS IS DESIRED, ACONFIRMATION TEST MUST BE REQUESTED BY THE PHYSICIAN AT ANADDITIONAL CHARGE TO THE PATIENT. BASIC METABOLIC [id number] 19:16:00* Test Item Value Reference Range Interpretation Comments SODIUM (test code = NA) 138 mmol/L 136-145 N POTASSIUM (test code = K) 3.4 mmol/L 3.5-5.1 L CHLORIDE (test code = CL) 104.0 mmol/L 98-107 N CARBON DIOXIDE (test code = CO2) mmol/L 21-32 ANION GAP (test code = GAP) 10-20 GLUCOSE (test code = GLU) mg/dL 74-106 BLOOD UREA NITROGEN (test code = BUN) mg/dL 7-18 GLOMERULAR FILTRATION RATE (test code = GFR) mL/min >=60 CREATININE (test code = CREAT) mg/dL 0.55-1.02 BUN/CREATININE RATIO (test code = BUN/CREA) 10-20 CALCIUM (test code = CA) mg/dL 8.5-10.1 HEPATIC FUNCTION [id number] 19:16:00* Test Item Value Reference Range Interpretation Comments TOTAL PROTEIN (test code = PROT) gram/dL 6.4-8.2 ALBUMIN (test code = ALB) g/dL 3.4-5.0 GLOBULIN (test code = GLOB) gram/dL 2.7-4.2 ALBUMIN/GLOBULIN RATIO (test code = A/G) 0.75-1.50 BILIRUBIN TOTAL (test code = BILT) mg/dL 0.0-1.0 BILIRUBIN DIRECT (test code = BILD) mg/dL 0.0-0.20 SGOT/AST (test code = AST) IUnit/L 15-37 SGPT/ALT (test code = ALT) IUnit/L 12-78 ALKALINE PHOSPHATASE TOTAL (test code = ALKP) IUnit/L 45-117 CREATINE KINASE (CK)2019-01-31 19:16:00* Test Item Value Reference Range Interpretation Comments CREATINE KINASE (CK) (test code = CK) IUnit/L 26-208 [id number] 19:16:00* Test Item Value Reference Range Interpretation Comments LIPASE (test code = LIP) U/L 73.0-393.0 [id number] 19:16:00* Test Item Value Reference Range Interpretation Comments MAGNESIUM (test code = MAG) mg/dL 1.8-2.4 HCG SERUM [id number] 19:16:00* Test Item Value Reference Range Interpretation Comments HCG SERUM QUAL (test code = HCGQL) NEGATIVE NEGATIVE This HCGQL test is NOT applicable for MALE patients.Check with nurse about probable order error.If Tumor Marker Test needed, nurse should order test "HCGTU"(Test #550.28631) THYROID STIMULATING [id number] 19:16:00* Test Item Value Reference Range Interpretation Comments THYROID STIMULATING HORMONE (test code = TSH) uIU/mL 0.36-3.7 4 [id number] 19:16:00* Test Item Value Reference Range Interpretation Comments TROPONIN-I (test code = TROPI) ng/mL 0-0.045 [id number] 19:16:00* Test Item Value Reference Range Interpretation Comments ALCOHOL (test code = ALC) mg/dL 0-3 PROTHROMBIN [id number] 19:16:00* Test Item Value Reference Range Interpretation Comments PROTHROMBIN TIME PATIENT (test code = PTP) 13.6 seconds 9.0-14.0 N INTERNATIONAL NORMAL RATIO (test code = INR) 1.2 0.8-1.2 N The therapeutic range for oral anticoagulant therapy [...] (2.5-3.5) IS PATIENT ON ANTICOAGULANTS? NTHROMBOPLASTIN TIME [id number] 19:16:00* Test Item Value Reference Range Interpretation Comments THROMBOPLASTIN TIME PARTIAL (test code = PTT) 31.4 seconds 25.0-36. 5 N IS PATIENT ON ANTICOAGULANTS? NBASIC METABOLIC [id number] 19:15:00* Test Item Value Reference Range Interpretation Comments SODIUM (test code = NA) mmol/L 136-145 POTASSIUM (test code = K) mmol/L 3.5-5.1 CHLORIDE (test code = CL) mmol/L 98-107 CARBON DIOXIDE (test code = CO2) mmol/L 21-32 ANION GAP (test code = GAP) 10-20 GLUCOSE (test code = GLU) mg/dL 74-106 BLOOD UREA NITROGEN (test code = BUN) mg/dL 7-18 GLOMERULAR FILTRATION RATE (test code = GFR) mL/min >=60 CREATININE (test code = CREAT) mg/dL 0.55-1.02 BUN/CREATININE RATIO (test code = BUN/CREA) 10-20 CALCIUM (test code = CA) mg/dL 8.5-10.1 HEPATIC FUNCTION [id number] 19:15:00* Test Item Value Reference Range Interpretation Comments TOTAL PROTEIN (test code = PROT) gram/dL 6.4-8.2 ALBUMIN (test code = ALB) g/dL 3.4-5.0 GLOBULIN (test code = GLOB) gram/dL 2.7-4.2 ALBUMIN/GLOBULIN RATIO (test code = A/G) 0.75-1.50 BILIRUBIN TOTAL (test code = BILT) mg/dL 0.0-1.0 BILIRUBIN DIRECT (test code = BILD) mg/dL 0.0-0.20 SGOT/AST (test code = AST) IUnit/L 15-37 SGPT/ALT (test code = ALT) IUnit/L 12-78 ALKALINE PHOSPHATASE TOTAL (test code = ALKP) IUnit/L 45-117 CREATINE KINASE (CK)2019-01-31 19:15:00* Test Item Value Reference Range Interpretation Comments CREATINE KINASE (CK) (test code = CK) IUnit/L 26-208 [id number] 19:15:00* Test Item Value Reference Range Interpretation Comments LIPASE (test code = LIP) U/L 73.0-393.0 [id number] 19:15:00* Test Item Value Reference Range Interpretation Comments MAGNESIUM (test code = MAG) mg/dL 1.8-2.4 HCG SERUM [id number] 19:15:00* Test Item Value Reference Range Interpretation Comments HCG SERUM QUAL (test code = HCGQL) NEGATIVE NEGATIVE This HCGQL test is NOT applicable for MALE patients.Check with nurse about probable order error.If Tumor Marker Test needed, nurse should order test "HCGTU"(Test #550.80529) THYROID STIMULATING [id number] 19:15:00* Test Item Value Reference Range Interpretation Comments THYROID STIMULATING HORMONE (test code = TSH) uIU/mL 0.36-3.7 4 [id number] 19:15:00* Test Item Value Reference Range Interpretation Comments TROPONIN-I (test code = TROPI) ng/mL 0-0.045 [id number] 19:15:00* Test Item Value Reference Range Interpretation Comments ALCOHOL (test code = ALC) mg/dL 0-3 CBC W/O [id number] 19:02:00* Test Item Value Reference Range Interpretation Comments WHITE BLOOD CELL (test code = WBC) 8.1 K/mm3 4.5-12.5 N RED BLOOD CELL (test code = RBC) 3.93 mill/mm3 3.7-5.2 N HEMOGLOBIN (test code = HGB) 10.3 gram/dL 11.5-15.5 L HEMATOCRIT (test code = HCT) 32.4 % 36.0-46.0 L MEAN CELL VOLUME (test code = MCV) 82.4 fL 80-98 N MEAN CELL HGB (test code = MCH) 26.2 picogram 27.0-33.0 L MEAN CELL HGB CONCETRATION (test code = MCHC) 31.8 gram/dL 33.0-36. 0 L RED CELL DISTRIBUTION WIDTH (test code = RDW) 15.4 % 11.6-16. 2 N PLATELET COUNT (test code = PLT) 308 K/mm3 150-450 N MEAN PLATELET VOLUME (test code = MPV) 9.2 fL 6.7-11.0 N - CT HEAD/BRAIN W/O [id number] 18:03:00 Name: CARMEN SHEARER [facility] : 1985 Age/S: 34 / F [address] Unit #: [id number] Loc: [place] [address] Phys: Elmira Patel MD Acct: [id number] Dis Date: Status: REG ER PHONE #: [phone] Exam Date: 01/31/2019 180 FAX #: [phone] Reason: dizzy EXAMS: CPT CODE: [id number] CT HEAD/BRAIN W/O CONT 84067 REASON FOR EXAM: dizzy EXAM ORDER DATE: 01/31/2019 5:36 PM Ordering M.Franco.: Elmira Patel MD PROCEDURE: - CT HEAD/BRAIN [...] EZRA Holm CTDI: DLP: Trnscb Date/Time: 01/31/2019 (180) [place] Orig Print D/T: S: 01/31/2019 (1806) PAGE 1 Signed Report Gram [id number] 11:52:05Gram stain resultRare WBC'sOccasional Gram positive rodsModerate Gram negative rods Comment: Specimen InformationSpecimen Source: UrineSpecimen Site: Clean catch [facility] Lactic acid level, SEPSIS - Now and repeat 2x every 3 [id number] 08:08:36* Test Item Value Reference Range Interpretation Comments Lactic acid (test code = 73701-1) 1.1 mmol/L 0.5-2.2 [place] MethodistUrinalysis screen and microscopy, with reflex to culture 2019-01-23 19:28:07* Test Item Value Reference Range Interpretation Comments Specimen site (test code = 7089517) Clean catch Color, UA (test code = 5778-6) Dark Yellow Appearance, UA (test code = 5767-9) Hazy Specific gravity, UA (test code = 5811-5) 1.027 1.001-1.035 pH, UA (test code = 5803-2) 5.0 5.0-8.5 Protein, UA (test code = 82736-7) Negative Negative Glucose, UA (test code = 86566-1) Negative Negative Ketones, UA (test code = 2514-8) Trace Negative A Bilirubin, UA (test code = 5770-3) Negative Negative Blood, UA (test code = 5794-3) Negative Negative Nitrite, UA (test code = 5802-4) Positive Negative A Urobilinogen, UA (test code = 82931-4) <2.0 <2.0 Leukocyte esterase, UA (test code = 5799-2) Moderate Negative A Epithelial cells, UA (test code = 5787-7) 5 /HPF WBC, UA (test code = 5821-4) 29 0- 4 /HPF H RBC, UA (test code = 97821-7) <1 0- 5 /HPF Bacteria, UA (test code = 04238-2) Moderate None seen A Yeast, UA (test code = 50357-0) None seen Yeast with pseudohyphae, UA (test code = 95501-9) None seen Lab Interpretation (test code = 46957-3) Abnormal [place] MethodistAmylase [id number] 18:47:18* Test Item Value Reference Range Interpretation Comments Amylase (test code = 1798-8) 92 U/L 28-100 [place] MethodisthCG qualitative, serum [id number] 18:33:30* Test Item Value Reference Range Interpretation Comments hCG qualitative, serum (test code = 2118-8) Negative Sensitivity of HCG test: 25 mIU/mL [place] MethodistURINALYSIS [id number] 14:37:00* Test Item Value Reference Range Interpretation Comments UA COLOR (test code = COLU) FLAKITA YELLOW A UA APPEARANCE (test code = APPU) HAZY CLEAR A UA GLUCOSE DIPSTICK (test code = DGLUU) NEGATIVE mg/dL NEGATIVE UA BILIRUBIN DIPSTICK (test code = BILU) NEGATIVE mg/dL NEGATIVE UA KETONE DIPSTICK (test code = KETU) 10 (1+) mg/dL NEGATIVE A UA SPECIFIC GRAVITY (test code = SGU) 1.030 1.001-1.035 UA BLOOD DIPSTICK (test code = SANDEEP) Negative mg/dL NEGATIVE UA PH DIPSTICK (test code = CARLEEN) 5.5 5.0-8.0 UA PROTEIN DIPSTICK (test code = PROU) 10 (Trace) mg/dL NEGATIVE A UA UROBILINIOGEN DIPSTICK (test code = URO) 1 mg/dL (1+) mg/dL NEG ATIVE UA NITRITE DIPSTICK (test code = ANAYELI) POSITIVE NEGATIVE A UA LEUKOCYTE ESTERASE W REFLEX (test code = LEUUR) 25 Katharine/uL (Trace) Katharine/uL NEGATIVE A UA WBC (test code = WBCU) 11-20 per HPF 0-5 A UA RBC (test code = RBCU) 0-2 #/HPF 0-5 UA EPITHELIAL CELLS (test code = EPIU) FEW per HPF FEW UA BACTERIA (test code = BACU) FEW #/HPF NONE A UA HYALINE CAST (test code = HYALU) 0-2 #/LPF 0-5 UA MUCUS (test code = MUCU) FEW #/LPF FEW Urine Source? Clean Catch- CT ABD PELVIS [id number] 14:27:00 Name: CARMEN SHEARER [facility] : 1985 Age/S: 34 / F [address] Unit #: [id number] Loc: [place] [address] Phys: Shakira Gray MD Acct: [id number] Di s Date: Status: REG ER PHONE #: [phone] Exam Date: 01/19/2019 8950 FAX #: Reason: recent gallbladder resection, worsening pain, d EXAMS: CPT CODE: [id number] CT ABD PELVIS W/CONT 29155 REASON FOR EXAM: recent g allbladder resection, [...] 1 Signed Report (CONTINUED) Name: CARMEN SHEARER [facility] : 1985 Age/S: 34 / F [address] [facility] Unit #: [id number] Loc: [place] [address] Phys: Umberto Gray MD Acct: [id number] Dis Date: Status: REG ER PHONE #: [phone] Exam Date: 08/2018 1354 FAX #: [phone] Reason: recent gallbl adder resection, worsening pain, d EXAMS: CPT CODE: [id number] CT ABD PELVIS W/CONT 00916 <Continued> Musculoskeletal structures and abdominal wall: Fatty [...] grossly stable from the previous study. at 1422 Reported and signed by: Neeraj Day MD CC: Umberto Gray MD Technologist:Rachel Whaley RT(R),CT CTDI: DLP: Trnscb Date/Time: 01/19/2019 (1426) t.SDR.RR31 Orig Print D/T: S: 01/19/2019 (3660) PAGE 2 Signed Report - XR CHEST 1 [id number] 13:59:00 FAX: Umberto Gray MD [place]: St: REG Name: CARMEN MCKENNA [facility] : [birth year] Age/S: 34/F [address] [facility] Unit #: [id number] Loc: [place] [address] Phys: Umberto Gray MD Acct: [id number] Dis Date: Status: REG ER PHONE #: [phone] Exam Date: 01/19/2019 1250 FAX #: [phone] Reason: chest pain EXAMS: CPT CODE: [id number] XR CHEST 1 V 96986 REASON FOR EXAM: chest pain Exam Order [...] limits. IMPRESSION: No acute cardiopulmonary process. at 1359 Reported and signed by: Neeraj Day MD CC: Umberto Gray MD Technologist: RT ARANZA(R) Trnscrd Date/Time/By: 01/19/2019 (1043) : By: FriedaRR31 Orig Print D/T: S: 01/19/2019 (2715) PAGE 1 Signed Report CBC W/O [id number] 12:39:00 * Test Item Value Reference Range Interpretation Comments WHITE BLOOD CELL (test code = WBC) 8.0 K/mm3 4.5-12.5 N RED BLOOD CELL (test code = RBC) 4.14 mill/mm3 3.7-5.2 N HEMOGLOBIN (test code = HGB) 10.7 gram/dL 11.5-15.5 L HEMATOCRIT (test code = HCT) 34.2 % 36.0-46.0 L MEAN CELL VOLUME (test code = MCV) 82.6 fL 80-98 N MEAN CELL HGB (test code = MCH) 25.8 picogram 27.0-33.0 L MEAN CELL HGB CONCETRATION (test code = MCHC) 31.3 gram/dL 33.0-36. 0 L RED CELL DISTRIBUTION WIDTH (test code = RDW) 16.0 % 11.6-16. 2 N PLATELET COUNT (test code = PLT) 322 K/mm3 150-450 N MEAN PLATELET VOLUME (test code = MPV) 9.6 fL 6.7-11.0 N [id number] 12:17:00* Test Item Value Reference Range Interpretation Comments TROPONIN-I (test code = TROPI) <0.015 ng/mL 0-0.045 N BASIC METABOLIC [id number] 12:14:00* Test Item Value Reference Range Interpretation Comments SODIUM (test code = NA) 140 mmol/L 136-145 N POTASSIUM (test code = K) 3.7 mmol/L 3.5-5.1 N CHLORIDE (test code = CL) 107.0 mmol/L 98-107 N CARBON DIOXIDE (test code = CO2) 27.0 mmol/L 21-32 N ANION GAP (test code = GAP) 9.7 10-20 L GLUCOSE (test code = GLU) 98 mg/dL 74-106 N BLOOD UREA NITROGEN (test code = BUN) 7 mg/dL 7-18 N GLOMERULAR FILTRATION RATE (test code = GFR) > 60 mL/min >=60 Estimated GFR by using Modified MDRD formula.Chronic kidney disease is defined as either kidney damageor GFR <60 mL/min/1.73 m2 for >3 months. CREATININE (test code = CREAT) 0.60 mg/dL 0.55-1.02 N Note change in reference range due to change in reagent. BUN/CREATININE RATIO (test code = BUN/CREA) 11.7 10-20 N CALCIUM (test code = CA) 9.3 mg/dL 8.5-10.1 N HEPATIC FUNCTION [id number] 12:14:00* Test Item Value Reference Range Interpretation Comments TOTAL PROTEIN (test code = PROT) 7.2 gram/dL 6.4-8.2 N ALBUMIN (test code = ALB) 3.0 g/dL 3.4-5.0 L GLOBULIN (test code = GLOB) 4.2 gram/dL 2.7-4.2 N ALBUMIN/GLOBULIN RATIO (test code = A/G) 0.7 0.75-1.50 L BILIRUBIN TOTAL (test code = BILT) 0.80 mg/dL 0.0-1.0 N BILIRUBIN DIRECT (test code = BILD) 0.24 mg/dL 0.0-0.20 H SGOT/AST (test code = AST) 13 IUnit/L 15-37 L SGPT/ALT (test code = ALT) 15 IUnit/L 12-78 N ALKALINE PHOSPHATASE TOTAL (test code = ALKP) 68 IUnit/L 45-117 N Note change in reference range due to change in reagent. [id number] 12:14:00* Test Item Value Reference Range Interpretation Comments LIPASE (test code = LIP) 143 U/L 73.0-393.0 N HCG SERUM [id number] 12:14:00* Test Item Value Reference Range Interpretation Comments HCG SERUM QUAL (test code = HCGQL) NEGATIVE NEGATIVE This HCGQL test is NOT applicable for MALE patients.Check with nurse about probable order error.If Tumor Marker Test needed, nurse should order test "HCGTU"(Test #550.30672) BASIC METABOLIC [id number] 12:06:00* Test Item Value Reference Range Interpretation Comments SODIUM (test code = NA) 140 mmol/L 136-145 N POTASSIUM (test code = K) 3.7 mmol/L 3.5-5.1 N CHLORIDE (test code = CL) 107.0 mmol/L 98-107 N CARBON DIOXIDE (test code = CO2) mmol/L 21-32 ANION GAP (test code = GAP) 10-20 GLUCOSE (test code = GLU) mg/dL 74-106 BLOOD UREA NITROGEN (test code = BUN) mg/dL 7-18 GLOMERULAR FILTRATION RATE (test code = GFR) mL/min >=60 CREATININE (test code = CREAT) mg/dL 0.55-1.02 BUN/CREATININE RATIO (test code = BUN/CREA) 10-20 CALCIUM (test code = CA) mg/dL 8.5-10.1 HEPATIC FUNCTION [id number] 12:06:00* Test Item Value Reference Range Interpretation Comments TOTAL PROTEIN (test code = PROT) gram/dL 6.4-8.2 ALBUMIN (test code = ALB) g/dL 3.4-5.0 GLOBULIN (test code = GLOB) gram/dL 2.7-4.2 ALBUMIN/GLOBULIN RATIO (test code = A/G) 0.75-1.50 BILIRUBIN TOTAL (test code = BILT) mg/dL 0.0-1.0 BILIRUBIN DIRECT (test code = BILD) mg/dL 0.0-0.20 SGOT/AST (test code = AST) IUnit/L 15-37 SGPT/ALT (test code = ALT) IUnit/L 12-78 ALKALINE PHOSPHATASE TOTAL (test code = ALKP) IUnit/L 45-117 [id number] 12:06:00* Test Item Value Reference Range Interpretation Comments LIPASE (test code = LIP) U/L 73.0-393.0 HCG SERUM [id number] 12:06:00* Test Item Value Reference Range Interpretation Comments HCG SERUM QUAL (test code = HCGQL) NEGATIVE BASIC METABOLIC [id number] 12:06:00* Test Item Value Reference Range Interpretation Comments SODIUM (test code = NA) 140 mmol/L 136-145 N POTASSIUM (test code = K) 3.7 mmol/L 3.5-5.1 N CHLORIDE (test code = CL) 107.0 mmol/L 98-107 N CARBON DIOXIDE (test code = CO2) mmol/L 21-32 ANION GAP (test code = GAP) 10-20 GLUCOSE (test code = GLU) mg/dL 74-106 BLOOD UREA NITROGEN (test code = BUN) mg/dL 7-18 GLOMERULAR FILTRATION RATE (test code = GFR) mL/min >=60 CREATININE (test code = CREAT) mg/dL 0.55-1.02 BUN/CREATININE RATIO (test code = BUN/CREA) 10-20 CALCIUM (test code = CA) mg/dL 8.5-10.1 HEPATIC FUNCTION [id number] 12:06:00* Test Item Value Reference Range Interpretation Comments TOTAL PROTEIN (test code = PROT) gram/dL 6.4-8.2 ALBUMIN (test code = ALB) g/dL 3.4-5.0 GLOBULIN (test code = GLOB) gram/dL 2.7-4.2 ALBUMIN/GLOBULIN RATIO (test code = A/G) 0.75-1.50 BILIRUBIN TOTAL (test code = BILT) mg/dL 0.0-1.0 BILIRUBIN DIRECT (test code = BILD) mg/dL 0.0-0.20 SGOT/AST (test code = AST) IUnit/L 15-37 SGPT/ALT (test code = ALT) IUnit/L 12-78 ALKALINE PHOSPHATASE TOTAL (test code = ALKP) IUnit/L 45-117 [id number] 12:06:00* Test Item Value Reference Range Interpretation Comments LIPASE (test code = LIP) U/L 73.0-393.0 HCG SERUM [id number] 12:06:00* Test Item Value Reference Range Interpretation Comments HCG SERUM QUAL (test code = HCGQL) NEGATIVE NEGATIVE This HCGQL test is NOT applicable for MALE patients.Check with nurse about probable order error.If Tumor Marker Test needed, nurse should order test "HCGTU"(Test #550.33847) - CT ABD PELVIS W/[id number] 16:38:00 Name: CARMEN SHEARER [facility] : 1985 Age/S: 34 / F [address] Unit #: [id number] Loc: [place] [address] Phys: Sonido Bales MD Acct: [id number] Dis Date: Status: REG ER PHONE #: [phone] Exam Date: 01/09/2019 1616 FAX #: [phone] Reason: abd pain, recent GB surgery EXAMS: CPT CODE: [id number] CT ABD PELVIS W/CONT 90212 REASON FOR EXAM: abd pain, recent GB [...] 1 Signed Report (CONTINUED) Name: CARMEN SHEARER [facility]: 1985 Age/S: 34 / F [address] [facility] Unit #: [id number] Loc: JOHN PAUL [place] [address] Phys: Amadou Bales MD Acct: [id number] Dis Date: Status: REG ER PHONE #: Exam Date: 01/09/2019 1616 FAX #: [phone] Reason: abd pain, recent GB surgery EXAMS: CPT CODE: [id number] CT ABD PELVIS W /CONT 57373 <Continued> Musculoskeletal structures and abdominal wall: Postsurgical [...] Neeraj Day MD CC: Amadou Bales MD Technologist:Rachel Whaley RT( R),CT CTDI: DLP: Trnscb Date/Time: 01/09/2019 (1638) t.SDR.RR31 Orig Print D/T: S: 01/09/2019 (2761) PAGE 2 Signed Report BASIC METABOLIC PANEL 2019-01-09 15:59:00* Test Item Value Reference Range Interpretation Comments SODIUM (test code = NA) 143 mmol/L 136-145 N POTASSIUM (test code = K) 3.6 mmol/L 3.5-5.1 N CHLORIDE (test code = CL) 106.0 mmol/L 98-107 N CARBON DIOXIDE (test code = CO2) 28.0 mmol/L 21-32 N ANION GAP (test code = GAP) 12.6 10-20 N GLUCOSE (test code = GLU) 112 mg/dL 74-106 H BLOOD UREA NITROGEN (test code = BUN) 7 mg/dL 7-18 N GLOMERULAR FILTRATION RATE (test code = GFR) > 60 mL/min >=60 Estimated GFR by using Modified MDRD formula.Chronic kidney disease is defined as either kidney damageor GFR <60 mL/min/1.73 m2 for >3 months. CREATININE (test code = CREAT) 0.70 mg/dL 0.55-1.02 N Note change in reference range due to change in reagent. BUN/CREATININE RATIO (test code = BUN/CREA) 9.6 10-20 L CALCIUM (test code = CA) 8.7 mg/dL 8.5-10.1 N HEPATIC FUNCTION [id number] 15:59:00* Test Item Value Reference Range Interpretation Comments TOTAL PROTEIN (test code = PROT) 7.0 gram/dL 6.4-8.2 N ALBUMIN (test code = ALB) 2.9 g/dL 3.4-5.0 L GLOBULIN (test code = GLOB) 4.1 gram/dL 2.7-4.2 N ALBUMIN/GLOBULIN RATIO (test code = A/G) 0.7 0.75-1.50 L BILIRUBIN TOTAL (test code = BILT) 0.30 mg/dL 0.0-1.0 N BILIRUBIN DIRECT (test code = BILD) 0.07 mg/dL 0.0-0.20 N SGOT/AST (test code = AST) 10 IUnit/L 15-37 L SGPT/ALT (test code = ALT) 23 IUnit/L 12-78 N ALKALINE PHOSPHATASE TOTAL (test code = ALKP) 73 IUnit/L 45-117 N Note change in reference range due to change in reagent. [id number] 15:59:00* Test Item Value Reference Range Interpretation Comments LIPASE (test code = LIP) 104 U/L 73.0-393.0 N HCG SERUM [id number] 15:59:00* Test Item Value Reference Range Interpretation Comments HCG SERUM QUAL (test code = HCGQL) NEGATIVE NEGATIVE This HCGQL test is NOT applicable for MALE patients.Check with nurse about probable order error.If Tumor Marker Test needed, nurse should order test "HCGTU"(Test #550.37441) BASIC METABOLIC [id number] 15:58:00* Test Item Value Reference Range Interpretation Comments SODIUM (test code = NA) 143 mmol/L 136-145 N POTASSIUM (test code = K) 3.6 mmol/L 3.5-5.1 N CHLORIDE (test code = CL) 106.0 mmol/L 98-107 N CARBON DIOXIDE (test code = CO2) 28.0 mmol/L 21-32 N ANION GAP (test code = GAP) 12.6 10-20 N GLUCOSE (test code = GLU) 112 mg/dL 74-106 H BLOOD UREA NITROGEN (test code = BUN) 7 mg/dL 7-18 N GLOMERULAR FILTRATION RATE (test code = GFR) > 60 mL/min >=60 Estimated GFR by using Modified MDRD formula.Chronic kidney disease is defined as either kidney damageor GFR <60 mL/min/1.73 m2 for >3 months. CREATININE (test code = CREAT) 0.70 mg/dL 0.55-1.02 N Note change in reference range due to change in reagent. BUN/CREATININE RATIO (test code = BUN/CREA) 9.6 10-20 L CALCIUM (test code = CA) 8.7 mg/dL 8.5-10.1 N HEPATIC FUNCTION [id number] 15:58:00* Test Item Value Reference Range Interpretation Comments TOTAL PROTEIN (test code = PROT) 7.0 gram/dL 6.4-8.2 N ALBUMIN (test code = ALB) 2.9 g/dL 3.4-5.0 L GLOBULIN (test code = GLOB) 4.1 gram/dL 2.7-4.2 N ALBUMIN/GLOBULIN RATIO (test code = A/G) 0.7 0.75-1.50 L BILIRUBIN TOTAL (test code = BILT) 0.30 mg/dL 0.0-1.0 N BILIRUBIN DIRECT (test code = BILD) 0.07 mg/dL 0.0-0.20 N SGOT/AST (test code = AST) 10 IUnit/L 15-37 L SGPT/ALT (test code = ALT) 23 IUnit/L 12-78 N ALKALINE PHOSPHATASE TOTAL (test code = ALKP) 73 IUnit/L 45-117 N Note change in reference range due to change in reagent. [id number] 15:58:00* Test Item Value Reference Range Interpretation Comments LIPASE (test code = LIP) 104 U/L 73.0-393.0 N HCG SERUM [id number] 15:58:00* Test Item Value Reference Range Interpretation Comments HCG SERUM QUAL (test code = HCGQL) NEGATIVE BASIC METABOLIC [id number] 15:52:00* Test Item Value Reference Range Interpretation Comments SODIUM (test code = NA) 143 mmol/L 136-145 N POTASSIUM (test code = K) 3.6 mmol/L 3.5-5.1 N CHLORIDE (test code = CL) 106.0 mmol/L 98-107 N CARBON DIOXIDE (test code = CO2) mmol/L 21-32 ANION GAP (test code = GAP) 10-20 GLUCOSE (test code = GLU) mg/dL 74-106 BLOOD UREA NITROGEN (test code = BUN) mg/dL 7-18 GLOMERULAR FILTRATION RATE (test code = GFR) mL/min >=60 CREATININE (test code = CREAT) mg/dL 0.55-1.02 BUN/CREATININE RATIO (test code = BUN/CREA) 10-20 CALCIUM (test code = CA) mg/dL 8.5-10.1 HEPATIC FUNCTION [id number] 15:52:00* Test Item Value Reference Range Interpretation Comments TOTAL PROTEIN (test code = PROT) gram/dL 6.4-8.2 ALBUMIN (test code = ALB) g/dL 3.4-5.0 GLOBULIN (test code = GLOB) gram/dL 2.7-4.2 ALBUMIN/GLOBULIN RATIO (test code = A/G) 0.75-1.50 BILIRUBIN TOTAL (test code = BILT) mg/dL 0.0-1.0 BILIRUBIN DIRECT (test code = BILD) mg/dL 0.0-0.20 SGOT/AST (test code = AST) IUnit/L 15-37 SGPT/ALT (test code = ALT) IUnit/L 12-78 ALKALINE PHOSPHATASE TOTAL (test code = ALKP) IUnit/L 45-117 [id number] 15:52:00* Test Item Value Reference Range Interpretation Comments LIPASE (test code = LIP) U/L 73.0-393.0 HCG SERUM [id number] 15:52:00* Test Item Value Reference Range Interpretation Comments HCG SERUM QUAL (test code = HCGQL) NEGATIVE CBC W/O [id number] 15:51:00* Test Item Value Reference Range Interpretation Comments WHITE BLOOD CELL (test code = WBC) 7.6 K/mm3 4.5-12.5 N RED BLOOD CELL (test code = RBC) 4.07 mill/mm3 3.7-5.2 N HEMOGLOBIN (test code = HGB) 10.4 gram/dL 11.5-15.5 L HEMATOCRIT (test code = HCT) 33.3 % 36.0-46.0 L MEAN CELL VOLUME (test code = MCV) 81.8 fL 80-98 N MEAN CELL HGB (test code = MCH) 25.6 picogram 27.0-33.0 L MEAN CELL HGB CONCETRATION (test code = MCHC) 31.2 gram/dL 33.0-36. 0 L RED CELL DISTRIBUTION WIDTH (test code = RDW) 15.9 % 11.6-16. 2 N PLATELET COUNT (test code = PLT) 303 K/mm3 150-450 N MEAN PLATELET VOLUME (test code = MPV) 9.3 fL 6.7-11.0 N Pelvis Transvag w Pelvis Doppler [id number] 17:15:00Pelvis Transvag w Pelvis Doppler USCLINICAL HX: - ovarian cyst left side;COMPARISON: 07/15/2018TECHNIQUE: Multiple static transabdominal and endovaginal images of the pelvisare submitted for review. Endovaginal images were performed in an attempt tobetter visualize the endometrial stripe and adnexal regions.FINDINGS:U TERUS: The uterus measures approximately 7.5 cm in the sagittal length. Theuteru s is unremarkable in appearance. The endometrial stripe measures 15 mm. OVARIES: The right ovary measures 2.6 x 1.7 x 1.5 cm in size, and the leftovary measures 4.1 x 2.1 x 1.8 cm in size. 2.1 x 1.6 cm oval exophytic cyst isnoted along the left ovary.No free fluid is present in the cul-de-sac.IMPRESSION:Mild enlargemen t of previously noted left ovarian cyst.No other significant sonographic abnorma lity is noted.SL: DEIDRE--Read by: Luis Chavez MDDictated Date/time: 16:16Electronically Signed by: Luis Chavez MD 10/17/1915:20FINAL REPORTUnSan[facility][] HIV-1/2 Antigen and Antibodies, Fourth Generation, with [id number] 10:44:00* Test Item Value Reference Range Interpretation Comments HIV AG/AB, 4TH GEN; Normal (test code = 58383-2) NON-REACTIVE NON-R EACTIVE N HIV-1 antigen and HIV-1/HIV-2 antibodies were notdetected. There is no laboratory evidence of HIVinfection. PLEASE NOTE: This information has been disclosed toyou from records whose confidentiality may beprotected by state law. If your state requires suchprotection, then the state law prohibits you frommaking any further disclosure of the informationwithout the specific written consent of the personto whom it pertains, or as otherwise permitted by law.A general authorization for the release of medical orother information is NOT sufficient for this purpose. For additional information please refer t [email or web address]/faq/BKT695(This link is being provided for informational/educational purposes only.) The performance of this assay has not been clinicallyvalidated in patients less than 2 years old. [facility][] HEPATITIS B SURFACE ANTIGEN W/REFL CONFIRM 2018-10-06 10:44:00* Test Item Value Reference Range Interpretation Comments HEPATITIS B SURFACE ANTIGEN; Normal (test code = 5195-3) NON -REACTIVE NON-REACTIVE N [facility]] HEPATITIS C [id number] 10:44:00* Test Item Value Reference Range Interpretation Comments HEPATITIS C ANTIBODY; Normal (test code = 85080-3) NON-REACTIVE NON -REACTIVE N SIGNAL TO CUT-OFF (test code = SIGNAL TO CUT-OFF) 0.02 <1.0 0 N HCV antibody was non-reactive. There is no laboratory evidence of HCV infection. In most cases, no further action is required. However,if recent HCV exposure is suspected, a test for HCV RNA(test code 27941) is suggested. For additional information please refer tohttp://[email or web address]/faq/WDY16p6(This link is being provided for informational/educational purposes only.) [facility]] [id number] 10:44:00* Test Item Value Reference Range Interpretation Comments RPR (MONITOR) W/REFL TITER (REFL) (test code = RPR (MONITOR) W/REFL TITER (REFL)) NON-REACTIVE NON-REACTIVE N [facility]. [facility] - [id number] 00:00:00* Test Item Value Reference Range Interpretation Comments PAP REPORT (test code = 12811-1) See Comment [facility]] URINALYSIS, [id number] 20:09:01* Test Item Value Reference Range Interpretation Comments UA Color (test code = 5778-6) Yellow UA Turbidity; Abnormal (test code = 44744-1) Slight Clear A UA Spec Grav (test code = 5810-7) 1.023 <=1.030 UA pH (test code = 5803-2) 5.0 5.0-8.0 UA Protein (test code = 71677-5) Negative Negative UA Glucose (test code = 87531-3) Negative Negative UA Ketones; Abnormal (test code = 96882-5) 20 mg/dl Negative A UA Bili (test code = 5770-3) Negative Negative UA Blood (test code = 5794-3) Negative Negative UROBILINOGEN (test code = 66074-1) <=1.0 0.1-1.0 UA Nitrite (test code = 5802-4) Negative Negative UA Leuk Est (test code = 5799-2) Negative Negative UA RBC (test code = 96593-8) 1 {/HPF} 0-2 UA WBC (test code = 42583-5) 1 {/HPF} 0-5 UA Mucus (test code = 8247-9) Few None Seen UA Sq Epi (test code = 24630-3) Few Few Urine Hyaline Casts (test code = 61174-9) 1 {/LPF} 0-2 [facility]] CULTURE, URINE, [id number] 20:09:01* Test Item Value Reference Range Interpretation Comments FINAL REPORT (test code = FINAL REPORT) No Growth [facility]
--- OUTSIDE RECORDS SUMMARY | 2019-10-09 13:30 | XMS REPORT | Summary of Care ---
Author Author [facility] - Health Organization [facility] - Health Address Unknown Phone Unavailable Care Team Providers Care Youth Development Professional Name Role Phone Erickson Patiño PCP Encounter Details Care Team Description Date Type Department Doctor Unassigned, [address] [place] [address] 10/04/2019 Orders Only [facility] [address] [place] [address] Allergies No Known Allergiesdocumented as of this [...] Date Type Specialty Trae Noel MD [address] [facility] [address] [place] [phone] 10/06/2019 Telemedicine Gastroenterology Visit Health Maintenance Due Date Last Done Comments VARICELLA VACCINES (1 of 01/09/1985 2 - 2-dose childhood series) DTaP,Tdap,and Td Vaccines 01/09/1995 (1 - Tdap) PAP SMEAR 01/09/2005 INFLUENZA VACCINE (Season 01/17/2020 Ended) PNEUMOCOCCAL 0-64 YEARS Aged Out No longer elig ible based COMBINED SERIES on patient's age to complete this topic documented as of this encounter Procedures Comments Procedure Name Priority Date/Time Associated Diag nosis EXTERNAL PROVIDER RECORDS Routine 10/04/2019 12:01 AM CDT documented in this encounter Results Not on filedocumented in this encounter Insurance Type Payer Benefit Subscriber ID Effective Phone Address Plan / Dates Group Medicaid [employer] [place] xxxxxxxxx 0-P PLAN - MANAGED MEDICAID STAR PLUS resent documented as of this encounter
--- OUTSIDE RECORDS SUMMARY | 2019-10-09 13:30 | XMS REPORT | Summary of Care ---
Author Author [facility] - Health Organization [facility] - Health Address Unknown Phone Unavailable Care Team Providers Care Petroleum Refining Firer Name Role Phone Erickson Patiño PCP Reason for Referral * Radiology Services (Routine) Referred By Contact Referred To Contact Status Reason Specialty Diagnoses / Procedures Zain Hackett MD [address] [place] [address] [address] New Request Diagnostic Diagnoses Radiology Pain in both knees, unspecified chronicity P rocedures XR KNEE 3 VW BILATERAL Encounter Details Care Team Description Date Type Department Zachary Neville MD [address] [place] [phone] Pain in both knees, unspecified chronici ty (Primary Dx) 10/03/2019 Abstract [facility] ed[facility] Surgery- [place] [address] [facility] [address] [place] [address] Allergies No Known Allergiesdocumented as of this encounter (statuses as of 10/03/2019) Medications End Date Status Medication Sig Dispensed [...] as of this encounter (statuses as of 10/03/2019) Active Problems Problem Noted Date Mixed incontinence [...] as of this encounter (statuses as of 10/03/2019) Social History Date Tobacco Use Types Packs/Day [...] Treatment Care Team Description Date Type Specialty Zain Hackett MD [address] [place] [address] [place] [address] [phone] 10/03/2019 Appointment Radiology Zain Hackett MD [address] [place] [address] [place] [address] [phone] 10/03/2019 Office Visit Orthopedic Surgery Trae Noel MD [address] [facility] [address] [place] [address] [phone] 10/06/2019 Telemedicine Gastroenterology Visit Order Schedule Name Type Priority Associated Diag noses Expected: 10/03/2019, Expires: 1 XR KNEE 3 VW BILATERAL IMAGING Routine Pain in both knees, unspecified chronicity Health Maintenance Due Date Last Done Comments VARICELLA VACCINES (1 of 01/09/1985 2 - 2-dose childhood series) DTaP,Tdap,and Td Vaccines 01/09/1995 (1 - Tdap) PAP SMEAR 01/09/2005 INFLUENZA VACCINE (Season 01/17/2020 Ended) PNEUMOCOCCAL 0-64 YEARS Aged Out No longer franchesca byrne based COMBINED SERIES on patient's age to complete this topic documented as of this encounter Results Not on filedocumented in this encounter Visit Diagnoses Diagnosis Pain in both knees, unspecified chronic ity - Primary documented in this encounter Insurance Type Payer Benefit Subscriber ID Effective Phone Address Plan / Dates Group Medicaid [employer] [place] xxxxxxxxx 0-P PLAN - MANAGED MEDICAID STAR PLUS resent documented as of this encounter
--- OUTSIDE RECORDS SUMMARY | 2019-10-09 13:30 | XMS REPORT | Clinical Summary ---
Author Author [facility] Address Unknown Phone Unavailable Care Team Providers Care Global Compensation Director Name Role Phone PCP Unavailable Allergies Not on File Medications Not on file Active Problems Not on file Social History Date Tobacco Use Types Packs/Day Years Used Never Assessed Sex Assigned at Date Recorded Not on file Industry Job Start Date Occupation Not on file Not on file Not on file Travel End Travel History Travel Start No recent travel history available. Last Filed Vital Signs Not on file Plan of Treatment Not on file Results Not on fileafter 10/08/2018
[2019-10-09] MEDS ORDERED: ONDANSETRON HCL INJ 2MG/ML 2ML 2 MG/ML VIAL IV STA (14:02)
[2019-10-09] MEDS ORDERED: MORPHINE SULFATE INJ 4 MG/ML INJ 1ML IV STA (14:02)
[2019-10-09] MEDS ORDERED: MORPHINE SULFATE INJ 4 MG/ML INJ 1ML ONE (14:50)
[2019-10-09] MEDS ORDERED: ONDANSETRON HCL INJ 2MG/ML 2ML 2 MG/ML VIAL ONE (14:50)
[2019-10-09] MEDS ORDERED: SODIUM CHLORIDE 0.9% 100 ML ONE (14:53)
[2019-10-09] MEDS ORDERED: IOPAMIDOL 370 MG/ML 200 ML INFUS..BTL INJ ONE (14:53)
--- NOTE | 2019-10-09 15:58 | Emergency Department Note ---
History of Present Illnes History of Present Illness Chief Complaint: epigastric pain History of Present Illness This is a 34 year old female. was doing well well prior to this. then epigastric pain the radiates to chest and bue. Historian: Patient Arrival Mode: Car History limited by: condition of the patient (normal) Rn Telemetry Required: No Location: epigatric pain Quality: sharp Radiation: other (chest then bue) Severity: severe Onset quality: sudden Duration (how long): hour(s) (2) Timing of current episode: constant Progression: worsening Chronicity: new Context: recent illness, recent surgery, recent immobilization, recent travel, trauma/injury, new medications, hx of DVT/PE, non-compliance w/ medications Relieving factors: none Exacerbating factors: none Associated symptoms: nausea/vomiting (+ just nausea) Treatments prior to arrival: none Past Medical/Family History Physician Review I have reviewed the patient's past medical and family history. Any updates have been documented here. Past Medical History Recent Fever: No Clinical Suspicion of Infectio: No New/Unexplained Change in Ment: No Past Medical History: Hypothyroidism, Anemia, GERD, Lupus Other Medical History: prediabetic Past Surgical History: Cholecysctectomy, Tubal Ligation, , Knee Replacement Other Surgery: Biliary stent Social History Smoking Cessation: Never Smoker Counseling Performed: No Any Illegal Drug Use: No TB Exposure/Symptoms: No Physically hurt or threatened: No Family History Family history of heart diseas: No Other Last Tetanus: UNK Any Pre-Existing Lines (PICC,: No Is patient up to date on immun: No Review of Systems Review of Systems Constitutional: no symptoms EENTM: no symptoms Cardiovascular: no symptoms Respiratory: no symptoms Gastrointestinal: as per HPI, abdominal pain, nausea; constipation, diarrhea, vomiting Genitourinary: no symptoms Musculoskeletal: no symptoms Neurological: no symptoms Psychological: no symptoms Endocrine: no symptoms Hematological/Lymphatic: no symptoms Review of other systems All other systems reviewed and negative. Physical Exam Related Data Allergies: Coded Allergies: No Known Allergies (Unverified , 02/08/19) Triage Vital Signs Vital Signs Date Time Temp Pulse Resp B/P (MAP) Pulse Ox O2 Delivery O2 Flow Rate FiO2 10/09/19 15:48 68 18 138/96 99 Vital signs reviewed: Yes Physical Exam CONSTITUTIONAL Constitutional: well-developed, well-nourished HENT HENT: normocephalic, atraumatic, oropharynx clear/moist, nose normal HENT L/R: left ext ear normal, right ext ear normal EYES Eyes: PERRL, conjunctivae normal NECK Neck: ROM normal PULMONARY Pulmonary: effort normal, breath sounds normal CARDIOVASCULAR Cardiovascular: regular rhythm, heart sounds normal, capillary refill normal, normal rate GASTROINTESTINAL Abdominal: soft, bowel sounds normal; distension; tender (epigastric ), guarding; mass, rebound, hernia, left CVA tenderness, right CVA tenderness GENITOURINARY Genitourinary: exam deferred SKIN Skin: warm, dry MUSCULOSKELETAL Musculoskeletal: ROM normal NEUROLOGICAL Neurological: alert, oriented x 3, no gross motor or sensory deficits PSYCHOLOGICAL Psychological: mood/affect normal, judgement normal Results Laboratory Lab results reviewed: Yes (cbc, cmp, strep, influenza, uhcg mormal, covid pending) Imaging Imaging results reviewed: Yes (CT CHEST/ABD/PELVIS= NEG) Critical Care Time Subsequent provider I assumed direction of critical care for this patient from another provider of my specialty. Assessment & Plan Reassessment Reassessment SYMPTOMS RESOLVED Assessment & Plan Final Impression: (1) GERD (gastroesophageal reflux disease) (2) Acute gastritis Assessment & Plan take zofran and viscous lidocaine as prescribed. take over the counter maalox or mylanta with the viscous lidocaine Depart Disposition: HOME, SELF-CARE Last Vital Signs Date Time Temp Pulse Resp B/P (MAP) Pulse Ox O2 Delivery O2 Flow Rate FiO2 10/09/19 15:48 68 18 138/96 99 Home Meds Active Scripts Tramadol Hcl* (ULTRAM 50MG*) 50 Mg Tab, 50 MG PO Q6H PRN for PAIN, #20 TAB 0 Refills Prov:YOAN REGALADO MD 06/17/19 Pantoprazole Sodium (PROTONIX) 40 Mg Suspdr.pkt, 40 MG PO DAILY, #20 TAB Prov:YOAN REGALADO MD 06/17/19 Naproxen (NAPROSYN) 500 Mg Tablet, 500 MG PO BID PRN for pain for 7 Days, #15 Prov:HILARIA AYOUB MD 05/28/19 Famotidine (PEPCID) 20 Mg Tablet, 20 MG PO BID for acid reflux, #30 TAB 0 Refills Prov:SARAVANAN KHOURY MD 02/08/19 Reported Medications Levothyroxine Sodium (LEVOTHYROXINE SODIUM) 112 Mcg Tablet, 112 MCG PO DAILY, #30 TAB 06/17/19 Medications in the ED Ondansetron HCl 4 mg NOW STAT IV Last administered on 10/09/19at 14:49; Admin Dose 4 MG; Start 10/09/19 at 14:02; Stop 10/09/19 at 14:12; Status DC Morphine Sulfate 4 mg ONCE STAT IV Last administered on 10/09/19at 14:49; Admin Dose 4 MG; Start 10/09/19 at 14:02; Stop 10/09/19 at 14:12; Status DC Ondansetron HCl 4 mg STK-MED ONCE .ROUTE ; Start 10/09/19 at 14:50; Stop 10/09/19 at 14:45; Status DC Morphine Sulfate 4 mg STK-MED ONCE .ROUTE ; Start 10/09/19 at 14:50; Stop 10/09/19 at 14:45; Status DC Sodium Chloride 100 ml @ ud STK-MED ONCE .ROUTE ; Start 10/09/19 at 14:53; Stop 10/09/19 at 14:49; Status DC Iopamidol 74,000 mg STK-MED ONCE INJ ; Start 10/09/19 at 14:53; Stop 10/09/19 at 14:49; Status DC JORGE GARRISON October 09, 2019 15:58
--- NOTE | 2019-10-09 17:27 | Diagnostic Imaging Report ---
EXAMINATION: CTA of the chest, abdomen and pelvis with and without contrast. TECHNIQUE: Spiral CT images of the chest, abdomen and pelvis were performed from the lung apices to the lesser trochanters before and after the intravenous administration of 100 cc of Isovue 370 and the oral administration of water. Coronal and sagittal reformatted images were obtained. COMPARISON: CT abdomen and pelvis with contrast 06/17/2019 and 05/25/2019 CLINICAL HISTORY:Chest and shoulder pain, middle abdominal pain radiating to chest, suspect dissection DISCUSSION: AORTA AND PROXIMAL BRANCHES: The thoracic aorta is normal without evidence of aneurysm or dissection. There is no evidence of intramural or periaortic hematoma. There is preservation of the sinotubular junction. Common origin of the left common carotid and right innominate artery. The innominate, proximal subclavian, and common carotid arteries are normal in size. The abdominal aorta is normal. The celiac trunk, SMA, and GISELLE are patent. Single renal arteries are present bilaterally both of which are patent. The iliac vessels and proximal femoral arteries are normal. Measurements of the aorta obtained orthogonal to the longitudinal axis on reconstruction views are as follows: 2.5 cm at the level of the sinuses of Valsalva, 2.3 cm at the sino-tubular junction, 2.7 cm in the mid ascending aorta, 2.4 cm in the mid aortic arch, 2.0 cm in the proximal descending aorta, 2.0 cm in the mid descending aorta, 1.6 cm at the level of the diaphragmatic hiatus, 1.7 cm at the level of the celiac trunk, 1.5 cm at the level of the SMA, 1.1 cm at level of the renal arteries, and 1.1 cm just above the level of the bifurcation. CHEST: LINES/TUBES: None. LUNGS AND AIRWAYS: The lungs and airways are normal. No consolidation, nodules or masses. PLEURA: The pleural spaces are clear. HEART AND MEDIASTINUM: The thyroid gland is normal. The heart and pericardium are within normal limits. LYMPH NODES: No significant , hilar or axillary lymphadenopathy. BONES AND SOFT TISSUES: No bony destructive lesions. No soft tissue abnormalities. ABDOMEN/PELVIS: HEPATOBILIARY: No focal hepatic lesions. No intra or extrahepatic biliary ductal dilation. Stable pneumobilia. Radiopaque stent/catheter is again seen in the region of the cheryl hepatis with known hepaticojejunostomy. GALLBLADDER: Absent SPLEEN: No splenomegaly. PANCREAS: No focal masses or ductal dilatation. ADRENALS: No adrenal nodules. KIDNEYS/URETERS: No hydronephrosis, stones, or solid mass lesions. PELVIC ORGANS/BLADDER: Bladder and uterus are unremarkable. No adnexal masses. 3.9 cm fluid density simple right ovarian follicular cyst. PERITONEUM/RETROPERITONEUM: No free air or fluid. LYMPH NODES: No intra-abdominal,retroperitoneal, pelvic or inguinal lymphadenopathy. VESSELS: The portal, superior mesenteric and splenic veins are patent. GI TRACT: No bowel dilation or evidence of obstruction. BONES AND SOFT TISSUES: No aggressive lytic or suspicious focal sclerotic lesions. Soft tissues are unremarkable. IMPRESSION: 1. Normal aorta, without evidence of dissection or aneurysm. 2. No acute abdominopelvic abnormalities, similar to the 2 previous CTs obtained in June 06, 2019. Signed by: Dr. Juma Che M.D. on 10/09/2019 5:23 PM
[2019-10-09 17:53] VITALS: BP 126/84
[2019-10-09] MEDS ORDERED: ONDANSETRON ODT8 MG PO (17:56)
[2019-10-09] MEDS ORDERED: PANTOPRAZOLE SO40 MG PO (17:56)
== END 2019-10-09 17:53 | disposition home or self-care (01) ==
LOC: FSED 13:27
DX: R10.13 Epigastric pain (principal); R11.2 Nausea with vomiting, unspecified; K29.00 Acute gastritis without bleeding; K21.9 Gastro-esophageal reflux disease without esophagitis
CPT/HCPCS: 71275; 74174; 80053; 81003; 82553; 84484; 85025; 85610; 93005; 96374; 96376; 99284; J2270; J2405; J7050; Q9967

== ENCOUNTER 2020-03-13 19:11 | Emergency (ER) | payer OTHER ==
[~2020-03-13] VITALS: Ht 149.9 cm; Wt 88.5 kg
[~2020-03-13 19:11] MED LIST changes: +ONDANSETRON ODT8 MG PO; +PANTOPRAZOLE SO40 MG PO
[2020-03-13] MEDS ORDERED: KETOROLAC TROMETHAMINE 30 MG/ML VIAL IV STA (19:39)
[2020-03-13] MEDS ORDERED: MORPHINE SULFATE INJ 4 MG/ML INJ 1ML IV STA (19:39)
[2020-03-13] MEDS ORDERED: ONDANSETRON HCL INJ 2MG/ML 2ML 2 MG/ML VIAL IV STA (19:39)
[2020-03-13] MEDS ORDERED: SODIUM CHLORIDE FLUSH 10 ML SYR INJ PRN (19:45)
[2020-03-13] MEDS ORDERED: ASPIRIN 81 MG CHEW TAB PO ONE (19:45)
[2020-03-13] MEDS ORDERED: POTASSIUM CHLORIDE 20 MEQ TAB CR PO STA (20:58)
[2020-03-13] MEDS ORDERED: CEFTRIAXONE SOD 1 GM/NS 50 ML 50 ML IV ONE (21:00)
[2020-03-13] MEDS ORDERED: SODIUM CHLORIDE 0.9% 50ML 50 ML ONE (21:12)
[2020-03-13] MEDS ORDERED: IOPAMIDOL 370 MG/ML 200 ML INFUS..BTL INJ ONE (21:12)
[2020-03-13] MEDS ORDERED: ONDANSETRON ODT8 MG PO (22:03)
[2020-03-13] MEDS ORDERED: PREDNISONE20 MG PO (22:03)
[2020-03-13] MEDS ORDERED: CYCLOBENZAPRINE5 MG PO (22:03)
[2020-03-13] MEDS ORDERED: BACTRIM DS TAB1 EACH PO (22:03)
== END 2020-03-13 22:10 | disposition home or self-care (01) ==
LOC: FSED 19:20
DX: R94.31 Abnormal electrocardiogram [ECG] [EKG] (principal); N39.0 Urinary tract infection, site not specified
CPT/HCPCS: 71260; 74177; 80048; 80053; 81003; 81025; 82553; 84484; 85025; 96374; 96375; 96376; 99284; J0696; J1885; J2270; J2405; Q9967; 93005

== ENCOUNTER 2020-06-12 18:17 | Emergency (ER) | payer OTHER ==
[~2020-06-12] VITALS: Ht 149.9 cm; Wt 88.1 kg
[~2020-06-12 18:17] MED LIST changes: +BACTRIM DS TAB1 EACH PO; +CYCLOBENZAPRINE5 MG PO; +PREDNISONE20 MG PO
[2020-06-12] MEDS ORDERED: PLAQUENIL200 MG PO (18:57)
[2020-06-12] MEDS ORDERED: KETOROLAC TROMETHAMINE 30 MG/ML VIAL IV STA (19:04)
[2020-06-12] MEDS ORDERED: SODIUM CHLORIDE 0.9% 1000ML 1,000 ML IV STA (19:04)
[2020-06-12] MEDS ORDERED: ONDANSETRON HCL INJ 2MG/ML 2ML 2 MG/ML VIAL IV STA (19:04)
[2020-06-12] MEDS ORDERED: SODIUM CHLORIDE FLUSH 10 ML SYR INJ PRN (19:15)
[2020-06-12] MEDS ORDERED: CLINDAMYCIN 600MG / 50ML 50 ML IV ONE (19:15)
[2020-06-12] MEDS ORDERED: IOPAMIDOL 370 MG/ML 200 ML INFUS..BTL INJ ONE (19:42)
[2020-06-12] MEDS ORDERED: SODIUM CHLORIDE 0.9% 50ML 50 ML ONE (19:42)
[2020-06-12] MEDS ORDERED: SODIUM CHLORIDE 0.9% 1000ML 1,000 ML ONE (20:00)
[2020-06-12] MEDS ORDERED: ONDANSETRON HCL INJ 2MG/ML 2ML 2 MG/ML VIAL ONE (20:00)
[2020-06-12] MEDS ORDERED: KETOROLAC TROMETHAMINE 30 MG/ML VIAL ONE (20:00)
[2020-06-12] MEDS ORDERED: CLINDAMYCIN PHOS 600 MG/ 4 ML VIAL ONE (20:00)
[2020-06-12] MEDS ORDERED: DONNATAL/LIDOCAINE/MAALOX 30 ML SUSP PO ONE (21:45)
[2020-06-12] MEDS ORDERED: METHYLPREDNISOLONE SOD SUCC 125 MG/2ML VIAL IV ONE (21:45)
[2020-06-12] MEDS ORDERED: ONDANSETRON ODT8 MG SL (21:50)
[2020-06-12] MEDS ORDERED: CLINDAMYCIN HC300 MG PO (21:50)
[2020-06-12] MEDS ORDERED: MAGNESIUM/ALUMINUM/SIMETHICONE 30 ML UDC ONE (22:00)
[2020-06-12] MEDS ORDERED: LIDOCAINE VISC 2% SOLN 15 ML UDC ONE (22:00)
[2020-06-12] MEDS ORDERED: BELLADONNA ALK/PHENOBARBITAL 5 ML UDC ONE (22:00)
[2020-06-12] MEDS ORDERED: METHYLPREDNISOLONE SOD SUCC 125 MG/2ML VIAL ONE (22:00)
== END 2020-06-12 22:13 | disposition home or self-care (01) ==
LOC: FSED 19:05
DX: K04.7 Periapical abscess without sinus (principal); R10.84 Generalized abdominal pain; R11.0 Nausea; E03.9 Hypothyroidism, unspecified; M32.9 Systemic lupus erythematosus, unspecified; K21.9 Gastro-esophageal reflux disease without esophagitis
CPT/HCPCS: 74177; 80048; 80076; 81003; 85025; 99284; J1885; J2405; J2930; J7030; Q9967

== ENCOUNTER 2020-10-04 22:50 | Emergency (ER) | payer OTHER ==
[~2020-10-04] VITALS: Ht 149.9 cm; Wt 90.3 kg
[~2020-10-04 22:50] MED LIST changes: +CLINDAMYCIN HC300 MG PO; +ONDANSETRON ODT8 MG SL; +PLAQUENIL200 MG PO
[2020-10-05] MEDS ORDERED: KETOROLAC TROMETHAMINE 30 MG/ML VIAL IV STA (00:23)
[2020-10-05] MEDS ORDERED: SODIUM CHLORIDE 0.9% 1000ML 1,000 ML IV SCH (00:30)
[2020-10-05] MEDS ORDERED: SODIUM CHLORIDE 0.9% 50ML 50 ML ONE (00:37)
[2020-10-05] MEDS ORDERED: IOPAMIDOL 370 MG/ML 200 ML INFUS..BTL INJ ONE (00:38)
[2020-10-05] MEDS ORDERED: KETOROLAC TROMETHAMINE 30 MG/ML VIAL ONE (01:20)
[2020-10-05] MEDS ORDERED: SODIUM CHLORIDE 0.9% 1000ML 1,000 ML ONE (01:21)
[2020-10-05] MEDS ORDERED: NAPROSYN500 MG PO (02:17)
[2020-10-05] MEDS ORDERED: ULTRAM 50MG50 MG PO (02:19)
[2020-10-05 03:00] VITALS: BP 146/80
== END 2020-10-05 03:00 | disposition home or self-care (01) ==
LOC: FSED 23:15
DX: R10.30 Lower abdominal pain, unspecified (principal); R10.2 Pelvic and perineal pain; M25.511 Pain in right shoulder; M32.9 Systemic lupus erythematosus, unspecified
CPT/HCPCS: 74177; 99284; J1885; J7030; Q9967

== ENCOUNTER 2021-01-15 08:25 | Emergency (ER) | payer OTHER ==
[~2021-01-15] VITALS: Ht 149.9 cm; Wt 88.9 kg
[2021-01-15] MEDS ORDERED: OMEPRAZOLE40 MG PO ×2 (09:51→09:53)
[2021-01-15 10:00] VITALS: BP 121/69
== END 2021-01-15 10:00 | disposition home or self-care (01) ==
LOC: FSED 08:54
DX: R07.89 Other chest pain (principal); R10.13 Epigastric pain; K21.9 Gastro-esophageal reflux disease without esophagitis
CPT/HCPCS: 71046; 80053; 82553; 84484; 85025; 93005; 99283

== ENCOUNTER 2021-04-15 16:28 | Emergency (ER) | payer OTHER ==
[~2021-04-15] VITALS: Ht 149.9 cm; Wt 98.0 kg
[~2021-04-15 16:28] MED LIST changes: +OMEPRAZOLE40 MG PO
[2021-04-15] MEDS ORDERED: METOPROLOL SUCC25 MG PO (16:58)
[2021-04-15] MEDS ORDERED: ULTRAM 50MG50 MG PO (17:37)
== END 2021-04-15 17:50 | disposition home or self-care (01) ==
LOC: FSED 16:51
DX: R07.89 Other chest pain (principal); R30.0 Dysuria; R10.9 Unspecified abdominal pain; E03.9 Hypothyroidism, unspecified; M32.9 Systemic lupus erythematosus, unspecified; K21.9 Gastro-esophageal reflux disease without esophagitis; Z79.899 Other long term (current) drug therapy
CPT/HCPCS: 71046; 80053; 81003; 81025; 82553; 83880; 84484; 85025; 93005; 99284

== ENCOUNTER 2021-08-14 14:04 | Emergency (ER) | payer OTHER ==
[~2021-08-14] VITALS: Ht 149.9 cm; Wt 95.4 kg
[~2021-08-14 14:04] MED LIST changes: +METOPROLOL SUCC25 MG PO
[2021-08-14] MEDS ORDERED: CYCLOBENZAPRINE5 MG PO (14:42)
[2021-08-14] MEDS ORDERED: NAPROSYN500 MG PO (14:42)
== END 2021-08-14 15:13 | disposition home or self-care (01) ==
LOC: FSED 14:20
DX: M54.9 Dorsalgia, unspecified (principal); I10 Essential (primary) hypertension; M32.9 Systemic lupus erythematosus, unspecified; E03.9 Hypothyroidism, unspecified; K21.9 Gastro-esophageal reflux disease without esophagitis; Z79.899 Other long term (current) drug therapy
CPT/HCPCS: 99282

== ENCOUNTER 2022-01-01 00:46 | Emergency (ER) | payer OTHER ==
[~2022-01-01] VITALS: Ht 149.9 cm; Wt 99.8 kg
[2022-01-01] MEDS ORDERED: BENZONATATE200 MG PO (01:57)
[2022-01-01] MEDS ORDERED: ONDANSETRON ODT4 MG PO (01:57)
[2022-01-01] MEDS ORDERED: CEFDINIR300 MG PO (01:57)
[2022-01-01] MEDS ORDERED: ACETAMINOPHEN500 MG PO (01:57)
[2022-01-01 02:05] VITALS: BP 146/79
== END 2022-01-01 02:05 | disposition home or self-care (01) ==
LOC: FSED 00:53
DX: R50.9 Fever, unspecified (principal); J02.9 Acute pharyngitis, unspecified; R05.9 Cough, unspecified; I10 Essential (primary) hypertension; E03.9 Hypothyroidism, unspecified; M32.9 Systemic lupus erythematosus, unspecified; K21.9 Gastro-esophageal reflux disease without esophagitis
CPT/HCPCS: 83518; 87400; 99282

== ENCOUNTER → 2023-04-23 | Outpatient (REF) | payer OTHER ==
[~2023-04-23] MED LIST changes: +ACETAMINOPHEN500 MG PO; +BENZONATATE200 MG PO; +CEFDINIR300 MG PO; +DIATRIZOATE MEGL/DIATRIZOA SOD 30 ML BTL PO ONE; +IBUPROFEN600 MG PO; +ONDANSETRON ODT4 MG PO
[2023-04-23 17:55] LABS: BLOOD UREA NITROGEN 10 mg/dL (7-26); BUN/CREATININE RATIO 11 (6-25); CREATININE, SERUM 0.89 mg/dL (0.57-1.11); EST GLOMERULAR FILTRATION RATE 85 ML/MIN (>=60)
== END ==
LOC: CT 16:44
PROVIDERS: ATTEND Internal Medicine Gastroenterology
DX: R19.5 Other fecal abnormalities (principal)
CPT/HCPCS: 36415; 74177; 82565; 84520; 84702; Q9963

== ENCOUNTER 2023-06-11 19:36 | Emergency (ER) | payer OTHER ==
[~2023-06-11] VITALS: Ht 149.9 cm; Wt 90.7 kg
[~2023-06-11 19:36] MED LIST changes: -DIATRIZOATE MEGL/DIATRIZOA SOD 30 ML BTL PO ONE
[2023-06-11] MEDS ORDERED: BROMFED DM COU118 ML PO (20:29)
[2023-06-11] MEDS ORDERED: AZITHROMYCIN250 MG PO (20:29)
[2023-06-11] MEDS ORDERED: IBUPROFEN200 MG PO (20:29)
[2023-06-11] MEDS ORDERED: ONDANSETRON ODT4 MG PO (20:35)
[2023-06-11 21:01] VITALS: BP 120/79; PULSE 99; RESP 18; TEMP 98.9; O2SAT 98
== END 2023-06-11 21:01 | disposition home or self-care (01) ==
LOC: FSED 19:58
DX: R50.9 Fever, unspecified (principal); J40 Bronchitis, not specified as acute or chronic; B34.9 Viral infection, unspecified; R05.9 Cough, unspecified; Z11.52 Encounter for screening for COVID-19
CPT/HCPCS: 0223U; 71046; 83518; 87400; 99283

== ENCOUNTER 2024-04-10 16:23 | Emergency (ER) | payer OTHER ==
[~2024-04-10] VITALS: Ht 149.9 cm; Wt 89.6 kg
[~2024-04-10 16:23] MED LIST changes: +AZITHROMYCIN250 MG PO; +BROMFED DM COU118 ML PO; +CEFUROXIME500 MG PO; +HYDROCHLOROTHIA25 MG PO; +IBUPROFEN200 MG PO; +K-DUR10 MEQ PO; +MACROBID 100 M100 MG PO; +PHENAZOPYRIDIN200 MG PO
[2024-04-10 16:44] VITALS: TEMP 98
[2024-04-10] MEDS: KETOROLAC TROMETHAMINE 30 MG/ML VIAL IV STA (18:26)
[2024-04-10] MEDS: POTASSIUM CHLORIDE 20 MEQ TAB CR PO STA (18:26)
[2024-04-10 19:13] VITALS: PULSE 99; RESP 17
[2024-04-10] MEDS ORDERED: POTASSIUM CHLO20 ME2 PO (20:39)
[2024-04-10] MEDS: CEFTRIAXONE 2 GM in SODIUM CHLORIDE 0.9% 100 ML IV ONE (21:04)
[2024-04-10 21:15] VITALS: BP 127/87; PULSE 98; RESP 18; TEMP 98.6; O2SAT 98
== END 2024-04-10 21:18 | disposition home or self-care (01) ==
LOC: FSED 16:30
DX: R20.0 Anesthesia of skin (principal); R07.89 Other chest pain; N39.0 Urinary tract infection, site not specified; E87.6 Hypokalemia; I10 Essential (primary) hypertension; E11.9 Type 2 diabetes mellitus without complications; E03.9 Hypothyroidism, unspecified; L93.0 Discoid lupus erythematosus
CPT/HCPCS: 70450; 71046; 80048; 80076; 81003; 81025; 82553; 84484; 85025; 85379; 87086; 87186; 93005; 96374; 99284; J0696; J1885; J7050

== ENCOUNTER 2024-11-09 03:05 | Emergency (ER) | payer MEDICAID ==
[~2024-11-09] VITALS: Ht 149.9 cm; Wt 93.4 kg
[~2024-11-09 03:05] MED LIST changes: +POTASSIUM CHLO20 ME2 PO
[2024-11-09] MEDS: NITROFURANTOIN 50 MG CAP PO ONE (03:48)
[2024-11-09] MEDS: KETOROLAC TROMETHAMINE 60 MG/2 ML VIAL IM ONE (03:49)
[2024-11-09] MEDS ORDERED: CEFUROXIME250 MG PO (04:32)
[2024-11-09 05:40] VITALS: PULSE 93; RESP 18; TEMP 98.7
[2024-11-09] MEDS ORDERED: KETOROLAC TROME10 MG PO (05:42)
[2024-11-09 06:05] VITALS: BP 109/81; PULSE 93; RESP 18; TEMP 98.7; O2SAT 99
== END 2024-11-09 05:45 | disposition home or self-care (01) ==
LOC: FSED 03:08
DX: R10.30 Lower abdominal pain, unspecified (principal); N39.0 Urinary tract infection, site not specified; I10 Essential (primary) hypertension; E11.9 Type 2 diabetes mellitus without complications; E03.9 Hypothyroidism, unspecified; I25.10 Atherosclerotic heart disease of native coronary artery without angina pectoris; D64.9 Anemia, unspecified; M32.9 Systemic lupus erythematosus, unspecified; K21.9 Gastro-esophageal reflux disease without esophagitis; Z87.19 Personal history of other diseases of the digestive system
CPT/HCPCS: 74176; 76830; 76856; 81003; 81025; 96372; 99284; J1885

== ENCOUNTER 2025-02-24 10:09 | Emergency (ER) | payer MEDICAID ==
[~2025-02-24] VITALS: Ht 149.9 cm; Wt 96.7 kg
[~2025-02-24 10:09] MED LIST changes: +CEFUROXIME250 MG PO; +KETOROLAC TROME10 MG PO
[2025-02-24 10:20] VITALS: TEMP 97.1
[2025-02-24] MEDS: ONDANSETRON HCL INJ 2MG/ML 2ML 2 MG/ML VIAL IV ONE (11:41)
[2025-02-24] MEDS: LACTATED RINGER'S 1,000 ML IV ONE (11:41)
[2025-02-24] MEDS: FAMOTIDINE 20 MG/2 ML VIAL IV ONE (11:41)
[2025-02-24] MEDS: KETOROLAC TROMETHAMINE 30 MG/ML VIAL IV ONE (11:42)
[2025-02-24] MEDS: POTASSIUM CHLORIDE 20 MEQ TAB CR PO STA (11:48)
[2025-02-24] MEDS ORDERED: CELEBREX200 MG PO (12:01)
[2025-02-24] MEDS ORDERED: PANTOPRAZOLE SO40 MG PO (13:00)
[2025-02-24] MEDS ORDERED: MAALOX MAXIMUM355 ML PO (13:00)
[2025-02-24] MEDS ORDERED: ULTRAM 50MG50 MG PO (13:00)
[2025-02-24] MEDS ORDERED: ONDANSETRON ODT4 MG PO (13:00)
[2025-02-24 13:05] VITALS: PULSE 90; RESP 16; O2SAT 99
[2025-02-24] MEDS: HYDROCODONE/APAP 5MG-325MG TAB PO ONE (13:08)
== END 2025-02-24 13:15 | disposition home or self-care (01) ==
LOC: FSED 10:33
DX: R07.89 Other chest pain (principal); K85.90 Acute pancreatitis without necrosis or infection, unspecified; K29.00 Acute gastritis without bleeding; R11.2 Nausea with vomiting, unspecified; E87.6 Hypokalemia; R10.9 Unspecified abdominal pain; N83.201 Unspecified ovarian cyst, right side; I10 Essential (primary) hypertension; E11.9 Type 2 diabetes mellitus without complications; E03.9 Hypothyroidism, unspecified; I25.10 Atherosclerotic heart disease of native coronary artery without angina pectoris; D64.9 Anemia, unspecified; M32.9 Systemic lupus erythematosus, unspecified; K21.9 Gastro-esophageal reflux disease without esophagitis; R94.31 Abnormal electrocardiogram [ECG] [EKG]; Z87.442 Personal history of urinary calculi; Z87.19 Personal history of other diseases of the digestive system
CPT/HCPCS: 36415; 74176; 80048; 80076; 81003; 81025; 83690; 84484; 85025; 85379; 93005; 99284; J1308; J1885; J2405; J7121

== ENCOUNTER 2025-03-13 12:57 | Emergency (ER) | payer MEDICAID ==
[~2025-03-13] VITALS: Ht 149.9 cm; Wt 94.0 kg
[~2025-03-13 12:57] MED LIST changes: +CELEBREX200 MG PO; +MAALOX MAXIMUM355 ML PO
[2025-03-13] MEDS ORDERED: ONDANSETRON HCL 4 MG ORAL DISINTEGRATING TAB ONE (15:00)
[2025-03-13] MEDS ORDERED: ONDANSETRON ODT4 MG PO (16:19)
[2025-03-13 16:41] VITALS: PULSE 92; RESP 14; TEMP 97.8; O2SAT 100
[2025-03-13] MEDS: SODIUM CHLORIDE 0.9% 1000ML 1,000 ML IV ONE (16:54)
[2025-03-13] MEDS: ONDANSETRON HCL 4 MG ORAL DISINTEGRATING TAB PO ONE (16:54)
[2025-03-13] MEDS: ONDANSETRON HCL INJ 2MG/ML 2ML 2 MG/ML VIAL IV STA (16:54)
== END 2025-03-13 16:41 | disposition home or self-care (01) ==
LOC: FSED 13:07
DX: R11.2 Nausea with vomiting, unspecified (principal); K29.70 Gastritis, unspecified, without bleeding; I10 Essential (primary) hypertension; R73.03 Prediabetes; E03.9 Hypothyroidism, unspecified; I25.10 Atherosclerotic heart disease of native coronary artery without angina pectoris; D64.9 Anemia, unspecified; K21.9 Gastro-esophageal reflux disease without esophagitis; M32.9 Systemic lupus erythematosus, unspecified; M19.09 Primary osteoarthritis, other specified site; Z87.19 Personal history of other diseases of the digestive system; Z87.442 Personal history of urinary calculi
CPT/HCPCS: 99283; Q0162; J2405; J7030